=== PATIENT | male | born 1965 | race African-American/Black ===

== ENCOUNTER 2021-09-05 11:57 | Emergency (ER) | payer OTHER ==
--- OUTSIDE RECORDS SUMMARY | 2021-09-05 12:00 | XMS REPORT | Continuity of Care Document ---
:1965 Author Organization [facility] t Address [address] [place] [address] Care Team Providers Name Role Phone Daniel WHITE Primary Care Physician [facility] Attending Clinician Unavailable Jose Ramon High Attending Clinician Daniel WHITE Attending Clinician Payers Payer Name Policy Type Policy Number Effective Date Expiration Date S ource Problems Condition Condition Condition Status Onset Resolution Last Treating Co mments Source Name Details Category Date Date Treatment Clinician Date Ascending Ascending Disease Active Overview: Univers aortic aortic 5-13 Formattin ity of aneurysm aneurysm 00:00: g of this [place] 00 note Medical might be Branch different from the original. Added automatic ally from request for surgery [id number] Aortic Aortic Disease Active Univers insufficie insufficie 5-12 it y of ncy ncy 00:00: [place] 00 Medical Branch Secondary Secondary Disease Active Uni vers syphilis syphilis 4-18 ity of 00:00: [place] 00 Medical Branch SOB SOB Disease Active Univers (shortness (shortness 4-14 it y of of breath) of breath) [place] HFrEF HFrEF Disease Active Overview: Univer s (heart (heart 4-14 Formattin ity of failure failure 00:00: g of this [place] with with 00 note Medical reduced reduced might be Branch ejection ejection different fraction) fraction) from the original. 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 1-06 it y of ciency ciency 00:00: [place] virus virus 00 Medical infection) infection) Br anch HTN HTN Disease Active 2010-03 Univers (hypertens (hypertens 0-26 it y of ion) ion) 00:00: [place] [id number] Medical Branch DJD DJD Disease Active 2010-03 Univers (degenerat (degenerat 0-26 it y of neelam joint neelam joint [place] disease) disease[place] 00 Medica l of knee of knee Branch Gout Gout Disease Active 2010-03 Univers 0-26 ity of 00:00: [place] [address] Medical Branch Hepatitis Hepatitis Disease Active 2008-03 Uni vers C, chronic C, chronic 0-12 it y of 00:00: [place] [address] Medical Branch Allergies, Adverse Reactions, Alerts Allergy Allergy Status Severity Reaction(s) Onset Inactive Treating Comm ents Source Name Type Date Date Clinician NO KNOWN Drug Active Univers ALLERGIE Class ity of S [facility] [place] Social History Social Habit Start Date Stop Date Quantity Comments Source History [facility] o f Alcohol Frequency [facility] edical Branch History [facility] o f Alcohol Std Drinks [facility] [place] History [facility] o f Alcohol Binge [facility] al Branch History of tobacco Cigarette Smoker University of use [facility] [place] Alcohol intake 2021-08-24 2021-08-24 1.14 /d University of 00:00:00 00:00:00 [facility] [place] Exposure to 2021-08-07 2021-08-17 Not sure University SARS-CoV-2 (event) 00:00:00 15:47:00 [facility] [place] Cigarettes smoked 2015-10-06 2015-10-06 Univers ity of current (pack per 00:00:00 00:00:00 [facility] ) - Reported Branch Cigarette 2015-10-06 2015-10-06 University of pack-years 00:00:00 00:00:00 [facility] [place] Tobacco use and 2015-10-06 2015-10-06 Never used Universit y of exposure 00:00:00 00:00:00 [facility] [place] Alcohol Comment 2009-01-03 2009-01-03 beer, 7-8 per Kaitlynn sity of 00:00:00 00:00:00 week [facility] [place] Sex [birth year] At [birth year] Universit y of 00:00:00 00:00:00 [facility] [place] Smoking Status Start Date Stop Date Source Current some day smoker 2015-10-06 00:00:00 [facility]ations Ordered Filled Start Stop Current Ordering Indication Dosage Frequency Signature Comments Components Source Medication Medication Date Date Medication? Clinician (SIG) Name Name pantoprazol Yes [id number] 40mg Take 1 Univers e 40 mg EC 08-30 tablet by ity of tablet 00:00: mouth [place] 00 daily. [facility] Branch pantoprazol Yes [id number] 40mg Take 1 Univers e 40 mg EC 6 00 tablet by ity of tablet 00:00: mouth [place] 00 daily. [facility] Branch pantoprazol Yes [id number] 40mg Take 1 Univers e 40 mg EC 6 00 tablet by ity of tablet 00:00: mouth [place] 00 daily. Medical Branch aspirin 81 Yes Take by Uni vers mg Cap 6-07 mouth. ity of 16:27: [place] 31 [facility] Branch aspirin 81 Yes Take by Uni vers mg Cap 6-07 mouth. ity of 16:27: [place] [address] Medical Branch aspirin 81 Yes Take by Uni vers mg Cap 08-29 mouth. ity of 16:27: [place] [address] Medical Branch metoprolol Yes [id number] 25mg Take 1 Univers tartrate 25 6 00 tablet by ity of mg tablet 00:00: mouth 2 [place] 00 (two) Medical times Branch daily. warfarin 5 Yes [id number] 5mg Take 1 Univers mg tablet 08-29 00 tablet by ity o f 00:00: mouth [place] 00 every Medical evening. Branch metoprolol Yes [id number] 25mg Take 1 Univers tartrate 25 08-29 00 tablet by ity of mg tablet 00:00: mouth 2 [place] 00 (two) Medical times Branch daily. warfarin 5 Yes [id number] 5mg Take 1 Univers mg tablet 08-29 00 tablet by ity o f 00:00: mouth [place] 00 every Medical evening. Branch metoprolol Yes [id number] 25mg Take 1 Univers tartrate 25 08-29 tablet by ity of mg tablet 00:00: mouth 2 [place] 00 (two) Medical times Branch daily. warfarin 5 Yes [id number] 5mg Take 1 Univers mg tablet 08-29 00 tablet by ity o f 00:00: mouth [place] 00 every Medical evening. Branch ferrous 2021- Yes [id number] 325mg Take 1 Univers sulfate 325 08-29- tablet by it y of mg (65 mg 00:00: 04:59 [place] iron) 00 :00 (two) Medical tablet times Branch daily before breakfast and dinner for 30 days. ferrous 2021- Yes [id number] 325mg Take 1 Univers sulfate 325 08-29- tablet by it y of mg (65 mg 00:00: 04:59 [place] iron) 00 :00 (two) Medical tablet times Branch daily before breakfast and dinner for 30 days. ferrous 2021- Yes [id number] 325mg Take 1 Univers sulfate 325 08-29- 00 tablet by it y of mg (65 mg 00:00: 04:59 [place] iron) 00 :00 (two) Medical tablet times Branch daily before breakfast and dinner for 30 days. methocarbam 2021- Yes [id number] 500mg Take 1 Univers oL 500 mg 08-29 00 tablet by ity of tablet 00:00: 04:59 mouth 4 [place] 00 :00 (four) Medical times Branch daily for 7 days. methocarbam 2021- Yes [id number] 500mg Take 1 Univers oL 500 mg 08-29 00 tablet by ity of tablet 00:00: 04:59 mouth 4 [place] 00 :00 (four) Medical times Branch daily for 7 days. methocarbam 2021- Yes [id number] 500mg Take 1 Univers oL 500 mg 08-29 00 tablet by ity of tablet 00:00: 04:59 mouth 4 [place] 00 :00 (four) Medical times Branch daily for 7 days. HYDROcodone 2021- Yes [id number] 1{tbl} Take 1 U nivers -acetaminop 6-06 07-07 tablet by it y of hen (HydrostorCO) 00:00: 04:59 [place] 10-325 mg 00 :00 every 6 Medical tablet (six) Branch hours as needed for Pain (scale 7-10) for up to 30 days. Indication s: chronic pain HYDROcodone 2021- Yes [id number] 1{tbl} Take 1 U nivers -acetaminop 6-06 07-07 tablet by it y of hen (NORCO) 00:00: 04:59 [place] 10-325 mg 00 :00 every 6 Medical tablet (six) Branch hours as needed for Pain (scale 7-10) for up to 30 days. Indication s: chronic pain HYDROcodone 2021- Yes [id number] 1{tbl} Take 1 U nivers -acetaminop 6-06 07-07 tablet by it y of hen (HydrostorCO) 00:00: 04:59 [place] 10-325 mg 00 :00 every 6 Medical tablet (six) Branch hours as needed for Pain (scale 7-10) for up to 30 days. Indication s: chronic pain furosemide Yes [id number] 80mg Take 1 Univers 80 mg 4-27 tablet by ity of tablet 00:00: mouth [place] 00 every Medical morning Branch and evening. spironolact 2021-0 Yes [id number] 12.5mg Take 0.5 Univers one 25 mg 4-27 tablets by ity of tablet 00:00: mouth 00 daily. Medical Branch lisinopriL 2021-0 Yes [id number] 2.5mg Take 1 Univers 2.5 mg 4-27 tablet by ity of tablet 00:00: mouth 00 daily. Medical Branch furosemide 2021-0 Yes [id number] 80mg Take 1 Univers 80 mg 4-27 tablet by ity of tablet 00:00: mouth [place] 00 every Medical morning Branch and evening. spironolact 2021-0 Yes [id number] 12.5mg Take 0.5 Univers one 25 mg 4-27 tablets by ity of tablet 00:00: mouth 00 daily. Medical Branch lisinopriL 2021-0 Yes [id number] 2.5mg Take 1 Univers 2.5 mg 4-27 tablet by ity of tablet 00:00: mouth 00 daily. Medical Branch furosemide 2021-0 Yes [id number] 80mg Take 1 Univers 80 mg 4-27 tablet by ity of tablet 00:00: mouth 00 every Medical morning Branch and evening. spironolact 2021-0 Yes [id number] 12.5mg Take 0.5 Univers one 25 mg 4-27 tablets by ity of tablet 00:00: mouth 00 daily. Medical Branch lisinopriL 2021-0 Yes [id number] 2.5mg Take 1 Univers 2.5 mg 4-27 tablet by ity of tablet 00:00: mouth 00 daily. Medical Branch gabapentin 2-0 Yes [id number] TAKE 1 U nivers 300 mg 2-09 CAPSULE BY ity of capsule 00:00: MOUTH 00 EVERYDAY Medical AT BEDTIME Branch gabapentin 2-0 Yes [id number] TAKE 1 U nivers 300 mg 2-09 CAPSULE BY ity of capsule 00:00: MOUTH 00 EVERYDAY Medical AT BEDTIME Branch gabapentin 2-0 Yes [id number] TAKE 1 U nivers 300 mg 2-09 CAPSULE BY ity of capsule 00:00: MOUTH 00 EVERYDAY Medical AT BEDTIME Branch JULUCA 2020-0 Yes [id number] TAKE 50 MG U nivers 50-25 mg 5-28 BY MOUTH ity of Tab 00:00: DAILY. [place] 00 TAKE ONE Medical 50/25 MG Branch TABLET ONCE DAILY WITH A MEAL JULUCA 2020-0 Yes [id number] TAKE 50 MG U nivers 50-25 mg 5-28 BY MOUTH ity of Tab 00:00: DAILY. [place] 00 TAKE ONE Medical 50/25 MG Branch TABLET ONCE DAILY WITH A MEAL JULUCA 2020-0 Yes [id number] TAKE 50 MG U nivers 50-25 mg 5-28 BY MOUTH ity of Tab 00:00: DAILY. [place] TAKE ONE Medical 50/25 MG Branch TABLET ONCE DAILY WITH A MEAL Diclofenac 2017-03 Yes Apply Univer s Sodium 1 % 0-19 1gram to ity o f gel 00:00: affected [place] area twice Medical daily Branch Diclofenac 2017-03 Yes Apply Univer s Sodium 1 % 0-19 1gram to ity o f gel 00:00: affected [place] area twice Medical daily Branch Diclofenac 2017-03 Yes Apply Univer s Sodium 1 % 0-19 1gram to ity o f gel 00:00: affected [place] 00 area twice Medical daily Branch Immunizations Ordered Filled Immunization Date Status Comments [facility] e Immunization Name Name SARS-COV-2 COVID-19 2021-02-22 Completed Unive rsity of PFIZER VACCINE 00:00:00 [facility] SARS-COV-2 COVID-19 2021-02-22 Completed Unive rsity of PFIZER VACCINE 00:00:00 [facility] SARS-COV-2 COVID-19 2021-02-22 Completed Unive rsity of PFIZER VACCINE 00:00:00 [facility] SARS-COV-2 COVID-19 2020-08-25 Completed Unive rsity of PFIZER VACCINE 00:00:00 [facility] SARS-COV-2 COVID-19 2020-08-25 Completed Unive rsity of PFIZER VACCINE 00:00:00 [facility] SARS-COV-2 COVID-19 2020-08-25 Completed Unive rsity of PFIZER VACCINE 00:00:00 [facility] SARS-COV-2 COVID-19 2020-07-25 Completed Unive rsity of PFIZER VACCINE 00:00:00 [facility] SARS-COV-2 COVID-19 2020-07-25 Completed Unive rsity of PFIZER VACCINE 00:00:00 [facility] SARS-COV-2 COVID-19 2020-07-25 Completed Unive rsity of PFIZER VACCINE 00:00:00 [facility] Influenza Virus 2019-12-28 Completed Universit y of Vaccine Quad .5 mL 00:00:00 [facility] [place] 6+ MO [place] Influenza Virus 2019-12-28 Completed Universit y of Vaccine Quad .5 mL 00:00:00 [facility] [place] 6+ MO [place] Influenza Virus 2019-12-28 Completed Universit y of Vaccine Quad .5 mL 00:00:00 [facility] [place] 6+ MO [place] Influenza Virus 2019-01-05 Completed Universit y of Vaccine 00:00:00 [facility] [place] Influenza Virus 2019-01-05 Completed Universit y of Vaccine 00:00:00 [facility] [place] Influenza Virus 2019-01-05 Completed Universit y of Vaccine 00:00:00 [facility] [place] Pneumococcal 2017-05-13 Completed University o f Polysaccharide, 00:00:00 [facility] ical PPSV23 (PNEUMOVAX) Branch Pneumococcal 2017-05-13 Completed University o f Polysaccharide, 00:00:00 [facility] ical PPSV23 (PNEUMOVAX) Branch Pneumococcal 2017-05-13 Completed University o f Polysaccharide, 00:00:00 [facility] ical PPSV23 (PNEUMOVAX) Branch Influenza Virus 2017-01-02 Completed Universit y of Vaccine Quad IM 3+ 00:00:00 [facility] Influenza Virus 2017-01-02 Completed Universit y of Vaccine Quad IM 3+ 00:00:00 [facility] Influenza Virus 2017-01-02 Completed Universit y of Vaccine Quad IM 3+ 00:00:00 [facility] Influenza Virus 2016-01-16 Completed Universit y of Vaccine Quad IM 3+ 00:00:00 [facility] Influenza Virus 2016-01-16 Completed Universit y of Vaccine Quad IM 3+ 00:00:00 [facility] Influenza Virus 2016-01-16 Completed Universit y of Vaccine Quad IM 3+ 00:00:00 [facility] Pneumococcal 13 2015-04-20 Completed Universit y of Conjugate, PCV13 00:00:00 [facility] dical (Prevnar 13) Branch Pneumococcal 13 2015-04-20 Completed Universit y of Conjugate, PCV13 00:00:00 [facility] dical (Prevnar 13) Branch Pneumococcal 13 2015-04-20 Completed Universit y of Conjugate, PCV13 00:00:00 [facility] (Prevnar 13) Branch Influenza Virus 2014-12-15 Completed Universit y of Vaccine Quad IM 3+ 00:00:00 [facility] Influenza Virus 2014-12-15 Completed Universit y of Vaccine Quad IM 3+ 00:00:00 [facility] Influenza Virus 2014-12-15 Completed Universit y of Vaccine Quad IM 3+ 00:00:00 [facility] HEPATITIS A 2012-05-21 Completed University of 00:00:00 [facility] [place] HEPATITIS A 2012-05-21 Completed University of 00:00:00 [facility] [place] HEPATITIS A 2012-05-21 Completed University of 00:00:00 [facility] [place] Influenza Virus 2011-12-20 Completed Universit y of Vaccine 00:00:00 [facility] [place] TDAP (ADACEL) 2011-12-20 Completed University of VACCINE 00:00:00 [facility] [place] Influenza Virus 2011-12-20 Completed Universit y of Vaccine 00:00:00 [facility] [place] TDAP (ADACEL) 2011-12-20 Completed University of VACCINE 00:00:00 [facility] [place] Influenza Virus 2011-12-20 Completed Universit y of Vaccine 00:00:00 [facility] [place] TDAP (ADACEL) 2011-12-20 Completed University of VACCINE 00:00:00 [facility] [place] HEPATITIS A 2011-08-14 Completed University of 00:00:00 [facility] [place] HEPATITIS A 2011-08-14 Completed University of 00:00:00 [facility] [place] HEPATITIS A 2011-08-14 Completed University of 00:00:00 [facility] [place] Influenza Virus 2011-01-17 Completed Universit y of Vaccine 00:00:00 [facility] [place] Influenza Virus 2011-01-17 Completed Universit y of Vaccine 00:00:00 [facility] [place] Influenza Virus 2011-01-17 Completed Universit y of Vaccine 00:00:00 [facility] [place] Influenza Virus 2010-01-17 Completed Universit y of Vaccine 00:00:00 [facility] [place] Influenza Virus 2010-01-17 Completed Universit y of Vaccine 00:00:00 [facility] [place] Influenza Virus 2010-01-17 Completed Universit y of Vaccine 00:00:00 [facility] [place] H1n1 Vaccine 2009-04-06 Completed University o f 00:00:00 [facility] [place] H1n1 Vaccine 2009-04-06 Completed University o f 00:00:00 [facility] [place] H1n1 Vaccine 2009-04-06 Completed University o f 00:00:00 [facility] [place] Influenza Virus 2009-01-03 Completed Universit y of Vaccine 00:00:00 [facility] [place] Pneumococcal 2009-01-03 Completed University o f Polysaccharide, 00:00:00 [place] Med ical PPSV23 (PNEUMOVAX) Branch HEPATITIS A 2009-01-03 Completed University of 00:00:00 [facility] [place] Influenza Virus 2009-01-03 Completed Universit y of Vaccine 00:00:00 [facility] [place] Pneumococcal 2009-01-03 Completed University o f Polysaccharide, 00:00:00 [place] Med ical PPSV23 (PNEUMOVAX) Branch HEPATITIS A 2009-01-03 Completed University of 00:00:00 [facility] [place] Influenza Virus 2009-01-03 Completed Universit y of Vaccine 00:00:00 [facility] [place] Pneumococcal 2009-01-03 Completed University o f Polysaccharide, 00:00:00 [place] Med ical PPSV23 (PNEUMOVAX) Branch HEPATITIS A 2009-01-03 Completed University of 00:00:00 [facility] [place] Procedures This patient has no known procedures. Plan of Care Planned Activity Planned Date Details Comments Source Medication 2021-09-24 00:00:00 [facility] Bra nch tablet [code = 392673] Medication 2021-09-24 00:00:00 HYDROcodone-acetami U niversity [facility] nophen 10-325 mg Medical Bra nch tablet [code = 525983] Medication 2021-09-24 00:00:00 [facility] Medical Bra nch tablet [code = 234883] Encounters Start End Encounter Admission Attending Care Care Encounter Source Date/Time Date/Time Type Type Clinicians Facility Department ID 2021-09-07 2021-09-07 Outpatient R [facility] [id number] Univers 14:00:00 14:00:00 [id number] ity of [facility] [place] 2021-09-05 2021-09-05 Telephone [facility] UNIVERSIT [id number] Univers 00:00:00 00:00:00 , Y HEALTH [id number] i ty of Cardiovascu CLINICS [id number] [facility] [id number] [facility] 185 Branch 2021-09-05 2021-09-05 Telephone ALPESH Welch [id number] Univers 00:00:00 00:00:00 Kaye BEE [id number] ity [facility] [id number] [place]hoi as [id number] [facility] 037 Branch 2021-09-04 2021-09-04 Telephone ROLAND Sanchez [id number] Univers 00:00:00 00:00:00 [facility] [id number] i [facility] [id number] [place] [id number] [facility] 089 Branch Results This patient has no known results.
--- NOTE | 2021-09-05 13:05 | RAD REPORT ---
EXAM DESCRIPTION: Ana Single View09/05/2021 12:42 pm CLINICAL HISTORY: Shortness of breath COMPARISON: 2018 FINDINGS: The lungs appear clear of acute infiltrate. The heart is mildly to moderately enlarged. P acemaker leads are in place. There may be small bilateral pleural effusions.
[2021-09-05 13:53] LABS: Absolute Lymphocytes (CBC) 1.3 K/uL (0.7-4.9); Hematocrit 23.9 % (39.6-49.0); Lymphocytes % 9.4 % (15.3-44.8); MPV 6.5 fL (7.6-11.3); Protime INR 3.64; RBC Red Blood Cell Count 3.03 M/uL (4.33-5.43)
[2021-09-05 14:18] LABS: Albumin 2.9 g/dL (3.4-5.0); Bilirubin Direct 0.3 mg/dL (0-0.2); Bilirubin Total 0.5 mg/dL (0.2-1.0); Magnesium 2.4 mg/dL (1.8-2.4); Potassium 3.8 mmol/L (3.5-5.1); Protein, Total 7.7 g/dL (6.4-8.2)
[2021-09-05] MEDS ORDERED: FUROSEMIDE 20 MG/ 2ML VIAL ONE (14:26)
[2021-09-05] MEDS ORDERED: IPRATROPIUM BROM 0.5MG/2.5ML ONE (14:27)
[2021-09-05] MEDS ORDERED: ALBUTEROL 2.5 MG/3 ML NEB SOL ONE (14:27)
--- NOTE | 2021-09-05 14:44 | RAD REPORT ---
EXAM DESCRIPTION: USExtrem Venous W Compress Bil09/05/2021 2:30 pm CLINICAL HISTORY: Leg swelling COMPARISON: none FINDINGS: The common femoral, superficial femoral, popliteal and posterior tibial veins bilaterally are compressible and demonstrate augmentation. Doppler demonstrates good flow. Grayscale, color and spectral analysis performed on all vessels IMPRESSION: No evidence of deep venous thrombosis involving either lower extremity.
--- NOTE | 2021-09-05 16:16 | RAD REPORT ---
EXAM DESCRIPTION: CT - Chest Abd Pelvis Wo Rufino - 09/05/2021 3:52 pm CLINICAL HISTORY: Chest and abdominal pain COMPARISON: None TECHNIQUE: Computed axial tomography of the chest, abdomen and pelvis was obtained. Oral contrast wa s given. 140 cc of Isovue 370 was administered intravenously but due to machine malfunction imaging o f the aorta not obtained All CT scans are performed using dose optimization technique as appropriate and may include automated exposure control or mA/KV adjustment according to patient size. FINDINGS: The evaluation of mediastinum, nancy, vessels and solid organs is limited secondary to the lack of IV contrast administration . Patient is status post thoracic aortic repair. A low to intermediate density fluid collection surroun ds the ascending thoracic aorta. It measures approximately 8 x 4 x 6 centimeters. The fluid collectio n extends from the aortic root to the aortic arch. No air bubbles noted 2 x 1 centimeter retrosternal fluid collection. Minimal left and small right pleural effusions. Right basilar atelectasis. Gallstones The liver, spleen, pancreas, adrenals and kidneys appear grossly normal There is no evidence of diverticulitis. Contrast is present within the genitourinary system. IMPRESSION: 8 x 4 x 6 centimeter fluid collection surrounds the ascending thoracic aorta. This could be a normal postoperative finding. Other considerations include hematoma or leakage from the aorta. Comparison to prior imaging and/or the operative would be helpful
--- NOTE | 2021-09-05 17:18 | EDPHYS ---
Physician Documentation [facility] Name: Laurent England Jr Age: 55 yrs Sex: Male : 1965 Arrival Date: 09/05/2021 Time: 11:58 Bed 5 Private MD: ED Physician Myles Keane HPI: 09/05 12:15 This 55 yrs old Black Male presents to ER via EMS with complaints of Pedal Edema. cp 12:15 The patient has shortness of breath at rest. cp 12:15 Onset: The symptoms/episode began/occurred gradually. Duration: The symptoms are cp continuous, and are steadily getting worse. Associated signs and symptoms: Pertinent negatives: chest pain, productive cough, diaphoresis, fever, hemoptysis. Severity of symptoms: in the emergency department the symptoms are unchanged despite home interventions. 12:15 Patient reports history of aortic aneurysm repair performed by DR Jewell at [facility] on 08/23/2021. Reports he has not been taking prescribed Lasix and is prescribed 80 mg bid. Historical: - Allergies: 12:01 No Known Allergies; ss - Home Meds: 12:30 Juluca 50-25 mg oral tab 1 tab once daily [Active]; meloxicam 15 mg oral tab 1 tab once bp daily [Active]; hydrocodone-acetaminophen 10-325 mg Oral tab 1 tab every 6 hours [Active]; furosemide 80 mg Oral tab 1 tab 2 times per day [Active]; methocarbamol 500 mg Oral tab 1 tabs 4 times per day [Active]; warfarin 5 mg Oral tab 1 tab once daily [Active]; gabapentin 300 mg oral Tb24 1 tab once daily [Active]; ferrous sulfate 325 mg (65 mg iron) Oral TbEC 1 tab twice a day [Active]; - PMHx: 12:01 Gout; Hepatitis; HIV; Hypertension; ss - Immunization history:: Adult Immunizations unknown. - Social history:: Smoking status: . ROS: 12:20 Eyes: Negative for injury, pain, redness, and discharge. cp 12:20 Constitutional: Negative for body aches, chills, fever, poor PO intake. 12:20 ENT: Negative for drainage from ear(s), ear pain, sore throat, difficulty swallowing, difficulty handling secretions. 12:20 Cardiovascular: Positive for edema, Negative for chest pain, palpitations. 12:20 Respiratory: Positive for shortness of breath, at rest. Negative for cough, wheezing. 12:20 Abdomen/GI: Negative for abdominal pain, nausea, vomiting, and diarrhea. 12:20 Back: Negative for pain at rest, pain with movement. 12:20 Neuro: Negative for altered mental status, dizziness, headache, syncope, weakness. 12:20 All other systems are negative. Exam: 12:25 Constitutional: The patient appears in no acute distress, alert, awake, cp non-diaphoretic, non-toxic, well developed, well nourished, uncomfortable. 12:25 Head/Face: Normocephalic, atraumatic. cp 12:25 Eyes: Periorbital structures: appear normal, Conjunctiva: normal, no exudate, no injection, Lids and lashes: appear normal, bilaterally. 12:25 ENT: External ear(s): are unremarkable, Nose: is normal, Mouth: Lips: moist, Oral mucosa: moist, Posterior pharynx: Airway: no evidence of obstruction, patent. 12:25 Neck: ROM/movement: is normal, is supple, without pain, no range of motions limitations. 12:25 Chest/axilla: Inspection: normal, Palpation: is normal, no crepitus, no tenderness. 12:25 Cardiovascular: Rate: tachycardic, Rhythm: regular, Edema: pedal edema, that is moderate, ankle edema, that is moderate, JVD: is not appreciated. 12:25 Respiratory: the patient does not display signs of respiratory distress, Respirations: normal, no use of accessory muscles, no retractions, labored breathing, is not present, Breath sounds: are clear throughout, no decreased breath sounds, no stridor, no wheezing. 12:25 Abdomen/GI: Inspection: obese Bowel sounds: active, all quadrants, Palpation: soft, in all quadrants, nontender, in all quadrants. 12:25 Back: CVA tenderness, is absent. 12:25 Skin: cellulitis, is not appreciated, no rash present. 12:25 Neuro: Orientation: to person, place \\T\\ time. Mentation: is normal, Motor: moves all fours, strength is normal, Sensation: is normal. 13:05 ECG was reviewed by the Attending Physician. cp 14:45 : Rectal exam: Stool: black, Guaiac testing: results were negative for occult blood. Vital Signs: 13:36 BP 111 / 74; Pulse 85; Resp 23; Temp 97.9; Pulse Ox 100% on 4 lpm NC; bp 14:30 BP 106 / 77; Pulse 86; Resp 28; Pulse Ox 100% on 4 lpm NC; bp 15:32 BP 115 / 76; Pulse 93; Resp 22; Pulse Ox 100% ; bp 17:00 BP 110 / 82; Pulse 76; Resp 22; Pulse Ox 100% ; bp 19:40 Weight 90.72 kg; vc1 20:37 BP 105 / 75; Pulse 113; Resp 20; Pulse Ox 100% on R/A; sm5 MDM: 12:03 Patient medically screened. 17:00 Data reviewed: vital signs, nurses notes, lab test result(s), EKG, radiologic studies, cp CT scan, I have discussed the patient's presentation/case with the attending Emergency Department Physician; and as a result, I will transfer patient. 17:00 Test interpretation: by ED physician or midlevel provider: ECG, plain radiologic cp studies. 09/05 12:09 Order name: Basic Metabolic Panel; Complete Time: 14:24 09/05 14:24 Interpretation: Abnormal: GFR 67. 09/05 12:09 Order name: CBC with Diff; Complete Time: 14:24 09/05 14:24 Interpretation: Normal except: WBC 13.6; RBC 3.03; HGB 7.7; HCT 23.9; MCV 78.9; MCH cp 25.3; PLT 491; MPV 6.5; LUIS% 79.6; LYM% 9.4; NEUT A 10.9. 09/05 12:09 Order name: LFT's; Complete Time: 14:24 09/05 14:25 Interpretation: Normal except: BILID 0.3; ALB 2.9; GLOB 4.8; A/G 0.6. 09/05 12:09 Order name: Magnesium; Complete Time: 14:24 09/05 12:09 Order name: NT PRO-BNP; Complete Time: 14:24 09/05 16:16 Interpretation: Abnormal: NT PRO-BNP 4662. 09/05 12:09 Order name: PT-INR; Complete Time: 14:24 09/05 16:16 Interpretation: Reviewed. 09/05 12:09 Order name: Troponin HS; Complete Time: 14:24 09/05 16:18 Interpretation: Reviewed. 09/05 12:09 Order name: XRAY Chest (1 view); Complete Time: 13:50 09/05 13:50 Interpretation: Report review. 09/05 12:45 Order name: US Extremity Venous W Compression Matteo; Complete Time: 16:16 09/05 16:16 Interpretation: Report reviewed. 09/05 14:28 Order name: CT Aorta for Dissection 09/05 15:52 Order name: Chest Abd Pelvis Wo Con; Complete Time: 16:53 EDMS 09/05 17:06 Order name: COVID-19 SARS RT PCR (Document "Date of Onset" if Symptomatic) 09/05 12:09 Order name: EKG; Complete Time: 12:10 09/05 12:09 Order name: Cardiac monitoring; Complete Time: 12:41 09/05 12:09 Order name: EKG - Nurse/Tech; Complete Time: 13:36 09/05 12:09 Order name: IV Saline Lock; Complete Time: 13:36 09/05 12:09 Order name: Labs collected and sent; Complete Time: 13:36 09/05 12:09 Order name: O2 Per Protocol; Complete Time: 12:41 09/05 12:09 Order name: O2 Sat Monitoring; Complete Time: 12:40 cp EC:05 Rate is 87 beats/min. Rhythm is regular. UT interval is normal. QRS interval is cp prolonged at 110 msec. QT interval is normal. T waves are Inverted in leads I, aVL. Interpreted by me. Reviewed by me. Administered Medications: 14:00 Drug: Lasix (furosemide) 20 mg Route: IVP; Site: right forearm; bp 18:11 Follow up: Response: No adverse reaction bp 14:15 Drug: Albuterol - atroVENT (ipratropium) (3:1) (2.5 mg - 0.5 mg) 3 ml Route: Nebulizer; bp 18:11 Follow up: Response: No adverse reaction bp 20:37 Drug: fentaNYL (PF) 25 mcg Route: IVP; Site: right antecubital; sm5 21:08 Follow up: Response: No adverse reaction sm5 Disposition Summary: 09/05/21 17:17 Transfer Ordered Transfer Location: [facility] cp Reason: Higher level of care cp Condition: Stable cp Problem: new cp Symptoms: have improved cp Accepting Physician: DR Carreon(09/05/21 21:08) 5 Diagnosis - Unspecified combined systolic (congestive) and diastolic (congestive) heart failure cp - Dyspnea, unspecified cp - Post-Op Intrathoracic Fluid Collection cp Forms: - Medication Reconciliation Form cp - SBAR form cp Signatures: Dispatcher [employer] EDMS Rosy Hernandez RN RN ss Hall, Patricia RN RN ph Jem Roberson PA PA cp Johnny Vazquez, RN RN Kennedi Puri RN RN sm5 Corrections: (The following items were deleted from the chart) 13:36 13:04 BiPap ([employer] Only)+[id number] ordered. EDMS EDMS 15:52 14:32 Angio Aorta For Dissection ordered. EDMT EDMS 19:31 17:17 Doctor cp cp 19:33 19:31 DR Carreon cp cp 21:08 19:33 DR Carreon cp 5 09/06 19:52 09/05 21:20 Constitutional: Negative for body aches, chills, fever, poor PO intake, cp cp 09/06 19:52 09/05 21:20 Cardiovascular: Positive for edema, Negative for chest pain, palpitations, cp cp 09/06 19:52 09/05 21:20 Respiratory: Positive for shortness of breath, at rest. Negative for cough, cp wheezing, cp 09/06 19:52 09/05 21:20 Abdomen/GI: Negative for abdominal pain, nausea, vomiting, and diarrhea, cp cp 09/06 19:52 09/05 21:20 Eyes: Negative for injury, pain, redness, and discharge, cp cp 09/06 19:52 09/05 21:20 ENT: Negative for drainage from ear(s), ear pain, sore throat, difficulty cp swallowing, difficulty handling secretions, cp 09/06 19:52 09/05 21:20 Back: Negative for pain at rest, pain with movement, cp cp 09/06 19:52 09/05 21:20 Neuro: Negative for altered mental status, dizziness, headache, syncope, cp weakness, cp 09/06 19:52 09/05 21:20 All other systems are negative, cp cp
--- NOTE | 2021-09-05 17:18 | ER ---
Nurse's Notes [facility] Name: Laurent England Jr Age: 55 yrs Sex: Male : 1965 Arrival Date: 09/05/2021 Time: 11:58 Bed 5 Private MD: Diagnosis: Unspecified combined systolic (congestive) and diastolic (congestive) heart failure;Dyspnea, unspecified;Post-Op Intrathoracic Fluid Collection Presentation: 09/05 11:58 Chief complaint: Patient states: Pedal edema that has been slowly progressing since Aortic aneurysm repair on 08/23 at [facility]. Coronavirus screen: Client denies travel out of the [place] in the last 14 days. Ebola Screen: Patient denies exposure to infectious person. Patient denies travel to an Ebola-affected area in the 21 days before illness onset. Initial Sepsis Screen: Does the patient meet any 2 criteria? No. Patient's initial sepsis screen is negative. Does the patient have a suspected source of infection? No. Patient's initial sepsis screen is negative. Risk Assessment: Do you want to hurt yourself or someone else? Patient reports no desire to harm self or others. Onset of symptoms was August 2021. 11:58 Method Of Arrival: EMS: [facility] 11:58 Acuity: JUDITH 3 ss Triage Assessment: 12:00 General: Appears in no apparent distress. uncomfortable, obese, Behavior is calm, bp cooperative, appropriate for age. Pain: Complains of pain in right foot and left foot. EENT: No deficits noted. Neuro: Level of Consciousness is awake, alert, obeys commands, Oriented to Appropriate for age. Cardiovascular: Rhythm is sinus rhythm. Respiratory: Airway is patent Respiratory effort is labored, Breath sounds with wheezes. GI: No signs and/or symptoms were reported involving the gastrointestinal system. : No signs and/or symptoms were reported regarding the genitourinary system. Derm: No signs and/or symptoms reported regarding the dermatologic system. Musculoskeletal: Swelling present in right foot and left foot. Historical: - Allergies: 12:01 No Known Allergies; - Home Meds: 12:30 Juluca 50-25 mg oral tab 1 tab once daily [Active]; meloxicam 15 mg oral tab 1 tab once bp daily [Active]; hydrocodone-acetaminophen 10-325 mg Oral tab 1 tab every 6 hours [Active]; furosemide 80 mg Oral tab 1 tab 2 times per day [Active]; methocarbamol 500 mg Oral tab 1 tabs 4 times per day [Active]; warfarin 5 mg Oral tab 1 tab once daily [Active]; gabapentin 300 mg oral Tb24 1 tab once daily [Active]; ferrous sulfate 325 mg (65 mg iron) Oral TbEC 1 tab twice a day [Active]; - PMHx: 12:01 Gout; Hepatitis; HIV; Hypertension; ss - Immunization history:: Adult Immunizations unknown. - Social history:: Smoking status: . Screenin:39 Abuse screen: Denies threats or abuse. Denies injuries from another. Nutritional ph screening: No deficits noted. Tuberculosis screening: No symptoms or risk factors identified. Fall Risk None identified. Assessment: 12:00 General: SEE TRIAGE NOTE. bp 12:04 Reassessment: Sister requesting transfer to [facility] to ED registration staff. ss 14:00 Reassessment: Patient appears in no apparent distress at this time. U/S AT B/S Patient bp states symptoms have improved. 15:31 Reassessment: PT TO CT. bp 17:00 Reassessment: Initiated transfer with [facility]. Point of Contact ALLYSSA Dc. ss 17:15 Reassessment: ALLYSSA Dc with [facility] states that the physician accepted without ss consultation. Vanda states that they have two discharges pending and will call back with administer approval as soon as bed becomes available. 18:10 Reassessment: No changes from previously documented assessment. Patient and/or family bp updated on plan of care and expected duration. Pain level reassessed. 20:37 General: Appears in no apparent distress. Behavior is cooperative. Pain: Complains of sm5 pain in left foot and right foot. Neuro: No deficits noted. Level of Consciousness is awake, alert, obeys commands, Oriented to person, place, time, situation. Cardiovascular: No deficits noted. Capillary refill < 3 seconds Patient's skin is warm and dry. Respiratory: Airway is patent Trachea midline Respiratory effort is even, labored. Vital Signs: 13:36 BP 111 / 74; Pulse 85; Resp 23; Temp 97.9; Pulse Ox 100% on 4 lpm NC; bp 14:30 BP 106 / 77; Pulse 86; Resp 28; Pulse Ox 100% on 4 lpm NC; bp 15:32 BP 115 / 76; Pulse 93; Resp 22; Pulse Ox 100% ; bp 17:00 BP 110 / 82; Pulse 76; Resp 22; Pulse Ox 100% ; bp 19:40 Weight 90.72 kg; vc1 20:37 BP 105 / 75; Pulse 113; Resp 20; Pulse Ox 100% on R/A; sm5 ED Course: 11:58 Patient arrived in ED. ss 12:00 Maintain EMS IV. Dressing intact. Good blood return noted. Site clean \T\ dry. Gauge \T\ bp site: 18 G R AC. 12:01 Triage completed. ss 12:01 Arm band placed on right wrist. ss 12:02 Jem Roberson PA is PHCP. cp 12:02 Myles Keane MD is Attending Physician. cp 12:39 Denise Arrieta RN is Primary Nurse. ph 12:40 Patient has correct armband on for positive identification. Bed in low position. Call ph light in reach. Side rails up X 1. Client placed on continuous cardiac and pulse oximetry monitoring. NIBP monitoring applied. Door closed. Noise minimized. Warm blanket given. 12:44 XRAY Chest (1 view) In Process Unspecified. EDMS 14:32 US Extremity Venous W Compression Matteo In Process Unspecified. EDMS 15:52 Chest Abd Pelvis Wo Con In Process Unspecified. EDMS 17:30 initiated transfer to [facility]. bd 19:15 Acceptance for transfer to [facility] Rm: [id number], by Dr. Sanchez Carreon. 19:30 couldn't accept transport. Called [facility] and they gave an ETA of 23:00, Called [facility] with an ETA of 21:15. 21:07 No provider procedures requiring assistance completed. Patient transferred, IV remains sm5 in place. Administered Medications: 14:00 Drug: Lasix (furosemide) 20 mg Route: IVP; Site: right forearm; bp 18:11 Follow up: Response: No adverse reaction bp 14:15 Drug: Albuterol - atroVENT (ipratropium) (3:1) (2.5 mg - 0.5 mg) 3 ml Route: Nebulizer; bp 18:11 Follow up: Response: No adverse reaction bp 20:37 Drug: fentaNYL (PF) 25 mcg Route: IVP; Site: right antecubital; 5 21:08 Follow up: Response: No adverse reaction 5 Medication: 13:42 VIS not applicable for this client. ph Output: 17:35 Urine: 1500ml (Voided); Total: 1500ml. ph Outcome: 17:17 ER care complete, transfer ordered by cp 21:07 Transferred by ground EMS to [facility], Transfer form 5 completed. X-rays sent w/ patient. 21:07 Condition: stable 21:07 Instructed on the need for transfer. 21:08 Patient left the ED. 5 Signatures: Dispatcher [employer] EDMS Kaye Powell Shelby, RN RN ss Denise Arrieta RN RN ph Jem Roberson PA PA cp Peltier, Brian, RN RN Oliva Turcios Sarah, RN RN 5 Lilian Louis RN RN vc1 Corrections: (The following items were deleted from the chart) 18:12 13:36 BP 111 / 74; Pulse 85bpm; Resp 23bpm; Pulse Ox 100% 4 lpm Nasal Cannula; bp bp
[2021-09-05] MEDS ORDERED: FENTANYL CITR 100 MCG/2 ML ONE (20:39)
[2021-09-05 21:33] VITALS: TEMP 97.9; O2SAT 100
[2021-09-05 21:44] VITALS: BP 105/75
--- NOTE | 2021-09-06 08:08 | EKG ---
Test Date: 2021-09-05 Test Time: 13:21:44 Warpman: BP MEASUREMENT RESULTS: Intervals: Rate: 91 NV: QRSD: 114 QT: 390 QTc: 479 Manns Choice: P: NV: QRS: -11 T: 216 INTERPRETIVE STATEMENTS: Accelerated Junctional rhythm Minimal voltage criteria for LVH, may be normal variant Possible Anterior infarct, age undetermined ST & T wave abnormality, consider inferolateral ischemia Abnormal ECG Compared to ECG 09/05/2021 13:02:58 Accelerated junctional rhythm now present Left ventricular hypertrophy now present ST (T wave) deviation now present Possible ischemia now present Sinus rhythm no longer present Myocardial infarct finding still present Electronically Signed On 09-06-21 08:05:39 CDT by Evans Muro
--- NOTE | 2021-09-06 08:09 | EKG ---
Test Date: 2021-09-05 Test Time: 13:02:58 Gas Reverser: BP MEASUREMENT RESULTS: Intervals: Rate: 87 NV: 194 QRSD: 110 QT: 366 QTc: 440 Points: P: NV: 194 QRS: 2 T: 137 INTERPRETIVE STATEMENTS: Normal sinus rhythm Possible Anterior infarct, age undetermined Inferior injury pattern ACUTE SC / STEMI Consider right ventricular involvement in acute inferior infarct Abnormal ECG No previous ECG available for comparison Electronically Signed On 09-06-21 08:05:40 CDT by Evans Muro
== END 2021-09-05 21:08 | disposition short-term general hospital (02) ==
LOC: ER 11:57
DX: I50.40 Unspecified combined systolic (congestive) and diastolic (congestive) heart failure (principal); J95.811 Postprocedural pneumothorax; Z98.890 Other specified postprocedural states; I10 Essential (primary) hypertension; Z21 Asymptomatic human immunodeficiency virus [HIV] infection status; Z20.822 Contact with and (suspected) exposure to COVID-19
CPT/HCPCS: 93005 ×2; 85025; 80048; 36415; 83735; 85610; 80076; 84484; 83880; 71250; 74176; 71045; 93970; U0003; J1940; J3010; 94640; 99285

== ENCOUNTER 2022-08-25 09:47 | Inpatient (IN) | payer OTHER ==
--- OUTSIDE RECORDS SUMMARY | 2022-08-25 10:02 | XMS REPORT | Continuity of Care Document ---
:1965 Author Organization [facility] t Address [address] [place] [address] [address] [place] [address] Care Team Providers Name Role Phone ISAAC SANCHEZ Primary Care Physician Unavailable [id number] Attending Clinician Unavailable ÁNGEL CASTILLO Attending Clinician Unavailable ALBERTO GUY Attending Clinician Unavailable GIN CLEMENTS Attending Clinician Unavailable Grant Fong Anavella Attending Clinician UnaISAAC Jones Attending Clinician Unavailable Emy Lovell MD Attending Clinician Mateus [facility], Jeri Roberts Attending Clinician [phone] Nurse, Pcp Anticowyatt Attending Clinician Unavailable Isaac Noble Attending Clinician Gale [facility], Fallon Coleman Attending Clinician [phone] Clara Haddad MD Attending Clinician CLARA HADDAD Attending Clinician Unavailable Naresh Cm MD Attending Clinician Dotty Green MD Attending Clinician Bryant Murry MD Attending Clinician [facility] Attending Clinician Unavailable FRANCES SHEA Attending Clinician Unavailable Monse MATT, Frances Noble Attending Clinician Starr MATT, Gin Leyva Attending Clinician [phone] LAVONNE MOHAMUD Attending Clinician Unavailable 2, Adc Lab Attending Clinician Unavailable Tamiko CUENCA, Thea Attending Clinician Lavonne Mohamud DO Attending Clinician Doctor Unassigned, [place] Attending Clinician Unavailable VICKY MCCRACKEN Attending Clinician Unavailable Desire MATT, Kennedi Contreras Attending Clinician Vicky Mccracken DO Attending Clinician Ángel Castillo MD Attending Clinician Andres SPIVEY, Awa Fregoso Attending Clinician Unavailable Lauri MATT, Sanchez Attending Clinician [facility], Cardiovascular Attending Clinician Unavailable Hansa High Attending Clinician Benji MATT, Hayden Montanez Attending Clinician [phone] HANSA KEATING Attending Clinician Unavailable Yoshi Cherry MD Attending Clinician ANILA BIRMINGHAM Attending Clinician Unavailable 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[employer]ION [employer]CTURE, Anila Blankenship Attending Clinician Lab, Ang - Db Attending Clinician Unavailable Mario Alberto Leung MD Attending Clinician MARIO ALBERTO LEUNG Attending Clinician Unavailable YOSHI CHERRY Attending Clinician Unavailable Puneet Escobedo MD Attending Clinician Antonio Babcock MD Attending Clinician GEN BRITT Attending Clinician Unavailable Gen Britt DO Attending Clinician Marlon Sotelo MD Attending Clinician UNKNOWN, ATTENDING Attending Clinician Unavailable 1, Adc Lab Attending Clinician Unavailable [id number] Admitting Clinician Unavailable ÁNGEL CASTILLO Admitting Clinician Unavailable Hetal, Cynthia, Anav Admitting Clinician Unavailable DOTTY GREEN Admitting Clinician Unavailable Dotty Green MD Admitting Clinician VICKY MCCRACKEN Admitting Clinician Unavailable Ángel Castillo MD Admitting Clinician YOSHI CHERRY Admitting Clinician Unavailable Yoshi Cherry MD Admitting Clinician Payers Payer Name Policy Type Policy Number Effective Date Expiration Date Ashwini wood [employer]/[facility] DUAL [id number] 2020 COMP HMO D SNP 00:00:00 MEDICAID [facility] [id number] 2021 00:00:00 [facility] [id number] [facility] MEDICARE [id number] 2019 COMPLETE CHOICE 00:00:00 MEDICARE PART A [id number] 2001 \\T\\ B 00:00:00 Problems Condition Condition Condition Status Onset Resolution Last Treating Co mments Source Name Details Category Date Date Treatment Clinician Date Acute Acute Disease Active Univers ischemic ischemic 3-05 [place]y of right MCA right MCA [place] 00 [place] Cerebrovas Cerebrovas Disease Active U nivers cular cular 3-04 ity of accident accident 00:00: [place] (CVA), (CVA), 00 Medical unspecifie unspecifie Br anch d d mechanism mechanism Aortic Aortic Disease Active Univers valve valve 8-04 ity of replaced replaced 00:00: [place] 00 Medical Branch Warfarin Warfarin Disease Active Unive rs anticoagul anticoagul 6- it y of ation ation 00:00: [place] 00 Medical Branch Atrial Atrial Disease Active Univers fibrillati fibrillati 6-17 it y of on on 00:00: [place] 00 Medical Branch Volume Volume Disease Active Univers overload overload 6-14 ity of 00:00: [place] 00 Medical Branch s/p AVR s/p AVR Disease Active Univers (Composite (Composite 08-23 it y of aortic aortic 00:00: [place] root root 00 Medical replacemen replacemen Br anch t with a t with a [address] Andr[facility] Andrés mechanical mechanical valved valved conduit)on conduit)on 08/23/2021 08/23/2021 S/P S/P Disease Active Univers ascending ascending 6-01 ity of aortic aortic 00:00: [place] aneurysm aneurysm 00 Medica l repair repair Branch S/P S/P Disease Active Univers ascending ascending 6-01 ity of aortic aortic 00:00: [place] aneurysm aneurysm 00 Medica l repair repair Branch Ascending Ascending Disease Active Overview: Univers aortic aortic 5-13 Formattin ity of aneurysm aneurysm 00:00: g of this [place] 00 note Medical might be Branch different from the original. 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 U nivers cinosis cinosis 0-03 ity of due to due to 00:00: [place] dicalcium dicalcium 00 Medi j carlos phosphate phosphate Bran ch crystals, crystals, lower lower leg(712.16 leg(712.16 ) ) Anticoagul Anticoagul Disease Active 2017-03 U nivers ation ation 0-03 ity of management management 00:[place] encounter encounter 00 Medi j carlos Branch Chondrocal Chondrocal Disease Active Overview : Univers cinosis of cinosis of 9-27 Formattin ity of lower leg lower leg 00:00: [place] of this [place] due to due to 00 note Medical dicalcium dicalcium might be Br anch phosphate phosphate different crystals crystals from the original. 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 00:00: [place] virus virus 00 Medical infection) infection) Br anch HTN HTN Disease Active 2010-03 Univers (hypertens (hypertens 0-26 it y of ion) ion) 00:00: [place] 00 Medical Branch DJD DJD Disease Active 2010-03 Univers (degenerat (degenerat 0-26 it y of neelam joint neelam joint 00:[place] disease) disease) 00 Medica l of knee of knee Branch Gout Gout Disease Active 2010-03 Univers 0-26 ity of 00:00: [place] 00 Medical Branch Hepatitis Hepatitis Disease Active 2008-03 Uni vers C, chronic C, chronic 0-12 it y of 00:00: [address] Allergies, Adverse Reactions, Alerts Allergy Allergy Status Severity Reaction(s) Onset Inactive Treating Comm ents Source Name Type Date Date Clinician NO KNOWN Drug Active Univers ALLERGIE Class ity of S [facility] Family History Family Member Diagnosis Comments Start Date Stop Date Source Natural brother Musculoskeletal Univ ersity [facility] Natural father Diabetes [facility] Natural mother Arthritis [facility] Natural mother Hypertension Universi ty [facility] Natural mother Diabetes [facility] Natural sister Cancer [facility] Social History Social Habit Start Date Stop Date Quantity Comments Source History of tobacco Cigarette Smoker [facility] History SDOH Social Unive rsity of Connections [facility] Med ical Together Branch History SDOH Social Unive rsity of Connections [facility] Medical Branch History SDOH Social Unive rsity of Connections [place] Medical Membership Branch History SDOH Social Unive rsity of [facility] Medical Meetings Branch History SDOH 2022-05-27 2022-05-27 1 University o f Alcohol Frequency 00:00:00 00:00:00 [place] M edical Branch History SDOH 2022-05-27 2022-05-27 0 University o f Alcohol Std Drinks 00:00:00 00:00:00 [place] Medical Branch History SDOH 2022-05-27 2022-05-27 1 University o f Alcohol Binge 00:00:00 00:00:00 [place] Medic al Branch History SDOH Social 2022-05-27 2022-05-27 5 Unive rsity of Connections Phone 00:00:00 00:00:00 [place] M edical Branch History SDOH Social 2022-05-27 2022-05-27 98 Unive rsity of Connections Living 00:00:00 00:00:00 [place] Medical [facility] History SDOH 2022-05-27 2022-05-27 0 University o f Physical Activity 00:00:00 00:00:00 [facility] DPW Branch History SDWY 2022-05-27 2022-05-27 0 University o f Physical Activity 00:00:00 [facility] History SDW[facility] 2022-05-27 2022-05-27 3 University o f Financial 00:00:00 00:00:00 [place] Medical [facility] History SDWY Food 2022-05-27 2022-05-27 2 Univers ity of Worry 00:00:00 00:00:00 [place] Medical [facility] History SDOH Food 2022-05-27 2022-05-27 2 Univers ity of Scarcity 00:00:00 00:00:00 [place] Medical [facility] History SDWY 2022-05-27 2022-05-27 2 University o f Transport Med 00:00:00 00:00:00 [place] Medic al Branch History SDWY 2022-05-27 2022-05-27 2 University o f Transport Non-Med 00:00:00 00:00:00 [facility] Branch Exposure to 2022-05-16 2022-05-26 Not sure University of SARS-CoV-2 (event) 00:00:00 21:37:00 [facility] Cigarettes smoked 2022-04-13 2022-04-13 Univers ity of current (pack per 00:00:00 00:00:00 [facility] day) - Reported Branch Cigarette 2022-04-13 2022-04-13 University of pack-years 00:00:00 00:00:00 [facility] Tobacco use and 2022-04-13 2022-04-13 Smokeless Universit y of exposure 00:00:00 00:00:00 tobacco non-user [facility] dical Branch Alcohol intake 2022-04-13 2022-04-13 1.14 /d University of 00:00:00 00:00:00 [facility] Alcohol Comment 2009-01-03 2009-01-03 beer, 7-8 per Univer sity of 00:00:00 00:00:00 [facility]igned At [birth year] [facility]00 [facility] Smoking Status Start Date Stop Date Source Smokes tobacco daily 2022-04-13 00:00:00 [facility] Ex-smoker 2021-10-06 00:00:00 2021-10-06 00:00:00 [facility] Medications Ordered Filled Start Stop Current Ordering Indication Dosage Frequency Signature Comments Components Source Medication Medication Date Date Medication? Clinician (SIG) Name Name FELIPE Yes [id number] Take 1 Unive rs 50-25 mg 4-13 TAB-CAP/M2 ity o f Tab 00:00: by mouth [place] in the Medical morning. Branch FELIPE 2022-0 Yes [id number] Take 1 Unive rs 50-25 mg 4-13 TAB-CAP/M2 ity o f Tab 00:00: by mouth [place] in the Medical morning. Branch FELIPE 2022-0 Yes [id number] Take 1 Unive rs 50-25 mg 4-13 TAB-CAP/M2 ity o f Tab 00:00: by mouth [place] in the Medical morning. Branch FELIPE 2022-0 Yes [id number] Take 1 Unive rs 50-25 mg 4-13 TAB-CAP/M2 ity o f Tab 00:00: by mouth [place] in the Medical morning. Branch FELIPE 2022-0 Yes [id number] Take 1 Unive rs 50-25 mg 4-13 TAB-CAP/M2 ity o f Tab 00:00: by mouth [place] in the Medical morning. Branch dapaglifloz 2022-0 Yes [id number] 10mg Take 1 Univers in 10 mg 4-12 tablet by ity of tablet 00:00: mouth in [place] the Medical morning. Branch dapaglifloz 2022-0 Yes [id number] 10mg Take 1 Univers in 10 mg 4-12 tablet by ity of tablet 00:00: mouth in [place] the Medical morning. Branch dapaglifloz 3-0 Yes [id number] 10mg Take 1 Univers in 10 mg 4-12 tablet by ity of tablet 00:00: mouth in [place] the Medical morning. Branch dapaglifloz 2023-0 Yes [id number] 10mg Take 1 Univers in 10 mg 4-12 tablet by ity of tablet 00:00: mouth in [place] 00 the Medical morning. Branch dapaglifloz 3-0 Yes [id number] 10mg Take 1 Univers in 10 mg 4-12 tablet by ity of tablet 00:00: mouth in [place] the Medical morning. Branch dapaglifloz 3-0 Yes [id number] 10mg Take 1 Univers in 10 mg 4-12 tablet by ity of tablet 00:00: mouth in [place] the Medical morning. Branch HYDROcodone 3-0 Yes [id number] 1 po every Univers -acetaminop 3-20 6 hrs PRN ity of hen (NORCO) 00:00: severe [place] 10-325 mg 00 pain Medical tablet Indication Branch s: chronic pain, severe DJD HYDROcodone 3-0 Yes [id number] 1 po every Univers -acetaminop 3-20 6 hrs PRN ity of hen (NORCO) 00:00: severe [place] 10-325 mg 00 pain Medical tablet Indication Branch s: chronic pain, severe DJD HYDROcodone 3-0 Yes [id number] 1 po every Univers -acetaminop 3-20 6 hrs PRN ity of hen (NORCO) 00:00: severe [place] 10-325 mg 00 pain Medical tablet Indication Branch s: chronic pain, severe DJD HYDROcodone 3-0 Yes 2745 1 po every Univers -acetaminop 3-20 6 hrs PRN ity of hen (NORCO) 00:00: severe [place] 10-325 mg 00 pain Medical tablet Indication Branch s: chronic pain, severe DJD HYDROcodone 3-0 2023- No 2745 1 po every Univers -acetaminop 3-20 03-13 6 hrs PRN it y of hen (NORCO) 00:00: 00:00 severe [place] 10-325 mg 00 :00 pain Medical tablet Indication Branch s: chronic pain, severe DJD HYDROcodone 3-0 Yes 2745 1 po every Univers -acetaminop 3-17 6 hrs PRN ity of hen (NORCO) 00:00: severe [place] 10-325 mg 00 pain Medical tablet Indication Branch s: chronic pain, severe DJD HYDROcodone 3-0 2023- No 2745 1 po every Univers -acetaminop 3-17 01-24 6 hrs PRN it y of hen (NORCO) 00:00: 00:00 severe [place] 10-325 mg 00 :00 pain Medical tablet Indication Branch s: chronic pain, severe DJD aspirin 81 0 Yes Take by Univ ers mg Cap 3-14 mouth. ity of 07:36: [address] aspirin 81 0 Yes Take by Univ ers mg Cap 3-14 mouth. ity of 07:36: [address] Branch aspirin 81 2022-0 Yes Take by Univ ers mg Cap 3-14 mouth. ity of 07:36: [address] Branch aspirin 81 2022-0 Yes Take by Univ ers mg Cap 3-14 mouth. ity of 07:36: [address] Branch aspirin 81 2022-0 Yes Take by Univ ers mg Cap 3-14 mouth. ity of 07:36: [address] aspirin 81 2022-0 Yes Take by Univ ers mg Cap 3-14 mouth. ity of 07:36: [address] aspirin 81 2022-0 Yes Take by Univ ers mg Cap 3-14 mouth. ity of 07:36: [address] aspirin 81 2022-0 Yes Take by Univ ers mg Cap 3-14 mouth. ity of 07:36: [address] aspirin 81 2022-0 Yes Take by Univ ers mg Cap 3-14 mouth. ity of 07:36: [address] aspirin 81 2022-0 Yes Take by Univ ers mg Cap 3-14 mouth. ity of 07:36: [address] ketorolac 2022-0 2022- No 15mg 15 mg, Unive rs (TORADOL) 06-04 Slow IV ity of injection 23:00: 22:23 Push, [place] 15 mg 00 :00 ONCE, 1 Medical dose, On Branch 06/04/22 at 1800, Routine glycerin/mi 2022-0 2022- No 225mL 225 mL, U nivers neral oil 06-04 Rectal, ity of (AGLO 15:00: 18:58 ONCE, 1 [place] ENEMA) 00 :00 dose, On Medical (COMPOUNDED [facility] Branch ) Enem 225 06/04/22 at mL 1000, Routine atorvastati Yes 40mg Take 1 Univ ers n 40 mg 3-13 tablet by ity of tablet 00:00: mouth at [place] 00 bedtime. Medical Branch FLUoxetine 2023-0 Yes 10mg Take 1 Unive rs 10 mg 3-13 capsule by ity of capsule 00:00: mouth in [place] 00 the Medical morning. Branch levETIRAcet 2023-0 Yes 750mg Take 1 Uni vers am 750 mg 3-13 tablet by ity o f tablet 00:00: mouth in [place] 00 the Medical morning Branch and 1 tablet in the evening. atorvastati 2023-0 Yes 40mg Take 1 Univ ers n 40 mg 3-13 tablet by ity of tablet 00:00: mouth at [place] 00 bedtime. Medical Branch FLUoxetine 2023-0 Yes 10mg Take 1 Unive rs 10 mg 3-13 capsule by ity of capsule 00:00: mouth in [place] 00 the Medical morning. Branch levETIRAcet 2023-0 Yes 750mg Take 1 Uni vers am 750 mg 3-13 tablet by ity o f tablet 00:00: mouth in [place] 00 the Medical morning Branch and 1 tablet in the evening. atorvastati 2023-0 Yes 40mg Take 1 Univ ers n 40 mg 3-13 tablet by ity of tablet 00:00: mouth at [place] 00 bedtime. Medical Branch FLUoxetine 3-0 Yes 10mg Take 1 Unive rs 10 mg 3-13 capsule by ity of capsule 00:00: mouth in [place] 00 the Medical morning. Branch levETIRAcet 3-0 Yes 750mg Take 1 Uni vers am 750 mg 3-13 tablet by ity o f tablet 00:00: mouth in [place] 00 the Medical morning Branch and 1 tablet in the evening. atorvastati 2023-0 Yes 40mg Take 1 Univ ers n 40 mg 3-13 tablet by ity of tablet 00:00: mouth at [place] 00 bedtime. Medical Branch FLUoxetine 2023-0 Yes 10mg Take 1 Unive rs 10 mg 3-13 capsule by ity of capsule 00:00: mouth in [place] 00 the Medical morning. Branch levETIRAcet 2023-0 Yes 750mg Take 1 Uni vers am 750 mg 3-13 tablet by ity o f tablet 00:00: mouth in [place] 00 the Medical morning Branch and 1 tablet in the evening. atorvastati 2023-0 Yes 40mg Take 1 Univ ers n 40 mg 3-13 tablet by ity of tablet 00:00: mouth at [place] 00 bedtime. Medical Branch FLUoxetine 3-0 Yes 10mg Take 1 Unive rs 10 mg 3-13 capsule by ity of capsule 00:00: mouth in [place] 00 the Medical morning. Branch levETIRAcet 2022-0 Yes 750mg Take 1 Uni vers am 750 mg 3-13 tablet by ity o f tablet 00:00: mouth in [place] 00 the Medical morning Branch and 1 tablet in the evening. atorvastati 3-0 Yes 40mg Take 1 Univ ers n 40 mg 3-13 tablet by ity of tablet 00:00: mouth at [place] 00 bedtime. Medical Branch FLUoxetine 2022-0 Yes 10mg Take 1 Unive rs 10 mg 3-13 capsule by ity of capsule 00:00: mouth in [place] 00 the Medical morning. Branch levETIRAcet 2022-0 Yes 750mg Take 1 Uni vers am 750 mg 3-13 tablet by ity o f tablet 00:00: mouth in [place] 00 the Medical morning Branch and 1 tablet in the evening. atorvastati 3-0 Yes 40mg Take 1 Univ ers n 40 mg 3-13 tablet by ity of tablet 00:00: mouth at [place] 00 bedtime. Medical Branch FLUoxetine 2022-0 Yes 10mg Take 1 Unive rs 10 mg 3-13 capsule by ity of capsule 00:00: mouth in [place] 00 the Medical morning. Branch levETIRAcet 2022-0 Yes 750mg Take 1 Uni vers am 750 mg 3-13 tablet by ity o f tablet 00:00: mouth in [place] 00 the Medical morning Branch and 1 tablet in the evening. atorvastati 3-0 Yes 40mg Take 1 Univ ers n 40 mg 3-13 tablet by ity of tablet 00:00: mouth at [place] 00 bedtime. Medical Branch FLUoxetine 3-0 Yes 10mg Take 1 Unive rs 10 mg 3-13 capsule by ity of capsule 00:00: mouth in [place] 00 the Medical morning. Branch levETIRAcet 2022-0 Yes 750mg Take 1 Uni vers am 750 mg 3-13 tablet by ity o f tablet 00:00: mouth in [place] 00 the Medical morning Branch and 1 tablet in the evening. levETIRAcet 2022-0 Yes 750mg 750 mg, Un david am (KEPPRA) 3-11 Oral, BID, it y of tablet 750 02:00: First dose [place] mg 00 on Fri Medical 06/01/22 at Branch 2000, Until Discontinu ed, Routine lidocaine 2022- No 1{patch 1 Patch, Univers (LIDODERM) 06-01 } Topical, ity of 5 % (700 18:30: 07:03 Administer [place] mg/patch) 00 :00 over 12 Medical patch 1 Hours, Branch Patch ONCE, 1 dose, On Sat06/01/22 at 1230, Routine levETIRAcet 2022- No 1500mg 1,500 mg, Univers am (KEPPRA) 06-01 IV ity of in NACL 17:45: 17:22 Piggyback, [place] (ISO-OS) 00 :00 ONCE, 1 Medical 1,500 dose, On [place] mg/100 mL Fri RTU 06/01/22 at 1145, Administer over 15 Minutes, 100 mL lactulose Yes 15mL 15 mL, Univer s (CEPHULAC) 06-01 Oral, ity of solution 15 15:00: DAILY, [place] mL 00 First dose Medical on Fri Branch 06/01/22 at 0900, Until Discontinu ed, Routine spironolact Yes 12.5mg 12.5 mg, Univers one 10 Oral, ity of (ALDACTONE) 15:00: DAILY, [place] tablet 12.5 00 First dose Me dical mg on [facility] 06/01/22 at 0900, Until Discontinu ed, Routine KCL 2022- No 20meq 20 mEq, Univers (KLOR-CON 06-0110 Oral, ity of M20) tablet 14:00: 15:53 ONCE, 1 [place] 20 mEq 00 :00 dose, On Medical Fri [place] 06/01/22 at 0800, Routine sennosides Yes 8.6mg 8.6 mg, Uni vers (SENOKOT) 3-10 Oral, BID, ity of tablet 8.6 02:00: First dose [place] mg 00 (after Medical last Branch modificati on) on N[place] 05/31/22 at 2000, Until Discontinu ed, Routine sacubitriL- 2023-0 Yes 1{tbl} 1 tablet, [facility] valsartan 3-10 Oral, BID, ity of (ENTRESTO) 02:00: First dose [place] 24-26 mg 00 on [facility] Medical tablet 1 05/31/22 at Branch tablet 2000, Until Discontinu ed, Routine
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 05/31/22 Branch at 1530, Routine polyethylen Yes 17g 17 g, Unive rs e glycol 05-31 Oral, ity of 3350 powder 15:15: DAILY, [place] 17 g 00 First dose Medical on [facility] 05/31/22 at 0915, Until Discontinu ed, Routine sennosides 2022- No 8.6mg 8.6 mg, Un david (SENOKOT) 05-31 Oral, ity of tablet 8.6 15:15: 23:01 DAILY, [place] mg 00 :20 First dose Medical on [facility] 05/31/22 at 0915, Until Discontinu ed, Routine FLUoxetine Yes 10mg 10 mg, Unive rs (PROZAC) 05-31 Oral, ity of capsule 10 15:00: DAILY, [place] mg 00 First dose Medical on [facility] 05/31/22 at 0900, Until Discontinu ed, Routine carvediloL Yes 12.5mg 12.5 mg, U nivers (COREG) 05-31 Oral, BID ity of tablet 12.5 14:00: MEALS, [place] mg 00 First dose Medical (after Branch last modificati on) on [facility] 05/31/22 at 0800, Until Discontinu ed, Routine warfarin 2022- No 6mg 6 mg, Univers (COUMADIN) 05-30 Oral, ity of tablet 6 mg 23:00: 05:18 DAILY AT [place] 00 :00 1700, Medical First dose Branch (after last modificati on) on Sat05/30/22 at 1700, Until Discontinu ed, Routine
INR Goal Range: 2.5-3.5
INDICATIO N (More than one indication for warfarin can be selected): Bioprosthe tic AVR carvediloL 2022- No 6.25mg 6.25 mg, Univers (COREG) 05-30 Oral, BID ity of tablet 6.25 23:00: 13:30 MEALS, [place] mg 00 :58 First dose Medical (after Branch last modificati on) on Sat05/30/22 at 1700, Until Discontinu ed, Routine iopamidol 2022- No [id number] 160mL 160 mL, Univers (ISOVUE 05-30 00 Intravenou ity o f 370-500 mL) 16:00: 15:48 s, ONCE, 1 [place] injection 00 :00 dose, On Medica l 160 mL Sat05/30/22 Branch at 1000, Routine warfarin 2022- No 3mg 3 mg, Univers (COUMADIN) 05-29 Oral, ity of tablet 3 mg 23:00: 18:42 DAILY AT [place] 00 :25 1700, Medical First dose Branch on Sat05/29/22 at 1700, Until Discontinu ed, Routine
INR Goal Range: 2.5-3.5
INDICATIO N (More than one indication for warfarin can be selected): Bioprosthe tic AVR lidocaine 2022- No Topical, Uni vers 4% 05-29 PRN, ity of (XYLOCAINE) 20:08: 20:08 Starting [place] 4 % (40 26 :26 on Sat Medical mg/mL) 05/29/22 at Branch topical 1408, solution Until Sat05/29/22 at 1408, Routine, Intra-op FENTanyl PF 2022- No Slow IV Un david (SUBLIMAZE 3-07 03-07 Push, PRN, it y of (PF)) 20:07: 20:07 Starting [place] injection 55 :55 on [facility] 05/29/22 at Branch 1407, Until 05/29/22 at 1407, Routine, Intra-op midazolam IV Push, Uni vers (VERSED) 05-29 PRN, ity of injection 20:07: 20:07 Starting [place] 34 :34 on [facility] 05/29/22 at Branch 1407, Until Sat05/29/22 at 1407, Routine, Intra-op carvediloL 2022- No 3.125mg 3.125 mg, Univers (COREG) 05-29 Oral, BID ity of tablet 14:15: 16:17 MEALS, [place] 3.125 mg 00 :00 First dose Medic al on [facility] 05/29/22 at 0815, Until Discontinu ed, Routine aspirin 81 Yes Take by [facility] ers mg Cap 05-29 mouth. ity of 12:06: [place] [address] [facility] acetaminoph Yes 650mg 650 mg, Un david en 05-29 Oral, ity of (TYLENOL) 01:07: Q6HPRN, [place] tablet 650 36 Starting Medic al mg on [facility] 05/28/22 at 1907, Until Discontinu ed, Routine, Pain (scale 1-3), Pain (scale 4-6) barium 2022- No [id number] 20mL 20 mL, Uni vers sulfate-NO 05-28 Oral, ity of CHARGE- 19:45: 19:40 ONCE, 1 [place] (VARIBAR 00 :00 dose, On Medical NECTOR) 40 Sat05/28/22 Bra nch % (w/v) at 1345, oral Routine suspension 20 mL barium 2022- No [id number] 30g 30 g, Univ ers sulfate 05-28 Oral, ity of (VARIBAR 19:45: 19:40 ONCE, 1 [place] THIN 00 :00 dose, On Medical LIQUID) 81 [facility] 05/28/22 Bra nch % (w/w) at 1345, oral powder Routine 30 g sulfur 2022- No [id number] 5mL 5 mL, Univ ers hexafluorid 05-28 Intravenou i ty of e microsphr 15:15: 15:15 s, ONCE, 1 [place] (LUMASON) 00 :00 dose, On Medica l injection 5 Sat05/28/22 Br anch mL at 0915, Routine
tennis desk team member approving Restricted medication : SHAYLA KYE JUDIE YADIELANTWAN FAJARDO Saline Yes [id number] 6mL 6 mL, Unive rs Bubble 05-28 Injection, ity of Study 15:06: SEE-INSTRU [place] 03 CTIONS, Medical Starting Branch on Sat05/28/22 at 0906, Until Discontinu ed, Routine potassium 2022- No 20meq 20 mEq, IV Univers chloride in 05-28 Piggyback, i ty of water (KCL) 13:30: 19:49 Q2H ES, 2 [place] 20 mEq/100 00 :00 doses, Medical mL RTU IVPB First dose Br anch 20 mEq on Sat05/28/22 at 0730, Last dose on Sat05/28/22 at 0930, 100 mL aspirin Yes 81mg 81 mg, Univers chewable 306 Oral, ity of tablet 81 04:45: DAILY, [place] mg 00 First dose Medical on [facility] 05/27/22 at 2245, Until Discontinu ed, Routine atorvastati Yes 40mg 40 mg, Univ ers n (LIPITOR) 3-06 Oral, QHS, it y of tablet 40 03:00: First dose [place] mg 00 on [facility] 05/27/22 at Branch 2100, Until Discontinu ed, Routine rilpivirine Yes 25mg 25 mg, Univ ers HCl 3-05 Oral, ity of (EDURANT) 15:00: DAILY, [place] tablet 25 00 First dose Medi j carlos mg on [facility] 05/27/22 at 0900, Until Discontinu ed, Routine dolutegravi Yes 50mg 50 mg, Univ ers r (TIVICAY) 3-05 Oral, ity of tablet 50 15:00: DAILY, [place] mg 00 First dose Medical on [facility] 05/27/22 at 0900, Until Discontinu ed, RENA Sliding Yes Subcutaneo Univ ers Scale 3-05 us, TID ity of Insulin - 14:00: MEALS+HS, [place] Lispro 00 First dose Medical (HumaLOG) + on [facility] 05/27/22 at Testing 0800, Until Discontinu ed, Routine famotidine Yes 20mg 20 mg, Unive rs (PEPCID AC) 05 Oral, BID, it y of tablet 20 14:00: First dose [place] mg 00 on [facility] 05/27/22 at Branch 0800, Until Discontinu ed, Routine heparin 2022- No 5000U 5,000 Univers (porcine) 05-27 03-13 Units, ity of injection 14:00: 05:17 Subcutaneo [place] 5,000 Units 00 :15 us, Q12H, Med ical First dose Branch on [facility] 05/27/22 at 0800, Until Discontinu ed, Routine aspirin 2022- No 650mg 650 mg, Unive rs tablet 650 05-27-05 Oral, ity of mg 08:00: 07:57 ONCE, 1 [place] 00 :00 dose, On Medical [facility] 05/27/22 Branch at 0200, Routine NaCl 0.9% 2022- No 1000mL at 20 [facility] ers (NS) IV 05-27-08 mL/hr, IV ity of infusion 06:00: 19:35 Infusion, [place] 1,000 mL 00 :11 CONTINUOUS Medic al , Starting Branch on [place] [facility] 05/27/22 at 0000, Until Sat05/30/22 at 1335, Routine
To keep vein open.
potassium 2022- No 20meq 20 mEq, IV Univers chloride in 05-27-05 Piggyback, i ty of water (KCL) 06:00: 08:08 ONCE, 1 [place] 20 mEq/100 00 :00 dose, On Medic al mL RTU IVPB [place] [facility] 05/27/22 Br anch 20 mEq at 0000, 100 mL dextrose Yes 250mL 250 mL, IV Un david 10% (D10W) 05-27 Infusion, ity of bolus 05:50: PRN - SEE [place] infusion 01 INSTRUCTIO Medic al 250 mL NS, Branch Administer over 60 Minutes, Other, If blood glucose is < or = 70 mg/dL and patient is unable to swallow or has mental status changes, Starting on 05/26/22 at 2350
If blood glucose is < or = 70 mg/dL and patient is unable to swallow or has mental status changes (Give glucagon order if patient needs fluid restrictio n): IF IV access available: Dextrose 10%. 1. 125 mL (? bag) of D10W IV infusion - equivalent to 12.5 g dextrose 2. Blood glucose - draw blood glucose 15 minutes after D10W Administra tion. 3. If blood glucose is < 80 mg/dL, repeat.
glucagon Yes 1mg 1 mg, Univers (GLUCAGEN 05-27 Intramuscu ity of DIAGNOSTIC 05:49: lar, PRN, [place] KIT) 57 Starting Medical injection 1 on [facility] Branch mg 05/26/22 at 2349, Until Discontinu ed, RENA, Blood Glucose < or = 70 mg/dL and patient is NPO, unable to swallow or has mental changes. clopidogreL 0 2022- No 300mg 300 mg, U nivers (PLAVIX) 05-2705 Oral, ity of 300 mg 05:30: 06:52 ONCE, 1 [place] tablet 300 00 :00 dose, On Medic al mg 05/26/22 Branch at 2330, Routine iopamidol 2022-0 202- No [id number] 80mL 80 mL, Univers (ISOVUE 05-27 Intravenou ity o f 370-500 mL) 05:00: 05:00 s, ONCE, 1 [place] injection 00 :00 dose, On Medica l 80 mL 05/26/22 Branch at 2300, Routine nicotine 2022-0 Yes 1{patch 1 Patch, Un david (NICODERM) 05-27 } Topical, ity o f 21 mg/24 hr 04:45: Administer [place] patch 1 00 over 24 Medical Patch Hours, Branch Q24H, First dose on 05/26/22 at 2245, Until Discontinu ed, Routine labetaloL 2022- Yes 10mg 10 mg, Univer s (NORMODYNE) 3-05 Slow IV ity o f injection 04:37: Push, [place] 10 mg 57 [id number], 5 Medical doses, Branch Starting on 05/26/22 at 2237, Until Discontinu ed, Routine, Hypertensi on SBP> 220 NaCl 0.9% 2023-0 Yes 5mL 5 mL, Slow Un david (NS) 3-05 IV Push, ity of injection 5 03:37: PRN - SEE [place] mL 11 INSTRUCTIO Medical NS, Branch Starting on 05/26/22 at 2137, Until Discontinu ed, 10 mL NaCl 0.9% 2023-0 Yes 5mL 5 mL, Slow Un david (NS) 3-05 IV Push, ity of injection 5 03:36: PRN - SEE [place] mL 46 INSTRUCTIO Medical NS, Branch Starting on 05/26/22 at 2136, Until Discontinu ed, 10 mL HYDROcodone 2022-0 Yes 2745 1{tbl} Take 1 Un david -acetaminop 2-20 tablet by ity of hen (NORCO) 00:00: mouth [place] 10-325 mg 00 every 6 Medical tablet (six) Branch hours as needed for Pain (scale 7-10). Indication s: chronic pain HYDROcodone 2022-0 Yes 2745 1{tbl} Take 1 Un david -acetaminop 2-20 tablet by ity of hen (NORCO) 00:00: mouth [place] 10-325 mg 00 every 6 Medical tablet (six) Branch hours as needed for Pain (scale 7-10). Indication s: chronic pain HYDROcodone 2022-0 Yes 2745 1{tbl} Take 1 Un david -acetaminop 2-20 tablet by ity of hen (NORCO) 00:00: mouth [place] 10-325 mg 00 every 6 Medical tablet (six) Branch hours as needed for Pain (scale 7-10). Indication s: chronic pain HYDROcodone 2022-0 Yes 2745 1{tbl} Take 1 Un david -acetaminop 2-20 tablet by ity of hen (NORCO) 00:00: mouth [place] 10-325 mg 00 every 6 Medical tablet (six) Branch hours as needed for Pain (scale 7-10). Indication s: chronic pain HYDROcodone 2022-0 2023- No 2745 1{tbl} Take 1 U nivers -acetaminop 2-20 03-13 tablet by it y of hen (NORCO) 00:00: 00:00 [place] 10-325 mg 00 :00 every 6 Medical tablet (six) Branch hours as needed for Pain (scale 7-10). Indication s: chronic pain HYDROcodone 2023-0 Yes 2745 1{tbl} Take 1 Un david -acetaminop 2-17 tablet by ity of hen (NORCO) 00:00: mouth [place] 10-325 mg 00 every 6 Medical tablet (six) Branch hours as needed for Pain (scale 7-10). Indication s: chronic pain HYDROcodone 2023-0 2023- No 2745 1{tbl} Take 1 U nivers -acetaminop 2-17 01-24 tablet by it y of hen (NORCO) 00:00: 00:00 [place] 10-325 mg 00 :00 every 6 Medical tablet (six) Branch hours as needed for Pain (scale 7-10). Indication s: chronic pain HYDROcodone 2023-0 Yes 2745 1 po every Univers -acetaminop 1-24 6 hrs PRN ity of hen (NORCO) 00:00: severe [place] 10-325 mg 00 pain Medical tablet Indication Branch s: chronic pain, severe DJD HYDROcodone 2023-0 Yes 2745 1 po every Univers -acetaminop 1-24 6 hrs PRN ity of hen (NORCO) 00:00: severe [place] 10-325 mg 00 pain Medical tablet Indication Branch s: chronic pain, severe DJD HYDROcodone 2023-0 Yes 2745 1 po every Univers -acetaminop 1-24 6 hrs PRN ity of hen (NORCO) 00:00: severe [place] 10-325 mg 00 pain Medical tablet Indication Branch s: chronic pain, severe DJD HYDROcodone 2023-0 Yes 2745 1 po every Univers -acetaminop 1-24 6 hrs PRN ity of hen (NORCO) 00:00: severe [place] 10-325 mg 00 pain Medical tablet Indication Branch s: chronic pain, severe DJD HYDROcodone 2023-0 2023- No 2745 1 po every Univers -acetaminop 1-24 03-13 6 hrs PRN it y of hen (NORCO) 00:00: 00:00 severe [place] 10-325 mg 00 :00 pain Medical tablet Indication Branch s: chronic pain, severe DJD aspirin 81 Yes Take by Univ ers mg Cap 1-20 mouth. ity of 09:34: [address] aspirin 81 0 Yes Take by Univ ers mg Cap 1-20 mouth. ity of 09:34: [address] aspirin 81 0 Yes Take by Univ ers mg Cap 1-20 mouth. ity of 09:34: [address] aspirin 81 0 Yes Take by Univ ers mg Cap 1-20 mouth. ity of 09:34: [address] aspirin 81 0 Yes Take by Univ ers mg Cap 1-20 mouth. ity of 09:34: [address] HYDROcodone Yes 2745 1 po every Univers -acetaminop 1-20 6 hrs PRN ity of hen (NORCO) 00:00: severe [place] 10-325 mg 00 pain Medical tablet Indication Branch s: chronic pain, severe DJD HYDROcodone 2022- No 2745 1 po every Univers -acetaminop 1-20 01-24 6 hrs PRN it y of hen (NORCO) 00:00: 00:00 severe [place] 10-325 mg 00 :00 pain Medical tablet Indication Branch s: chronic pain, severe DJD metoprolol 2021-03 Yes [id number] 25mg Take 1 U nivers succinate 2-29 tablet by ity o f XL 25 mg 24 00:00: mouth in [place] hr tablet 00 the Medical morning. Branch metoprolol 2021-03 Yes [id number] 25mg Take 1 U nivers succinate 2-29 tablet by ity o f XL 25 mg 24 00:00: mouth in [place] hr tablet 00 the Medical morning. Branch metoprolol 2021-03 Yes [id number] 25mg Take 1 U nivers succinate 2-29 tablet by ity o f XL 25 mg 24 00:00: mouth in [place] hr tablet 00 the Medical morning. Branch metoprolol 2021-03 Yes [id number] 25mg Take 1 U nivers succinate 2-29 tablet by ity o f XL 25 mg 24 00:00: mouth in [place] hr tablet 00 the Medical morning. Branch metoprolol 2021-03 Yes [id number] 25mg Take 1 U nivers succinate 2-29 tablet by ity o f XL 25 mg 24 00:00: mouth in [place] hr tablet 00 the Medical morning. Branch metoprolol 2021-03 Yes [id number] 25mg Take 1 U nivers succinate 2-29 tablet by ity o f XL 25 mg 24 00:00: mouth in [place] hr tablet 00 the Medical morning. Branch metoprolol 2021-03 Yes [id number] 25mg Take 1 U nivers succinate 2-29 tablet by ity o f XL 25 mg 24 00:00: mouth in [place] hr tablet 00 the Medical morning. Branch metoprolol 2021-03 Yes [id number] 25mg Take 1 U nivers succinate 2-29 tablet by ity o f XL 25 mg 24 00:00: mouth in [place] hr tablet 00 the Medical morning. Branch metoprolol 2021-03 Yes [id number] 25mg Take 1 U nivers succinate 2-29 tablet by ity o f XL 25 mg 24 00:00: mouth in [place] hr tablet 00 the Medical morning. Branch metoprolol 2021-03 Yes [id number] 25mg Take 1 U nivers succinate 2-29 tablet by ity o f XL 25 mg 24 00:00: mouth in [place] hr tablet 00 the Medical morning. Branch metoprolol 2021-03 Yes [id number] 25mg Take 1 U nivers succinate 2-29 tablet by ity o f XL 25 mg 24 00:00: mouth in [place] hr tablet 00 the Medical morning. Branch metoprolol 2021-03 Yes [id number] 25mg Take 1 U nivers succinate 2-29 tablet by ity o f XL 25 mg 24 00:00: mouth in [place] hr tablet 00 the Medical morning. Branch metoprolol 2021-03 Yes [id number] 25mg Take 1 U nivers succinate 2-29 tablet by ity o f XL 25 mg 24 00:00: mouth in [place] hr tablet 00 the Medical morning. Branch metoprolol 2021-03 Yes [id number] 25mg Take 1 U nivers succinate 2-29 tablet by ity o f XL 25 mg 24 00:00: mouth in [place] hr tablet 00 the Medical morning. Branch metoprolol 2021-03 Yes [id number] 25mg Take 1 U nivers succinate 2-29 tablet by ity o f XL 25 mg 24 00:00: mouth in [place] hr tablet 00 the Medical morning. Branch metoprolol 2021-03 Yes [id number] 25mg Take 1 U nivers succinate 2-29 tablet by ity o f XL 25 mg 24 00:00: mouth in [place] hr tablet 00 the Medical morning. Branch metoprolol 2021-03 Yes [id number] 25mg Take 1 U nivers succinate 2-29 tablet by ity o f XL 25 mg 24 00:00: mouth in [place] hr tablet 00 the Medical morning. Branch metoprolol 2021-03 Yes [id number] 25mg Take 1 U nivers succinate 2-29 tablet by ity o f XL 25 mg 24 00:00: mouth in [place] hr tablet 00 the morning. Branch metoprolol 2021-03 Yes [id number] 25mg Take 1 U nivers succinate 2-29 tablet by ity o f XL 25 mg 24 00:00: mouth in [place] hr tablet 00 the morning. Branch metoprolol 2021-03 Yes [id number] 25mg Take 1 U nivers succinate 2-29 tablet by ity o f XL 25 mg 24 00:00: mouth in [place] hr tablet 00 the Medical morning. Branch HYDROcodone 2021-03 Yes 2745 1 po every Univers -acetaminop 2-19 6 hrs PRN ity of hen (NORCO) 00:00: severe [place] 10-325 mg 00 pain Medical tablet Indication Branch s: chronic pain, severe DJD HYDROcodone 2021-03 Yes 2745 1 po every Univers -acetaminop 2-19 6 hrs PRN ity of hen (NORCO) 00:00: severe [place] 10-325 mg 00 pain Medical tablet Indication Branch s: chronic pain, severe DJD HYDROcodone 2021-03 Yes 2745 1 po every Univers -acetaminop 2-19 6 hrs PRN ity of hen (NORCO) 00:00: severe [place] 10-325 mg 00 pain Medical tablet Indication Branch s: chronic pain, severe DJD HYDROcodone 2021-03 Yes 2745 1 po every Univers -acetaminop 2-19 6 hrs PRN ity of hen (NORCO) 00:00: severe [place] 10-325 mg 00 pain Medical tablet Indication Branch s: chronic pain, severe DJD HYDROcodone 2021-03 Yes 2745 1 po every Univers -acetaminop 2-19 6 hrs PRN ity of hen (NORCO) 00:00: severe [place] 10-325 mg 00 pain Medical tablet Indication Branch s: chronic pain, severe DJD HYDROcodone 2021-03 Yes 2745 1 po every Univers -acetaminop 2-19 6 hrs PRN ity of hen (NORCO) 00:00: severe [place] 10-325 mg 00 pain Medical tablet Indication Branch s: chronic pain, severe DJD HYDROcodone 2021-03 Yes 2745 1 po every Univers -acetaminop 2-19 6 hrs PRN ity of hen (NORCO) 00:00: severe [place] 10-325 mg 00 pain Medical tablet Indication Branch s: chronic pain, severe DJD HYDROcodone 2021-03 Yes 2745 1 po every Univers -acetaminop 2-19 6 hrs PRN ity of hen (NORCO) 00:00: severe [place] 10-325 mg 00 pain Medical tablet Indication Branch s: chronic pain, severe DJD HYDROcodone 2021-03 Yes 2745 1 po every Univers -acetaminop 2-19 6 hrs PRN ity of hen (NORCO) 00:00: severe [place] 10-325 mg 00 pain Medical tablet Indication Branch s: chronic pain, severe DJD HYDROcodone 2021-03 Yes 2745 1 po every Univers -acetaminop 2-19 6 hrs PRN ity of hen (NORCO) 00:00: severe [place] 10-325 mg 00 pain Medical tablet Indication Branch s: chronic pain, severe DJD HYDROcodone 2021-03 Yes 2745 1 po every Univers -acetaminop 2-19 6 hrs PRN ity of hen (NORCO) 00:00: severe [place] 10-325 mg 00 pain Medical tablet Indication Branch s: chronic pain, severe DJD HYDROcodone 2021-03 Yes 2745 1 po every Univers -acetaminop 2-19 6 hrs PRN ity of hen (NORCO) 00:00: severe [place] 10-325 mg 00 pain Medical tablet Indication Branch s: chronic pain, severe DJD HYDROcodone 2021-03 Yes 2745 1 po every Univers -acetaminop 2-19 6 hrs PRN ity of hen (NORCO) 00:00: severe [place] 10-325 mg 00 pain Medical tablet Indication Branch s: chronic pain, severe DJD HYDROcodone 2021-03- No 2745 1 po every Univers -acetaminop 2-19 01-20 6 hrs PRN it y of hen (NORCO) 00:00: 00:00 severe [place] 10-325 mg 00 :00 pain Medical tablet Indication Branch s: chronic pain, severe DJD HYDROcodone 2021-03- No 2745 1 po every Univers -acetaminop 2-19 01-20 6 hrs PRN it y of hen (NORCO) 00:00: 00:00 severe [place] 10-325 mg 00 :00 pain Medical tablet Indication Branch s: chronic pain, severe DJD HYDROcodone 2021-03- No 2745 1 po every Univers -acetaminop 2-19 01-20 6 hrs PRN it y of hen (NORCO) 00:00: 00:00 severe [place] 10-325 mg 00 :00 pain Medical tablet Indication Branch s: chronic pain, severe DJD HYDROcodone 2021-03 Yes 2745 1{tbl} Take 1 Un david -acetaminop 1-21 tablet by ity of hen (NORCO) 00:00: mouth [place] 10-325 mg 00 every 6 Medical tablet (six) Branch hours as needed for Pain (scale 7-10). Indication s: chronic pain HYDROcodone 2021-03 Yes 2745 1{tbl} Take 1 Un david -acetaminop 1-21 tablet by ity of hen (NORCO) 00:00: mouth [place] 10-325 mg 00 every 6 Medical tablet (six) Branch hours as needed for Pain (scale 7-10). Indication s: chronic pain HYDROcodone 2021-03 Yes 2745 1{tbl} Take 1 [facility] -acetaminop 1-21 tablet by ity of hen (NORCO) 00:00: mouth [place] 10-325 mg 00 every 6 Medical tablet (six) Branch hours as needed for Pain (scale 7-10). Indication s: chronic pain HYDROcodone 2021-03 Yes 2745 1{tbl} Take 1 [facility]id -acetaminop 1-21 tablet by ity of hen (NORCO) 00:00: mouth [place] 10-325 mg 00 every 6 Medical tablet (six) Branch hours as needed for Pain (scale 7-10). Indication s: chronic pain HYDROcodone 2021-03 Yes 2745 1{tbl} Take 1 [facility]id -acetaminop 1-21 tablet by ity of hen (NORCO) 00:00: mouth [place] 10-325 mg 00 every 6 Medical tablet (six) Branch hours as needed for Pain (scale 7-10). Indication s: chronic pain HYDROcodone 2021-03 Yes 2745 1{tbl} Take 1 [facility] -acetaminop 1-21 tablet by ity of hen (NORCO) 00:00: mouth [place] 10-325 mg 00 every 6 Medical tablet (six) Branch hours as needed for Pain (scale 7-10). Indication s: chronic pain HYDROcodone 2021-03 Yes 2745 1{tbl} Take 1 [facility] -acetaminop 1-21 tablet by ity of hen (NORCO) 00:00: mouth [place] 10-325 mg 00 every 6 Medical tablet (six) Branch hours as needed for Pain (scale 7-10). Indication s: chronic pain HYDROcodone 2021-03 Yes 2745 1{tbl} Take 1 [facility] -acetaminop 1-21 tablet by ity of hen (NORCO) 00:00: mouth [place] 10-325 mg 00 every 6 Medical tablet (six) Branch hours as needed for Pain (scale 7-10). Indication s: chronic pain HYDROcodone 2021-03 Yes 2745 1{tbl} Take 1 [facility]id -acetaminop 1-21 tablet by ity of hen (NORCO) 00:00: mouth [place] 10-325 mg 00 every 6 Medical tablet (six) Branch hours as needed for Pain (scale 7-10). Indication s: chronic pain HYDROcodone 2021-03 Yes 2745 1{tbl} Take 1 [facility] -acetaminop 1-21 tablet by ity of hen (NORCO) 00:00: mouth [place] 10-325 mg 00 every 6 Medical tablet (six) Branch hours as needed for Pain (scale 7-10). Indication s: chronic pain HYDROcodone 2021-03 Yes 2745 1{tbl} Take 1 [facility] -acetaminop 1-21 tablet by ity of hen (NORCO) 00:00: mouth [place] 10-325 mg 00 every 6 Medical tablet (six) Branch hours as needed for Pain (scale 7-10). Indication s: chronic pain HYDROcodone 2021-03 Yes 2745 1{tbl} Take 1 [facility] -acetaminop 1-21 tablet by ity of hen (NORCO) 00:00: mouth [place] 10-325 mg 00 every 6 Medical tablet (six) Branch hours as needed for Pain (scale 7-10). Indication s: chronic pain HYDROcodone 2021-03 Yes 2745 1{tbl} Take 1 [facility]id -acetaminop 1-21 tablet by ity of hen (NORCO) 00:00: mouth [place] 10-325 mg 00 every 6 Medical tablet (six) Branch hours as needed for Pain (scale 7-10). Indication s: chronic pain HYDROcodone 2021-03- No 2745 1{tbl} Take 1 U nivers -acetaminop 1-21 01-20 tablet by it y of hen (NORCO) 00:00: 00:00 [place] 10-325 mg 00 :00 every 6 Medical tablet (six) Branch hours as needed for Pain (scale 7-10). Indication s: chronic pain HYDROcodone 2021-03- No 2745 1{tbl} Take 1 U nivers -acetaminop 1-21 01-20 tablet by it y of hen (NORCO) 00:00: 00:00 [place] 10-325 mg 00 :00 every 6 Medical tablet (six) Branch hours as needed for Pain (scale 7-10). Indication s: chronic pain HYDROcodone 2021-03- No 2745 1{tbl} Take 1 U nivers -acetaminop 1-21 01-20 tablet by it y of hen (NORCO) 00:00: 00:00 [place] 10-325 mg 00 :00 every 6 Medical tablet (six) Branch hours as needed for Pain (scale 7-10). Indication s: chronic pain metoprolol 2021-03 Yes TAKE ONE Uni vers tartrate 25 1-16 (1) ity of mg tablet 00:00: TABLET(S) [place] 00 BY MOUTH Medical EVERY Branch EIGHT HOURS. metoprolol 2021-03 Yes TAKE ONE Uni vers tartrate 25 1-16 (1) ity of mg tablet 00:00: TABLET(S) [place] 00 BY MOUTH Medical EVERY Branch EIGHT HOURS. metoprolol 2021-03 Yes TAKE ONE Uni vers tartrate 25 1-16 (1) ity of mg tablet 00:00: TABLET(S) [place] 00 BY MOUTH Medical EVERY Branch EIGHT HOURS. metoprolol 2021-03 Yes TAKE ONE Uni vers tartrate 25 1-16 (1) ity of mg tablet 00:00: TABLET(S) [place] 00 BY MOUTH Medical EVERY Branch EIGHT HOURS. metoprolol 2021-03 Yes TAKE ONE Uni vers tartrate 25 1-16 (1) ity of mg tablet 00:00: TABLET(S) [place] 00 BY MOUTH Medical EVERY Branch EIGHT HOURS. metoprolol 2021-03 Yes TAKE ONE Uni vers tartrate 25 1-16 (1) ity of mg tablet 00:00: TABLET(S) [place] 00 BY MOUTH Medical EVERY Branch EIGHT HOURS. metoprolol 2021-03- No TAKE ONE [facility] david tartrate 25 1-16 -13 (1) ity of mg tablet 00:00: 00:00 TABLET(S) [place] 00 :00 BY MOUTH Medical EVERY Branch EIGHT HOURS. metoprolol 2021-03- No TAKE ONE [place] [facility] tartrate 25 1-16 -13 (1) ity of mg tablet 00:00: 00:00 TABLET(S) [place] 00 :00 BY MOUTH Medical EVERY Branch EIGHT HOURS. metoprolol 2021-03- No TAKE ONE [place] [facility] tartrate 25 -16 -13 (1) ity of mg tablet 00:00: 00:00 TABLET(S) [place] 00 :00 BY MOUTH Medical EVERY Branch EIGHT HOURS. metoprolol 2021-03 Yes [id number] 25mg Take 1 U nivers succinate 1-08 tablet by ity o f XL 25 mg 24 00:00: mouth in [place] hr tablet 00 the Medical morning. Branch metoprolol 2021-03 Yes [id number] 25mg Take 1 U nivers succinate 1-08 tablet by ity o f XL 25 mg 24 00:00: mouth in [place] hr tablet 00 the Medical morning. Branch metoprolol 2021-03 Yes [id number] 25mg Take 1 U nivers succinate 08 tablet by ity o f XL 25 mg 24 00:00: mouth in [place] hr tablet 00 the morning. Branch metoprolol 2021-03- No [id number] 25mg Take 1 Univers succinate 04-01 12-29 tablet by ity of XL 25 mg 24 00:00: 00:00 mouth [place] hr tablet 00 :00 the Medical morning. Branch HYDROcodone 2021-03 Yes 2745 1 po every Univers -acetaminop 0-24 6 hrs PRN ity of hen (NORCO) 00:00: [place] 10-325 mg 00 pain Medical tablet Indication Branch s: chronic pain, severe DJD HYDROcodone 2021-03 Yes 2745 1 po every Univers -acetaminop 0-24 6 hrs PRN ity of hen (NORCO) 00:00: [place] 10-325 mg 00 pain Medical tablet Indication Branch s: chronic pain, severe DJD HYDROcodone 2021-03 Yes 2745 1 po every Univers -acetaminop 0-24 6 hrs PRN ity of hen (NORCO) 00:00: [place] 10-325 mg 00 pain Medical tablet Indication Branch s: chronic pain, severe DJD HYDROcodone 2021-03 Yes 2745 1 po every Univers -acetaminop 0-24 6 hrs PRN ity of hen (NORCO) 00:00: [place] 10-325 mg 00 pain Medical tablet Indication Branch s: chronic pain, severe DJD HYDROcodone 2021-03 Yes 2745 1 po every Univers -acetaminop 0-24 6 hrs PRN ity of hen (NORCO) 00:00: [place] 10-325 mg 00 pain Medical tablet Indication Branch s: chronic pain, severe DJD HYDROcodone 2021-03 Yes 2745 1 po every Univers -acetaminop 0-24 6 hrs PRN ity of hen (NORCO) 00:00: [place] 10-325 mg 00 pain Medical tablet Indication Branch s: chronic pain, severe DJD HYDROcodone 2021-03 Yes 2745 1 po every Univers -acetaminop 0-24 6 hrs PRN ity of hen (NORCO) 00:00: [place] 10-325 mg 00 pain Medical tablet Indication Branch s: chronic pain, severe DJD HYDROcodone 2021-03 Yes 2745 1 po every Univers -acetaminop 0-24 6 hrs PRN ity of hen (NORCO) 00:00: [place] 10-325 mg 00 pain Medical tablet Indication Branch s: chronic pain, severe DJD HYDROcodone 2021-03 Yes 2745 1 po every Univers -acetaminop 0-24 6 hrs PRN ity of hen (NORCO) 00:00: [place] 10-325 mg 00 pain Medical tablet Indication Branch s: chronic pain, severe DJD HYDROcodone 2021-03 Yes 2745 1 po every Univers -acetaminop 0-24 6 hrs PRN ity of hen (NORCO) 00:00: [place] 10-325 mg 00 pain Medical tablet Indication Branch s: chronic pain, severe DJD HYDROcodone 2021-03 Yes 2745 1 po every Univers -acetaminop 0-24 6 hrs PRN ity of hen (NORCO) 00:00: severe [place] 10-325 mg 00 pain Medical tablet Indication Branch s: chronic pain, severe DJD HYDROcodone 2021-03 Yes 2745 1 po every Univers -acetaminop 0-24 6 hrs PRN ity of hen (NORCO) 00:00: [place] 10-325 mg 00 pain Medical tablet Indication Branch s: chronic pain, severe DJD HYDROcodone 2021-03 Yes 2745 1 po every Univers -acetaminop 0-24 6 hrs PRN ity of hen (NORCO) 00:00: [place] 10-325 mg 00 pain Medical tablet Indication Branch s: chronic pain, severe DJD HYDROcodone 2021-03- No 2745 1 po every [facility] -acetaminop 0-24 01-20 6 hrs PRN [facility] of [facility] ([facility]) 00:00: 00:00 severe [place] 10-325 mg 00 :00 pain Medical tablet Indication Branch s: chronic pain, severe DJD HYDROcodone 2021-03- No 2745 1 po every [facility] -acetaminop 0-24 01-20 6 hrs PRN [facility] of [facility] ([facility]) 00:00: 00:00 severe [place] 10-325 mg 00 :00 pain Medical tablet Indication Branch s: chronic pain, severe DJD HYDROcodone 2021-03- No 2745 1 po every [facility] -acetaminop 0-24 01-20 6 hrs PRN [facility] of hen ([facility]CO) 00:00: 00:00 severe [place] 10-325 mg 00 :00 pain Medical tablet Indication Branch s: chronic pain, severe DJD Diclofenac 2021-03 Yes [id number] Apply Un [facility] Sodium 1 % 0-05 1gram to ity o f gel 00:00: affected 00 area twice Medical daily Branch Diclofenac 2021-03 Yes [id number] Apply Un [facility] Sodium 1 % 0-05 1gram to ity o f gel 00:00: affected [place] 00 area twice Medical daily Branch Diclofenac 2021-03 Yes [id number] Apply Un [facility] Sodium 1 % 0-05 1gram to ity o f gel 00:00: affected 00 area twice Medical daily Branch Diclofenac 2021-03 Yes [id number] Apply Un [facility] Sodium 1 % 0-05 1gram to ity o f gel 00:00: affected [place] 00 area twice Medical daily Branch Diclofenac 2021-03 Yes [id number] Apply Un [facility] Sodium 1 % 0-05 1gram to ity o f gel 00:00: affected [place] 00 area twice Medical daily Branch Diclofenac 2021-03 Yes [id number] Apply Un [facility] Sodium 1 % 0-05 1gram to ity o f gel 00:00: affected [place] 00 area twice Medical daily Branch Diclofenac 2021-03 Yes [id number] Apply Un dav[facility] Sodium 1 % 0-05 1gram to ity o f gel 00:00: affected [place] 00 area twice Medical daily Branch Diclofenac 2021-03 Yes [id number] Apply Un [facility] Sodium 1 % 0-05 1gram to ity o f gel 00:00: affected [place] 00 area twice Medical daily Branch Diclofenac 2021-03 Yes [id number] Apply Un [facility] Sodium 1 % 0-05 1gram to ity o f gel 00:00: affected [place] 00 area twice Medical daily Branch Diclofenac 2021-03 Yes [id number] Apply Un dav[facility] Sodium 1 % 0-05 1gram to ity o f gel 00:00: affected [place] 00 area twice Medical daily Branch Diclofenac 2021-03 Yes [id number] Apply Un [facility] Sodium 1 % 0-05 1gram to ity o f gel 00:00: affected 00 area twice Medical daily Branch Diclofenac 2021-03 Yes [id number] Apply Un [facility] Sodium 1 % 0-05 1gram to ity o f gel 00:00: affected [place] 00 area twice Medical daily Branch Diclofenac 2021- Yes [id number] Apply Un [facility] Sodium 1 % 0-05 1gram to ity o f gel 00:00: affected [place] 00 area twice Medical daily Branch Diclofenac 2021-03 Yes [id number] Apply Un [facility] Sodium 1 % 0-05 1gram to ity o f gel 00:00: affected [place] 00 area twice Medical daily Branch Diclofenac 2021- Yes [id number] Apply Un [facility] Sodium 1 % 0-05 1gram to ity o f gel 00:00: affected [place] 00 area twice Medical daily Branch Diclofenac 2021-03 Yes [id number] Apply Un [facility] Sodium 1 % 0-05 1gram to ity o f gel 00:00: affected [place] 00 area twice Medical daily Branch Diclofenac 2021-03 Yes [id number] Apply Un [facility] Sodium 1 % 0-05 1gram to ity o f gel 00:00: affected [place] 00 area twice Medical daily Branch Diclofenac 2021- Yes [id number] Apply [facility] Sodium 1 % 0-05 1gram to ity o f gel 00:00: affected [place] 00 area twice Medical daily Branch Diclofenac 2021- Yes [id number] Apply Un [facility] Sodium 1 % 0-05 1gram to ity o f gel 00:00: affected [place] 00 area twice Medical daily Branch Diclofenac 2021- Yes [id number] Apply [facility] Sodium 1 % 0-05 1gram to ity o f gel 00:00: affected [place] 00 area twice Medical daily Branch Diclofenac 2021- Yes [id number] Apply [facility] Sodium 1 % 0-05 1gram to ity o f gel 00:00: affected [place] 00 area twice Medical daily Branch Diclofenac 2021- Yes [id number] Apply [facility] Sodium 1 % 0-05 1gram to ity o f gel 00:00: affected [place] 00 area twice Medical daily Branch Diclofenac 2021- Yes [id number] Apply [facility] Sodium 1 % 0-05 1gram to ity o f gel 00:00: affected [place] 00 area twice Medical daily Branch Diclofenac 2021- Yes [id number] Apply [facility] Sodium 1 % 0-05 1gram to ity o f gel 00:00: affected [place] 00 area twice Medical daily Branch Diclofenac 2021-03 Yes [id number] Apply [facility] Sodium 1 % 0-05 1gram to ity o f gel 00:00: affected [place] 00 area twice Medical daily Branch Diclofenac 2021-03 Yes [id number] Apply [facility] Sodium 1 % 0-05 1gram to ity o f gel 00:00: affected [place] 00 area twice Medical daily Branch Diclofenac 2021-03 Yes [id number] Apply [facility] Sodium 1 % 0-05 1gram to ity o f gel 00:00: affected [place] 00 area twice Medical daily Branch Diclofenac 2021-03 Yes [id number] Apply [facility] Sodium 1 % 0-05 1gram to ity o f gel 00:00: affected [place] 00 area twice Medical daily Branch Diclofenac 2021-03 Yes [id number] Apply [facility] Sodium 1 % 0-05 1gram to ity o f gel 00:00: affected [place] 00 area twice Medical daily Branch Diclofenac 2021-03 Yes [id number] Apply [facility] Sodium 1 % 0-05 1gram to ity o f gel 00:00: affected [place] 00 area twice Medical daily Branch Diclofenac 2021-03 Yes [id number] Apply [facility] Sodium 1 % 0-05 1gram to ity o f gel 00:00: affected [place] 00 area twice Medical daily Branch Diclofenac 2021-03 Yes [id number] Apply [facility] Sodium 1 % 0-05 1gram to ity o f gel 00:00: affected [place] 00 area twice Medical daily Branch Diclofenac 2021-03 Yes [id number] Apply [facility] Sodium 1 % 0-05 1gram to ity o f gel 00:00: affected [place] 00 area twice Medical daily Branch HYDROcodone Yes 2745 1{tbl} Take 1 [facility] -acetaminop 9-23 tablet by [facility] of [facility] ([facility]) 00:00: mouth [place] 10-325 mg 00 every 6 Medical tablet (six) Branch hours as needed for Pain (scale 7-10). Indication s: chronic pain HYDROcodone Yes 2745 1{tbl} Take 1 [facility] -acetaminop 9-23 tablet by [facility] ([facility]) 00:00: mouth [place] 10-325 mg 00 every 6 Medical tablet (six) Branch hours as needed for Pain (scale 7-10). Indication s: chronic pain HYDROcodone 2022-0 Yes 2745 1{tbl} Take 1 [facility] -acetaminop 9-23 tablet by [facility] ([facility]) 00:00: mouth [place] 10-325 mg 00 every 6 Medical tablet (six) Branch hours as needed for Pain (scale 7-10). Indication s: chronic pain HYDROcodone 2021-0 Yes 2745 1{tbl} Take 1 [facility] -acetaminop 9-23 tablet by [facility] of [facility] ([facility]) 00:00: mouth [place] 10-325 mg 00 every 6 Medical tablet (six) Branch hours as needed for Pain (scale 7-10). Indication s: chronic pain HYDROcodone 2021-0 2021- No 2745 1{tbl} Take 1 [facility] -acetaminop 9-23 10-24 tablet by [facility] ([facility]) 00:00: 00:[place] 10-325 mg 00 :00 every 6 Medical tablet (six) Branch hours as needed for Pain (scale 7-10). Indication s: chronic pain HYDROcodone 2021-0 2021- No 2745 1{tbl} Take 1 [facility] -acetaminop 9-23 10-24 tablet by [facility] ([facility]) 00:00: 00:[place] 10-325 mg 00 :00 every 6 Medical tablet (six) Branch hours as needed for Pain (scale 7-10). Indication s: chronic pain HYDROcodone 2021-0 2021- No 2745 1{tbl} Take 1 [facility] -acetaminop 9-23 10-24 tablet by [facility] ([facility]) 00:00: 00:[place] 10-325 mg 00 :00 every 6 Medical tablet (six) Branch hours as needed for Pain (scale 7-10). Indication s: chronic pain warfarin 3 2021-0 Yes Take as [facility] mg tablet 11-28 directed ity of 00:00: by [address] based on INR results. warfarin 3 2021-0 Yes Take as [facility] mg tablet 11-28 directed ity of 00:00: by [address] based on INR results. warfarin 3 2021-0 Yes Take as [facility] mg tablet 11-28 directed ity of 00:00: by [address] based on INR results. warfarin 3 2021-0 Yes Take as [facility] mg tablet 11-28 directed ity of 00:00: by [address] based on INR results. warfarin 3 2021-0 Yes Take as [facility] mg tablet 11-28 directed ity of 00:00: by [address] based on INR results. warfarin 3 2021-0 Yes Take as [facility] mg tablet 11-28 directed ity of 00:00: by [address] based on INR results. warfarin 3 2021-0 Yes Take as [facility] mg tablet 11-28 directed ity of 00:00: by [address] based on INR results. warfarin 3 2021-0 Yes Take as [facility] mg tablet 11-28 directed ity of 00:00: by [address] based on INR results. warfarin 3 2021-0 Yes Take as [facility] mg tablet 11-28 directed ity of 00:00: by [address] based on INR results. warfarin 3 2021-0 Yes Take as [facility] mg tablet 11-28 directed ity of 00:00: by [address] based on INR results. warfarin 3 2021-0 Yes Take as [facility] mg tablet 11-28 directed ity of 00:00: by [address] based on INR results. warfarin 3 2021-0 Yes Take as [facility] mg tablet 11-28 directed ity of 00:00: by [address] based on INR results. warfarin 3 2021-0 Yes Take as [facility] mg tablet 11-28 directed ity of 00:00: by [address] based on INR results. warfarin 3 2021-0 Yes Take as [facility] mg tablet 11-28 directed ity of 00:00: by [address] based on INR results. warfarin 3 2021-0 Yes Take as [facility] mg tablet - directed ity of 00:00: by [address] based on INR results. warfarin 3 2021-0 Yes Take as [facility] mg tablet 11-28 directed ity of 00:00: by [address] based on INR results. warfarin 3 2021-0 Yes Take as [facility] mg tablet 11-28 directed ity of 00:00: by [address] based on INR results. warfarin 3 2021-0 Yes Take as [facility] mg tablet 11-28 directed ity of 00:00: by [address] based on INR results. warfarin 3 2021-0 Yes Take as [facility] mg tablet 11-28 directed ity of 00:00: by [address] based on INR results. warfarin 3 2021-0 Yes Take as [facility] mg tablet 11-28 directed ity of 00:00: by [address] based on INR results. warfarin 3 2021-0 Yes Take as [facility] mg tablet 11-28 directed ity of 00:00: by [address] based on INR results. warfarin 3 2021-0 Yes Take as [facility] mg tablet 11-28 directed ity of 00:00: by [address] based on INR results. warfarin 3 0 Yes Take as [facility] mg tablet 11-28 directed ity of 00:00: by [address] based on INR results. warfarin 3 2021-0 Yes Take as [facility] mg tablet 11-28 directed ity of 00:00: by [address] based on INR results. warfarin 3 0 Yes Take as [facility] mg tablet 11-28 directed ity of 00:00: by [address] based on INR results. warfarin 3 2021-0 Yes Take as [facility] mg tablet 11-28 directed ity of 00:00: by [address] based on INR results. warfarin 3 2021-0 Yes Take as [facility] mg tablet 11-28 directed ity of 00:00: by [address] based on INR results. warfarin 3 2021-0 Yes Take as [facility] mg tablet 11-28 directed ity of 00:00: by [address] based on INR results. warfarin 3 2021-0 Yes Take as [facility] mg tablet 11-28 directed ity of 00:00: by [address] based on INR results. warfarin 3 2021-0 Yes Take as [facility] mg tablet 11-28 directed ity of 00:00: by [address] based on INR results. warfarin 3 2021-0 Yes Take as [facility] mg tablet 11-28 directed ity of 00:00: by [address] based on INR results. warfarin 3 2021-0 Yes Take as [facility] mg tablet 11-28 directed ity of 00:00: by [address] based on INR results. warfarin 3 2021-0 Yes Take as [facility] mg tablet 11-28 directed ity of 00:00: by [address] based on INR results. warfarin 3 2021-0 Yes Take as [facility] mg tablet 11-28 directed ity of 00:00: by [address] based on INR results. HYDROcodone 0 Yes 2745 1 po every [facility] -acetaminop 8-26 6 hrs PRN [facility] ([facility]) 00:[place]: [place] 10-325 mg 00 pain Medical tablet Indication Branch s: chronic pain, severe DJD HYDROcodone 2021-0 Yes 2745 1 po every [facility] -acetaminop 8-26 6 hrs PRN [facility] ([facility]) 00:00: severe [place] 10-325 mg 00 pain Medical tablet Indication Branch s: chronic pain, severe DJD HYDROcodone 2021-0 Yes 2745 1 po every [facility] -acetaminop 8-26 6 hrs PRN [facility] ([facility]) 00:00: severe [place] 10-325 mg 00 pain Medical tablet Indication Branch s: chronic pain, severe DJD HYDROcodone 2021-0 Yes 2745 1 po every [facility] -acetaminop 8-26 6 hrs PRN [facility] ([facility]) 00:00: severe [place] 10-325 mg 00 pain Medical tablet Indication Branch s: chronic pain, severe DJD HYDROcodone 2-0 2022- No 2745 1 po every [facility] -acetaminop 8-26 10-22 6 hrs PRN [facility] y of [facility] ([facility]) 00:00: 00:00 severe [place] 10-325 mg 00 :00 pain Medical tablet Indication Branch s: chronic pain, severe DJD HYDROcodone 2-0 2022- No 2745 1 po every [facility] -acetaminop 8-26 10-22 6 hrs PRN [facility] y of hen ([facility]) 00:00: 00:00 severe [place] 10-325 mg 00 :00 pain Medical tablet Indication Branch s: chronic pain, severe DJD HYDROcodone 0 2021- No 2745 1 po every [facility] -acetaminop 8-26 10-22 6 hrs PRN [facility] y of hen ([facility]) 00:00: 00:00 severe [place] 10-325 mg 00 :00 pain Medical tablet Indication Branch s: chronic pain, severe DJD sacubitriL- 2021-0 Yes [id number] 1{tbl} Take 1 [facility] valsartan 8-05 tablet by ity o f (ENTRESTO) 00:00: mouth in [place] 24-26 mg 00 the Medical tablet morning Branch and 1 tablet in the evening. sacubitriL- 2021-0 Yes [id number] 1{tbl} Take 1 [facility] valsartan 8-05 tablet by ity o f (ENTRESTO) 00:00: mouth in [place] 24-26 mg 00 the Medical tablet morning Branch and 1 tablet in the evening. sacubitriL- 2021-0 Yes [id number] 1{tbl} Take 1 [facility] valsartan 8-05 tablet by ity o f ([facility]RESTO) 00:00: mouth in [place] 24-26 mg 00 the Medical tablet morning Branch and 1 tablet in the evening. sacubitriL- 2021-0 Yes [id number] 1{tbl} Take 1 [facility] valsartan 8-05 tablet by ity o f ([facility]O) 00:00: mouth in [place] 24-26 mg 00 the Medical tablet morning Branch and 1 tablet in the evening. sacubitriL- 2021-0 Yes [id number] 1{tbl} Take 1 [facility] valsartan 8-05 tablet by ity o f ([facility]RESTO) 00:00: mouth in [place] 24-26 mg 00 the Medical tablet morning Branch and 1 tablet in the evening. sacubitriL- 2021-0 Yes [id number] 1{tbl} Take 1 [facility] valsartan 8-05 tablet by ity o f ([facility]RESTO) 00:00: mouth in [place] 24-26 mg 00 the Medical tablet morning Branch and 1 tablet in the evening. sacubitriL- 2021-0 Yes [id number] 1{tbl} Take 1 [facility] valsartan 8-05 tablet by ity o f ([facility]RESTO) 00:00: mouth in [place] 24-26 mg 00 the Medical tablet morning Branch and 1 tablet in the evening. sacubitriL- 2-0 Yes [id number] 1{tbl} Take 1 [facility] valsartan 8-05 tablet by ity o f ([facility]RESTO) 00:00: mouth in [place] 24-26 mg 00 the Medical tablet morning Branch and 1 tablet in the evening. sacubitriL- 2-0 Yes [id number] 1{tbl} Take 1 [facility] valsartan 8-05 tablet by ity o f ([facility]O) 00:00: mouth in [place] 24-26 mg 00 the Medical tablet morning Branch and 1 tablet in the evening. sacubitriL- 2021-0 Yes [id number] 1{tbl} Take 1 [facility] valsartan 8-05 tablet by ity o f ([facility]RESTO) 00:00: mouth in [place] 24-26 mg 00 the Medical tablet morning Branch and 1 tablet in the evening. sacubitriL- 2021-0 Yes [id number] 1{tbl} Take 1 [facility] valsartan 8-05 tablet by ity o f ([facility]RESTO) 00:00: mouth in [place] 24-26 mg 00 the Medical tablet morning Branch and 1 tablet in the evening. sacubitriL- 2021-0 Yes [id number] 1{tbl} Take 1 [facility] valsartan 8-05 tablet by ity o f ([facility]RESTO) 00:00: mouth in [place] 24-26 mg 00 the Medical tablet morning Branch and 1 tablet in the evening. sacubitriL- 2-0 Yes [id number] 1{tbl} Take 1 [facility] valsartan 8-05 tablet by ity o f (ENTRESTO) 00:00: mouth in [place] 24-26 mg 00 the Medical tablet morning Branch and 1 tablet in the evening. sacubitriL- 2-0 Yes [id number] 1{tbl} Take 1 [facility] valsartan 8-05 tablet by ity o f (ENTRESTO) 00:00: mouth in [place] 24-26 mg 00 the Medical tablet morning Branch and 1 tablet in the evening. sacubitriL- 2-0 Yes [id number] 1{tbl} Take 1 [facility] valsartan 8-05 tablet by ity o f ([facility]RESTO) 00:00: mouth in [place] 24-26 mg 00 the Medical tablet morning Branch and 1 tablet in the evening. sacubitriL- 2022-0 Yes [id number] 1{tbl} Take 1 [facility] valsartan 8-05 tablet by ity o f ([facility]RESTO) 00:00: mouth in [place] 24-26 mg 00 the Medical tablet morning Branch and 1 tablet in the evening. sacubitriL- 2022-0 Yes [id number] 1{tbl} Take 1 [facility] valsartan 8-05 tablet by ity o f ([facility]RESTO) 00:00: mouth in [place] 24-26 mg 00 the Medical tablet morning Branch and 1 tablet in the evening. sacubitriL- 2022-0 Yes [id number] 1{tbl} Take 1 [facility] valsartan 8-05 tablet by ity o f ([facility]RESTO) 00:00: mouth in [place] 24-26 mg 00 the Medical tablet morning Branch and 1 tablet in the evening. sacubitriL- 2-0 Yes [id number] 1{tbl} Take 1 [facility] valsartan 8-05 tablet by ity o f (ENTRESTO) 00:00: mouth in [place] 24-26 mg 00 the Medical tablet morning Branch and 1 tablet in the evening. sacubitriL- 2-0 Yes [id number] 1{tbl} Take 1 [facility] valsartan 8-05 tablet by ity o f (ENTRESTO) 00:00: mouth in [place] 24-26 mg 00 the Medical tablet morning Branch and 1 tablet in the evening. sacubitriL- 2022-0 Yes [id number] 1{tbl} Take 1 [facility] valsartan 8-05 tablet by ity o f ([facility]RESTO) 00:00: mouth in [place] 24-26 mg 00 the Medical tablet morning Branch and 1 tablet in the evening. sacubitriL- 2022-0 Yes [id number] 1{tbl} Take 1 [facility] valsartan 8-05 tablet by ity o f ([facility]RESTO) 00:00: mouth in [place] 24-26 mg 00 the Medical tablet morning Branch and 1 tablet in the evening. sacubitriL- 2-0 Yes [id number] 1{tbl} Take 1 [facility] valsartan 8-05 tablet by ity o f ([facility]O) 00:00: mouth in [place] 24-26 mg 00 the Medical tablet morning Branch and 1 tablet in the evening. sacubitriL- 2-0 Yes [id number] 1{tbl} Take 1 [facility] valsartan 8-05 tablet by ity o f ([facility]RESTO) 00:00: mouth in [place] 24-26 mg 00 the Medical tablet morning Branch and 1 tablet in the evening. sacubitriL- 2021-0 Yes [id number] 1{tbl} Take 1 [facility] valsartan 8-05 tablet by ity o f ([facility]RESTO) 00:00: mouth in [place] 24-26 mg 00 the Medical tablet morning Branch and 1 tablet in the evening. sacubitriL- 2021-0 Yes [id number] 1{tbl} Take 1 [facility] valsartan 8-05 tablet by ity o f ([facility]RESTO) 00:00: mouth in [place] 24-26 mg 00 the Medical tablet morning Branch and 1 tablet in the evening. sacubitriL- 2021-0 Yes [id number] 1{tbl} Take 1 [facility] valsartan 8-05 tablet by ity o f ([facility]RESTO) 00:00: mouth in [place] 24-26 mg 00 the Medical tablet morning Branch and 1 tablet in the evening. sacubitriL- 2021-0 Yes [id number] 1{tbl} Take 1 [facility] valsartan 8-05 tablet by ity o f ([facility]RESTO) 00:00: mouth in [place] 24-26 mg 00 the Medical tablet morning Branch and 1 tablet in the evening. sacubitriL- 2021-0 Yes [id number] 1{tbl} Take 1 [facility] valsartan 8-05 tablet by ity o f (ENTRESTO) 00:00: mouth in [place] 24-26 mg 00 the Medical tablet morning Branch and 1 tablet in the evening. sacubitriL- 2021-0 Yes [id number] 1{tbl} Take 1 [facility] valsartan 8-05 tablet by ity o f ([facility]RESTO) 00:00: mouth in [place] 24-26 mg 00 the Medical tablet morning Branch and 1 tablet in the evening. sacubitriL- 2022-0 Yes [id number] 1{tbl} Take 1 [facility] valsartan 8-05 tablet by ity o f (ENTRESTO) 00:00: mouth in [place] 24-26 mg 00 the Medical tablet morning Branch and 1 tablet in the evening. sacubitriL- 2022-0 Yes [id number] 1{tbl} Take 1 [facility] valsartan 8-05 tablet by ity o f (ENTRESTO) 00:00: mouth in [place] 24-26 mg 00 the Medical tablet morning Branch and 1 tablet in the evening. sacubitriL- 2022-0 Yes [id number] 1{tbl} Take 1 [facility] valsartan 8-05 tablet by ity o f ([facility]RESTO) 00:00: mouth in [place] 24-26 mg 00 the Medical tablet morning Branch and 1 tablet in the evening. sacubitriL- 2022-0 Yes [id number] 1{tbl} Take 1 [facility] valsartan 8-05 tablet by ity o f (ENTRESTO) 00:00: mouth in [place] 24-26 mg 00 the Medical tablet morning Branch and 1 tablet in the evening. dapaglifloz 2022-0 Yes [id number] 10mg Take 1 [facility] in 10 mg 8-04 tablet by ity of tablet 00:00: mouth in [place] 00 the Medical morning. Branch metoprolol 2022-0 Yes [id number] 25mg Take 1 U n[facility] succinate 8-04 tablet by ity o f XL 25 mg 24 00:00: mouth in [place] hr tablet 00 the Medical morning. Branch dapaglifloz 2022-0 Yes [id number] 10mg Take 1 [facility] in 10 mg 8-04 tablet by ity of tablet 00:00: mouth in [place] 00 the Medical morning. Branch metoprolol 2022-0 Yes [id number] 25mg Take 1 U nivers succinate 8-04 tablet by ity o f XL 25 mg 24 00:00: mouth in [place] hr tablet 00 the Medical morning. Branch dapaglifloz 2022-0 Yes [id number] 10mg Take 1 [facility] in 10 mg 8-04 tablet by ity of tablet 00:00: mouth in [place] 00 the Medical morning. Branch metoprolol 2-0 Yes [id number] 25mg Take 1 U nivers succinate 8-04 tablet by ity o f XL 25 mg 24 00:00: mouth in [place] hr tablet 00 the Medical morning. Branch dapaglifloz 2022-0 Yes [id number] 10mg Take 1 [facility] in 10 mg 8-04 tablet by ity of tablet 00:00: mouth in [place] 00 the Medical morning. Branch metoprolol 2-0 Yes [id number] 25mg Take 1 U nivers succinate 8-04 tablet by ity o f XL 25 mg 24 00:00: mouth in [place] hr tablet 00 the Medical morning. Branch dapaglifloz 2-0 Yes [id number] 10mg Take 1 [facility] in 10 mg 8-04 tablet by ity of tablet 00:00: mouth in [place] 00 the Medical morning. Branch metoprolol 2-0 Yes [id number] 25mg Take 1 U nivers succinate 8-04 tablet by ity o f XL 25 mg 24 00:00: mouth in [place] hr tablet 00 the Medical morning. Branch dapaglifloz 2-0 Yes [id number] 10mg Take 1 [facility] in 10 mg 8-04 tablet by ity of tablet 00:00: mouth in [place] 00 the Medical morning. Branch metoprolol 2-0 Yes [id number] 25mg Take 1 U nivers succinate 8-04 tablet by ity o f XL 25 mg 24 00:00: mouth in [place] hr tablet 00 the Medical morning. Branch dapaglifloz 2-0 Yes [id number] 10mg Take 1 [facility] in 10 mg 8-04 tablet by ity of tablet 00:00: mouth in [place] 00 the Medical morning. Branch metoprolol 2022-0 Yes [id number] 25mg Take 1 U nivers succinate 8-04 tablet by ity o f XL 25 mg 24 00:00: mouth in [place] hr tablet 00 the Medical morning. Branch dapaglifloz 2022-0 Yes [id number] 10mg Take 1 [facility] in 10 mg 8-04 tablet by ity of tablet 00:00: mouth in [place] 00 the Medical morning. Branch metoprolol 2022-0 Yes [id number] 25mg Take 1 [facility] nivers succinate 8-04 tablet by ity o f XL 25 mg 24 00:00: mouth in [place] hr tablet 00 the Medical morning. Branch dapaglifloz 2-0 Yes [id number] 10mg Take 1 [facility] in 10 mg 8-04 tablet by ity of tablet 00:00: mouth in [place] 00 the Medical morning. Branch metoprolol 2-0 Yes [id number] 25mg Take 1 [facility] nivers succinate 8-04 tablet by ity o f XL 25 mg 24 00:00: mouth in [place] hr tablet 00 the Medical morning. Branch dapaglifloz 2-0 Yes [id number] 10mg Take 1 [facility] in 10 mg 8-04 tablet by ity of tablet 00:00: mouth in [place] 00 the Medical morning. Branch dapaglifloz 2-0 Yes [id number] 10mg Take 1 [facility] in 10 mg 8-04 tablet by ity of tablet 00:00: mouth in [place] 00 the Medical morning. Branch dapaglifloz 2022-0 Yes [id number] 10mg Take 1 [facility] in 10 mg 8-04 tablet by ity of tablet 00:00: mouth in [place] 00 the Medical morning. Branch dapaglifloz 2-0 Yes [id number] 10mg Take 1 [facility] in 10 mg 8-04 tablet by ity of tablet 00:00: mouth in [place] 00 the Medical morning. Branch dapaglifloz 2-0 Yes [id number] 10mg Take 1 [facility] in 10 mg 8-04 tablet by ity of tablet 00:00: mouth in [place] 00 the Medical morning. Branch dapaglifloz 2022-0 Yes [id number] 10mg Take 1 [facility] in 10 mg 8-04 tablet by ity of tablet 00:00: mouth in [place] 00 the Medical morning. Branch dapaglifloz 2022-0 Yes [id number] 10mg Take 1 [facility] in 10 mg 8-04 tablet by ity of tablet 00:00: mouth in [place] 00 the Medical morning. Branch dapaglifloz 2022-0 Yes [id number] 10mg Take 1 [facility] in 10 mg 8-04 tablet by ity of tablet 00:00: mouth in [place] 00 the Medical morning. Branch dapaglifloz 2022-0 Yes [id number] 10mg Take 1 [facility] in 10 mg 8-04 tablet by ity of tablet 00:00: mouth in [place] 00 the Medical morning. Branch dapaglifloz 2022-0 Yes [id number] 10mg Take 1 [facility] in 10 mg 8-04 tablet by ity of tablet 00:00: mouth in [place] 00 the Medical morning. Branch dapaglifloz 2022-0 Yes [id number] 10mg Take 1 [facility] in 10 mg 8-04 tablet by ity of tablet 00:00: mouth in [place] 00 the Medical morning. Branch dapaglifloz 2022-0 Yes [id number] 10mg Take 1 [facility] in 10 mg 8-04 tablet by ity of tablet 00:00: mouth in [place] 00 the Medical morning. Branch dapaglifloz 2022-0 Yes [id number] 10mg Take 1 [facility] in 10 mg 8-04 tablet by ity of tablet 00:00: mouth in [place] 00 the Medical morning. Branch dapaglifloz 2022-0 Yes [id number] 10mg Take 1 [facility] in 10 mg 8-04 tablet by ity of tablet 00:00: mouth in [place] 00 the Medical morning. Branch dapaglifloz 2022-0 Yes [id number] 10mg Take 1 [facility] in 10 mg 8-04 tablet by ity of tablet 00:00: mouth in [place] 00 the Medical morning. Branch dapaglifloz 2022-0 Yes [id number] 10mg Take 1 [facility] in 10 mg 8-04 tablet by ity of tablet 00:00: mouth in [place] 00 the Medical morning. Branch dapaglifloz 2022-0 Yes [id number] 10mg Take 1 [facility] in 10 mg 8-04 tablet by ity of tablet 00:00: mouth in [place] 00 the Medical morning. Branch dapaglifloz 2022-0 2023- No [id number] 10mg Take 1 [facility] in 10 mg 8-04 04-07 tablet by ity o f tablet 00:00: 00:00 mouth in [place] 00 :00 the Medical morning. Branch dapaglifloz 2022-0 2023- No [id number] 10mg Take 1 [facility] in 10 mg 8-04 04-07 tablet by ity o f tablet 00:00: 00:00 mouth in [place] 00 :00 the Medical morning. Branch dapaglifloz 2022-0 2023- No [id number] 10mg Take 1 [facility] in 10 mg 8-04 04-07 tablet by ity o f tablet 00:00: 00:00 mouth in [place] 00 :00 the Medical morning. Branch metoprolol 2021-0 2021- No [id number] 25mg Take 1 [facility] succinate 10-26 tablet by ity of XL 25 mg 24 00:00: 00:00 mouth in [place] hr tablet 00 :00 the Medical morning. Branch metoprolol 2021-0 2021- No [id number] 25mg Take 1 [facility] succinate 10-26 tablet by ity of XL 25 mg 24 00:00: 00:00 mouth in [place] hr tablet 00 :00 the Medical morning. Branch metoprolol 2021-2021- No [id number] 25mg Take 1 [facility] succinate 10-26 tablet by ity of XL 25 mg 24 00:00: 00:00 mouth in [place] hr tablet 00 :00 the Medical morning. Branch HYDROcodone 2021-0 Yes [id number] 1 po every [facility] -acetaminop 7-30 6 hrs PRN [facility] [place] hen (NORCO) 00:00: severe [place] 10-325 mg 00 pain Medical tablet Indication Branch s: chronic pain, severe DJD HYDROcodone 2021-0 Yes 2745 1 po every [facility] -acetaminop 7-30 6 hrs PRN ity of hen (NORCO) 00:00: severe [place] 10-325 mg 00 pain Medical tablet Indication Branch s: chronic pain, severe DJD HYDROcodone 2021-0 Yes 2745 1 po every [facility] -acetaminop 7-30 6 hrs PRN ity of hen (NORCO) 00:00: severe [place] 10-325 mg 00 pain Medical tablet Indication Branch s: chronic pain, severe DJD HYDROcodone 2-0 Yes 2745 1 po every [facility] -acetaminop 7-30 6 hrs PRN ity of hen (NORCO) 00:00: severe [place] 10-325 mg 00 pain Medical tablet Indication Branch s: chronic pain, severe DJD HYDROcodone 2-0 2022- No 2745 1 po every [facility] -acetaminop 7-30 10-24 6 hrs PRN it y of hen (NORCO) 00:00: 00:00 severe [place] 10-325 mg 00 :00 pain Medical tablet Indication Branch s: chronic pain, severe DJD HYDROcodone 2021- No 2745 1 po every [facility] -acetaminop 7-30 10-24 6 hrs PRN it y of hen (NORCO) 00:00: 00:00 severe [place] 10-325 mg 00 :00 pain Medical tablet Indication Branch s: chronic pain, severe DJD HYDROcodone 2021- No 2745 1 po every [facility] -acetaminop 7-30 10-24 6 hrs PRN it y of hen (NORCO) 00:00: 00:00 severe [place] 10-325 mg 00 :00 pain Medical tablet Indication Branch s: chronic pain, severe DJD ferrous Yes [id number] Take one [facility] sulfate 325 7-19 00 tablet ity of mg (65 mg 00:00: every [place] iron) 00 other day Medical tablet Branch dolutegravi Yes [id number] Take 1 [facility] r-rilpiviri 7-19 TAB-CAP/M2 it y of ne (JULUCA) 00:00: by mouth [place] 50-25 mg 00 daily. Medical Tab Branch ferrous Yes [id number] Take one [facility] sulfate 325 7-19 00 tablet ity of mg (65 mg 00:00: every [place] iron) 00 other day Medical tablet Branch dolutegravi Yes [id number] Take 1 [facility] r-rilpiviri 7-19 TAB-CAP/M2 it y of ne (JULUCA) 00:00: by mouth [place] 50-25 mg 00 daily. Medical Tab Branch ferrous Yes [id number] Take one [facility] sulfate 325 7-19 00 tablet ity of mg (65 mg 00:00: every [place] iron) 00 other day Medical tablet Branch dolutegravi Yes [id number] Take 1 [facility] r-rilpiviri 7-19 TAB-CAP/M2 it y of ne (JULUCA) 00:00: by mouth [place] 50-25 mg 00 daily. Medical Tab Branch ferrous Yes [id number] Take one [facility] sulfate 325 7-19 00 tablet ity of mg (65 mg 00:00: every [place] iron) 00 other day Medical tablet Branch dolutegravi Yes [id number] Take 1 [facility] r-rilpiviri 7-19 TAB-CAP/M2 it y of ne (JULUCA) 00:00: by mouth [place] 50-25 mg 00 daily. Medical Tab Branch ferrous 2021-0 Yes [id number] Take one [facility] sulfate 325 7-19 00 tablet ity of mg (65 mg 00:00: every [place] iron) 00 other day Medical tablet Branch dolutegravi 2021-0 Yes [id number] Take 1 [facility] r-rilpiviri 7-19 TAB-CAP/M2 it y of ne (SEPUCA) 00:00: by mouth [place] 50-25 mg 00 daily. Medical Tab Branch ferrous 2021-0 Yes [id number] Take one [facility] sulfate 325 7-19 00 tablet ity of mg (65 mg 00:00: every [place] iron) 00 other day Medical tablet Branch dolutegravi 0 Yes [id number] Take 1 [facility] r-rilpiviri 7-19 TAB-CAP/M2 it y of ne (SEPUCA) 00:00: by mouth [place] 50-25 mg 00 daily. Medical Tab Branch ferrous 2021-0 Yes [id number] Take one [facility] sulfate 325 7-19 00 tablet ity of mg (65 mg 00:00: every [place] iron) 00 other day Medical tablet Branch dolutegravi 0 Yes [id number] Take 1 [facility] r-rilpiviri 7-19 TAB-CAP/M2 it y of ne (SEPUCA) 00:00: by mouth [place] 50-25 mg 00 daily. Medical Tab Branch ferrous 2021-0 Yes [id number] Take one [facility] sulfate 325 7-19 00 tablet ity of mg (65 mg 00:00: every [place] iron) 00 other day Medical tablet Branch dolutegravi 2021-0 Yes [id number] Take 1 [facility] r-rilpiviri 7-19 TAB-CAP/M2 it y of ne (SEPUCA) 00:00: by mouth [place] 50-25 mg 00 daily. Medical Tab Branch ferrous 2021-0 Yes [id number] Take one [facility] sulfate 325 7-19 00 tablet ity of mg (65 mg 00:00: every [place] iron) 00 other day Medical tablet Branch dolutegravi 2021-0 Yes [id number] Take 1 [facility] r-rilpiviri 7-19 TAB-CAP/M2 it y of ne (JULUCA) 00:00: by mouth [place] 50-25 mg 00 daily. Medical Tab Branch ferrous 2021- Yes [id number] Take one [facility] sulfate 325 7-19 00 tablet ity of mg (65 mg 00:00: every [place] iron) 00 other day Medical tablet Branch ferrous 2021- Yes [id number] Take one [facility] sulfate 325 7-19 00 tablet ity of mg (65 mg 00:00: every [place] iron) 00 other day Medical tablet Branch ferrous Yes [id number] Take one [facility] sulfate 325 7-19 tablet ity of mg (65 mg 00:00: every [place] iron) 00 other day Medical tablet Branch ferrous Yes [id number] Take one [facility] sulfate 325 7-19 00 tablet ity of mg (65 mg 00:00: every [place] iron) 00 other day Medical tablet Branch ferrous Yes [id number] Take one [facility] sulfate 325 7-19 00 tablet ity of mg (65 mg 00:00: every [place] iron) 00 other day Medical tablet Branch ferrous Yes [id number] Take one [facility] sulfate 325 7-19 tablet ity of mg (65 mg 00:00: every [place] iron) 00 other day Medical tablet Branch ferrous Yes [id number] Take one [facility] sulfate 325 7-19 00 tablet ity of mg (65 mg 00:00: every [place] iron) 00 other day Medical tablet Branch ferrous Yes [id number] Take one [facility] sulfate 325 7-19 00 tablet ity of mg (65 mg 00:00: every [place] iron) 00 other day Medical tablet Branch dolutegravi Yes [id number] Take 1 [facility] r-rilpiviri 7-19 TAB-CAP/M2 it y of ne (JULUCA) 00:00: by mouth [place] 50-25 mg 00 daily. Medical Tab Branch ferrous Yes [id number] Take one [facility] sulfate 325 7-19 00 tablet ity of mg (65 mg 00:00: every [place] iron) 00 other day Medical tablet Branch dolutegravi Yes [id number] Take 1 [facility] r-rilpiviri 7-19 TAB-CAP/M2 it y of ne (JULUCA) 00:00: by mouth [place] 50-25 mg 00 daily. Medical Tab Branch ferrous Yes [id number] Take one [facility] sulfate 325 7-19 00 tablet ity of mg (65 mg 00:00: every [place] iron) 00 other day Medical tablet Branch dolutegravi 2021-0 Yes [id number] Take 1 [facility] r-rilpiviri 7-19 TAB-CAP/M2 it y of ne (JULUCA) 00:00: by mouth [place] 50-25 mg 00 daily. Medical Tab Branch ferrous 2021-0 Yes [id number] Take one [facility] sulfate 325 7-19 00 tablet ity of mg (65 mg 00:00: every [place] iron) 00 other day Medical tablet Branch dolutegravi 2021-0 Yes [id number] Take 1 [facility] r-rilpiviri 7-19 TAB-CAP/M2 it y of ne (JULUCA) 00:00: by mouth [place] 50-25 mg 00 daily. Medical Tab Branch ferrous 2021-0 Yes [id number] Take one [facility] sulfate 325 7-19 00 tablet ity of mg (65 mg 00:00: every [place] iron) 00 other day Medical tablet Branch dolutegravi 2021-0 Yes [id number] Take 1 [facility] r-rilpiviri 7-19 TAB-CAP/M2 it y of ne (JULUCA) 00:00: by mouth [place] 50-25 mg 00 daily. Medical Tab Branch ferrous 2021-0 Yes [id number] Take one [facility] sulfate 325 7-19 00 tablet ity of mg (65 mg 00:00: every [place] iron) 00 other day Medical tablet Branch dolutegravi 2021-0 Yes [id number] Take 1 [facility] r-rilpiviri 7-19 TAB-CAP/M2 it y of ne (JULUCA) 00:00: by mouth [place] 50-25 mg 00 daily. Medical Tab Branch ferrous 2021-0 Yes [id number] Take one [facility] sulfate 325 7-19 00 tablet ity of mg (65 mg 00:00: every [place] iron) 00 other day Medical tablet Branch dolutegravi 2021-0 Yes [id number] Take 1 [facility] r-rilpiviri 7-19 TAB-CAP/M2 it y of ne (JULUCA) 00:00: by mouth [place] 50-25 mg 00 daily. Medical Tab Branch ferrous 2021-0 Yes [id number] Take one [facility] sulfate 325 7-19 00 tablet ity of mg (65 mg 00:00: every [place] iron) 00 other day Medical tablet Branch dolutegravi 2021-0 Yes [id number] Take 1 [facility] r-rilpiviri 7-19 TAB-CAP/M2 it y of ne (JULUCA) 00:00: by mouth [place] 50-25 mg 00 daily. Medical Tab Branch ferrous 2021-0 Yes [id number] Take one [facility] sulfate 325 7-19 00 tablet ity of mg (65 mg 00:00: every [place] iron) 00 other day Medical tablet Branch dolutegravi 2021-0 Yes [id number] Take 1 [facility] r-rilpiviri 7-19 TAB-CAP/M2 it y of ne (JULUCA) 00:00: by mouth [place] 50-25 mg 00 daily. Medical Tab Branch ferrous 2021-0 Yes [id number] Take one [facility] sulfate 325 7-19 00 tablet ity of mg (65 mg 00:00: every [place] iron) 00 other day Medical tablet Branch dolutegravi 2021-0 Yes [id number] Take 1 [facility] r-rilpiviri 7-19 TAB-CAP/M2 it y of ne (SEPUCA) 00:00: by mouth [place] 50-25 mg 00 daily. Medical Tab Branch ferrous 2021-0 Yes [id number] Take one [facility] sulfate 325 7-19 00 tablet ity of mg (65 mg 00:00: every [place] iron) 00 other day Medical tablet Branch dolutegravi 2021-0 Yes [id number] Take 1 [facility] r-rilpiviri 7-19 TAB-CAP/M2 it y of ne (SEPUCA) 00:00: by mouth [place] 50-25 mg 00 daily. Medical Tab Branch ferrous 2021-0 Yes [id number] Take one [facility] sulfate 325 7-19 00 tablet ity of mg (65 mg 00:00: every [place] iron) 00 other day Medical tablet Branch dolutegravi 2021-0 Yes [id number] Take 1 [facility] r-rilpiviri 7-19 TAB-CAP/M2 it y of ne (JULUCA) 00:00: by mouth [place] 50-25 mg 00 daily. Medical Tab Branch ferrous 2021-0 Yes [id number] Take one [facility] sulfate 325 7-19 00 tablet ity of mg (65 mg 00:00: every [place] iron) 00 other day Medical tablet Branch dolutegravi Yes [id number] Take 1 [facility] r-rilpiviri 7-19 TAB-CAP/M2 it y of ne (JULUCA) 00:00: by mouth [place] 50-25 mg 00 daily. Medical Tab Branch ferrous Yes [id number] Take one [facility] sulfate 325 7-19 00 tablet ity of mg (65 mg 00:00: every [place] iron) 00 other day Medical tablet Branch dolutegravi Yes [id number] Take 1 [facility] r-rilpiviri 7-19 TAB-CAP/M2 it y of ne (JULUCA) 00:00: by mouth [place] 50-25 mg 00 daily. Medical Tab Branch ferrous Yes [id number] Take one [facility] sulfate 325 7-19 00 tablet ity of mg (65 mg 00:00: every [place] iron) 00 other day Medical tablet Branch dolutegravi Yes [id number] Take 1 [facility] r-rilpiviri 7-19 TAB-CAP/M2 it y of ne (JULUCA) 00:00: by mouth [place] 50-25 mg 00 daily. Medical Tab Branch ferrous Yes [id number] Take one [facility] sulfate 325 7-19 00 tablet ity of mg (65 mg 00:00: every [place] iron) 00 other day Medical tablet Branch dolutegravi Yes [id number] Take 1 [facility] r-rilpiviri 7-19 TAB-CAP/M2 it y of ne (JULUCA) 00:00: by mouth [place] 50-25 mg 00 daily. Medical Tab Branch ferrous 2021- Yes [id number] Take one [facility] sulfate 325 7-19 00 tablet ity of mg (65 mg 00:00: every [place] iron) 00 other day Medical tablet Branch dolutegravi Yes [id number] Take 1 [facility] r-rilpiviri 7-19 TAB-CAP/M2 it y of ne (JULUCA) 00:00: by mouth [place] 50-25 mg 00 daily. Medical Tab Branch ferrous 2021- Yes [id number] Take one [facility] sulfate 325 7-19 00 tablet ity of mg (65 mg 00:00: every [place] iron) 00 other day Medical tablet Branch dolutegravi Yes [id number] Take 1 [facility] r-rilpiviri 10-10 TAB-CAP/M2 it y of ne (JULUCA) 00:00: by mouth [place] 50-25 mg 00 daily. Medical Tab Branch ferrous Yes [id number] Take one [facility] sulfate 325 10-10 tablet ity of mg (65 mg 00:00: every [place] iron) 00 other day Medical tablet Branch dolutegravi Yes [id number] Take 1 [facility] r-rilpiviri 10-10 TAB-CAP/M2 it y of ne (JULUCA) 00:00: by mouth [place] 50-25 mg 00 daily. Medical Tab Branch dolutegravi 2022- No [id number] Take 1 [facility] r-rilpiviri 10-10 TAB-CAP/M2 i ty of ne (JULUCA) 00:00: 00:00 by mouth [place] 50-25 mg 00 :00 daily. Medical Tab Branch dolutegravi 2022- No [id number] Take 1 [facility] r-rilpiviri 10-10 TAB-CAP/M2 i ty of ne (JULUCA) 00:00: 00:00 by mouth [place] 50-25 mg 00 :00 daily. Medical Tab Branch dolutegravi 2022- No [id number] Take 1 [facility] r-rilpiviri 10-10 TAB-CAP/M2 i ty of ne (JULUCA) 00:00: 00:00 by mouth [place] 50-25 mg 00 :00 daily. Medical Tab Branch bisacodyL Yes [id number] 10mg Insert 1 [facility] 10 mg 6-25 Suppositor ity of suppository 00:00: y into [place] 00 rectum at Medical bedtime as Branch needed for Constipati on. Diclofenac Yes [id number] Apply Un david Sodium 1 % 6-25 1gram to ity o f gel 00:00: affected [place] 00 area twice Medical daily Branch pantoprazol Yes [id number] 40mg Take 1 [facility] e 40 mg EC 6-25 00 tablet by ity of tablet 00:00: mouth [place] 00 daily. Medical Branch bisacodyL Yes [id number] 10mg Insert 1 [facility] 10 mg 6-25 Suppositor ity of suppository 00:00: y into [place] 00 rectum at Medical bedtime as Branch needed for Constipati on. Diclofenac Yes [id number] Apply Un david Sodium 1 % 6-25 1gram to ity o f gel 00:00: affected [place] 00 area twice Medical daily Branch pantoprazol Yes [id number] 40mg Take 1 [facility] e 40 mg EC 6-25 00 tablet by ity of tablet 00:00: mouth [place] 00 daily. Medical Branch bisacodyL Yes [id number] 10mg Insert 1 [facility] 10 mg 6-25 Suppositor ity of suppository 00:00: y into [place] 00 rectum at Medical bedtime as Branch needed for Constipati on. pantoprazol Yes [id number] 40mg Take 1 [facility] e 40 mg EC 6-25 00 tablet by ity of tablet 00:00: mouth [place] 00 daily. Medical Branch bisacodyL Yes [id number] 10mg Insert 1 [facility] 10 mg 6-25 Suppositor ity of suppository 00:00: y into [place] 00 rectum at Medical bedtime as Branch needed for Constipati on. pantoprazol Yes [id number] 40mg Take 1 [facility] e 40 mg EC 6-25 00 tablet by ity of tablet 00:00: mouth [place] 00 daily. Medical Branch bisacodyL Yes [id number] 10mg Insert 1 [facility] 10 mg 6-25 Suppositor ity of suppository 00:00: y into [place] 00 rectum at Medical bedtime as Branch needed for Constipati on. pantoprazol Yes [id number] 40mg Take 1 [facility] e 40 mg EC 6-25 00 tablet by ity of tablet 00:00: mouth [place] 00 daily. Medical Branch bisacodyL Yes [id number] 10mg Insert 1 [facility] 10 mg 6-25 Suppositor ity of suppository 00:00: y into [place] 00 rectum at Medical bedtime as Branch needed for Constipati on. pantoprazol Yes [id number] 40mg Take 1 [facility] e 40 mg EC 6-25 00 tablet by ity of tablet 00:00: mouth [place] 00 daily. Medical Branch bisacodyL Yes [id number] 10mg Insert 1 [facility] 10 mg 6-25 Suppositor ity of suppository 00:00: y into [place] 00 rectum at Medical bedtime as Branch needed for Constipati on. pantoprazol Yes [id number] 40mg Take 1 [facility] e 40 mg EC 6-25 00 tablet by ity of tablet 00:00: mouth [place] 00 daily. Medical Branch bisacodyL Yes [id number] 10mg Insert 1 [facility] 10 mg 6-25 Suppositor ity of suppository 00:00: y into [place] 00 rectum at Medical bedtime as Branch needed for Constipati on. pantoprazol Yes [id number] 40mg Take 1 [facility] e 40 mg EC 6-25 00 tablet by ity of tablet 00:00: mouth [place] 00 daily. Medical Branch bisacodyL Yes [id number] 10mg Insert 1 [facility] 10 mg 6-25 Suppositor ity of suppository 00:00: y into [place] 00 rectum at Medical bedtime as Branch needed for Constipati on. pantoprazol Yes [id number] 40mg Take 1 [facility] e 40 mg EC 6-25 00 tablet by ity of tablet 00:00: mouth [place] 00 daily. Medical Branch bisacodyL Yes [id number] 10mg Insert 1 [facility] 10 mg 6-25 Suppositor ity of suppository 00:00: y into [place] 00 rectum at Medical bedtime as Branch needed for Constipati on. pantoprazol Yes [id number] 40mg Take 1 [facility] e 40 mg EC 6-25 00 tablet by ity of tablet 00:00: mouth [place] 00 daily. Medical Branch bisacodyL Yes [id number] 10mg Insert 1 [facility] 10 mg 6-25 Suppositor ity of suppository 00:00: y into [place] 00 rectum at Medical bedtime as Branch needed for Constipati on. pantoprazol Yes [id number] 40mg Take 1 [facility] e 40 mg EC 6-25 00 tablet by ity of tablet 00:00: mouth [place] 00 daily. Medical Branch bisacodyL Yes [id number] 10mg Insert 1 [facility] 10 mg 6-25 Suppositor ity of suppository 00:00: y into [place] 00 rectum at Medical bedtime as Branch needed for Constipati on. pantoprazol Yes [id number] 40mg Take 1 [facility] e 40 mg EC 6-25 00 tablet by ity of tablet 00:00: mouth [place] 00 daily. Medical Branch bisacodyL Yes [id number] 10mg Insert 1 [facility] 10 mg 6-25 Suppositor ity of suppository 00:00: y into [place] 00 rectum at Medical bedtime as Branch needed for Constipati on. pantoprazol Yes [id number] 40mg Take 1 [facility] e 40 mg EC 6-25 00 tablet by ity of tablet 00:00: mouth [place] 00 daily. Medical Branch bisacodyL Yes [id number] 10mg Insert 1 [facility] 10 mg 6-25 Suppositor ity of suppository 00:00: y into [place] 00 rectum at Medical bedtime as Branch needed for Constipati on. pantoprazol Yes [id number] 40mg Take 1 [facility] e 40 mg EC 6-25 00 tablet by ity of tablet 00:00: mouth [place] 00 daily. Medical Branch bisacodyL Yes [id number] 10mg Insert 1 [facility] 10 mg 6-25 Suppositor ity of suppository 00:00: y into [place] 00 rectum at Medical bedtime as Branch needed for Constipati on. pantoprazol Yes [id number] 40mg Take 1 [facility] e 40 mg EC 6-25 00 tablet by ity of tablet 00:00: mouth [place] 00 daily. Medical Branch bisacodyL Yes [id number] 10mg Insert 1 [facility] 10 mg 6-25 Suppositor ity of suppository 00:00: y into [place] 00 rectum at Medical bedtime as Branch needed for Constipati on. pantoprazol Yes [id number] 40mg Take 1 [facility] e 40 mg EC 6-25 00 tablet by ity of tablet 00:00: mouth [place] 00 daily. Medical Branch bisacodyL Yes [id number] 10mg Insert 1 [facility] 10 mg 6-25 Suppositor ity of suppository 00:00: y into [place] 00 rectum at Medical bedtime as Branch needed for Constipati on. pantoprazol Yes [id number] 40mg Take 1 [facility] e 40 mg EC 6-25 00 tablet by ity of tablet 00:00: mouth [place] 00 daily. Medical Branch bisacodyL Yes [id number] 10mg Insert 1 [facility] 10 mg 6-25 Suppositor ity of suppository 00:00: y into [place] 00 rectum at Medical bedtime as Branch needed for Constipati on. pantoprazol Yes [id number] 40mg Take 1 [facility] e 40 mg EC 6-25 00 tablet by ity of tablet 00:00: mouth [place] 00 daily. Medical Branch bisacodyL Yes [id number] 10mg Insert 1 [facility] 10 mg 6-25 Suppositor ity of suppository 00:00: y into [place] 00 rectum at Medical bedtime as Branch needed for Constipati on. pantoprazol Yes [id number] 40mg Take 1 [facility] e 40 mg EC 6-25 00 tablet by ity of tablet 00:00: mouth [place] 00 daily. Medical Branch bisacodyL Yes [id number] 10mg Insert 1 [facility] 10 mg 6-25 Suppositor ity of suppository 00:00: y into [place] 00 rectum at Medical bedtime as Branch needed for Constipati on. pantoprazol Yes [id number] 40mg Take 1 [facility] e 40 mg EC 6-25 00 tablet by ity of tablet 00:00: mouth [place] 00 daily. Medical Branch bisacodyL Yes [id number] 10mg Insert 1 [facility] 10 mg 6-25 Suppositor ity of suppository 00:00: y into [place] 00 rectum at Medical bedtime as Branch needed for Constipati on. pantoprazol Yes [id number] 40mg Take 1 [facility] e 40 mg EC 6-25 00 tablet by ity of tablet 00:00: mouth [place] 00 daily. Medical Branch bisacodyL Yes [id number] 10mg Insert 1 [facility] 10 mg 6-25 Suppositor ity of suppository 00:00: y into [place] 00 rectum at Medical bedtime as Branch needed for Constipati on. pantoprazol 2022-0 Yes [id number] 40mg Take 1 [facility] e 40 mg EC 6-25 00 tablet by ity of tablet 00:00: mouth [place] 00 daily. Medical Branch bisacodyL Yes [id number] 10mg Insert 1 [facility] 10 mg 6-25 Suppositor ity of suppository 00:00: y into [place] 00 rectum at Medical bedtime as Branch needed for Constipati on. pantoprazol Yes [id number] 40mg Take 1 [facility] e 40 mg EC 6-25 00 tablet by ity of tablet 00:00: mouth [place] 00 daily. Medical Branch bisacodyL Yes [id number] 10mg Insert 1 [facility] 10 mg 6-25 Suppositor ity of suppository 00:00: y into [place] 00 rectum at Medical bedtime as Branch needed for Constipati on. pantoprazol Yes [id number] 40mg Take 1 [facility] e 40 mg EC 6-25 00 tablet by ity of tablet 00:00: mouth [place] 00 daily. Medical Branch bisacodyL Yes [id number] 10mg Insert 1 [facility] 10 mg 6-25 Suppositor ity of suppository 00:00: y into [place] 00 rectum at Medical bedtime as Branch needed for Constipati on. pantoprazol Yes [id number] 40mg Take 1 [facility] e 40 mg EC 6-25 00 tablet by ity of tablet 00:00: mouth [place] 00 daily. Medical Branch bisacodyL Yes [id number] 10mg Insert 1 [facility] 10 mg 6-25 Suppositor ity of suppository 00:00: y into [place] 00 rectum at Medical bedtime as Branch needed for Constipati on. pantoprazol Yes [id number] 40mg Take 1 [facility] e 40 mg EC 6-25 00 tablet by ity of tablet 00:00: mouth [place] 00 daily. Medical Branch bisacodyL Yes [id number] 10mg Insert 1 [facility] 10 mg 6-25 Suppositor ity of suppository 00:00: y into [place] 00 rectum at Medical bedtime as Branch needed for Constipati on. pantoprazol Yes [id number] 40mg Take 1 [facility] e 40 mg EC 6-25 00 tablet by ity of tablet 00:00: mouth [place] 00 daily. Medical Branch bisacodyL Yes [id number] 10mg Insert 1 [facility] 10 mg 6-25 Suppositor ity of suppository 00:00: y into [place] 00 rectum at Medical bedtime as Branch needed for Constipati on. pantoprazol Yes [id number] 40mg Take 1 [facility] e 40 mg EC 6-25 00 tablet by ity of tablet 00:00: mouth [place] 00 daily. Medical Branch bisacodyL Yes [id number] 10mg Insert 1 [facility] 10 mg 6-25 Suppositor ity of suppository 00:00: y into [place] 00 rectum at Medical bedtime as Branch needed for Constipati on. pantoprazol Yes [id number] 40mg Take 1 [facility] e 40 mg EC 6-25 00 tablet by ity of tablet 00:00: mouth [place] 00 daily. Medical Branch bisacodyL Yes [id number] 10mg Insert 1 [facility] 10 mg 6-25 Suppositor ity of suppository 00:00: y into [place] 00 rectum at Medical bedtime as Branch needed for Constipati on. pantoprazol Yes [id number] 40mg Take 1 [facility] e 40 mg EC 6-25 00 tablet by ity of tablet 00:00: mouth [place] 00 daily. Medical Branch bisacodyL Yes [id number] 10mg Insert 1 [facility] 10 mg 6-25 Suppositor ity of suppository 00:00: y into [place] 00 rectum at Medical bedtime as Branch needed for Constipati on. pantoprazol Yes [id number] 40mg Take 1 [facility] e 40 mg EC 6-25 00 tablet by ity of tablet 00:00: mouth [place] 00 daily. Medical Branch bisacodyL Yes [id number] 10mg Insert 1 [facility] 10 mg 6-25 Suppositor ity of suppository 00:00: y into [place] 00 rectum at Medical bedtime as Branch needed for Constipati on. pantoprazol Yes [id number] 40mg Take 1 [facility] e 40 mg EC 6-25 00 tablet by ity of tablet 00:00: mouth [place] 00 daily. Medical Branch bisacodyL Yes [id number] 10mg Insert 1 [facility] 10 mg 6-25 Suppositor ity of suppository 00:00: y into [place] 00 rectum at Medical bedtime as Branch needed for Constipati on. pantoprazol Yes [id number] 40mg Take 1 [facility] e 40 mg EC 6-25 00 tablet by ity of tablet 00:00: mouth [place] 00 daily. Medical Branch bisacodyL Yes [id number] 10mg Insert 1 [facility] 10 mg 6-25 Suppositor ity of suppository 00:00: y into [place] 00 rectum at Medical bedtime as Branch needed for Constipati on. pantoprazol Yes [id number] 40mg Take 1 [facility] e 40 mg EC 6-25 00 tablet by ity of tablet 00:00: mouth [place] 00 daily. Medical Branch bisacodyL Yes [id number] 10mg Insert 1 [facility] 10 mg 6-25 Suppositor ity of suppository 00:00: y into [place] 00 rectum at Medical bedtime as Branch needed for Constipati on. pantoprazol Yes [id number] 40mg Take 1 [facility] e 40 mg EC 6-25 00 tablet by ity of tablet 00:00: mouth [place] 00 daily. Medical Branch KCL 20 mEq 2021- No [id number] 20meq Take 1 [facility] tablet 09-1624 tablet by ity of 00:00: 04:59 mouth [place] 00 :00 daily for Medical 90 days. Branch aspirin 81 2021- No [id number] 81mg Take 81 mg [facility] mg Cap 09-1624 by mouth ity of 00:00: 04:59 daily for [place] 00 :00 90 days. Medical Branch KCL 20 mEq 2021- No [id number] 20meq Take 1 [facility] tablet 09-1624 tablet by ity of 00:00: 04:59 mouth [place] 00 :00 daily for Medical 90 days. Branch aspirin 81 0 2021- No [id number] 81mg Take 81 mg [facility] mg Cap 09-1624 by mouth ity of 00:00: 04:59 daily for [place] 00 :00 90 days. Medical Branch KCL 20 mEq 2021- No [id number] 20meq Take 1 [facility] tablet 09-16 tablet by [facility] of 00:00: 04:59 mouth [place] 00 :00 daily for Medical 90 days. Branch aspirin 81 2021- No [id number] 81mg Take 81 mg [facility] mg Cap 09-16 by mouth ity of 00:00: 04:59 daily for [place] 00 :00 90 days. Medical Branch Diclofenac 2021- No [id number] Apply U nivers Sodium 1 % 09-16 1gram to ity of gel 00:00: 00:00 affected [place] 00 :00 area twice Medical daily Branch warfarin 3 2021- No [id number] 3mg Take 1 [facility] mg tablet 09-16 tablet by [facility]y of 00:00: 00:00 mouth [place] 00 :00 every Medical evening Branch for 90 days. lisinopriL 2021- No [id number] 2.5mg Take 1 [facility] 2.5 mg 09-16 tablet by ity of tablet 00:00: 00:00 mouth [place] 00 :00 daily. Medical Branch metoprolol 2021- No [id number] 25mg Take 1 [facility] tartrate 25 09-16 tablet by it y [facility] mg tablet 00:00: 00:[place] 00 :[place] (two) Medical times Branch daily for 90 days. ferrous 2021- No [id number] 325mg Take 1 [facility] sulfate 325 09-16 00 tablet by it y of mg (65 mg 00:00: 00:[place] iron[place] 00 :00 (two) Medical tablet times Branch daily before breakfast and dinner. dolutegravi 2021- No [id number] Take 1 [facility] r-rilpiviri 09-16 TAB-CAP/M2 i ty of ne (JULUCA) 00:00: 00:00 by mouth [place] 50-25 mg 00 :00 daily. Medical Tab Branch furosemide Yes [id number] 80mg Take 1 [facility] 80 mg 4-27 tablet by ity of tablet 00:00: mouth [place] 00 every Medical morning Branch and evening. spironolact Yes [id number] 12.5mg Take 0.5 [facility] one 25 mg 4-27 tablets by ity of tablet 00:00: mouth [place] 00 daily. Medical Branch furosemide 2021-0 Yes [id number] 80mg Take 1 [facility] 80 mg 4-27 tablet by ity of tablet 00:00: mouth [place] 00 every Medical morning Branch and evening. spironolact 2021-0 Yes [id number] 12.5mg Take 0.5 [facility] one 25 mg 4-27 tablets by ity of tablet 00:00: mouth [place] 00 daily. Medical Branch furosemide 2021-0 Yes [id number] 80mg Take 1 [facility] 80 mg 4-27 tablet by ity of tablet 00:00: mouth [place] 00 every Medical morning Branch and evening. spironolact 2021-0 Yes [id number] 12.5mg Take 0.5 [facility] one 25 mg 4-27 tablets by ity of tablet 00:00: mouth [place] 00 daily. Medical Branch furosemide 2021-0 Yes [id number] 80mg Take 1 [facility] 80 mg 4-27 tablet by it[facility] of tablet 00:00: mouth [place] 00 every Medical morning Branch and evening. spironolact 2021-0 Yes [id number] 12.5mg Take 0.5 [facility] one 25 mg 4-27 tablets by ity of tablet 00:00: mouth [place] 00 daily. Medical Branch furosemide 2021-0 Yes [id number] 80mg Take 1 [facility] 80 mg 4-27 tablet by ity of tablet 00:00: mouth [place] 00 every Medical morning Branch and evening. spironolact 2021-0 Yes [id number] 12.5mg Take 0.5 [facility] one 25 mg 4-27 tablets by ity of tablet 00:00: mouth [place] 00 daily. Medical Branch furosemide 2021-0 Yes [id number] 80mg Take 1 [facility] 80 mg 4-27 tablet by ity of tablet 00:00: mouth [place] 00 every Medical morning Branch and evening. spironolact 2021-0 Yes [id number] 12.5mg Take 0.5 [facility] one 25 mg 4-27 tablets by ity of tablet 00:00: mouth [place] 00 daily. Medical Branch furosemide 2021-0 Yes [id number] 80mg Take 1 [facility] 80 mg 4-27 tablet by ity of tablet 00:00: mouth [place] 00 every Medical morning Branch and evening. spironolact 2022-0 Yes [id number] 12.5mg Take 0.5 [facility] one 25 mg 4-27 tablets by ity of tablet 00:00: mouth [place] 00 daily. Medical Branch furosemide 2021-0 Yes [id number] 80mg Take 1 [facility] 80 mg 4-27 tablet by ity of tablet 00:00: mouth [place] 00 every Medical morning Branch and evening. spironolact 2021-0 Yes [id number] 12.5mg Take 0.5 [facility] one 25 mg 4-27 tablets by ity of tablet 00:00: mouth [place] 00 daily. Medical Branch furosemide 2021-0 Yes [id number] 80mg Take 1 [facility] 80 mg 4-27 tablet by ity of tablet 00:00: mouth [place] 00 every Medical morning Branch and evening. spironolact 2021-0 Yes [id number] 12.5mg Take 0.5 [facility] one 25 mg 4-27 tablets by ity of tablet 00:00: mouth [place] 00 daily. Medical Branch furosemide 2021-0 Yes [id number] 80mg Take 1 [facility] 80 mg 4-27 tablet by ity of tablet 00:00: mouth [place] 00 every Medical morning Branch and evening. spironolact 2021-0 Yes [id number] 12.5mg Take 0.5 [facility] one 25 mg 4-27 tablets by ity of tablet 00:00: mouth [place] 00 daily. Medical Branch furosemide 2021-0 Yes [id number] 80mg Take 1 [facility] 80 mg 4-27 tablet by ity of tablet 00:00: mouth [place] 00 every Medical morning Branch and evening. spironolact 2021-0 Yes [id number] 12.5mg Take 0.5 [facility] one 25 mg 4-27 tablets by ity of tablet 00:00: mouth [place] 00 daily. Medical Branch furosemide 2021-0 Yes [id number] 80mg Take 1 [facility] 80 mg 4-27 tablet by ity of tablet 00:00: mouth [place] 00 every Medical morning Branch and evening. spironolact 2021-0 Yes [id number] 12.5mg Take 0.5 [facility] one 25 mg 4-27 tablets by ity of tablet 00:00: mouth [place] 00 daily. Medical Branch furosemide 2021-0 Yes [id number] 80mg Take 1 [facility] 80 mg 4-27 tablet by ity of tablet 00:00: mouth [place] 00 every Medical morning Branch and evening. spironolact 2021-0 Yes [id number] 12.5mg Take 0.5 [facility] one 25 mg 4-27 tablets by ity of tablet 00:00: mouth [place] 00 daily. Medical Branch furosemide 2021-0 Yes [id number] 80mg Take 1 [facility] 80 mg 4-27 tablet by ity of tablet 00:00: mouth [place] 00 every Medical morning Branch and evening. spironolact 2021-0 Yes [id number] 12.5mg Take 0.5 [facility] one 25 mg 4-27 tablets by ity of tablet 00:00: mouth [place] 00 daily. Medical Branch furosemide 2021-0 Yes [id number] 80mg Take 1 [facility] 80 mg 4-27 tablet by ity of tablet 00:00: mouth [place] 00 every Medical morning Branch and evening. spironolact 2021-0 Yes [id number] 12.5mg Take 0.5 [facility] one 25 mg 4-27 tablets by ity of tablet 00:00: mouth [place] 00 daily. Medical Branch furosemide 2021-0 Yes [id number] 80mg Take 1 [facility] 80 mg 4-27 tablet by ity of tablet 00:00: mouth [place] 00 every Medical morning Branch and evening. spironolact 2021-0 Yes [id number] 12.5mg Take 0.5 [facility] one 25 mg 4-27 tablets by ity of tablet 00:00: mouth [place] 00 daily. Medical Branch furosemide 2021-0 Yes [id number] 80mg Take 1 [facility] 80 mg 4-27 tablet by ity of tablet 00:00: mouth [place] 00 every Medical morning Branch and evening. spironolact 2021-0 Yes [id number] 12.5mg Take 0.5 [facility] one 25 mg 4-27 tablets by ity of tablet 00:00: mouth [place] 00 daily. Medical Branch furosemide 2021-0 Yes [id number] 80mg Take 1 [facility] 80 mg 4-27 tablet by ity of tablet 00:00: mouth [place] 00 every Medical morning Branch and evening. spironolact 2-0 Yes [id number] 12.5mg Take 0.5 [facility] one 25 mg 4-27 tablets by ity of tablet 00:00: mouth [place] 00 daily. Medical Branch furosemide 2021-0 Yes [id number] 80mg Take 1 [facility] 80 mg 4-27 tablet by ity of tablet 00:00: mouth [place] 00 every Medical morning Branch and evening. spironolact 2-0 Yes [id number] 12.5mg Take 0.5 [facility] one 25 mg 4-27 tablets by ity of tablet 00:00: mouth [place] 00 daily. Medical Branch furosemide 2021-0 Yes [id number] 80mg Take 1 [facility] 80 mg 4-27 tablet by ity of tablet 00:00: mouth [place] 00 every Medical morning Branch and evening. spironolact 2-0 Yes [id number] 12.5mg Take 0.5 [facility] one 25 mg 4-27 tablets by ity of tablet 00:00: mouth [place] 00 daily. Medical Branch furosemide 2021-0 Yes [id number] 80mg Take 1 [facility] 80 mg 4-27 tablet by ity of tablet 00:00: mouth [place] 00 every Medical morning Branch and evening. spironolact 2021-0 Yes [id number] 12.5mg Take 0.5 [facility] one 25 mg 4-27 tablets by ity of tablet 00:00: mouth [place] 00 daily. Medical Branch furosemide 2021-0 Yes [id number] 80mg Take 1 [facility] 80 mg 4-27 tablet by ity of tablet 00:00: mouth [place] 00 every Medical morning Branch and evening. spironolact 2021-0 Yes [id number] 12.5mg Take 0.5 [facility] one 25 mg 4-27 tablets by ity of tablet 00:00: mouth [place] 00 daily. Medical Branch furosemide 2021-0 Yes [id number] 80mg Take 1 [facility] 80 mg 4-27 tablet by ity of tablet 00:00: mouth [place] 00 every Medical morning Branch and evening. spironolact 2-0 Yes [id number] 12.5mg Take 0.5 [facility] one 25 mg 4-27 tablets by ity of tablet 00:00: mouth [place] 00 daily. Medical Branch furosemide 2021-0 Yes [id number] 80mg Take 1 [facility] 80 mg 4-27 tablet by ity of tablet 00:00: mouth [place] 00 every Medical morning Branch and evening. spironolact 2022-0 Yes [id number] 12.5mg Take 0.5 [facility] one 25 mg 4-27 tablets by ity of tablet 00:00: mouth [place] 00 daily. Medical Branch furosemide 2021-0 Yes [id number] 80mg Take 1 [facility] 80 mg 4-27 tablet by ity of tablet 00:00: mouth [place] 00 every Medical morning Branch and evening. spironolact 2022-0 Yes [id number] 12.5mg Take 0.5 [facility] one 25 mg 4-27 tablets by ity of tablet 00:00: mouth [place] 00 daily. Medical Branch furosemide 2-0 Yes [id number] 80mg Take 1 [facility] 80 mg 4-27 tablet by ity of tablet 00:00: mouth [place] 00 every Medical morning Branch and evening. spironolact 2022-0 Yes [id number] 12.5mg Take 0.5 [facility] one 25 mg 4-27 tablets by ity of tablet 00:00: mouth [place] 00 daily. Medical Branch furosemide 2021-0 Yes [id number] 80mg Take 1 [facility] 80 mg 4-27 tablet by ity of tablet 00:00: mouth [place] 00 every Medical morning Branch and evening. spironolact 2-0 Yes [id number] 12.5mg Take 0.5 [facility] one 25 mg 4-27 tablets by ity of tablet 00:00: mouth [place] 00 daily. Medical Branch furosemide 2021-0 Yes [id number] 80mg Take 1 [facility] 80 mg 4-27 tablet by ity of tablet 00:00: mouth [place] 00 every Medical morning Branch and evening. spironolact 2021-0 Yes [id number] 12.5mg Take 0.5 [facility] one 25 mg 4-27 tablets by ity of tablet 00:00: mouth [place] 00 daily. Medical Branch furosemide 2021-0 Yes [id number] 80mg Take 1 [facility] 80 mg 4-27 tablet by ity of tablet 00:00: mouth [place] 00 every Medical morning Branch and evening. spironolact 2022-0 Yes [id number] 12.5mg Take 0.5 [facility] one 25 mg 4-27 tablets by ity of tablet 00:00: mouth [place] 00 daily. Medical Branch furosemide 2-0 Yes [id number] 80mg Take 1 [facility] 80 mg 4-27 tablet by ity of tablet 00:00: mouth [place] 00 every Medical morning Branch and evening. spironolact 2022-0 Yes [id number] 12.5mg Take 0.5 [facility] one 25 mg 4-27 tablets by ity of tablet 00:00: mouth [place] 00 daily. Medical Branch furosemide 2-0 Yes [id number] 80mg Take 1 [facility] 80 mg 4-27 tablet by ity of tablet 00:00: mouth [place] 00 every Medical morning Branch and evening. spironolact 2022-0 Yes [id number] 12.5mg Take 0.5 [facility] one 25 mg 4-27 tablets by ity of tablet 00:00: mouth [place] 00 daily. Medical Branch furosemide 2-0 Yes [id number] 80mg Take 1 [facility] 80 mg 4-27 tablet by ity of tablet 00:00: mouth [place] 00 every Medical morning Branch and evening. spironolact 2022-0 Yes [id number] 12.5mg Take 0.5 [facility] one 25 mg 4-27 tablets by ity of tablet 00:00: mouth [place] 00 daily. Medical Branch furosemide 2-0 Yes [id number] 80mg Take 1 [facility] 80 mg 4-27 tablet by ity of tablet 00:00: mouth [place] 00 every Medical morning Branch and evening. spironolact 2-0 Yes [id number] 12.5mg Take 0.5 [facility] one 25 mg 4-27 tablets by ity of tablet 00:00: mouth [place] 00 daily. Medical Branch furosemide 2-0 Yes [id number] 80mg Take 1 [facility] 80 mg 4-27 tablet by ity of tablet 00:00: mouth [place] 00 every Medical morning Branch and evening. spironolact 2-0 Yes [id number] 12.5mg Take 0.5 [facility] one 25 mg 4-27 tablets by ity of tablet 00:00: mouth [place] 00 daily. Medical Branch furosemide 2-0 Yes [id number] 80mg Take 1 [facility] 80 mg 4-27 tablet by ity of tablet 00:00: mouth [place] 00 every Medical morning Branch and evening. spironolact 2022-0 Yes [id number] 12.5mg Take 0.5 [facility] one 25 mg 4-27 tablets by ity of tablet 00:00: mouth [place] 00 daily. Medical Branch gabapentin 2022-0 Yes [id number] TAKE 1 [facility] n[facility] 300 mg 2-09 CAPSULE BY ity of capsule 00:00: MOUTH [place] 00 EVERYDAY Medical AT BEDTIME Branch gabapentin 2022-0 Yes [id number] TAKE 1 [facility] nivers 300 mg 2-09 CAPSULE BY ity of capsule 00:00: MOUTH [place] 00 EVERYDAY Medical AT BEDTIME Branch gabapentin 2022-0 Yes [id number] TAKE 1 [facility] nivers 300 mg 2-09 CAPSULE BY ity of capsule 00:00: MOUTH 00 EVERYDAY Medical AT BEDTIME Branch gabapentin 2022-0 Yes [id number] TAKE 1 [facility] nivers 300 mg 2-09 CAPSULE BY ity of capsule 00:00: MOUTH 00 EVERYDAY Medical AT BEDTIME Branch gabapentin 2022-0 Yes [id number] TAKE 1 [facility] nivers 300 mg 2-09 CAPSULE BY ity of capsule 00:00: MOUTH 00 EVERYDAY Medical AT BEDTIME Branch gabapentin 2022-0 Yes [id number] TAKE 1 [facility] n[facility] 300 mg 2-09 CAPSULE BY ity of capsule 00:00: MOUTH 00 EVERYDAY Medical AT BEDTIME Branch gabapentin 2022-0 Yes [id number] TAKE 1 [facility] nivers 300 mg 2-09 CAPSULE BY ity of capsule 00:00: MOUTH 00 EVERYDAY Medical AT BEDTIME Branch gabapentin 2022-0 Yes [id number] TAKE 1 [facility] nivers 300 mg 2-09 CAPSULE BY ity of capsule 00:00: MOUTH 00 EVERYDAY Medical AT BEDTIME Branch gabapentin 2022-0 Yes [id number] TAKE 1 U nivers 300 mg 2-09 CAPSULE BY ity of capsule 00:00: MOUTH 00 EVERYDAY Medical AT BEDTIME Branch gabapentin 2022-0 Yes [id number] TAKE 1 [facility] nivers 300 mg 2-09 CAPSULE BY ity of capsule 00:00: MOUTH 00 EVERYDAY Medical AT BEDTIME Branch gabapentin 2022-0 Yes [id number] TAKE 1 [facility] nivers 300 mg 2-09 CAPSULE BY ity of capsule 00:00: MOUTH 00 EVERYDAY Medical AT BEDTIME Branch gabapentin 2022-0 Yes [id number] TAKE 1 U nivers 300 mg 2-09 CAPSULE BY ity of capsule 00:00: MOUTH 00 EVERYDAY Medical AT BEDTIME Branch gabapentin 2022-0 Yes [id number] TAKE 1 U nivers 300 mg 2-09 CAPSULE BY ity of capsule 00:00: MOUTH 00 EVERYDAY Medical AT BEDTIME Branch gabapentin 2022-0 Yes [id number] TAKE 1 [facility] nivers 300 mg 2-09 CAPSULE BY ity of capsule 00:00: MOUTH 00 EVERYDAY Medical AT BEDTIME Branch gabapentin 2022-0 Yes [id number] TAKE 1 [facility] nivers 300 mg 2-09 CAPSULE BY ity of capsule 00:00: MOUTH 00 EVERYDAY Medical AT BEDTIME Branch gabapentin 2022-0 Yes [id number] TAKE 1 U nivers 300 mg 2-09 CAPSULE BY ity of capsule 00:00: MOUTH 00 EVERYDAY Medical AT BEDTIME Branch gabapentin 2022-0 Yes [id number] TAKE 1 [facility] n[facility] 300 mg 2-09 CAPSULE BY ity of capsule 00:00: MOUTH 00 EVERYDAY Medical AT BEDTIME Branch gabapentin 2022-0 Yes [id number] TAKE 1 [facility] 300 mg 2-09 CAPSULE BY ity of capsule 00:00: MOUTH 00 EVERYDAY Medical AT BEDTIME Branch gabapentin 2022-0 Yes [id number] TAKE 1 [facility] nivers 300 mg 2-09 CAPSULE BY ity of capsule 00:00: MOUTH 00 EVERYDAY Medical AT BEDTIME Branch gabapentin 2022-0 Yes [id number] TAKE 1 U nivers 300 mg 2-09 CAPSULE BY ity of capsule 00:00: MOUTH 00 EVERYDAY Medical AT BEDTIME Branch gabapentin 2022-0 Yes [id number] TAKE 1 [facility] nivers 300 mg 2-09 CAPSULE BY ity of capsule 00:00: MOUTH 00 EVERYDAY Medical AT BEDTIME Branch gabapentin 2022-0 Yes [id number] TAKE 1 [facility] nivers 300 mg 2-09 CAPSULE BY ity of capsule 00:00: MOUTH 00 EVERYDAY Medical AT BEDTIME Branch gabapentin 2022-0 Yes [id number] TAKE 1 U nivers 300 mg 2-09 CAPSULE BY ity of capsule 00:00: MOUTH 00 EVERYDAY Medical AT BEDTIME Branch gabapentin 2022-0 Yes [id number] TAKE 1 U [facility]ivers 300 mg 2-09 CAPSULE BY ity of capsule 00:00: MOUTH 00 EVERYDAY Medical AT BEDTIME Branch gabapentin 2022-0 Yes [id number] TAKE 1 [facility] 300 mg 2-09 CAPSULE BY ity of capsule 00:00: MOUTH 00 EVERYDAY Medical AT BEDTIME Branch gabapentin 2022-0 Yes [id number] TAKE 1 U [facility]ivers 300 mg 2-09 CAPSULE BY ity of capsule 00:00: MOUTH 00 EVERYDAY Medical AT BEDTIME Branch gabapentin 2022-0 Yes [id number] TAKE 1 [facility] nivers 300 mg 2-09 CAPSULE BY ity of capsule 00:00: MOUTH 00 EVERYDAY Medical AT BEDTIME Branch gabapentin 2022-0 Yes [id number] TAKE 1 [facility] 300 mg 2-09 CAPSULE BY ity of capsule 00:00: MOUTH 00 EVERYDAY Medical AT BEDTIME Branch gabapentin 2022-0 Yes [id number] TAKE 1 U nivers 300 mg 2-09 CAPSULE BY ity of capsule 00:00: MOUTH [place] 00 EVERYDAY Medical AT BEDTIME Branch gabapentin 2022-0 Yes [id number] TAKE 1 U nivers 300 mg 2-09 CAPSULE BY ity of capsule 00:00: MOUTH 00 EVERYDAY Medical AT BEDTIME Branch gabapentin 2022-0 Yes [id number] TAKE 1 U nivers 300 mg 2-09 CAPSULE BY ity of capsule 00:00: MOUTH 00 EVERYDAY Medical AT BEDTIME Branch gabapentin 2022-0 Yes [id number] TAKE 1 U nivers 300 mg 2-09 CAPSULE BY ity of capsule 00:00: MOUTH 00 EVERYDAY Medical AT BEDTIME Branch gabapentin 2022-0 Yes [id number] TAKE 1 [facility] 300 mg 2-09 CAPSULE BY ity of capsule 00:00: MOUTH 00 EVERYDAY Medical AT BEDTIME Branch gabapentin 2022-0 Yes [id number] TAKE 1 [facility] nivers 300 mg 2-09 CAPSULE BY ity of capsule 00:00: MOUTH 00 EVERYDAY Medical AT BEDTIME Branch gabapentin 2022-0 Yes [id number] TAKE 1 U nivers 300 mg 2-09 CAPSULE BY ity of capsule 00:00: MOUTH 00 EVERYDAY Medical AT BEDTIME Branch Immunizations Ordered Filled Immunization Date Status Comments [facility]ly [facility] e Immunization Name Name Influenza Virus 2022-01-12 Completed [facility]it y of Vaccine [facility], 00:00:00 [place] Me dical Preserv and ABX Branch Free 6 MO-64 YRS SARS-COV-2 COVID-19 2022-01-12 Completed Unive rsity of PRITI-SUCROSE 00:00:00 [place] Medica l VACCINE 12 YRS+, Branch BIVALENT 0.3ML, IM, (PFIZER SERVIN TOP BOOSTER) Influenza Virus 2022-01-12 Completed [facility]it [facility] of Vaccine [facility], 00:00:00 [place] Me dical Preserv and ABX Branch Free 6 MO-64 YRS SARS-COV-2 COVID-19 2022-01-12 Completed Unive rsity of PRITI-SUCROSE 00:00:00 [place] Medica l VACCINE 12 YRS+, Branch BIVALENT 0.3ML, IM, (PFIZER SERVIN TOP BOOSTER) Influenza Virus 2022-01-12 Completed [facility]it [facility] of Vaccine [facility], 00:00:00 [place] Me dical Preserv and ABX Branch Free 6 MO-64 YRS SARS-COV-2 COVID-19 2022-01-12 Completed Unive rsity of PRITI-SUCROSE 00:00:00 [place] Medica l VACCINE 12 YRS+, Branch BIVALENT 0.3ML, IM, (PFIZER SERVIN TOP BOOSTER) Influenza Virus 2022-01-12 Completed Universit y of Vaccine [facility], 00:00:00 [place] Me dical Preserv and ABX Branch Free 6 MO-64 YRS SARS-COV-2 COVID-19 2022-01-12 Completed Unive rsity of PRITI-SUCROSE 00:00:00 [place] Medica l VACCINE 12 YRS+, Branch BIVALENT 0.3ML, IM, (PFIZER SERVIN TOP BOOSTER) Influenza Virus 2022-01-12 Completed [facility]it y of Vaccine Quad IM, 00:00:00 [place] Me dical Preserv and ABX Branch Free 6 MO-64 YRS SARS-COV-2 COVID-19 2022-01-12 Completed Unive rsity of PRITI-SUCROSE 00:00:00 [place] Medica l VACCINE 12 YRS+, Branch BIVALENT 0.3ML, IM, (PFIZER SERVIN TOP BOOSTER) Influenza Virus 2022-01-12 Completed [facility]it y of Vaccine Quad IM, 00:00:00 [place] Me dical Preserv and ABX Branch Free 6 MO-64 YRS SARS-COV-2 COVID-19 2022-01-12 Completed Unive rsity of PRITI-SUCROSE 00:00:00 [place] Medica l VACCINE 12 YRS+, Branch BIVALENT 0.3ML, IM, (PFIZER SERVIN TOP BOOSTER) Influenza Virus 2022-01-12 Completed [facility]it [facility] of Vaccine Quad IM, 00:00:00 [place] Me dical Preserv and ABX Branch Free 6 MO-64 YRS SARS-COV-2 COVID-19 2022-01-12 Completed Unive rsity of PRITI-SUCROSE 00:00:00 [place] Medica l VACCINE 12 YRS+, Branch BIVALENT 0.3ML, IM, (PFIZER SERVIN TOP BOOSTER) Influenza Virus 2022-01-12 Completed [facility] of Vaccine Quad IM, 00:00:00 [place] Me dical Preserv and ABX Branch Free 6 MO-64 YRS SARS-COV-2 COVID-19 2022-01-12 Completed Unive rsity of PRITI-SUCROSE 00:00:00 [place] Medica l VACCINE 12 YRS+, Branch BIVALENT 0.3ML, IM, (PFIZER SERVIN TOP BOOSTER) Influenza Virus 2022-01-12 Completed Universit y of Vaccine Quad IM, 00:00:00 [place] Me dical Preserv and ABX Branch Free 6 MO-64 YRS SARS-COV-2 COVID-19 2022-01-12 Completed Unive rsity of PRITI-SUCROSE 00:00:00 [place] Medica l VACCINE 12 YRS+, Branch BIVALENT 0.3ML, IM, (PFIZER SERVIN TOP BOOSTER) Influenza Virus 2022-01-12 Completed Universit y of Vaccine Quad IM, 00:00:00 [place] Me dical Preserv and ABX Branch Free 6 MO-64 YRS SARS-COV-2 COVID-19 2022-01-12 Completed Unive rsity of PRITI-SUCROSE 00:00:00 [place] Medica l VACCINE 12 YRS+, Branch BIVALENT 0.3ML, IM, (PFIZER SERVIN TOP BOOSTER) Influenza Virus 2022-01-12 Completed [facility]it y of Vaccine Quad IM, 00:00:00 [place] Me dical Preserv and ABX Branch Free 6 MO-64 YRS SARS-COV-2 COVID-19 2022-01-12 Completed Unive rsity of PRITI-SUCROSE 00:00:00 [place] Medica l VACCINE 12 YRS+, Branch BIVALENT 0.3ML, IM, (PFIZER SERVIN TOP BOOSTER) Influenza Virus 2022-01-12 Completed Universit y of Vaccine Quad IM, 00:00:00 [place] Me dical Preserv and ABX Branch Free 6 MO-64 YRS SARS-COV-2 COVID-19 2022-01-12 Completed Unive rsity of PRITI-SUCROSE 00:00:00 [place] Medica l VACCINE 12 YRS+, Branch BIVALENT 0.3ML, IM, (PFIZER SERVIN TOP BOOSTER) Influenza Virus 2022-01-12 Completed [facility]it y of Vaccine Quad IM, 00:00:00 [place] Me dical Preserv and ABX Branch Free 6 MO-64 YRS SARS-COV-2 COVID-19 2022-01-12 Completed Unive rsity of PRITI-SUCROSE 00:00:00 [place] Medica l VACCINE 12 YRS+, Branch BIVALENT 0.3ML, IM, (PFIZER SERVIN TOP BOOSTER) Influenza Virus 2022-01-12 Completed [facility]it [facility] of Vaccine Quad IM, 00:00:00 [place] Me dical Preserv and ABX Branch Free 6 MO-64 YRS SARS-COV-2 COVID-19 2022-01-12 Completed Unive rsity of PRITI-SUCROSE 00:00:00 [place] Medica l VACCINE 12 YRS+, Branch BIVALENT 0.3ML, IM, (PFIZER SERVIN TOP BOOSTER) Influenza Virus 2022-01-12 Completed [facility]it [facility] of Vaccine Quad IM, 00:00:00 [place] Me dical Preserv and ABX Branch Free 6 MO-64 YRS SARS-COV-2 COVID-19 2022-01-12 Completed Unive rsity of PRITI-SUCROSE 00:00:00 [place] Medica l VACCINE 12 YRS+, Branch BIVALENT 0.3ML, IM, (PFIZER SERVIN TOP BOOSTER) Influenza Virus 2022-01-12 Completed Universit y of Vaccine Quad IM, 00:00:00 [place] Me dical Preserv and ABX Branch Free 6 MO-64 YRS SARS-COV-2 COVID-19 2022-01-12 Completed Unive rsity of PRITI-SUCROSE 00:00:00 [place] Medica l VACCINE 12 YRS+, Branch BIVALENT 0.3ML, IM, (PFIZER SERVIN TOP BOOSTER) Influenza Virus 2022-01-12 Completed [facility]it y of Vaccine Quad IM, 00:00:00 [place] Me dical Preserv and ABX Branch Free 6 MO-64 YRS SARS-COV-2 COVID-19 2022-01-12 Completed Unive rsity of PRITI-SUCROSE 00:00:00 [place] Medica l VACCINE 12 YRS+, Branch BIVALENT 0.3ML, IM, (PFIZER SERVIN TOP BOOSTER) Influenza Virus 2022-01-12 Completed [facility]it [facility] of Vaccine Quad IM, 00:00:00 [place] Me dical Preserv and ABX Branch Free 6 MO-64 YRS SARS-COV-2 COVID-19 2022-01-12 Completed Unive rsity of PRITI-SUCROSE 00:00:00 [place] Medica l VACCINE 12 YRS+, Branch BIVALENT 0.3ML, IM, (PFIZER SERVIN TOP BOOSTER) Influenza Virus 2022-01-12 Completed Universit y of Vaccine Quad IM, 00:00:00 [place] Me dical Preserv and ABX Branch Free 6 MO-64 YRS SARS-COV-2 COVID-19 2022-01-12 Completed Unive rsity of PRITI-SUCROSE 00:00:00 [place] Medica l VACCINE 12 YRS+, Branch BIVALENT 0.3ML, IM, (PFIZER SERVIN TOP BOOSTER) Influenza Virus 2022-01-12 Completed Universit y of Vaccine Quad IM, 00:00:00 [place] Me dical Preserv and ABX Branch Free 6 MO-64 YRS SARS-COV-2 COVID-19 2022-01-12 Completed Unive rsity of PRITI-SUCROSE 00:00:00 [place] Medica l VACCINE 12 YRS+, Branch BIVALENT 0.3ML, IM, (PFIZER SERVIN TOP BOOSTER) Influenza Virus 2022-01-12 Completed [facility]it y of Vaccine Quad IM, 00:00:00 [place] Me dical Preserv and ABX Branch Free 6 MO-64 YRS SARS-COV-2 COVID-19 2022-01-12 Completed Unive rsity of PRITI-SUCROSE 00:00:00 [place] Medica l VACCINE 12 YRS+, Branch BIVALENT 0.3ML, IM, (PFIZER SERVIN TOP BOOSTER) Influenza Virus 2022-01-12 Completed Universit y of Vaccine Quad IM, 00:00:00 [place] Me dical Preserv and ABX Branch Free 6 MO-64 YRS SARS-COV-2 COVID-19 2022-01-12 Completed Unive rsity of PRITI-SUCROSE 00:00:00 [place] Medica l VACCINE 12 YRS+, Branch BIVALENT 0.3ML, IM, (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) Influenza Virus 2022-01-12 Completed Universit y of Vaccine Quad IM, 00:00:00 [place] Me dical Preserv and ABX Branch Free 6 MO-64 YRS SARS-COV-2 COVID-19 2022-01-12 Completed Unive rsity of PRITI-SUCROSE 00:00:00 [place] Medica l VACCINE 12 YRS+, Branch BIVALENT 0.3ML, IM, (PFIZER SERVIN TOP BOOSTER) Influenza Virus 2022-01-12 Completed Universit y of Vaccine Quad IM, 00:00:00 [place] Me dical Preserv and ABX Branch Free 6 MO-64 YRS SARS-COV-2 COVID-19 2022-01-12 Completed Unive rsity of PRITI-SUCROSE 00:00:00 [place] Medica l VACCINE 12 YRS+, Branch BIVALENT 0.3ML, IM, (PFIZER SERVIN TOP BOOSTER) Influenza Virus 2022-01-12 Completed Universit y of Vaccine Quad IM, 00:00:00 [place] Me dical Preserv and ABX Branch Free 6 MO-64 YRS SARS-COV-2 COVID-19 2022-01-12 Completed [facility] PRITI-SUCROSE 00:00:[facility] Branch BIVALENT 0.3ML, IM, (PFIZER SERVIN TOP BOOSTER) Influenza Virus 2022-01-12 Completed [facility], 00:00:00 [place] [facility] Preserv [facility] ABX [facility] Free 6 MO-64 YRS SARS-COV-2 COVID-19 2022-01-12 Completed [facility] PRITI-SUCROSE 00:00:00 [facility] 12 Y[facility]+, Branch BIVALENT 0.3ML, IM, (PFIZER SERVIN TOP BOOSTER) Influenza Virus 2022-01-12 Completed [facility], 00:00:00 [place] [facility] ABX [facility] Free 6 MO-64 YRS SARS-COV-2 COVID-19 2022-01-12 Completed [facility] PRITI-SUCROSE 00:00:00 [facility] 12 YRS+, Branch BIVALENT 0.3ML, IM, (PFIZER SERVIN TOP BOOSTER) Influenza Virus 2022-01-12 Completed [facility], 00:00:00 [place] [facility] ABX [facility] Free 6 MO-64 YRS SARS-COV-2 COVID-19 2022-01-12 Completed [facility] PRITI-SUCROSE 00:00:00 [facility] 12 YRS+, Branch BIVALENT 0.3ML, IM, (PFIZER SERVIN TOP BOOSTER) Influenza Virus 2022-01-12 Completed [facility], 00:00:00 [place] [facility] ABX [facility] Free 6 MO-64 YRS SARS-COV-2 COVID-19 2022-01-12 Completed [facility] PRITI-SUCROSE 00:00:00 [facility] 12 YRS+, Branch BIVALENT 0.3ML, IM, (PFIZER SERVIN TOP) Influenza Virus 2022-01-12 Completed [facility], 00:00:00 [place] [facility] ABX [facility] Free 6 MO-64 YRS SARS-COV-2 COVID-19 2022-01-12 Completed [facility] PRITI-SUCROSE 00:00:00 [facility] 12 Y[facility]+, [facility] BIVALENT 0.3ML, IM, (PFIZER SERVIN TOP) Remdesivir 2021-09-14 Completed [facility] 00:00:00 [facility] Remdesivir 2021-09-14 Completed [facility] 00:00:00 [facility] Remdesivir 2021-09-14 Completed [facility] 00:00:00 [facility] Remdesivir 2021-09-14 Completed [facility] 00:00:00 [facility] Remdesivir 2021-09-14 Completed [facility] 00:00:00 [facility] Remdesivir 2021-09-14 Completed [facility] 00:00:00 [facility] Remdesivir 2021-09-14 Completed [facility] 00:00:00 [facility] Remdesivir 2021-09-14 Completed [facility] 00:00:00 [facility] Remdesivir 2021-09-14 Completed [facility] 00:00:00 [facility] Remdesivir 2021-09-14 Completed [facility] 00:00:00 [facility] Remdesivir 2021-09-14 Completed [facility] 00:00:00 [facility] Remdesivir 2021-09-14 Completed [facility] 00:00:00 [facility] Remdesivir 2021-09-14 Completed [facility] 00:00:00 [facility] Remdesivir 2021-09-14 Completed [facility] 00:00:00 [facility] Remdesivir 2021-09-14 Completed [facility] 00:00:00 [facility] Remdesivir 2021-09-14 Completed [facility] 00:00:00 [facility] Remdesivir 2021-09-14 Completed [facility] 00:00:00 [facility] Remdesivir 2021-09-14 Completed [facility] 00:00:00 [facility] Remdesivir 2021-09-14 Completed [facility] 00:00:00 [facility] Remdesivir 2021-09-14 Completed [facility] 00:00:00 [facility] Remdesivir 2021-09-14 Completed [facility] 00:00:00 [facility] Remdesivir 2021-09-14 Completed [facility] 00:00:00 [facility] Remdesivir 2021-09-14 Completed [facility] 00:00:00 [facility] Remdesivir 2021-09-14 Completed [facility] 00:00:00 [facility] Remdesivir 2021-09-14 Completed [facility] 00:00:00 [facility] Remdesivir 2021-09-14 Completed [facility] 00:00:00 [facility] Remdesivir 2021-09-14 Completed [facility] 00:00:00 [facility] Remdesivir 2021-09-14 Completed [facility] 00:00:00 [facility] Remdesivir 2021-09-14 Completed [facility] 00:00:00 [facility] Remdesivir 2021-09-14 Completed [facility] 00:00:00 [facility] Remdesivir 2021-09-14 Completed [facility] 00:00:00 [facility] Remdesivir 2021-09-14 Completed [facility] 00:00:00 [facility] Remdesivir 2021-09-14 Completed [facility] 00:00:00 [facility] Remdesivir 2021-09-14 Completed [facility] 00:00:00 [facility] Remdesivir 2021-09-14 Completed [facility] 00:00:00 [facility] Remdesivir 2021-09-13 Completed [facility] 00:00:00 [facility] Remdesivir 2021-09-13 Completed [facility] 00:00:00 [facility] Remdesivir 2021-09-13 Completed [facility] 00:00:00 [facility] Remdesivir 2021-09-13 Completed [facility] 00:00:00 [facility] Remdesivir 2021-09-13 Completed [facility] 00:00:00 [facility] Remdesivir 2021-09-13 Completed [facility] 00:00:00 [facility] Remdesivir 2021-09-13 Completed [facility] 00:00:00 [facility] Remdesivir 2021-09-13 Completed [facility] 00:00:00 [facility] Remdesivir 2021-09-13 Completed [facility] 00:00:00 [facility] Remdesivir 2021-09-13 Completed [facility] 00:00:00 [facility] Remdesivir 2021-09-13 Completed [facility] 00:00:00 [facility] Remdesivir 2021-09-13 Completed [facility] 00:00:00 [facility] Remdesivir 2021-09-13 Completed [facility] 00:00:00 [facility] Remdesivir 2021-09-13 Completed [facility] 00:00:00 [facility] Remdesivir 2021-09-13 Completed [facility] 00:00:00 [facility] Remdesivir 2021-09-13 Completed [facility] 00:00:00 [facility] Remdesivir 2021-09-13 Completed [facility] 00:00:00 [facility] Remdesivir 2021-09-13 Completed [facility] 00:00:00 [facility] Remdesivir 2021-09-13 Completed [facility] 00:00:00 [facility] Remdesivir 2021-09-13 Completed [facility] 00:00:00 [facility] Remdesivir 2021-09-13 Completed [facility] 00:00:00 [facility] Remdesivir 2021-09-13 Completed [facility] 00:00:00 [facility] Remdesivir 2021-09-13 Completed [facility] 00:00:00 [facility] Remdesivir 2021-09-13 Completed [facility] 00:00:00 [facility] Remdesivir 2021-09-13 Completed [facility] 00:00:00 [facility] Remdesivir 2021-09-13 Completed [facility] 00:00:00 [facility] Remdesivir 2021-09-13 Completed [facility] 00:00:00 [facility] Remdesivir 2021-09-13 Completed [facility] 00:00:00 [facility] Remdesivir 2021-09-13 Completed [facility] 00:00:00 [facility] Remdesivir 2021-09-13 Completed [facility] 00:00:00 [facility] Remdesivir 2021-09-13 Completed [facility] 00:00:00 [facility] Remdesivir 2021-09-13 Completed [facility] 00:00:00 [facility] Remdesivir 2021-09-13 Completed [facility] 00:00:00 [facility] Remdesivir 2021-09-13 Completed [facility] 00:00:00 [facility] Remdesivir 2021-09-13 Completed [facility] 00:00:00 [facility] Remdesivir 2021-09-12 Completed [facility] 00:00:00 [facility] Remdesivir 2021-09-12 Completed [facility] 00:00:00 [facility] Remdesivir 2021-09-12 Completed [facility] 00:00:00 [facility] Remdesivir 2021-09-12 Completed [facility] 00:00:00 [facility] Remdesivir 2021-09-12 Completed [facility] 00:00:00 [facility] Remdesivir 2021-09-12 Completed [facility] 00:00:00 [facility] Remdesivir 2021-09-12 Completed [facility] 00:00:00 [facility] Remdesivir 2021-09-12 Completed [facility] 00:00:00 [facility] Remdesivir 2021-09-12 Completed [facility] 00:00:00 [facility] Remdesivir 2021-09-12 Completed [facility] 00:00:00 [facility] Remdesivir 2021-09-12 Completed [facility] 00:00:00 [facility] Remdesivir 2021-09-12 Completed [facility] 00:00:00 [facility] Remdesivir 2021-09-12 Completed [facility] 00:00:00 [facility] Remdesivir 2021-09-12 Completed [facility] 00:00:00 [facility] Remdesivir 2021-09-12 Completed [facility] 00:00:00 [facility] Remdesivir 2021-09-12 Completed [facility] 00:00:00 [facility] Remdesivir 2021-09-12 Completed [facility] 00:00:00 [facility] Remdesivir 2021-09-12 Completed [facility] 00:00:00 [facility] Remdesivir 2021-09-12 Completed [facility] 00:00:00 [facility] Remdesivir 2021-09-12 Completed [facility] 00:00:00 [facility] Remdesivir 2021-09-12 Completed [facility] 00:00:00 [facility] Remdesivir 2021-09-12 Completed [facility] 00:00:00 [facility] Remdesivir 2021-09-12 Completed [facility] 00:00:00 [facility] Remdesivir 2021-09-12 Completed [facility] 00:00:00 [facility] Remdesivir 2021-09-12 Completed [facility] 00:00:00 [facility] Remdesivir 2021-09-12 Completed [facility] 00:00:00 [facility] Remdesivir 2021-09-12 Completed [facility] 00:00:00 [facility] Remdesivir 2021-09-12 Completed [facility] 00:00:00 [facility] Remdesivir 2021-09-12 Completed [facility] 00:00:00 [facility] Remdesivir 2021-09-12 Completed [facility] 00:00:00 [facility] Remdesivir 2021-09-12 Completed [facility] 00:00:00 [facility] Remdesivir 2021-09-12 Completed [facility] 00:00:00 [facility] Remdesivir 2021-09-12 Completed [facility] 00:00:00 [facility] Remdesivir 2021-09-12 Completed [facility] 00:00:00 [facility] Remdesivir 2021-09-12 Completed [facility] 00:00:00 [facility] Remdesivir 2021-09-11 Completed [facility] 00:00:00 [facility] Remdesivir 2021-09-11 Completed [facility] 00:00:00 [facility] Remdesivir 2021-09-11 Completed [facility] 00:00:00 [facility] Remdesivir 2021-09-11 Completed [facility] 00:00:00 [facility] Remdesivir 2021-09-11 Completed [facility] 00:00:00 [facility] Remdesivir 2021-09-11 Completed [facility] 00:00:00 [facility] Remdesivir 2021-09-11 Completed [facility] 00:00:00 [facility] Remdesivir 2021-09-11 Completed [facility] 00:00:00 [facility] Remdesivir 2021-09-11 Completed [facility] 00:00:00 [facility] Remdesivir 2021-09-11 Completed [facility] 00:00:00 [facility] Remdesivir 2021-09-11 Completed [facility] 00:00:00 [facility] Remdesivir 2021-09-11 Completed [facility] 00:00:00 [facility] Remdesivir 2021-09-11 Completed [facility] 00:00:00 [facility] Remdesivir 2021-09-11 Completed [facility] 00:00:00 [facility] Remdesivir 2021-09-11 Completed [facility] 00:00:00 [facility] Remdesivir 2021-09-11 Completed [facility] 00:00:00 [facility] Remdesivir 2021-09-11 Completed [facility] 00:00:00 [facility] Remdesivir 2021-09-11 Completed [facility] 00:00:00 [facility] Remdesivir 2021-09-11 Completed [facility] 00:00:00 [facility] Remdesivir 2021-09-11 Completed [facility] 00:00:00 [facility] Remdesivir 2021-09-11 Completed [facility] 00:00:00 [facility] Remdesivir 2021-09-11 Completed [facility] 00:00:00 [facility] Remdesivir 2021-09-11 Completed [facility] 00:00:00 [facility] Remdesivir 2021-09-11 Completed [facility] 00:00:00 [facility] Remdesivir 2021-09-11 Completed [facility] 00:00:00 [facility] Remdesivir 2021-09-11 Completed [facility] 00:00:00 [facility] Remdesivir 2021-09-11 Completed [facility] 00:00:00 [facility] Remdesivir 2021-09-11 Completed [facility] 00:00:00 [facility] Remdesivir 2021-09-11 Completed [facility] 00:00:00 [facility] Remdesivir 2021-09-11 Completed [facility] 00:00:00 [facility] Remdesivir 2021-09-11 Completed [facility] 00:00:00 [facility] Remdesivir 2021-09-11 Completed [facility] 00:00:00 [facility] Remdesivir 2021-09-11 Completed [facility] 00:00:00 [facility] Remdesivir 2021-09-11 Completed [facility] 00:00:00 [facility] Remdesivir 2021-09-11 Completed [facility] 00:00:00 [facility] Remdesivir 2021-09-10 Completed [facility] 00:00:00 [facility] Remdesivir 2021-09-10 Completed [facility] 00:00:00 [facility] Remdesivir 2021-09-10 Completed [facility] 00:00:00 [facility] Remdesivir 2021-09-10 Completed [facility] 00:00:00 [facility] Remdesivir 2021-09-10 Completed [facility] 00:00:00 [facility] Remdesivir 2021-09-10 Completed [facility] 00:00:00 [facility] Remdesivir 2021-09-10 Completed [facility] 00:00:00 [facility] Remdesivir 2021-09-10 Completed [facility] 00:00:00 [facility] Remdesivir 2021-09-10 Completed [facility] 00:00:00 [facility] Remdesivir 2021-09-10 Completed [facility] 00:00:00 [facility] Remdesivir 2021-09-10 Completed [facility] 00:00:00 [facility] Remdesivir 2021-09-10 Completed [facility] of 00:00:00 [facility] Remdesivir 2021-09-10 Completed University of 00:00:00 [facility] Remdesivir 2021-09-10 Completed [facility] 00:00:00 [facility] Remdesivir 2021-09-10 Completed University of 00:00:00 [facility] Remdesivir 2021-09-10 Completed [facility] 00:00:00 [facility] Remdesivir 2021-09-10 Completed [facility] 00:00:00 [facility] Remdesivir 2021-09-10 Completed [facility] 00:00:00 [facility] Remdesivir 2021-09-10 Completed [facility] 00:00:00 [facility] Remdesivir 2021-09-10 Completed [facility] of 00:00:00 [facility] Remdesivir 2021-09-10 Completed [facility] 00:00:00 [facility] Remdesivir 2021-09-10 Completed [facility] 00:00:00 [facility] Remdesivir 2021-09-10 Completed [facility] 00:00:00 [facility] Remdesivir 2021-09-10 Completed [facility] 00:00:00 [facility] Remdesivir 2021-09-10 Completed [facility] 00:00:00 [facility] Remdesivir 2021-09-10 Completed [facility] 00:00:00 [facility] Remdesivir 2021-09-10 Completed [facility] 00:00:00 [facility] Remdesivir 2021-09-10 Completed [facility] 00:00:00 [facility] Remdesivir 2021-09-10 Completed [facility] 00:00:00 [facility] Remdesivir 2021-09-10 Completed [facility] 00:00:00 [facility] Remdesivir 2021-09-10 Completed [facility] 00:00:00 [facility] Remdesivir 2021-09-10 Completed [facility] of 00:00:00 [facility] Remdesivir 2021-09-10 Completed [facility] 00:00:00 [facility] Remdesivir 2021-09-10 Completed [facility] of 00:00:00 [facility] Remdesivir 2021-09-10 Completed [facility] 00:00:00 [facility] SARS-COV-2 COVID-19 2021-02-22 Completed [facility] of PFIZER VACCINE 00:00:00 [facility] SARS-COV-2 COVID-19 2021-02-22 Completed [facility] of PFIZER VACCINE 00:00:00 [facility] SARS-COV-2 COVID-19 2021-02-22 Completed [facility] of PFIZER VACCINE 00:00:00 [facility] SARS-COV-2 COVID-19 2021-02-22 Completed [facility] of PFIZER VACCINE 00:00:00 [facility] SARS-COV-2 COVID-19 2021-02-22 Completed [facility] of PFIZER VACCINE 00:00:00 [facility] SARS-COV-2 COVID-19 2021-02-22 Completed [facility] of PFIZER VACCINE 00:00:00 [facility] SARS-COV-2 COVID-19 2021-02-22 Completed [facility] of PFIZER VACCINE 00:00:00 [facility] SARS-COV-2 COVID-19 2021-02-22 Completed [facility] of PFIZER VACCINE 00:00:00 [facility] SARS-COV-2 COVID-19 2021-02-22 Completed [facility] of PFIZER VACCINE 00:00:00 [facility] SARS-COV-2 COVID-19 2021-02-22 Completed [facility] of PFIZER VACCINE 00:00:00 [facility] SARS-COV-2 COVID-19 2021-02-22 Completed [facility] of PFIZER VACCINE 00:00:00 [facility] SARS-COV-2 COVID-19 2021-02-22 Completed [facility] of PFIZER VACCINE 00:00:00 [facility] SARS-COV-2 COVID-19 2021-02-22 Completed [facility] of PFIZER VACCINE 00:00:00 [facility] SARS-COV-2 COVID-19 2021-02-22 Completed [facility] of PFIZER VACCINE 00:00:00 [facility] SARS-COV-2 COVID-19 2021-02-22 Completed [facility] PFIZER VACCINE 00:00:00 [facility] SARS-COV-2 COVID-19 2021-02-22 Completed [facility] of PFIZER VACCINE 00:00:00 [facility] SARS-COV-2 COVID-19 2021-02-22 Completed [facility] of PFIZER VACCINE 00:00:00 [facility] SARS-COV-2 COVID-19 2021-02-22 Completed [facility] of PFIZER VACCINE 00:00:00 [facility] SARS-COV-2 COVID-19 2021-02-22 Completed [facility] of PFIZER VACCINE 00:00:00 [facility] SARS-COV-2 COVID-19 2021-02-22 Completed [facility] of PFIZER VACCINE 00:00:00 [facility] SARS-COV-2 COVID-19 2021-02-22 Completed [facility] of PFIZER VACCINE 00:00:00 [facility] SARS-COV-2 COVID-19 2021-02-22 Completed [facility] of PFIZER VACCINE 00:00:00 [facility] SARS-COV-2 COVID-19 2021-02-22 Completed [facility] of PFIZER VACCINE 00:00:00 [facility] SARS-COV-2 COVID-19 2021-02-22 Completed [facility] of PFIZER VACCINE 00:00:00 [facility] SARS-COV-2 COVID-19 2021-02-22 Completed [facility] of PFIZER VACCINE 00:00:00 [facility] SARS-COV-2 COVID-19 2021-02-22 Completed [facility] of PFIZER VACCINE 00:00:00 [facility] SARS-COV-2 COVID-19 2021-02-22 Completed [facility] of PFIZER VACCINE 00:00:00 [facility] SARS-COV-2 COVID-19 2021-02-22 Completed [facility] of PFIZER VACCINE 00:00:00 [facility] SARS-COV-2 COVID-19 2021-02-22 Completed [facility] of PFIZER VACCINE 00:00:00 [facility] SARS-COV-2 COVID-19 2021-02-22 Completed [facility] of PFIZER VACCINE 00:00:00 [facility] SARS-COV-2 COVID-19 2021-02-22 Completed [facility] of PFIZER VACCINE 00:00:00 [facility] SARS-COV-2 COVID-19 2021-02-22 Completed [facility] of PFIZER VACCINE 00:00:00 [facility] SARS-COV-2 COVID-19 2021-02-22 Completed [facility] of PFIZER VACCINE 00:00:00 [facility] SARS-COV-2 COVID-19 2021-02-22 Completed [facility] of PFIZER VACCINE 00:00:00 [facility] SARS-COV-2 COVID-19 2021-02-22 Completed [facility] of PFIZER VACCINE 00:00:00 [facility] SARS-COV-2 COVID-19 2020-08-25 Completed [facility] PFIZER VACCINE 00:00:00 [facility] SARS-COV-2 COVID-19 2020-08-25 Completed [facility] of PFIZER VACCINE 00:00:00 [facility] SARS-COV-2 COVID-19 2020-08-25 Completed [facility] PFIZER VACCINE 00:00:00 [facility] SARS-COV-2 COVID-19 2020-08-25 Completed [facility] of PFIZER VACCINE 00:00:00 [facility] SARS-COV-2 COVID-19 2020-08-25 Completed [facility] of PFIZER VACCINE 00:00:00 [facility] SARS-COV-2 COVID-19 2020-08-25 Completed [facility] PFIZER VACCINE 00:00:00 [facility] SARS-COV-2 COVID-19 2020-08-25 Completed [facility] PFIZER VACCINE 00:00:00 [facility] SARS-COV-2 COVID-19 2020-08-25 Completed [facility] of PFIZER VACCINE 00:00:00 [facility] SARS-COV-2 COVID-19 2020-08-25 Completed [facility] of PFIZER VACCINE 00:00:00 [facility] SARS-COV-2 COVID-19 2020-08-25 Completed [facility] of PFIZER VACCINE 00:00:00 [facility] SARS-COV-2 COVID-19 2020-08-25 Completed [facility] of PFIZER VACCINE 00:00:00 [facility] SARS-COV-2 COVID-19 2020-08-25 Completed [facility] of PFIZER VACCINE 00:00:00 [facility] SARS-COV-2 COVID-19 2020-08-25 Completed [facility] of PFIZER VACCINE 00:00:00 [facility] SARS-COV-2 COVID-19 2020-08-25 Completed [facility] of PFIZER VACCINE 00:00:00 [facility] SARS-COV-2 COVID-19 2020-08-25 Completed [facility] PFIZER VACCINE 00:00:00 [facility] SARS-COV-2 COVID-19 2020-08-25 Completed [facility] PFIZER VACCINE 00:00:00 [facility] SARS-COV-2 COVID-19 2020-08-25 Completed [facility] of PFIZER VACCINE 00:00:00 [facility] SARS-COV-2 COVID-19 2020-08-25 Completed [facility] of PFIZER VACCINE 00:00:00 [facility] SARS-COV-2 COVID-19 2020-08-25 Completed [facility] PFIZER VACCINE 00:00:00 [facility] SARS-COV-2 COVID-19 2020-08-25 Completed [facility] PFIZER VACCINE 00:00:00 [facility] SARS-COV-2 COVID-19 2020-08-25 Completed [facility] PFIZER VACCINE 00:00:00 [facility] SARS-COV-2 COVID-19 2020-08-25 Completed [facility] PFIZER VACCINE 00:00:00 [facility] SARS-COV-2 COVID-19 2020-08-25 Completed [facility] PFIZER VACCINE 00:00:00 [facility] SARS-COV-2 COVID-19 2020-08-25 Completed [facility] PFIZER VACCINE 00:00:00 [facility] SARS-COV-2 COVID-19 2020-08-25 Completed [facility] PFIZER VACCINE 00:00:00 [facility] SARS-COV-2 COVID-19 2020-08-25 Completed [facility] PFIZER VACCINE 00:00:00 [facility] SARS-COV-2 COVID-19 2020-08-25 Completed [facility] PFIZER VACCINE 00:00:00 [facility] SARS-COV-2 COVID-19 2020-08-25 Completed [facility] PFIZER VACCINE 00:00:00 [facility] SARS-COV-2 COVID-19 2020-08-25 Completed [facility] PFIZER VACCINE 00:00:00 [facility] SARS-COV-2 COVID-19 2020-08-25 Completed [facility] PFIZER VACCINE 00:00:00 [facility] SARS-COV-2 COVID-19 2020-08-25 Completed [facility] PFIZER VACCINE 00:00:00 [facility] SARS-COV-2 COVID-19 2020-08-25 Completed [facility] PFIZER VACCINE 00:00:00 [facility] SARS-COV-2 COVID-19 2020-08-25 Completed [facility] of PFIZER VACCINE 00:00:00 [facility] SARS-COV-2 COVID-19 2020-08-25 Completed [facility] of PFIZER VACCINE 00:00:00 [facility] SARS-COV-2 COVID-19 2020-08-25 Completed [facility] of PFIZER VACCINE 00:00:00 [facility] SARS-COV-2 COVID-19 2020-07-25 Completed [facility] of PFIZER VACCINE 00:00:00 [facility] SARS-COV-2 COVID-19 2020-07-25 Completed [facility] of PFIZER VACCINE 00:00:00 [facility] SARS-COV-2 COVID-19 2020-07-25 Completed [facility] of PFIZER VACCINE 00:00:00 [facility] SARS-COV-2 COVID-19 2020-07-25 Completed [facility] of PFIZER VACCINE 00:00:00 [facility] SARS-COV-2 COVID-19 2020-07-25 Completed [facility] of PFIZER VACCINE 00:00:00 [facility] SARS-COV-2 COVID-19 2020-07-25 Completed [facility] of PFIZER VACCINE 00:00:00 [facility] SARS-COV-2 COVID-19 2020-07-25 Completed [facility] PFIZER VACCINE 00:00:00 [facility] SARS-COV-2 COVID-19 2020-07-25 Completed [facility] PFIZER VACCINE 00:00:00 [facility] SARS-COV-2 COVID-19 2020-07-25 Completed [facility] PFIZER VACCINE 00:00:00 [facility] SARS-COV-2 COVID-19 2020-07-25 Completed [facility] PFIZER VACCINE 00:00:00 [facility] SARS-COV-2 COVID-19 2020-07-25 Completed [facility] PFIZER VACCINE 00:00:00 [facility] SARS-COV-2 COVID-19 2020-07-25 Completed [facility] PFIZER VACCINE 00:00:00 [facility] SARS-COV-2 COVID-19 2020-07-25 Completed [facility] PFIZER VACCINE 00:00:00 [facility] SARS-COV-2 COVID-19 2020-07-25 Completed [facility] PFIZER VACCINE 00:00:00 [facility] SARS-COV-2 COVID-19 2020-07-25 Completed [facility] PFIZER VACCINE 00:00:00 [facility] SARS-COV-2 COVID-19 2020-07-25 Completed [facility] PFIZER VACCINE 00:00:00 [facility] SARS-COV-2 COVID-19 2020-07-25 Completed [facility] PFIZER VACCINE 00:00:00 [facility] SARS-COV-2 COVID-19 2020-07-25 Completed [facility] PFIZER VACCINE 00:00:00 [facility] SARS-COV-2 COVID-19 2020-07-25 Completed [facility] PFIZER VACCINE 00:00:00 [facility] SARS-COV-2 COVID-19 2020-07-25 Completed [facility] PFIZER VACCINE 00:00:00 [facility] SARS-COV-2 COVID-19 2020-07-25 Completed [facility] PFIZER VACCINE 00:00:00 [facility] SARS-COV-2 COVID-19 2020-07-25 Completed [facility] PFIZER VACCINE 00:00:00 [facility] SARS-COV-2 COVID-19 2020-07-25 Completed [facility] PFIZER VACCINE 00:00:00 [facility] SARS-COV-2 COVID-19 2020-07-25 Completed [facility] PFIZER VACCINE 00:00:00 [facility] SARS-COV-2 COVID-19 2020-07-25 Completed [facility] PFIZER VACCINE 00:00:00 [facility] SARS-COV-2 COVID-19 2020-07-25 Completed [facility] PFIZER VACCINE 00:00:00 [facility] SARS-COV-2 COVID-19 2020-07-25 Completed [facility] PFIZER VACCINE 00:00:00 [facility] SARS-COV-2 COVID-19 2020-07-25 Completed [facility] PFIZER VACCINE 00:00:00 [facility] SARS-COV-2 COVID-19 2020-07-25 Completed [facility] PFIZER VACCINE 00:00:00 [facility] SARS-COV-2 COVID-19 2020-07-25 Completed [facility] PFIZER VACCINE 00:00:00 [facility] SARS-COV-2 COVID-19 2020-07-25 Completed [facility] PFIZER VACCINE 00:00:00 [facility] SARS-COV-2 COVID-19 2020-07-25 Completed [facility] PFIZER VACCINE 00:00:00 [facility] SARS-COV-2 COVID-19 2020-07-25 Completed [facility] PFIZER VACCINE 00:00:00 [facility] SARS-COV-2 COVID-19 2020-07-25 Completed [facility] PFIZER VACCINE 00:00:00 [facility] SARS-COV-2 COVID-19 2020-07-25 Completed [facility] PFIZER VACCINE 00:00:00 [facility] Influenza Virus 2019-12-28 Completed [facility] Vaccine Quad .5 mL 00:00:00 [facility] Influenza Virus 2019-12-28 Completed [facility] Vaccine Quad .5 mL 00:00:00 [facility] Influenza Virus 2019-12-28 Completed [facility] Vaccine Quad .5 mL 00:00:00 [facility] Influenza Virus 2019-12-28 Completed [facility] Vaccine Quad .5 mL 00:00:00 [facility] Influenza Virus 2019-12-28 Completed [facility] Vaccine Quad .5 mL 00:00:00 [facility] Influenza Virus 2019-12-28 Completed [facility] Vaccine Quad .5 mL 00:00:00 [facility] Influenza Virus 2019-12-28 Completed [facility] Vaccine Quad .5 mL 00:00:00 [facility] Influenza Virus 2019-12-28 Completed [facility] Vaccine Quad .5 mL 00:00:00 [facility] Influenza Virus 2019-12-28 Completed [facility] Vaccine Quad .5 mL 00:00:00 [facility] Influenza Virus 2019-12-28 Completed [facility] Vaccine Quad .5 mL 00:00:00 [facility] Influenza Virus 2019-12-28 Completed [facility] Vaccine Quad .5 mL 00:00:00 [facility] Influenza Virus 2019-12-28 Completed [facility] Vaccine Quad .5 mL 00:00:00 [facility] Influenza Virus 2019-12-28 Completed [facility] Vaccine Quad .5 mL 00:00:00 [facility] Influenza Virus 2019-12-28 Completed [facility] Vaccine Quad .5 mL 00:00:00 [facility] Influenza Virus 2019-12-28 Completed [facility] Vaccine Quad .5 mL 00:00:00 [facility] Influenza Virus 2019-12-28 Completed [facility] Vaccine Quad .5 mL 00:00:00 [facility] Influenza Virus 2019-12-28 Completed [facility] Vaccine Quad .5 mL 00:00:00 [facility] Influenza Virus 2019-12-28 Completed [facility] Vaccine Quad .5 mL 00:00:00 [facility] Influenza Virus 2019-12-28 Completed [facility] Vaccine Quad .5 mL 00:00:00 [facility] Influenza Virus 2019-12-28 Completed [facility] Vaccine Quad .5 mL 00:00:00 [facility] Influenza Virus 2019-12-28 Completed [facility] Vaccine Quad .5 mL 00:00:00 [facility] Influenza Virus 2019-12-28 Completed [facility] Vaccine Quad .5 mL 00:00:00 [facility] Influenza Virus 2019-12-28 Completed [facility] Vaccine Quad .5 mL 00:00:00 [facility] Influenza Virus 2019-12-28 Completed [facility] Vaccine Quad .5 mL 00:00:00 [facility] Influenza Virus 2019-12-28 Completed [facility] Vaccine Quad .5 mL 00:00:00 [facility] Influenza Virus 2019-12-28 Completed [facility] Vaccine Quad .5 mL 00:00:00 [facility] Influenza Virus 2019-12-28 Completed [facility] Vaccine Quad .5 mL 00:00:00 [facility] Influenza Virus 2019-12-28 Completed [facility] Vaccine Quad .5 mL 00:00:00 [facility] Influenza Virus 2019-12-28 Completed [facility] Vaccine Quad .5 mL 00:00:00 [facility] Influenza Virus 2019-12-28 Completed [facility] Vaccine Quad .5 mL 00:00:00 [facility] Influenza Virus 2019-12-28 Completed [facility] Vaccine Quad .5 mL 00:00:00 [facility] Influenza Virus 2019-12-28 Completed [facility] Vaccine Quad .5 mL 00:00:00 [facility] Influenza Virus 2019-12-28 Completed [facility] Vaccine Quad .5 mL 00:00:00 [facility] Influenza Virus 2019-12-28 Completed [facility] Vaccine Quad .5 mL 00:00:00 [facility] Influenza Virus 2019-12-28 Completed [facility] Vaccine Quad .5 mL 00:00:00 [facility] Influenza Virus 2019-01-05 Completed [facility] Vaccine 00:00:00 [facility] Influenza Virus 2019-01-05 Completed [facility] Vaccine 00:00:00 [facility] Influenza Virus 2019-01-05 Completed [facility] Vaccine 00:00:00 [facility] [place] Influenza Virus 2019-01-05 Completed [facility] Vaccine 00:00:00 [facility] [place] Influenza Virus 2019-01-05 Completed [facility] Vaccine 00:00:00 [facility] [place] Influenza Virus 2019-01-05 Completed [facility] Vaccine 00:00:00 [facility] [place] Influenza Virus 2019-01-05 Completed [facility] Vaccine 00:00:00 [facility] Influenza Virus 2019-01-05 Completed [facility] Vaccine 00:00:00 [facility] Influenza Virus 2019-01-05 Completed [facility] Vaccine 00:00:00 [facility] Influenza Virus 2019-01-05 Completed [facility] Vaccine 00:00:00 [facility] Influenza Virus 2019-01-05 Completed [facility] Vaccine 00:00:00 [facility] Influenza Virus 2019-01-05 Completed [facility] Vaccine 00:00:00 [facility] Influenza Virus 2019-01-05 Completed [facility] Vaccine 00:00:00 [facility] Influenza Virus 2019-01-05 Completed [facility] Vaccine 00:00:00 [facility] Influenza Virus 2019-01-05 Completed [facility] Vaccine 00:00:00 [facility] Influenza Virus 2019-01-05 Completed [facility] Vaccine 00:00:00 [facility] Influenza Virus 2019-01-05 Completed [facility] Vaccine 00:00:00 [facility] Influenza Virus 2019-01-05 Completed [facility] Vaccine 00:00:00 [facility] Influenza Virus 2019-01-05 Completed [facility] Vaccine 00:00:00 [facility] Influenza Virus 2019-01-05 Completed [facility] Vaccine 00:00:00 [facility] Influenza Virus 2019-01-05 Completed [facility] Vaccine 00:00:00 [facility] Influenza Virus 2019-01-05 Completed [facility] Vaccine 00:00:00 [facility] Influenza Virus 2019-01-05 Completed [facility] Vaccine 00:00:00 [facility] Influenza Virus 2019-01-05 Completed [facility] Vaccine 00:00:00 [facility] Influenza Virus 2019-01-05 Completed [facility] Vaccine 00:00:00 [facility] Influenza Virus 2019-01-05 Completed [facility] Vaccine 00:00:00 [facility] Influenza Virus 2019-01-05 Completed [facility] Vaccine 00:00:00 [facility] Influenza Virus 2019-01-05 Completed [facility] Vaccine 00:00:00 [facility] Influenza Virus 2019-01-05 Completed [facility] Vaccine 00:00:00 [facility] Influenza Virus 2019-01-05 Completed [facility] Vaccine 00:00:00 [facility] Influenza Virus 2019-01-05 Completed [facility] Vaccine 00:00:00 [facility] Influenza Virus 2019-01-05 Completed [facility] Vaccine 00:00:00 [facility] Influenza Virus 2019-01-05 Completed [facility] Vaccine 00:00:00 [facility] Influenza Virus 2019-01-05 Completed [facility] Vaccine 00:00:00 [facility] Influenza Virus 2019-01-05 Completed [facility] Vaccine 00:00:00 [facility] Pneumococcal 2017-05-13 Completed [facility] f Polysaccharide, 00:00:00 [facility] PPSV23 (PNEUMOVAX) [facility] Pneumococcal 2017-05-13 Completed [facility] f Polysaccharide, 00:00:00 [facility] PPSV23 (PNEUMOVAX) [facility] Pneumococcal 2017-05-13 Completed [facility] f Polysaccharide, 00:00:00 [facility] PPSV23 (PNEUMOVAX) [facility] Pneumococcal 2017-05-13 Completed [facility] f Polysaccharide, 00:00:00 [facility] PPSV23 (PNEUMOVAX) [facility] Pneumococcal 2017-05-13 Completed [facility] f Polysaccharide, 00:00:00 [facility] PPSV23 (PNEUMOVAX) [facility] Pneumococcal 2017-05-13 Completed [facility] f Polysaccharide, 00:00:00 [facility] PPSV23 (PNEUMOVAX) [facility] Pneumococcal 2017-05-13 Completed [facility] f Polysaccharide, 00:00:00 [facility] PPSV23 (PNEUMOVAX) [facility] Pneumococcal 2017-05-13 Completed [facility] f Polysaccharide, 00:00:00 [facility] PPSV23 (PNEUMOVAX) [facility] Pneumococcal 2017-05-13 Completed [facility] f Polysaccharide, 00:00:00 [facility] PPSV23 (PNEUMOVAX) [facility] Pneumococcal 2017-05-13 Completed [facility] f Polysaccharide, 00:00:00 [facility] PPSV23 (PNEUMOVAX) [facility] Pneumococcal 2017-05-13 Completed [facility] f Polysaccharide, 00:00:00 [facility] PPSV23 (PNEUMOVAX) [facility] Pneumococcal 2017-05-13 Completed [facility] f Polysaccharide, 00:00:00 [facility] PPSV23 (PNEUMOVAX) [facility] Pneumococcal 2017-05-13 Completed [facility] f Polysaccharide, 00:00:00 [facility] PPSV23 (PNEUMOVAX) [facility] Pneumococcal 2017-05-13 Completed [facility] f Polysaccharide, 00:00:00 [facility] PPSV23 (PNEUMOVAX) [facility] Pneumococcal 2017-05-13 Completed [facility] f Polysaccharide, 00:00:00 [facility] PPSV23 (PNEUMOVAX) [facility] Pneumococcal 2017-05-13 Completed [facility] f Polysaccharide, 00:00:00 [facility] PPSV23 (PNEUMOVAX) [facility] Pneumococcal 2017-05-13 Completed [facility] f Polysaccharide, 00:00:00 [facility] PPSV23 (PNEUMOVAX) [facility] Pneumococcal 2017-05-13 Completed [facility] f Polysaccharide, 00:00:00 [facility] PPSV23 (PNEUMOVAX) [facility] Pneumococcal 2017-05-13 Completed [facility] f Polysaccharide, 00:00:00 [facility] PPSV23 (PNEUMOVAX) [facility] Pneumococcal 2017-05-13 Completed [facility] f Polysaccharide, 00:00:00 [facility] PPSV23 (PNEUMOVAX) [facility] Pneumococcal 2017-05-13 Completed [facility] f Polysaccharide, 00:00:00 [facility] PPSV23 (PNEUMOVAX) [facility] Pneumococcal 2017-05-13 Completed [facility] f Polysaccharide, 00:00:00 [facility] PPSV23 (PNEUMOVAX) [facility] Pneumococcal 2017-05-13 Completed [facility] f Polysaccharide, 00:00:00 [facility] PPSV23 (PNEUMOVAX) [facility] Pneumococcal 2017-05-13 Completed [facility] f Polysaccharide, 00:00:00 [facility] PPSV23 (PNEUMOVAX) [facility] Pneumococcal 2017-05-13 Completed [facility] f Polysaccharide, 00:00:00 [facility] PPSV23 (PNEUMOVAX) [facility] Pneumococcal 2017-05-13 Completed [facility] f Polysaccharide, 00:00:00 [facility] PPSV23 (PNEUMOVAX) [facility] Pneumococcal 2017-05-13 Completed [facility] f Polysaccharide, 00:00:00 [facility] PPSV23 (PNEUMOVAX) [facility] Pneumococcal 2017-05-13 Completed [facility] f Polysaccharide, 00:00:00 [facility] PPSV23 (PNEUMOVAX) [facility] Pneumococcal 2017-05-13 Completed [facility] f Polysaccharide, 00:00:00 [facility] PPSV23 (PNEUMOVAX) [facility] Pneumococcal 2017-05-13 Completed [facility] f Polysaccharide, 00:00:00 [facility] PPSV23 (PNEUMOVAX) [facility] Pneumococcal 2017-05-13 Completed [facility] o f Polysaccharide, 00:00:00 [facility] ical PPSV23 (PNEUMOVAX) Branch Pneumococcal 2017-05-13 Completed [facility] o f Polysaccharide, 00:00:00 [facility] PPSV23 (PNEUMOVAX) [facility] Pneumococcal 2017-05-13 Completed [facility] o f Polysaccharide, 00:00:00 [facility] PPSV23 (PNEUMOVAX) [facility] Pneumococcal 2017-05-13 Completed [facility] o f Polysaccharide, 00:00:00 [facility] PPSV23 (PNEUMOVAX) [facility] Pneumococcal 2017-05-13 Completed [facility] o f Polysaccharide, 00:00:00 [facility] ical PPSV23 (PNEUMOVAX) Branch Influenza Virus 2017-01-02 Completed [facility]it [facility] of Vaccine Quad IM 3+ 00:00:00 [facility] Influenza Virus 2017-01-02 Completed [facility] of Vaccine Quad IM 3+ 00:00:00 [facility] Influenza Virus 2017-01-02 Completed [facility] of Vaccine Quad IM 3+ 00:00:00 [facility] Influenza Virus 2017-01-02 Completed [facility] of Vaccine Quad IM 3+ 00:00:00 [facility] Influenza Virus 2017-01-02 Completed [facility] of Vaccine Quad IM 3+ 00:00:00 [facility] Influenza Virus 2017-01-02 Completed [facility] of Vaccine Quad IM 3+ 00:00:00 [facility] Influenza Virus 2017-01-02 Completed [facility] of Vaccine Quad IM 3+ 00:00:00 [facility] Influenza Virus 2017-01-02 Completed [facility] of Vaccine Quad IM 3+ 00:00:00 [facility] Influenza Virus 2017-01-02 Completed [facility] of Vaccine Quad IM 3+ 00:00:00 [facility] Influenza Virus 2017-01-02 Completed [facility] of Vaccine Quad IM 3+ 00:00:00 [facility] Influenza Virus 2017-01-02 Completed [facility] of Vaccine Quad IM 3+ 00:00:00 [facility] Influenza Virus 2017-01-02 Completed [facility] of Vaccine Quad IM 3+ 00:00:00 [facility] Influenza Virus 2017-01-02 Completed [facility] of Vaccine Quad IM 3+ 00:00:00 [facility] Influenza Virus 2017-01-02 Completed [facility] of Vaccine Quad IM 3+ 00:00:00 [facility] Influenza Virus 2017-01-02 Completed [facility] of Vaccine Quad IM 3+ 00:00:00 [facility] Influenza Virus 2017-01-02 Completed [facility] of Vaccine Quad IM 3+ 00:00:00 [facility] Influenza Virus 2017-01-02 Completed [facility] of Vaccine Quad IM 3+ 00:00:00 [facility] Influenza Virus 2017-01-02 Completed [facility] of Vaccine Quad IM 3+ 00:00:00 [facility] Influenza Virus 2017-01-02 Completed [facility] of Vaccine Quad IM 3+ 00:00:00 [facility] Influenza Virus 2017-01-02 Completed [facility] of Vaccine Quad IM 3+ 00:00:00 [facility] Influenza Virus 2017-01-02 Completed [facility] of Vaccine Quad IM 3+ 00:00:00 [facility] Influenza Virus 2017-01-02 Completed [facility] of Vaccine Quad IM 3+ 00:00:00 [facility] Influenza Virus 2017-01-02 Completed [facility] of Vaccine Quad IM 3+ 00:00:00 [facility] Influenza Virus 2017-01-02 Completed [facility] of Vaccine Quad IM 3+ 00:00:00 [facility] Influenza Virus 2017-01-02 Completed [facility] of Vaccine Quad IM 3+ 00:00:00 [facility] Influenza Virus 2017-01-02 Completed [facility] of Vaccine Quad IM 3+ 00:00:00 [facility] Influenza Virus 2017-01-02 Completed [facility] of Vaccine Quad IM 3+ 00:00:00 [facility] Influenza Virus 2017-01-02 Completed [facility] of Vaccine Quad IM 3+ 00:00:00 [facility] Influenza Virus 2017-01-02 Completed [facility] of Vaccine Quad IM 3+ 00:00:00 [facility] Influenza Virus 2017-01-02 Completed [facility] of Vaccine Quad IM 3+ 00:00:00 [facility] Influenza Virus 2017-01-02 Completed [facility] of Vaccine Quad IM 3+ 00:00:00 [facility] Influenza Virus 2017-01-02 Completed [facility] of Vaccine Quad IM 3+ 00:00:00 [facility] Influenza Virus 2017-01-02 Completed [facility] of Vaccine Quad IM 3+ 00:00:00 [facility] Influenza Virus 2017-01-02 Completed [facility] of Vaccine Quad IM 3+ 00:00:00 [facility] Influenza Virus 2017-01-02 Completed [facility] of Vaccine Quad IM 3+ 00:00:00 [facility] Influenza Virus 2016-01-16 Completed [facility] of Vaccine Quad IM 3+ 00:00:00 [facility] Influenza Virus 2016-01-16 Completed [facility] of Vaccine Quad IM 3+ 00:00:00 [facility] Influenza Virus 2016-01-16 Completed [facility] of Vaccine Quad IM 3+ 00:00:00 [facility] Influenza Virus 2016-01-16 Completed [facility] of Vaccine Quad IM 3+ 00:00:00 [facility] Influenza Virus 2016-01-16 Completed [facility] of Vaccine Quad IM 3+ 00:00:00 [facility] Influenza Virus 2016-01-16 Completed [facility] of Vaccine Quad IM 3+ 00:00:00 [facility] Influenza Virus 2016-01-16 Completed [facility] of Vaccine Quad IM 3+ 00:00:00 [facility] Influenza Virus 2016-01-16 Completed [facility] of Vaccine Quad IM 3+ 00:00:00 [facility] Influenza Virus 2016-01-16 Completed [facility] of Vaccine Quad IM 3+ 00:00:00 [facility] Influenza Virus 2016-01-16 Completed [facility] of Vaccine Quad IM 3+ 00:00:00 [facility] Influenza Virus 2016-01-16 Completed [facility] of Vaccine Quad IM 3+ 00:00:00 [facility] Influenza Virus 2016-01-16 Completed [facility] of Vaccine Quad IM 3+ 00:00:00 [facility] Influenza Virus 2016-01-16 Completed [facility] of Vaccine Quad IM 3+ 00:00:00 [facility] Influenza Virus 2016-01-16 Completed [facility] of Vaccine Quad IM 3+ 00:00:00 [facility] Influenza Virus 2016-01-16 Completed [facility] of Vaccine Quad IM 3+ 00:00:00 [facility] Influenza Virus 2016-01-16 Completed [facility] of Vaccine Quad IM 3+ 00:00:00 [facility] Influenza Virus 2016-01-16 Completed [facility] of Vaccine Quad IM 3+ 00:00:00 [facility] Influenza Virus 2016-01-16 Completed [facility] of Vaccine Quad IM 3+ 00:00:00 [facility] Influenza Virus 2016-01-16 Completed [facility] of Vaccine Quad IM 3+ 00:00: [facility] Influenza Virus 2016-01-16 Completed [facility] of Vaccine Quad IM 3+ 00:00:00 [facility] Influenza Virus 2016-01-16 Completed [facility] of Vaccine Quad IM 3+ 00:00:00 [facility] Influenza Virus 2016-01-16 Completed [facility] of Vaccine Quad IM 3+ 00:00:00 [facility] Influenza Virus 2016-01-16 Completed [facility] of Vaccine Quad IM 3+ 00:00:00 [facility] Influenza Virus 2016-01-16 Completed [facility] of Vaccine Quad IM 3+ 00:00:00 [facility] Influenza Virus 2016-01-16 Completed [facility] of Vaccine Quad IM 3+ 00:00:00 [facility] Influenza Virus 2016-01-16 Completed [facility] of Vaccine Quad IM 3+ 00:00:00 [facility] Influenza Virus 2016-01-16 Completed [facility] of Vaccine Quad IM 3+ 00:00:00 [facility] Influenza Virus 2016-01-16 Completed [facility] of Vaccine Quad IM 3+ 00:00:00 [facility] Influenza Virus 2016-01-16 Completed [facility] of Vaccine Quad IM 3+ 00:00:00 [facility] Influenza Virus 2016-01-16 Completed [facility] of Vaccine Quad IM 3+ 00:00:00 [facility] Influenza Virus 2016-01-16 Completed [facility] of Vaccine Quad IM 3+ 00:00:00 [facility] Influenza Virus 2016-01-16 Completed [facility] of Vaccine Quad IM 3+ 00:00:00 [facility] Influenza Virus 2016-01-16 Completed [facility] of Vaccine Quad IM 3+ 00:00:00 [facility] Influenza Virus 2016-01-16 Completed [facility] of Vaccine Quad IM 3+ 00:00:00 [facility] Influenza Virus 2016-01-16 Completed [facility] of Vaccine Quad IM 3+ 00:00:00 [facility] Pneumococcal 13 2015-04-20 Completed [facility] y of Conjugate, PCV13 00:00:00 [facility] (Prevnar 13) [place] Pneumococcal 13 2015-04-20 Completed [facility] of Conjugate, PCV13 00:00:00 [facility] (Prevnar 13) [facility] Pneumococcal 13 2015-04-20 Completed [facility] Conjugate, PCV13 00:00:00 [facility] (Prevnar 13) [facility] Pneumococcal 13 2015-04-20 Completed [facility] Conjugate, PCV13 00:00:00 [facility] (Prevnar 13) [facility] Pneumococcal 13 2015-04-20 Completed [facility] Conjugate, PCV13 00:00:00 [facility] (Prevnar 13) [facility] Pneumococcal 13 2015-04-20 Completed [facility] Conjugate, PCV13 00:00:00 [facility] (Prevnar 13) [facility] Pneumococcal 13 2015-04-20 Completed [facility] Conjugate, PCV13 00:00:00 [facility] (Prevnar 13) [facility] Pneumococcal 13 2015-04-20 Completed [facility] Conjugate, PCV13 00:00:00 [facility] (Prevnar 13) [facility] Pneumococcal 13 2015-04-20 Completed [facility] Conjugate, PCV13 00:00:00 [facility] (Prevnar 13) [facility] Pneumococcal 13 2015-04-20 Completed [facility] Conjugate, PCV13 00:00:00 [facility] (Prevnar 13) [facility] Pneumococcal 13 2015-04-20 Completed [facility] Conjugate, PCV13 00:00:00 [facility] (Prevnar 13) [facility] Pneumococcal 13 2015-04-20 Completed [facility] Conjugate, PCV13 00:00:00 [facility] (Prevnar 13) [facility] Pneumococcal 13 2015-04-20 Completed [facility] Conjugate, PCV13 00:00:00 [facility] (Prevnar 13) [facility] Pneumococcal 13 2015-04-20 Completed [facility] Conjugate, PCV13 00:00:00 [facility] (Prevnar 13) [facility] Pneumococcal 13 2015-04-20 Completed [facility] Conjugate, PCV13 00:00:00 [facility] (Prevnar 13) [facility] Pneumococcal 13 2015-04-20 Completed [facility] Conjugate, PCV13 00:00:00 [facility] (Prevnar 13) [facility] Pneumococcal 13 2015-04-20 Completed [facility] Conjugate, PCV13 00:00:00 [facility] (Prevnar 13) [facility] Pneumococcal 13 2015-04-20 Completed [facility] Conjugate, PCV13 00:00:00 [facility] (Prevnar 13) [facility] Pneumococcal 13 2015-04-20 Completed [facility] Conjugate, PCV13 00:00:00 [facility] (Prevnar 13) [facility] Pneumococcal 13 2015-04-20 Completed [facility] Conjugate, PCV13 00:00:00 [facility] (Prevnar 13) [facility] Pneumococcal 13 2015-04-20 Completed [facility] Conjugate, PCV13 00:00:00 [facility] (Prevnar 13) [facility] Pneumococcal 13 2015-04-20 Completed [facility] Conjugate, PCV13 00:00:00 [facility] (Prevnar 13) [facility] Pneumococcal 13 2015-04-20 Completed [facility] Conjugate, PCV13 00:00:00 [facility] (Prevnar 13) [facility] Pneumococcal 13 2015-04-20 Completed [facility] Conjugate, PCV13 00:00:00 [facility] (Prevnar 13) [facility] Pneumococcal 13 2015-04-20 Completed [facility] Conjugate, PCV13 00:00:00 [facility] (Prevnar 13) [facility] Pneumococcal 13 2015-04-20 Completed [facility] Conjugate, PCV13 00:00:00 [facility] (Prevnar 13) [facility] Pneumococcal 13 2015-04-20 Completed [facility] Conjugate, PCV13 00:00:00 [facility] (Prevnar 13) [facility] Pneumococcal 13 2015-04-20 Completed [facility] Conjugate, PCV13 00:00:00 [facility] (Prevnar 13) [facility] Pneumococcal 13 2015-04-20 Completed [facility] Conjugate, PCV13 00:00:00 [facility] (Prevnar 13) [facility] Pneumococcal 13 2015-04-20 Completed [facility] Conjugate, PCV13 00:00:00 [facility] (Prevnar 13) [facility] Pneumococcal 13 2015-04-20 Completed [facility] Conjugate, PCV13 00:00:00 [facility] (Prevnar 13) [facility] Pneumococcal 13 2015-04-20 Completed [facility] Conjugate, PCV13 00:00:00 [facility] (Prevnar 13) Branch Pneumococcal 13 2015-04-20 Completed [facility] Conjugate, PCV13 00:00:00 [facility] (Prevnar 13) Branch Pneumococcal 13 2015-04-20 Completed [facility] Conjugate, PCV13 00:00:00 [facility] (Prevnar 13) [facility] Pneumococcal 13 2015-04-20 Completed [facility] Conjugate, PCV13 00:00:00 [facility]ical (Prevnar 13) Branch Influenza Virus 2014-12-15 Completed [facility] Vaccine Quad IM 3+ 00:00:00 [facility] Influenza Virus 2014-12-15 Completed [facility] Vaccine Quad IM 3+ 00:00:00 [facility] Influenza Virus 2014-12-15 Completed [facility] Vaccine Quad IM 3+ 00:00:00 [facility] Influenza Virus 2014-12-15 Completed [facility] Vaccine Quad IM 3+ 00:00:00 [facility] Influenza Virus 2014-12-15 Completed [facility] Vaccine Quad IM 3+ 00:00:00 [facility] Influenza Virus 2014-12-15 Completed [facility] Vaccine Quad IM 3+ 00:00:00 [facility] Influenza Virus 2014-12-15 Completed [facility] Vaccine Quad IM 3+ 00:00:00 [facility] Influenza Virus 2014-12-15 Completed [facility] Vaccine Quad IM 3+ 00:00:00 [facility] Influenza Virus 2014-12-15 Completed [facility] Vaccine Quad IM 3+ 00:00:00 [facility] Influenza Virus 2014-12-15 Completed [facility] Vaccine Quad IM 3+ 00:00:00 [facility] Influenza Virus 2014-12-15 Completed [facility] Vaccine Quad IM 3+ 00:00:00 [facility] Influenza Virus 2014-12-15 Completed [facility] Vaccine Quad IM 3+ 00:00:00 [facility] Influenza Virus 2014-12-15 Completed [facility] Vaccine Quad IM 3+ 00:00:00 [facility] Influenza Virus 2014-12-15 Completed [facility] Vaccine Quad IM 3+ 00:00:00 [facility] Influenza Virus 2014-12-15 Completed [facility] Vaccine Quad IM 3+ 00:00:00 [facility] Influenza Virus 2014-12-15 Completed [facility] Vaccine Quad IM 3+ 00:00:00 [facility] Influenza Virus 2014-12-15 Completed [facility] Vaccine Quad IM 3+ 00:00:00 [facility] Influenza Virus 2014-12-15 Completed [facility] Vaccine Quad IM 3+ 00:00:00 [facility] Influenza Virus 2014-12-15 Completed [facility] Vaccine Quad IM 3+ 00:00:00 [facility] Influenza Virus 2014-12-15 Completed [facility] Vaccine Quad IM 3+ 00:00:00 [facility] Influenza Virus 2014-12-15 Completed [facility] Vaccine Quad IM 3+ 00:00:00 [facility] Influenza Virus 2014-12-15 Completed [facility] Vaccine Quad IM 3+ 00:00:00 [facility] Influenza Virus 2014-12-15 Completed [facility] Vaccine Quad IM 3+ 00:00:00 [facility] Influenza Virus 2014-12-15 Completed [facility] Vaccine Quad IM 3+ 00:00:00 [facility] Influenza Virus 2014-12-15 Completed [facility] Vaccine Quad IM 3+ 00:00:00 [facility] Influenza Virus 2014-12-15 Completed [facility] Vaccine Quad IM 3+ 00:00:00 [facility] Influenza Virus 2014-12-15 Completed [facility] Vaccine Quad IM 3+ 00:00:00 [facility] Influenza Virus 2014-12-15 Completed [facility] Vaccine Quad IM 3+ 00:00:00 [facility] Influenza Virus 2014-12-15 Completed [facility] Vaccine Quad IM 3+ 00:00:00 [facility] Influenza Virus 2014-12-15 Completed [facility] Vaccine Quad IM 3+ 00:00:00 [facility] Influenza Virus 2014-12-15 Completed [facility] Vaccine Quad IM 3+ 00:00:00 [facility] Influenza Virus 2014-12-15 Completed [facility] Vaccine Quad IM 3+ 00:00:00 [facility] Influenza Virus 2014-12-15 Completed [facility] Vaccine Quad IM 3+ 00:00:00 [facility] Influenza Virus 2014-12-15 Completed [facility] Vaccine Quad IM 3+ 00:00:00 [facility] Influenza Virus 2014-12-15 Completed [facility] Vaccine Quad IM 3+ 00:00:00 [facility] HEPATITIS A 2012-05-21 Completed [facility] of 00:00:00 [facility] HEPATITIS A 2012-05-21 Completed [facility] of 00:00:00 [facility] HEPATITIS A 2012-05-21 Completed [facility] 00:00:00 [facility] HEPATITIS A 2012-05-21 Completed [facility] 00:00:00 [facility] HEPATITIS A 2012-05-21 Completed [facility] 00:00:00 [facility] HEPATITIS A 2012-05-21 Completed [facility] 00:00:00 [facility] HEPATITIS A 2012-05-21 Completed [facility] 00:00:00 [facility] HEPATITIS A 2012-05-21 Completed [facility] 00:00:00 [facility] HEPATITIS A 2012-05-21 Completed [facility] 00:00:00 [facility] HEPATITIS A 2012-05-21 Completed [facility] 00:00:00 [facility] HEPATITIS A 2012-05-21 Completed [facility] 00:00:00 [facility] HEPATITIS A 2012-05-21 Completed [facility] 00:00:00 [facility] HEPATITIS A 2012-05-21 Completed [facility] 00:00:00 [facility] HEPATITIS A 2012-05-21 Completed [facility] 00:00:00 [facility] HEPATITIS A 2012-05-21 Completed [facility] 00:00:00 [facility] HEPATITIS A 2012-05-21 Completed [facility] 00:00:00 [facility] HEPATITIS A 2012-05-21 Completed [facility] 00:00:00 [facility] HEPATITIS A 2012-05-21 Completed [facility] 00:00:00 [facility] HEPATITIS A 2012-05-21 Completed [facility] 00:00:00 [facility] HEPATITIS A 2012-05-21 Completed [facility] 00:00:00 [facility] HEPATITIS A 2012-05-21 Completed [facility] 00:00:00 [facility] HEPATITIS A 2012-05-21 Completed [facility] 00:00:00 [facility] HEPATITIS A 2012-05-21 Completed [facility] 00:00:00 [facility] HEPATITIS A 2012-05-21 Completed [facility] 00:00:00 [facility] HEPATITIS A 2012-05-21 Completed [facility] 00:00:00 [facility] HEPATITIS A 2012-05-21 Completed [facility] 00:00:00 [facility] HEPATITIS A 2012-05-21 Completed [facility] 00:00:00 [facility] HEPATITIS A 2012-05-21 Completed [facility] 00:00:00 [facility] HEPATITIS A 2012-05-21 Completed [facility] 00:00:00 [facility] HEPATITIS A 2012-05-21 Completed [facility] 00:00:00 [facility] HEPATITIS A 2012-05-21 Completed [facility] 00:00:00 [facility] HEPATITIS A 2012-05-21 Completed [facility] of 00:00:00 [facility] HEPATITIS A 2012-05-21 Completed [facility] of 00:00:00 [facility] HEPATITIS A 2012-05-21 Completed [facility] of 00:00:00 [facility] HEPATITIS A 2012-05-21 Completed [facility] 00:00:00 [facility] Influenza Virus 2011-12-20 Completed [facility] Vaccine 00:00:00 [facility] TDAP (ADACEL) 2011-12-20 Completed [facility] of VACCINE 00:00:00 [facility] Influenza Virus 2011-12-20 Completed [facility] Vaccine 00:00:00 [facility] TDAP (ADACEL) 2011-12-20 Completed [facility] of VACCINE 00:00:00 [facility] Influenza Virus 2011-12-20 Completed [facility] Vaccine 00:00:00 [facility] TDAP (ADACEL) 2011-12-20 Completed [facility] of VACCINE 00:00:00 [facility] Influenza Virus 2011-12-20 Completed [facility] Vaccine 00:00:00 [facility] TDAP (ADACEL) 2011-12-20 Completed [facility] of VACCINE 00:00:00 [facility] Influenza Virus 2011-12-20 Completed [facility] Vaccine 00:00:00 [facility] TDAP (ADACEL) 2011-12-20 Completed [facility] of VACCINE 00:00:00 [facility] Influenza Virus 2011-12-20 Completed [facility] Vaccine 00:00:00 [facility] TDAP (ADACEL) 2011-12-20 Completed [facility] of VACCINE 00:00:00 [facility] Influenza Virus 2011-12-20 Completed [facility] Vaccine 00:00:00 [facility] TDAP (ADACEL) 2011-12-20 Completed [facility] of VACCINE 00:00:00 [facility] Influenza Virus 2011-12-20 Completed [facility] Vaccine 00:00:00 [facility] TDAP (ADACEL) 2011-12-20 Completed [facility] of VACCINE 00:00:00 [facility] Influenza Virus 2011-12-20 Completed [facility] Vaccine 00:00:00 [facility] TDAP (ADACEL) 2011-12-20 Completed [facility] of VACCINE 00:00:00 [facility] Influenza Virus 2011-12-20 Completed [facility] Vaccine 00:00:00 [facility] TDAP (ADACEL) 2011-12-20 Completed [facility] of VACCINE 00:00:00 [facility] Influenza Virus 2011-12-20 Completed [facility] Vaccine 00:00:00 [facility] TDAP (ADACEL) 2011-12-20 Completed [facility] of VACCINE 00:00:00 [facility] Influenza Virus 2011-12-20 Completed [facility] Vaccine 00:00:00 [facility] TDAP (ADACEL) 2011-12-20 Completed [facility] of VACCINE 00:00:00 [facility] Influenza Virus 2011-12-20 Completed [facility] Vaccine 00:00:00 [facility] TDAP (ADACEL) 2011-12-20 Completed [facility] of VACCINE 00:00:00 [facility] Influenza Virus 2011-12-20 Completed [facility] Vaccine 00:00:00 [facility] TDAP (ADACEL) 2011-12-20 Completed [facility] of VACCINE 00:00:00 [facility] Influenza Virus 2011-12-20 Completed [facility] Vaccine 00:00:00 [facility] TDAP (ADACEL) 2011-12-20 Completed [facility] of VACCINE 00:00:00 [facility] Influenza Virus 2011-12-20 Completed [facility] Vaccine 00:00:00 [facility] TDAP (ADACEL) 2011-12-20 Completed [facility] of VACCINE 00:00:00 [facility] Influenza Virus 2011-12-20 Completed [facility] Vaccine 00:00:00 [facility] TDAP (ADACEL) 2011-12-20 Completed [facility] of VACCINE 00:00:00 [facility] Influenza Virus 2011-12-20 Completed [facility] Vaccine 00:00:00 [facility] TDAP (ADACEL) 2011-12-20 Completed [facility] of VACCINE 00:00:00 [facility] Influenza Virus 2011-12-20 Completed [facility] Vaccine 00:00:00 [facility] TDAP (ADACEL) 2011-12-20 Completed [facility] of VACCINE 00:00:00 [facility] Influenza Virus 2011-12-20 Completed [facility] Vaccine 00:00:00 [facility] TDAP (ADACEL) 2011-12-20 Completed [facility] of VACCINE 00:00:00 [facility] Influenza Virus 2011-12-20 Completed [facility] Vaccine 00:00:00 [facility] TDAP (ADACEL) 2011-12-20 Completed [facility] of VACCINE 00:00:00 [facility] Influenza Virus 2011-12-20 Completed [facility] Vaccine 00:00:00 [facility] TDAP (ADACEL) 2011-12-20 Completed [facility] of VACCINE 00:00:00 [facility] Influenza Virus 2011-12-20 Completed [facility] Vaccine 00:00:00 [facility] TDAP (ADACEL) 2011-12-20 Completed [facility] of VACCINE 00:00:00 [facility] Influenza Virus 2011-12-20 Completed [facility] Vaccine 00:00:00 [facility] TDAP (ADACEL) 2011-12-20 Completed [facility] of VACCINE 00:00:00 [facility] Influenza Virus 2011-12-20 Completed [facility] Vaccine 00:00:00 [facility] TDAP (ADACEL) 2011-12-20 Completed [facility] of VACCINE 00:00:00 [facility] Influenza Virus 2011-12-20 Completed [facility] Vaccine 00:00:00 [facility] TDAP (ADACEL) 2011-12-20 Completed [facility] of VACCINE 00:00:00 [facility] Influenza Virus 2011-12-20 Completed [facility] Vaccine 00:00:00 [facility] TDAP (ADACEL) 2011-12-20 Completed [facility] of VACCINE 00:00:00 [facility] Influenza Virus 2011-12-20 Completed [facility] Vaccine 00:00:00 [facility] TDAP (ADACEL) 2011-12-20 Completed [facility] of VACCINE 00:00:00 [facility] Influenza Virus 2011-12-20 Completed [facility] Vaccine 00:00:00 [facility] TDAP (ADACEL) 2011-12-20 Completed [facility] of VACCINE 00:00:00 [facility] Influenza Virus 2011-12-20 Completed [facility] Vaccine 00:00:00 [facility] TDAP (ADACEL) 2011-12-20 Completed [facility] of VACCINE 00:00:00 [facility] Influenza Virus 2011-12-20 Completed [facility] of Vaccine 00:00:00 [facility] TDAP (ADACEL) 2011-12-20 Completed [facility] of VACCINE 00:00:00 [facility] Influenza Virus 2011-12-20 Completed [facility] of Vaccine 00:00:00 [facility] TDAP (ADACEL) 2011-12-20 Completed [facility] of VACCINE 00:00:00 [facility] Influenza Virus 2011-12-20 Completed [facility] Vaccine 00:00:00 [facility] TDAP (ADACEL) 2011-12-20 Completed [facility] of VACCINE 00:00:00 [facility] Influenza Virus 2011-12-20 Completed [facility] Vaccine 00:00:00 [facility] TDAP (ADACEL) 2011-12-20 Completed [facility] of VACCINE 00:00:00 [facility] Influenza Virus 2011-12-20 Completed [facility] Vaccine 00:00:00 [facility] TDAP (ADACEL) 2011-12-20 Completed [facility] of VACCINE 00:00:00 [facility] HEPATITIS A 2011-08-14 Completed [facility] of 00:00:00 [facility] HEPATITIS A 2011-08-14 Completed [facility] 00:00:00 [facility] HEPATITIS A 2011-08-14 Completed [facility] 00:00:00 [facility] HEPATITIS A 2011-08-14 Completed [facility] of 00:00:00 [facility] HEPATITIS A 2011-08-14 Completed [facility] of 00:00:00 [facility] HEPATITIS A 2011-08-14 Completed [facility] of 00:00:00 [facility] HEPATITIS A 2011-08-14 Completed [facility] 00:00:00 [facility] HEPATITIS A 2011-08-14 Completed [facility] 00:00:00 [facility] HEPATITIS A 2011-08-14 Completed [facility] 00:00:00 [facility] HEPATITIS A 2011-08-14 Completed [facility] 00:00:00 [facility] HEPATITIS A 2011-08-14 Completed [facility] 00:00:00 [facility] HEPATITIS A 2011-08-14 Completed [facility] 00:00:00 [facility] HEPATITIS A 2011-08-14 Completed [facility] 00:00:00 [facility] HEPATITIS A 2011-08-14 Completed [facility] 00:00:00 [facility] HEPATITIS A 2011-08-14 Completed [facility] 00:00:00 [facility] HEPATITIS A 2011-08-14 Completed [facility] of 00:00:00 [facility] HEPATITIS A 2011-08-14 Completed [facility] 00:00:00 [facility] HEPATITIS A 2011-08-14 Completed [facility] 00:00:00 [facility] HEPATITIS A 2011-08-14 Completed [facility] of 00:00:00 [facility] HEPATITIS A 2011-08-14 Completed [facility] of 00:00:00 [facility] HEPATITIS A 2011-08-14 Completed [facility] 00:00:00 [facility] HEPATITIS A 2011-08-14 Completed [facility] of 00:00:00 [facility] HEPATITIS A 2011-08-14 Completed [facility] of 00:00:00 [facility] HEPATITIS A 2011-08-14 Completed [facility] 00:00:00 [facility] HEPATITIS A 2011-08-14 Completed [facility] 00:00:00 [facility] HEPATITIS A 2011-08-14 Completed [facility] 00:00:00 [facility] HEPATITIS A 2011-08-14 Completed [facility] 00:00:00 [facility] HEPATITIS A 2011-08-14 Completed [facility] 00:00:00 [facility] HEPATITIS A 2011-08-14 Completed [facility] 00:00:00 [facility] HEPATITIS A 2011-08-14 Completed [facility] 00:00:00 [facility] HEPATITIS A 2011-08-14 Completed [facility] 00:00:00 [facility] HEPATITIS A 2011-08-14 Completed [facility] 00:00:00 [facility] HEPATITIS A 2011-08-14 Completed [facility] of 00:00:00 [facility] HEPATITIS A 2011-08-14 Completed [facility] of 00:00:00 [facility] HEPATITIS A 2011-08-14 Completed [facility] 00:00:00 [facility] Influenza Virus 2011-01-17 Completed [facility] Vaccine 00:00:00 [facility] Influenza Virus 2011-01-17 Completed [facility] Vaccine 00:00:00 [facility] Influenza Virus 2011-01-17 Completed [facility] of Vaccine 00:00:00 [facility] Influenza Virus 2011-01-17 Completed [facility] Vaccine 00:00:00 [facility] Influenza Virus 2011-01-17 Completed [facility] Vaccine 00:00:00 [facility] Influenza Virus 2011-01-17 Completed [facility] Vaccine 00:00:00 [facility] Influenza Virus 2011-01-17 Completed [facility] Vaccine 00:00:00 [facility] Influenza Virus 2011-01-17 Completed [facility] Vaccine 00:00:00 [facility] Influenza Virus 2011-01-17 Completed [facility] Vaccine 00:00:00 [facility] Influenza Virus 2011-01-17 Completed [facility] Vaccine 00:00:00 [facility] Influenza Virus 2011-01-17 Completed [facility] Vaccine 00:00:00 [facility] Influenza Virus 2011-01-17 Completed [facility] Vaccine 00:00:00 [facility] Influenza Virus 2011-01-17 Completed [facility] Vaccine 00:00:00 [facility] Influenza Virus 2011-01-17 Completed [facility] Vaccine 00:00:00 [facility] Influenza Virus 2011-01-17 Completed [facility] Vaccine 00:00:00 [facility] Influenza Virus 2011-01-17 Completed [facility] Vaccine 00:00:00 [facility] Influenza Virus 2011-01-17 Completed [facility] Vaccine 00:00:00 [facility] Influenza Virus 2011-01-17 Completed [facility] Vaccine 00:00:00 [facility] Influenza Virus 2011-01-17 Completed [facility] Vaccine 00:00:00 [facility] Influenza Virus 2011-01-17 Completed [facility] of Vaccine 00:00:00 [facility] Influenza Virus 2011-01-17 Completed [facility] Vaccine 00:00:00 [facility] Influenza Virus 2011-01-17 Completed [facility] Vaccine 00:00:00 [facility] Influenza Virus 2011-01-17 Completed [facility] Vaccine 00:00:00 [facility] Influenza Virus 2011-01-17 Completed [facility] Vaccine 00:00:00 [facility] Influenza Virus 2011-01-17 Completed [facility] Vaccine 00:00:00 [facility] Influenza Virus 2011-01-17 Completed [facility] Vaccine 00:00:00 [facility] Influenza Virus 2011-01-17 Completed [facility] Vaccine 00:00:00 [facility] Influenza Virus 2011-01-17 Completed [facility] Vaccine 00:00:00 [facility] Influenza Virus 2011-01-17 Completed [facility] Vaccine 00:00:00 [facility] Influenza Virus 2011-01-17 Completed [facility] Vaccine 00:00:00 [facility] Influenza Virus 2011-01-17 Completed [facility] Vaccine 00:00:00 [facility] Influenza Virus 2011-01-17 Completed [facility] Vaccine 00:00:00 [facility] Influenza Virus 2011-01-17 Completed [facility] Vaccine 00:00:00 [facility] Influenza Virus 2011-01-17 Completed [facility] Vaccine 00:00:00 [facility] Influenza Virus 2011-01-17 Completed [facility] Vaccine 00:00:00 [facility] Influenza Virus 2010-01-17 Completed [facility] Vaccine 00:00:00 [facility] Influenza Virus 2010-01-17 Completed [facility] of Vaccine 00:00:00 [facility] Influenza Virus 2010-01-17 Completed [facility] Vaccine 00:00:00 [facility] Influenza Virus 2010-01-17 Completed [facility] Vaccine 00:00:00 [facility] Influenza Virus 2010-01-17 Completed [facility] Vaccine 00:00:00 [facility] Influenza Virus 2010-01-17 Completed [facility] Vaccine 00:00:00 [facility] Influenza Virus 2010-01-17 Completed [facility] Vaccine 00:00:00 [facility] Influenza Virus 2010-01-17 Completed [facility] Vaccine 00:00:00 [facility] Influenza Virus 2010-01-17 Completed [facility] Vaccine 00:00:00 [facility] Influenza Virus 2010-01-17 Completed [facility] Vaccine 00:00:00 [facility] Influenza Virus 2010-01-17 Completed [facility] Vaccine 00:00:00 [facility] Influenza Virus 2010-01-17 Completed [facility] Vaccine 00:00:00 [facility] Influenza Virus 2010-01-17 Completed [facility] Vaccine 00:00:00 [facility] Influenza Virus 2010-01-17 Completed [facility] Vaccine 00:00:00 [facility] Influenza Virus 2010-01-17 Completed [facility] Vaccine 00:00:00 [facility] Influenza Virus 2010-01-17 Completed [facility] Vaccine 00:00:00 [facility] Influenza Virus 2010-01-17 Completed [facility] Vaccine 00:00:00 [facility] Influenza Virus 2010-01-17 Completed [facility] of Vaccine 00:00:00 [facility] Influenza Virus 2010-01-17 Completed [facility] of Vaccine 00:00:00 [facility] Influenza Virus 2010-01-17 Completed [facility] Vaccine 00:00:00 [facility] Influenza Virus 2010-01-17 Completed [facility] Vaccine 00:00:00 [facility] Influenza Virus 2010-01-17 Completed [facility] Vaccine 00:00:00 [facility] Influenza Virus 2010-01-17 Completed [facility] Vaccine 00:00:00 [facility] Influenza Virus 2010-01-17 Completed [facility] Vaccine 00:00:00 [facility] Influenza Virus 2010-01-17 Completed [facility] of Vaccine 00:00:00 [facility] Influenza Virus 2010-01-17 Completed [facility] of Vaccine 00:00:00 [facility] Influenza Virus 2010-01-17 Completed [facility] of Vaccine 00:00:00 [facility] Influenza Virus 2010-01-17 Completed [facility] of Vaccine 00:00:00 [facility] Influenza Virus 2010-01-17 Completed [facility] of Vaccine 00:00:00 [facility] Influenza Virus 2010-01-17 Completed [facility] of Vaccine 00:00:00 [facility] Influenza Virus 2010-01-17 Completed [facility] Vaccine 00:00:00 [facility] Influenza Virus 2010-01-17 Completed [facility] of Vaccine 00:00:00 [facility] Influenza Virus 2010-01-17 Completed [facility] of Vaccine 00:00:00 [facility] Influenza Virus 2010-01-17 Completed [facility] of Vaccine 00:00:00 [facility] Influenza Virus 2010-01-17 Completed [facility] of Vaccine 00:00:00 [facility] H1n1 Vaccine 2009-04-06 Completed University o f 00:00:00 [facility] H1n1 Vaccine 2009-04-06 Completed University o f 00:00:00 [facility] H1n1 Vaccine 2009-04-06 Completed University o f 00:00:00 [facility] H1n1 Vaccine 2009-04-06 Completed University o f 00:00:00 [facility] H1n1 Vaccine 2009-04-06 Completed University o f 00:00:00 [facility] H1n1 Vaccine 2009-04-06 Completed University o f 00:00:00 [facility] H1n1 Vaccine 2009-04-06 Completed University o f 00:00:00 [facility] H1n1 Vaccine 2009-04-06 Completed University o f 00:00:00 [facility] H1n1 Vaccine 2009-04-06 Completed University o f 00:00:00 [facility] H1n1 Vaccine 2009-04-06 Completed University o f 00:00:00 [facility] H1n1 Vaccine 2009-04-06 Completed University o f 00:00:00 [facility] H1n1 Vaccine 2009-04-06 Completed University o f 00:00:00 [facility] H1n1 Vaccine 2009-04-06 Completed University o f 00:00:00 [facility] H1n1 Vaccine 2009-04-06 Completed University o f 00:00:00 [facility] H1n1 Vaccine 2009-04-06 Completed University o f 00:00:00 [facility] H1n1 Vaccine 2009-04-06 Completed University o f 00:00:00 [facility] H1n1 Vaccine 2009-04-06 Completed University o f 00:00:00 [facility] H1n1 Vaccine 2009-04-06 Completed University o f 00:00:00 [facility] H1n1 Vaccine 2009-04-06 Completed University o f 00:00:00 [facility] H1n1 Vaccine 2009-04-06 Completed University o f 00:00:00 [facility] H1n1 Vaccine 2009-04-06 Completed University o f 00:00:00 [facility] H1n1 Vaccine 2009-04-06 Completed University o f 00:00:00 [facility] H1n1 Vaccine 2009-04-06 Completed University o f 00:00:00 [facility] H1n1 Vaccine 2009-04-06 Completed University o f 00:00:00 [facility] H1n1 Vaccine 2009-04-06 Completed University o f 00:00:00 [facility] H1n1 Vaccine 2009-04-06 Completed University o f 00:00:00 [facility] H1n1 Vaccine 2009-04-06 Completed [facility] o f 00:00:00 [facility] H1n1 Vaccine 2009-04-06 Completed University o f 00:00:00 [facility] H1n1 Vaccine 2009-04-06 Completed University o f 00:00:00 [facility] H1n1 Vaccine 2009-04-06 Completed University o f 00:00:00 [facility] H1n1 Vaccine 2009-04-06 Completed University o f 00:00:00 [facility] H1n1 Vaccine 2009-04-06 Completed University o f 00:00:00 [facility] H1n1 Vaccine 2009-04-06 Completed University o f 00:00:00 [facility] H1n1 Vaccine 2009-04-06 Completed [facility] o f 00:00:00 [facility] H1n1 Vaccine 2009-04-06 Completed [facility] o f 00:00:00 [facility] Influenza Virus 2009-01-03 Completed [facility] Vaccine 00:00:00 [facility] Pneumococcal 2009-01-03 Completed University o f Polysaccharide, 00:00:00 [place] [facility] PPSV23 (PNEUMOVAX) Branch HEPATITIS A 2009-01-03 Completed University of 00:00:00 [facility] Influenza Virus 2009-01-03 Completed [facility] Vaccine 00:00:00 [facility] Pneumococcal 2009-01-03 Completed [facility] o f Polysaccharide, 00:00:00 [place] [facility] PPSV23 (PNEUMOVAX) Branch HEPATITIS A 2009-01-03 Completed [facility] of 00:00:00 [facility] Influenza Virus 2009-01-03 Completed [facility] of Vaccine 00:00:00 [facility] Pneumococcal 2009-01-03 Completed [facility] o f Polysaccharide, 00:00:00 [place] [facility] PPSV23 (PNEUMOVAX) Branch HEPATITIS A 2009-01-03 Completed [facility] of 00:00:00 [facility] Influenza Virus 2009-01-03 Completed [facility] of Vaccine 00:00:00 [facility] Pneumococcal 2009-01-03 Completed [facility] o f Polysaccharide, 00:00:00 [place] [facility] PPSV23 (PNEUMOVAX) Branch HEPATITIS A 2009-01-03 Completed [facility] of 00:00:00 [facility] Influenza Virus 2009-01-03 Completed [facility] of Vaccine 00:00:00 [facility] Pneumococcal 2009-01-03 Completed [facility] o f Polysaccharide, 00:00:00 [place] [facility] PPSV23 (PNEUMOVAX) Branch HEPATITIS A 2009-01-03 Completed [facility] of 00:00:00 [facility] Influenza Virus 2009-01-03 Completed [facility] of Vaccine 00:00:00 [facility] Pneumococcal 2009-01-03 Completed [facility] o f Polysaccharide, 00:00:00 [place] [facility] PPSV23 (PNEUMOVAX) Branch HEPATITIS A 2009-01-03 Completed [facility] of 00:00:00 [facility] Influenza Virus 2009-01-03 Completed [facility] of Vaccine 00:00:00 [facility] Pneumococcal 2009-01-03 Completed [facility] o f Polysaccharide, 00:00:00 [place] [facility] PPSV23 (PNEUMOVAX) Branch HEPATITIS A 2009-01-03 Completed [facility] of 00:00:00 [facility] Influenza Virus 2009-01-03 Completed [facility] of Vaccine 00:00:00 [facility] Pneumococcal 2009-01-03 Completed [facility] o f Polysaccharide, 00:00:00 [place] [facility] PPSV23 (PNEUMOVAX) Branch HEPATITIS A 2009-01-03 Completed [facility] of 00:00:00 [facility] Influenza Virus 2009-01-03 Completed [facility] of Vaccine 00:00:00 [facility] Pneumococcal 2009-01-03 Completed [facility] o f Polysaccharide, 00:00:00 [place] [facility] PPSV23 (PNEUMOVAX) Branch HEPATITIS A 2009-01-03 Completed [facility] of 00:00:00 [facility] Influenza Virus 2009-01-03 Completed [facility] of Vaccine 00:00:00 [facility] Pneumococcal 2009-01-03 Completed [facility] o f Polysaccharide, 00:00:00 [place] [facility] PPSV23 (PNEUMOVAX) Branch HEPATITIS A 2009-01-03 Completed [facility] of 00:00:00 [facility] Influenza Virus 2009-01-03 Completed [facility] of Vaccine 00:00:00 [facility] Pneumococcal 2009-01-03 Completed [facility] o f Polysaccharide, 00:00:00 [place] [facility] PPSV23 (PNEUMOVAX) Branch HEPATITIS A 2009-01-03 Completed [facility] of 00:00:00 [facility] Influenza Virus 2009-01-03 Completed [facility] of Vaccine 00:00:00 [facility] Pneumococcal 2009-01-03 Completed [facility] o f Polysaccharide, 00:00:00 [place] [facility] PPSV23 (PNEUMOVAX) Branch HEPATITIS A 2009-01-03 Completed [facility] of 00:00:00 [facility] Influenza Virus 2009-01-03 Completed [facility] of Vaccine 00:00:00 [facility] Pneumococcal 2009-01-03 Completed [facility] o f Polysaccharide, 00:00:00 [place] [facility] PPSV23 (PNEUMOVAX) Branch HEPATITIS A 2009-01-03 Completed [facility] of 00:00:00 [facility] Influenza Virus 2009-01-03 Completed [facility] of Vaccine 00:00:00 [facility] Pneumococcal 2009-01-03 Completed [facility] o f Polysaccharide, 00:00:00 [place] [facility] PPSV23 (PNEUMOVAX) Branch HEPATITIS A 2009-01-03 Completed University of 00:00:00 [facility] Influenza Virus 2009-01-03 Completed [facility] of Vaccine 00:00:00 [facility] Pneumococcal 2009-01-03 Completed [facility] o f Polysaccharide, 00:00:00 [place] [facility] PPSV23 (PNEUMOVAX) Branch HEPATITIS A 2009-01-03 Completed [facility] of 00:00:00 [facility] Influenza Virus 2009-01-03 Completed [facility] of Vaccine 00:00:00 [facility] Pneumococcal 2009-01-03 Completed [facility] o f Polysaccharide, 00:00:00 [place] [facility] PPSV23 (PNEUMOVAX) Branch HEPATITIS A 2009-01-03 Completed [facility] of 00:00:00 [facility] Influenza Virus 2009-01-03 Completed [facility] of Vaccine 00:00:00 [facility] Pneumococcal 2009-01-03 Completed [facility] o f Polysaccharide, 00:00:00 [place] [facility] PPSV23 (PNEUMOVAX) Branch HEPATITIS A 2009-01-03 Completed [facility] of 00:00:00 [facility] Influenza Virus 2009-01-03 Completed [facility] of Vaccine 00:00:00 [facility] Pneumococcal 2009-01-03 Completed [facility] o f Polysaccharide, 00:00:00 [place] [facility] PPSV23 (PNEUMOVAX) Branch HEPATITIS A 2009-01-03 Completed [facility] of 00:00:00 [facility] Influenza Virus 2009-01-03 Completed [facility] of Vaccine 00:00:00 [facility] Pneumococcal 2009-01-03 Completed [facility] o f Polysaccharide, 00:00:00 [place] [facility] PPSV23 (PNEUMOVAX) Branch HEPATITIS A 2009-01-03 Completed [facility] of 00:00:00 [facility] Influenza Virus 2009-01-03 Completed [facility] of Vaccine 00:00:00 [facility] Pneumococcal 2009-01-03 Completed [facility] o f Polysaccharide, 00:00:00 [place] [facility] PPSV23 (PNEUMOVAX) Branch HEPATITIS A 2009-01-03 Completed [facility] of 00:00:00 [facility] Influenza Virus 2009-01-03 Completed [facility] of Vaccine 00:00:00 [facility] Pneumococcal 2009-01-03 Completed [facility] o f Polysaccharide, 00:00:00 [place] [facility] PPSV23 (PNEUMOVAX) Branch HEPATITIS A 2009-01-03 Completed University of 00:00:00 [facility] Influenza Virus 2009-01-03 Completed [facility] of Vaccine 00:00:00 [facility] Pneumococcal 2009-01-03 Completed [facility] o f Polysaccharide, 00:00:00 [place] [facility] PPSV23 (PNEUMOVAX) Branch HEPATITIS A 2009-01-03 Completed University of 00:00:00 [facility] Influenza Virus 2009-01-03 Completed [facility] of Vaccine 00:00:00 [facility] Pneumococcal 2009-01-03 Completed University o f Polysaccharide, 00:00:00 [place] [facility] PPSV23 (PNEUMOVAX) Branch HEPATITIS A 2009-01-03 Completed University of 00:00:00 [facility] Influenza Virus 2009-01-03 Completed [facility] of Vaccine 00:00:00 [facility] Pneumococcal 2009-01-03 Completed [facility] o f Polysaccharide, 00:00:00 [place] [facility] PPSV23 (PNEUMOVAX) Branch HEPATITIS A 2009-01-03 Completed University of 00:00:00 [facility] Influenza Virus 2009-01-03 Completed [facility] of Vaccine 00:00:00 [facility] Pneumococcal 2009-01-03 Completed [facility] o f Polysaccharide, 00:00:00 [place] [facility] PPSV23 (PNEUMOVAX) Branch HEPATITIS A 2009-01-03 Completed [facility] of 00:00:00 [facility] Influenza Virus 2009-01-03 Completed [facility] of Vaccine 00:00:00 [facility] Pneumococcal 2009-01-03 Completed [facility] o f Polysaccharide, 00:00:00 [place] [facility] PPSV23 (PNEUMOVAX) Branch HEPATITIS A 2009-01-03 Completed [facility] of 00:00:00 [facility] Influenza Virus 2009-01-03 Completed [facility] of Vaccine 00:00:00 [facility] Pneumococcal 2009-01-03 Completed [facility] o f Polysaccharide, 00:00:00 [place] [facility] PPSV23 (PNEUMOVAX) Branch HEPATITIS A 2009-01-03 Completed [facility] of 00:00:00 [facility] Influenza Virus 2009-01-03 Completed [facility] of Vaccine 00:00:00 [facility] Pneumococcal 2009-01-03 Completed [facility] o f Polysaccharide, 00:00:00 [place] [facility] PPSV23 (PNEUMOVAX) Branch HEPATITIS A 2009-01-03 Completed [facility] of 00:00:00 [facility] Influenza Virus 2009-01-03 Completed [facility] of Vaccine 00:00:00 [facility] Pneumococcal 2009-01-03 Completed [facility] o f Polysaccharide, 00:00:00 [place] [facility] PPSV23 (PNEUMOVAX) Branch HEPATITIS A 2009-01-03 Completed [facility] of 00:00:00 [facility] Influenza Virus 2009-01-03 Completed [facility] of Vaccine 00:00:00 [facility] Pneumococcal 2009-01-03 Completed [facility] o f Polysaccharide, 00:00:00 [place] [facility] PPSV23 (PNEUMOVAX) Branch HEPATITIS A 2009-01-03 Completed [facility] of 00:00:00 [facility] Influenza Virus 2009-01-03 Completed [facility] of Vaccine 00:00:00 [facility] Pneumococcal 2009-01-03 Completed [facility] o f Polysaccharide, 00:00:00 [place] [facility] PPSV23 (PNEUMOVAX) Branch HEPATITIS A 2009-01-03 Completed [facility] of 00:00:00 [facility] Influenza Virus 2009-01-03 Completed [facility] of Vaccine 00:00:00 [facility] Pneumococcal 2009-01-03 Completed [facility] o f Polysaccharide, 00:00:00 [place] [facility] PPSV23 (PNEUMOVAX) Branch HEPATITIS A 2009-01-03 Completed [facility] of 00:00:00 [facility] Influenza Virus 2009-01-03 Completed [facility] of Vaccine 00:00:00 [facility] Pneumococcal 2009-01-03 Completed [facility] o f Polysaccharide, 00:00:00 [place] [facility] PPSV23 (PNEUMOVAX) Branch HEPATITIS A 2009-01-03 Completed [facility] of 00:00:00 [facility] Influenza Virus 2009-01-03 Completed [facility] of Vaccine 00:00:00 [facility] Pneumococcal 2009-01-03 Completed [facility] o f Polysaccharide, 00:00:00 [place] [facility] PPSV23 (PNEUMOVAX) Branch HEPATITIS A 2009-01-03 Completed [facility] of 00:00:00 [facility] Influenza Virus 2009-01-03 Completed [facility] of Vaccine 00:00:00 [facility] Pneumococcal 2009-01-03 Completed [facility] o f Polysaccharide, 00:00:00 [place] [facility] PPSV23 (PNEUMOVAX) Branch HEPATITIS A 2009-01-03 Completed [facility] of 00:00:00 [facility] Vital Signs Vital Name Observation Time Observation Value Comments Source Systolic blood 2022-06-05 09:01:00 102 mm[Hg] Univer sity of pressure [facility] Diastolic blood 2022-06-05 09:01:00 70 mm[Hg] Unive rsity of pressure [facility] Heart rate 2022-06-05 09:01:00 86 /min [facility] Body temperature 2022-06-05 09:01:00 36.22 Flores [facility] ersity [facility] Respiratory rate 2022-06-05 09:01:00 18 /min [facility] in 2022-06-05 09:01:00 95 /min [facility] Arterial blood by [facility] Pulse oximetry Branch Body weight 2022-06-01 16:00:00 109.3 kg [facility] BMI 2022-06-01 16:00:00 34.57 kg/m2 [facility] Body height 2022-05-29 19:57:15 177.8 cm [facility] Systolic blood 2022-04-13 15:31:00 128 mm[Hg] Univer sity of pressure [facility] Diastolic blood 2022-04-13 15:31:00 87 mm[Hg] Unive rsity of pressure [facility] Heart rate 2022-04-13 15:31:00 73 /min [facility] Body temperature 2022-04-13 15:31:00 36.56 Flores Univ ers[facility] Respiratory rate 2022-04-13 15:31:00 18 /min Univ ers[facility] Body height 2022-04-13 15:31:00 177.8 cm [facility] Body weight 2022-04-13 15:31:00 109.77 kg [facility] BMI 2022-04-13 15:31:00 34.72 kg/m2 [facility] Oxygen saturation in 2022-04-13 15:31:00 99 /min University of Arterial blood by [facility] Pulse oximetry Branch Systolic blood 2022-01-12 14:01:00 106 mm[Hg] Univer sity of pressure [facility] Diastolic blood 2022-01-12 14:01:00 68 mm[Hg] Unive rsity of pressure [facility] Heart rate 2022-01-12 14:01:00 82 /min [facility] Body temperature 2022-01-12 14:01:00 36.11 Flores [facility] ers[facility] Respiratory rate 2022-01-12 14:01:00 18 /min Univ ers[facility] Body height 2022-01-12 14:01:00 175.3 cm [facility] Body weight 2022-01-12 14:01:00 103.239 kg [facility] BMI 2022-01-12 14:01:00 33.61 kg/m2 [facility] Systolic blood 2021-10-06 18:38:00 93 mm[Hg] Univer sity of pressure [facility] Diastolic blood 2021-10-06 18:38:00 63 mm[Hg] Unive rsity of pressure [facility] Heart rate 2021-10-06 18:38:00 85 /min Universi ty [facility] Body temperature 2021-10-06 18:37:00 36.5 [place] [facility] Respiratory rate 2021-10-06 18:37:00 16 /[facility] 2021-10-06 18[facility]37:00 [facility] 2021-10-06 18:37:00 [facility] 2021-10-06 18:37:00 34.56 kg/m2 [facility] Systolic blood 2022-05-30 14:00:00 131 mm[Hg] Univer sity of [facility] Diastolic blood 2022-05-30 14:00:00 90 mm[Hg] Unive rsity of [facility] Heart rate 2022-05-30 14:00:00 93 /min [facility] Body temperature 2022-05-30 14:00:00 36.72 [facility] Res[facility] rate 2022-05-30 14:00:00 18 /min [facility] Oxygen saturation in 2022-05-30 14:00:00 94 /min [facility] Arterial blood by [facility] Pulse oximetry Branch Body height 2022-05-29 19:57:15 177.8 cm [facility] Body weight 2022-05-29 19:57:15 109.317 kg [facility] BMI 2022-05-29 19:57:15 34.58 kg/m2 [facility] Procedures Procedure Date / Time Performing Source Performed Clinician PROTHROMBIN TIME / INR 2022-06-05 Naomi [facility] 09:04:00 [facility] GLUCOSE (AUTOMATED) 2022-06-05 Dotty Green [facility] 01:33:00 [facility] POCT GLUCOSE (AUTOMATED) 2022-06-04 Dotty Green [facility] 21:34:00 [facility] COVID-19 (ID NOW RAPID 2022-06-04 Giovany Green [facility] TESTING) 20:24:00 C. [facility] LAB ONLY COVID INTERPRETATION 2022-06-04 [facility] 20:24:00 [facility]. [facility] POCT GLUCOSE (AUTOMATED) 2022-06[facility] [facility] 17:06:00 [facility] POCT GLUCOSE (AUTOMATED) 2022-06-04 Peter [facility] 13:36:00 Medical Branch PROTHROMBIN TIME / INR 2022-06-04 [facility] 10:01:00 [facility] POCT GLUCOSE (AUTOMATED) 2022-06-04 Peter [facility] 02:08:00 [facility] POCT GLUCOSE (AUTOMATED) 2022-06-03 Peter [facility] 21:46:00 [facility] POCT GLUCOSE (AUTOMATED) 2022-06-03 Peter [facility] 16:53:00 [facility] CT HEAD WO CONTRAST 2022-06-03 [facility] 15:27[facility]42 [facility] POCT GLUCOSE (AUTOMATED) 2022-06-[address] [facility] 13:07:00 [facility] PROTHROMBIN TIME / INR 2022-06-03 [facility]00 [facility] POCT GLUCOSE (AUTOMATED) 2022-06-03 Peter [facility] 02:59:00 [facility] POCT GLUCOSE (AUTOMATED) 2022-06-02 Peter [facility] 22:55:00 [facility] POCT GLUCOSE (AUTOMATED) 2022-06-02 Peter [facility] 17:26:00 [facility] POCT GLUCOSE (AUTOMATED) 2022-06-02 Peter [facility] 13:49:00 [facility] PROTHROMBIN TIME / INR 2022-06-02 [facility]:35[facility] 2022-06-02 Dotty Green [facility] 02:47:00 [facility] POCT GLUCOSE (AUTOMATED) 2022-06-[address] [facility] 23:25:00 [facility] COVID-19 (ID NOW RAPID 2022-06-01 Naomi, [facility] TESTING) 19:04:00 [facility] LAB ONLY COVID INTERPRETATION 2022-06-01 Naomi [facility] 19:04:00 [facility] POCT GLUCOSE (AUTOMATED) 2022-06-01 Peter [facility] 18:49:00 [facility] POCT GLUCOSE (AUTOMATED) 2022-06-01 Peter [facility] 14:56:00 [facility]UM [facility] BASIC METABOLIC PANEL (NA, K, 2022-06-01 Naomi, [facility] CL, CO2, GLUCOSE, BUN, 10:30:00 [facility] [place] CREATININE, [place]) CBC WITH DIFF [facility]22[facility] PROTHROMBIN TIME / [facility] POCT GLUCOSE (AUTOMATED) 2022-06-[address] [facility] 01:53:00 [facility] ELECTROENCEPHALOGRAM 2022-06-01 [facility] POCT GLUCOSE (AUTOMATED) 2022-05-[address] [facility] 22:53:00 [facility] XR KUB 2022-05-31 Kristofer Tang [facility] 21:35:00 [facility] POCT GLUCOSE (AUTOMATED) 2022-05-[address] [facility] 17[facility]43:00 [facility] POCT GLUCOSE (AUTOMATED) 2022-05-31 Peter [facility] 13:41:00 [facility] MAGNESIUM 2022-05-31 [facility]:08[facility]00 [facility] BASIC METABOLIC PANEL (NA, K, 2022-05-31 Naomi, [facility] CL, CO2, GLUCOSE, BUN, 11:08:00 [facility] [place] CREATININE, CA) CBC WITH DIFF 2022-05-31 [facility] xa 11:08:00 [facility] PROTHROMBIN TIME / INR 2022-05-31 [facility] 11:08:00 [facility] POCT GLUCOSE (AUTOMATED) 2022-05-31 [facility] 01:41:00 Medical Branch XR SHOULDER <2 VW LEFT 2022-05-30 Kristofer Tang [facility] 23:08:43 Medical Branch POCT GLUCOSE (AUTOMATED) 2022-05-30 [facility] 22:10:00 Medical Branch POCT GLUCOSE (AUTOMATED) 2022-05-30 [facility] 17:53:00 Medical Branch POCT GLUCOSE (AUTOMATED) 2022-05-30 [facility] 17:53:[address] HEART W CONTRAST 2022-05-30 [facility] [place] [facility] [place] STRUCTURES ONLY (NON 16:14:11 Medical [facility] CORONARY) POCT GLUCOSE (AUTOMATED) 2022-05-30 [facility] 14:09:00 Medical Branch POCT GLUCOSE (AUTOMATED) 2022-05-30 [facility] 14:09:00 Medical Branch PROTHROMBIN TIME / INR 2022-05-30 [facility] 09:29:00 [facility] PROTHROMBIN TIME / INR 2022-05-30 [facility] 09:29:00 [facility] POCT GLUCOSE (AUTOMATED) 2022-05-29 [facility] 21:51:00 Medical Branch POCT GLUCOSE (AUTOMATED) 2022-05-29 [facility] 21:51:00 Medical Branch TRANSESOPHAGEAL ECHO (NUSRAT) 2022-05-29 [facility] COMPLETE W/ DOPPLER AND COLOR 20:28:00 Me dical Branch TRANSESOPHAGEAL ECHO (NUSRAT) 2022-05-29 Lazara [facility]City [facility], [place] [facility] COMPLETE W/ DOPPLER AND COLOR 20:28:00 Me dical Branch POCT GLUCOSE (AUTOMATED) 2022-05-29 [facility] 17:50:00 Medical Branch POCT GLUCOSE (AUTOMATED) 2022-05-29 [facility] 17:50:00 Medical Branch POCT GLUCOSE (AUTOMATED) 2022-05-29 [facility] 13:37:00 Medical Branch POCT GLUCOSE (AUTOMATED) 2022-05-29 [facility] 13:37:00 Medical Branch EXTRA TUBE LAV 2022-05-29 [facility] [place] 10:07:00 Medical Branch EXTRA TUBE LAV 2022-05-29 [facility] xa 10:07:00 [facility] Branch BASIC METABOLIC PANEL (NA, K, 2022-05-29 [facility]z Fraese[facility], CO2, GLUCOSE, BUN, 10:01:00 [facility] ran CREATININE, [place]) MAGNESIUM 2022-05-29 [facility] [place] 10:01:00 [facility] PROTHROMBIN TIME / INR 2022-05-29 [facility] 10:01:00 [facility] MAGNESIUM 2022-05-29 [facility], [facility] [place] 10:01:00 [facility] BASIC METABOLIC PANEL (NA, K, 2022-05-29 Aissatou Torre, [facility] CL, CO2, GLUCOSE, BUN, 10:01:00 [facility] ran CREATININE, CA) PROTHROMBIN TIME / INR 2022-05-29 [facility] 10:01:00 [facility] POCT GLUCOSE (AUTOMATED) 2022-05-29 [facility] 02:38:00 Medical Branch POCT GLUCOSE (AUTOMATED) 2022-05-29 [facility] 02:38[facility]00 Medical Branch POCT GLUCOSE (AUTOMATED) 2022-05-28 [facility] 22:41:00 Medical Branch POCT GLUCOSE (AUTOMATED) 2022-05-28 [facility] 22:41:00 Medical Branch FL MODIFIED BARIUM SWALLOW 2022-05-28 Gibran Navarro [facility] 19:55:00 Medical Branch POCT GLUCOSE (AUTOMATED) 2022-05-28 [facility] 18:28:00 Medical Branch POCT GLUCOSE (AUTOMATED) 2022-05-28 [facility] 18:28:00 Medical Branch POCT GLUCOSE (AUTOMATED) 2022-05-28 [facility] 16:16:00 Medical Branch POCT GLUCOSE (AUTOMATED) 2022-05-28 [facility] 16:16:00 [facility] Branch TRANSTHORACIC ECHO (TTE) 2022-05-28 [facility] COMPLETE W/ CONTRAST 15:04:00 [facility] TRANSTHORACIC ECHO (TTE) 2022-05-28 [facility]/ CONTRAST 15:04:00 [facility] CBC WITH DIFF 2022-05-28 [facility] 10:08:00 [facility] BASIC METABOLIC PANEL (NA, K, 2022-05-28 [facility] CL, CO2, GLUCOSE, BUN, 10:08:00 Medical [place] CREATININE, [place]) MAGNESIUM 2022-05-28 [facility] 10:08[facility]00 Medical Branch MAGNESIUM 2022-05-28 [facility] 10:08:00 Medical Branch BASIC METABOLIC PANEL (NA, K, 2022-05-28 [facility], CO2, GLUCOSE, BUN, 10:08:00 Medical [place] CREATININE, [place]) CBC WITH DIFF 2022-05-28 [facility] 10:08:00 Medical Branch POCT GLUCOSE (AUTOMATED) 2022-05-28 [facility] 02:30:00 Medical Branch POCT GLUCOSE (AUTOMATED) 2022-05-28 [facility] 02:30:00 Medical Branch POCT GLUCOSE (AUTOMATED) 2022-05-27 [facility] 22:57:00 Medical Branch POCT GLUCOSE (AUTOMATED) 2022-05-27 [facility] 22:57:00 Medical Branch MR STROKE BRAIN WO CONTRAST 2022-05-27 [facility] 21:31:00 Medical Branch MR STROKE BRAIN WO CONTRAST 2022-05-27 [facility] 21:31[facility]00 Medical Branch POCT GLUCOSE (AUTOMATED) 2022-05-27 [facility] 17:33:00 Medical Branch POCT GLUCOSE (AUTOMATED) 2022-05-27 [facility] 17:33:[address] HEAD WO CONTRAST 2022-05-27 [facility] 16:57:[address] HEAD WO CONTRAST 2022-05-27 [facility] 16:57:07 Medical Branch XR BONE SURVEY 2022-05-27 [facility] 14:50:00 Medical Branch XR BONE SURVEY 2022-05-27 [facility] 14:50:00 Medical Branch POCT GLUCOSE (AUTOMATED) 2022-05-27 [facility] 13:25:00 Medical Branch POCT GLUCOSE (AUTOMATED) 2022-05-27 [facility] 13:25:00 Medical Branch CBC WITH DIFF 2022-05-27 [facility] 11:11:00 [facility] Branch BASIC METABOLIC PANEL (NA, K, 2022-05-27 [facility] CL, CO2, GLUCOSE, BUN, 11:11:00 Medical B ran CREATININE, CA) MAGNESIUM 2022-05-27 [facility] 11:11:00 Medical Branch MAGNESIUM 2022-05-27 [facility] 11:11:00 Medical Branch BASIC METABOLIC PANEL (NA, K, 2022-05-27 [facility] CL, CO2, GLUCOSE, BUN, 11:11:00 Medical [place] CREATININE, CA) CBC WITH DIFF 2022-05-27 [facility] 11:11:00 Medical Branch XR CHEST 1 VW 2022-05-27 [facility] 06:48:00 Medical Branch XR CHEST 1 VW 2022-05-27 [facility] 06:48:00 Medical Branch URINALYSIS 2022-05-27 [facility] [place] 04:43:00 Medical [place] URINE DRUG (IMMUNOASSAY) - 2022-05-27 Naomi [facility] COMPREHENSIVE DRUG SCREEN 04:43:00 [facility] URINE DRUG (IMMUNOASSAY) - 2022-05-27 Naomi, [facility] COMPREHENSIVE DRUG SCREEN 04:43:00 [facility] URINALYSIS 2022-05-27 [facility] [place] 04:43:[address] STROKE ANGIOGRAM NECK 2022-05-27 [facility] 04:14:[address] STROKE ANGIOGRAM NECK 2022-05-27 [facility] 04:14:[address] STROKE ANGIOGRAM HEAD 2022-05-27 [facility] 04:13:[address] STROKE PERFUSION W 2022-05-27 Peewee Greenfieldjenaro [facility] CONTRAST 04:13:[address] STROKE ANGIOGRAM HEAD 2022-05-27 [facility] 04:13:[address] STROKE PERFUSION W 2022-05-27 [facility] CONTRAST 04:13:33 Medical Branch PROTHROMBIN TIME / INR 2022-05-27 [facility] 04:13:00 Medical Branch ACTIVATED PARTIAL THRMPLAS 2022-05-27 [facility], [facility] NINO 04:13:00 Medical Branch CBC WITHOUT DIFF 2022-05-27 [facility], [facility] 04:13:00 Medical Branch TROPONIN I 2022-05-27 [facility] 04:13:00 Medical Branch BASIC METABOLIC PANEL (NA, K, 2022-05-[address] [facility] CL, CO2, GLUCOSE, BUN, 04:13:00 Medical [place] CREATININE, [place]) ETHANOL 2022-05-27 [facility] 04:13:00 [facility] LIPID PANEL (15886)(TOTAL 2022-05-27 [facility] CHOLESTEROL, TRIGLYCERIDES, 04:13:00 [facility] HDL) GLYCOSYLATED HEMOGLOBIN (A1C) 2022-05-27 [facility] 04:13:00 Medical Branch HEPATIC FUNCTION PANEL 2022-05-27 [facility] ([id number]) (ALB,T.PRO,BILI 04:13:00 Medical Branch T,BU/BC,ALT,AST,ALK PHOS) TROPONIN I 2022-05-27 [facility] 04:13:00 Medical Branch HEPATIC FUNCTION PANEL 2022-05-27 [facility] ([id number]) (ALB,T.PRO,BILI 04:13:00 Medical Branch T,BU/BC,ALT,AST,ALK PHOS) BASIC METABOLIC PANEL (NA, K, 2022-05-[address] [facility] CL, CO2, GLUCOSE, BUN, 04:13:00 [facility] B ran CREATININE, CA) LIPID PANEL (84651)(TOTAL 2022-05-27 [facility] CHOLESTEROL, TRIGLYCERIDES, 04:13:00 [facility] HDL) ETHANOL 2022-05-27 [facility] 04:13:[address] [facility] CBC WITHOUT DIFF 2022-05-27 [facility] 04:13:00 Medical Branch GLYCOSYLATED HEMOGLOBIN (A1C) 2022-05-27 Ashely Greenfield [facility] 04:13:00 Medical Branch PROTHROMBIN TIME / INR 2022-05-27 [facility] 04:13:00 Medical Branch ACTIVATED PARTIAL THRMPLAS 2022-05-27 [facility] NINO 04:13:00 Medical Branch HB ECG ROUTINE & RHYTHM STRIP 2022-05-[address] [facility] 04:09:58 Medical [place] HB ECG ROUTINE & RHYTHM STRIP 2022-05-[address] [facility] 04:09:58 [facility] Branch CT STROKE HEAD WO CONTRAST 2022-05-27 [facility] 03:48:[address] [place] [address] STROKE HEAD WO CONTRAST 2022-05-27 [facility] 03:48:42 Medical Branch POCT GLUCOSE (AUTOMATED) 2022-05-27 [facility] 03:38:00 Medical Branch POCT GLUCOSE (AUTOMATED) 2022-05-27 [facility] 03:38:00 Medical Branch HOSPITAL ADMISSION 2022-05-26 Doctor Unassigned, [facility] 06:01:00 [place] Medical Branch BASIC METABOLIC PANEL (NA, K, 2022-04-13 Daniel [facility] CL, CO2, GLUCOSE, BUN, 18:07:00 [facility] meir CREATININE, CA) PHOSPHORUS 2022-04-13 [facility] [place] 18:07:00 Medical Branch URIC ACID 2022-04-13 [facility] [place] 18:07:00 Medical Branch POCT PT/INR(COAGUCHEK) 2022-03-23 Frances Shea [facility] 00:00:00 Medical Branch POCT PT/INR(COAGUCHEK) 2022-03-23 Frances Shea [facility] 00:00:00 Medical Branch FLU VACC ([id number]), 6 MO-64 2022-01-12 [facility] [place] YRS, .5ML, IM, QUAD 15:06:50 Medical Bran ch (FLUCELVAX) SARS-COV-2 COVID-19 2022-01-12 [facility] [place] PRITI-SUCROSE VACCINE 12 YRS+, 15:06:50 Me dical Branch BIVALENT 0.3ML, IM, (PFIZER SERVIN TOP BOOSTER) POCT PT/INR(COAGUCHEK) 2022-01-12 Frances Shea [facility] 13:16:00 Medical Branch Encounters Start End Encounter Admission Attending Care Care Encounter Source Date/Time Date/Time Type Type Clinicians Facility Department ID 2022-07-21 Outpatient 3 [id number] ENCPL REF [id number] [facility] 12:52:17 0429 Health Rehabil itation Sawyer pratt 2021-09-05 Inpatient U ÁNGEL CASTILLO [facility] SCT [id number] Univers 22:[facility] 2021-08-04 Inpatient R ÁNGEL CASTILLO [facility] SCT [id number] Univers 15:14:[facility] 2022-12-04 2022-12-04 [facility] [id number] Univers 10:30:00 10:30:00 ALBERTO [facility] 2022-07-29 2022-08-22 Inpatient 3 [facility] ENCPL CVA 5900 [facility] 14:45:00 13:33:00 lonnie, 0507 [place] Sawyer pratt 2022-07-18 2022-07-18 Outpatient R [facility] [id number] Univers 14:00:00 14:00:[address] [facility] 2022-07-11 2022-07-11 Outpatient R [facility] [id number] Univers 10:30:00 10:30:00 [facility] 2022-07-11 2022-07-11 Telephone ROLAND Lovell 1.2.840.114 [id number] Univers 00:00:00 00:00:00 Emy Y HEALTH 350.1.13.10 i ty [place] [id number] [address] Branch 2022-07-10 2022-07-10 Telephone Mateus, UNIVERSIT 1.2.840.11 [id number] Univers 00:00:00 00:00:00 Jeri Y HEALTH 350.1.13.10 i ty of [facility] CLINICS 4.2.7.2.686 [place] [id number] [facility] 312 Branch 2022-07-10 2022-07-10 Telephone Nurse, Pcp [facility] 1.2.840.114 [id number] Univers 00:00:00 00:00:00 Anticoag PRIMARY 350.1.13.10 i [place] [id number] [facility] 054 Branch 2022-07-05 2022-07-05 Refill Daniel, UNIVERSIT 1.2.697.218 [id number] Univers 00:00:00 00:00:00 [facility] HEALTH 350.1.13.10 i ty [place] [id number] [facility] 089 Branch 2022-06-29 2022-06-29 Refill Gale, UNIVERSIT 1.2.840.114 [id number] Univers 00:00:00 00:00:00 Rana Ali Y HEALTH 350.1.13.10 ity of [facility] 4.2.7.2.[place] [id number] [facility] 414 Branch 2022-06-12 2022-06-12 Letter TOMI Haddad 1.2.840.114 [id number] Univers 00:00:00 00:00:00 (Out) Clara ROHIT 350.1.13.10 it y [facility] 4.2.7.2.686 [place] [id number] [facility] 098 Branch 2022-05-26 2022-06-05 Inpatient X BOO MTLUIS LUIS [id number] Univers 21:36:00 07:35:00 CLARA ity of [facility] 2022-05-26 2022-06-05 Naresh Botello 1.2.840. 114 [id number] Univers 21:36:00 07:35:00 Encounter Dotty Green 350.1.13.10 ity of [facility] 4.2.7.2.686 [place] [id number] [facility] j carlos 098 [place] 2022-05-26 2022-05-26 Travel 1.2.840.1 1.2.639.158 [id number] Univers 00:00:00 00:00:00 30309.1.1 350.1.13.10 ity of 3.104.2.7 [place].3.698 [place] .3.230417 084.8 Medica l .8 [place] 2022-05-11 2022-05-11 Outpatient R [facility] [id number] Univers 08:40:00 08:40:00 ity of [facility] 2022-05-10 2022-05-10 Case Nurse, Pcp 1.2.840.2 [id number] Univers 00:00:00 00:00:00 Management Renée 84512.1.1 ity of 3.104.2.7 [place] .3.200225 Medica l .8 [place] 2022-05-03 2022-05-03 Outpatient R STARR [facility] [id number] Univers 14:30:00 14:30:00 WISSAM ity of [facility] 2022-04-20 2022-04-20 Refill Jeanmarie, 1.2.840.0 [id number] Univers 00:00:00 00:00:00 Bryant Maradiaga 54697.1.1 ity of 3.104.2.7 [place] .3.256801 Medica l .8 Branch 2022-04-16 2022-04-16 Refill Daniel 1.2.840.0 [id number] Univers 00:00:00 00:00:00 Isaac 90398.1.1 ity of 3.104.2.7 [place] .3.855619 Medica l .8 [place] 2022-04-13 2022-04-13 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 Isaac Sanchez 1.2.840.1 [id number] Univers 12:00:00 12:15:00 Visit [facility] 20090.1.1 ity of 3.104.2.7 [place] .3.745388 Medica l .8 [place] 2022-04-13 2022-04-13 Office ERICKA SanchezIT 1.2.778.633 [id number] Univers 10:00:00 10:30:00 Visit Isaac [facility] 350.1.13.10 i ty of CL[place]ICS [place] [id number] [facility] 089 [place] 2022-04-13 2022-04-13 Outpatient R [facility] [id number] Univers 10:00:00 10:00:[address] [facility] 2022-04-13 2022-04-13 Refill Daniel, 1.2.840.4 [id number] Univers 00:00:00 00:00:00 Isaac 19371.1.1 ity of 3.104.2.7 [place] .3.964525 Medica l .8 [place] 2022-04-13 2022-04-13 Travel 1.2.840.1 1.2.096.002 [id number] Univers 00:00:00 00:00:00 43012.1.1 350.1.13.10 ity of 3.104.2.7 4.[place].7.3.698 [place] .3.834099 084.8 Medica l .8 [place] 2022-04-11 2022-04-11 Travel 1.2.840.1 1.2.564.948 [id number] Univers 00:00:00 00:00:00 88990.1.1 350.1.13.10 ity of 3.104.2.7 4.2.7.3.698 [place] .3.898881 084.8 Medica l .8 [place] 2022-03-30 2022-03-30 [facility] [id number] Univers 10:20:00 10:20:[address] [facility] 2022-03-29 2022-03-29 Case Nurse, Pcp 1.2.840.3 [id number] Univers 00:00:00 00:00:00 Management Anticoag 89359.1.1 ity of 3.104.2.7 [place] .3.529220 Medica l .8 [place] 2022-03-23 2022-03-23 Nurse Frances Shea 1.2.840.1 [id number] Univers 08:20:00 08:40:00 Visit Nurse, Pcp Anticoag 84311.1.1 ity of 3.104.2.7 [place] .3.258018 Medica l .8 [place] 2022-03-23 2022-03-23 Outpatient Matthew [facility] [id number] Univers 08:20:00 08:20:[address] [facility] 2022-03-23 2022-03-23 Travel 1.2.840.1 1.2.509.924 [id number] Univers 00:00:00 00:00:00 50882.1.1 350.1.13.10 ity of 3.104.2.7 4.2.7.3.698 [place] .3.302648 084.8 Medica l .8 [place] 2022-03-22 2022-03-22 Telephone Starr, 1.2.840.7 [id number] Univers 00:00:00 00:00:00 Wissam 94150.1.1 ity of [place] 3.104.2.7 [place] .3.402789 Medica l .8 [place] 2022-03-22 2022-03-22 Case Nurse, Pcp 1.2.840.7 [id number] Univers 00:00:00 00:00:00 Management Anticoag 79551.1.1 ity of 3.104.2.7 [place] .3.370462 Medica l .8 [place] 2022-02-13 2022-02-13 Outpatient [facility] [id number] Univers 10:00:00 10:00:[address] [facility] 2022-02-12 2022-02-12 Case Nurse, Pcp [facility] 1.2.840.114 [id number] Univers 00:00:00 00:00:00 Management Anticoag PRIMARY 350.1.13.10 ity of [place] 4[place]2.[place].2.[place] [id number] Md dical 054 Branch 2022-02-09 2022-02-09 Telephone ERICKA SanchezIT 1.2.840.114 [id number] Univers 00:00:00 00:00:00 Isaac Daren HEALTH 350.1.13.10 i ty of [place] [id number] [facility] 089 Branch 2022-01-31 2022-01-31 Outpatient R CADE [facility] [id number] Univers 13:00:00 13:00:00 LAVONNE [facility] 2022-01-30 2022-01-30 Telephone Starr [facility] 1.2.840.114 [id number] Univers 00:00:00 00:00:00 [facility] HEALTH 350.1.13.10 it y of [place] [id number] [facility] 414 [place] OFFICE BUILDING 2022-01-26 2022-01-26 [employer] 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 2, Adc Lab [facility] 1.2.840.114 [id number] Univers 13:45:00 14:00:00 Visit Daniel Isaac MARÍA 350.1.13.10 ity of [place] 4.2.7.2.[place] [id number] Md dical NAL 353 Branch BUILDING 2022-01-26 2022-01-26 Outpatient R DANIEL [facility] [id number] Univers 13:45:00 13:45:00 [facility] 2022-01-26 2022-01-26 Telephone ROLAND Morrison 1.2.840.114 [id number] Univers 00:00:00 00:00:00 Thea Y HEALTH 350.1.13.10 i ty of [place] 4[place] [id number] [facility] 312 Branch 2022-01-25 2022-01-25 Telephone ROLAND Mohamud 1.2.840.114 [id number] Univers 00:00:00 00:00:00 Lavonne Medina HEALTH 350.1.13.10 ity of [place] [id number] [address] 2022-01-25 2022-01-25 Patient Doctor UNIVERSIT 1.2.379.462 [id number] Univers 00:00:00 00:00:00 Secure Msg Unassmorgan HEALTH 350.1.13.10 ity of [place] CLINICS 4.2.[place] [id number] [facility] 312 Branch 2022-01-13 2022-01-13 Refrajni Jeanmarie, UNIVERSIT 1.2.840.114 [id number] Univers 00:00:00 00:00:00 Bryant Medina HEALTH 350.1.13.10 i ty [place] [id number] [address] 2022-01-12 2022-01-12 Office [facility] 1.2.157.690 [id number] Univers 09:30:00 10:00:00 Visit [facility] 350.1.13.10 i ty of [place] [id number] [address] 2022-01-12 2022-01-12 Outpatient [facility] [id number] Univers 09:30:00 09:30:00 [facility] 2022-01-12 2022-01-12 Outpatient [facility] [id number] Univers 09:30:00 09:30:00 [facility] 2022-01-12 2022-01-12 Outpatient [facility] [id number] Univers 09:30:00 09:30:00 [facility] 2022-01-12 2022-01-12 Nurse Nurse, Pcp [facility] 1.2.84 0.114 [id number] Univers 08:00:00 08:20:00 Visit Frances Shea PRIMARY 350.1.13.10 ity of C[place] [id number] Md dical 054 Branch 2022-01-11 2022-01-11 Case Nurse, Pcp [facility] 1.2.840.114 [id number] Univers 00:00:00 00:00:00 Management Anticoag PRIMARY 350.1.13.10 ity of C[place].2.[place] [id number] Md dical 054 Branch 2021-12-10 2021-12-10 [facility] 1.2.710.413 [id number] Univers 00:00:00 00:00:00 [facility] 350.1.13.10 i ty of CL[place]ICS 4[place] [id number] [place] [address] [place] 2021-12-01 2021-12-01 Telephone [facility] 1.2.840.114 [id number] Univers 00:00:00 00:00:00 [facility] 350.1.13.10 i ty of CL[place] 4[place] [id number] [facility] 312 Branch 2021-11-28 2021-11-28 Nurse Nurse, Pcp Anticoag [facility] 1.2.84 0.114 [id number] Univers 09:00:00 13:02:29 Visit Frances Shea A PRIMARY 350.1.13.10 ity of [place]2.[place] [id number] [facility] 054 [place] 2021-11-28 2021-11-28 Outpatient R MONSE [facility] [id number] Univers 09:00:00 09:00:00 FRANCES ity of [facility] 2021-11-20 2021-11-20 [facility] 1.2.793.266 [id number] Univers 00:00:00 00:00:00 [facility] 350.1.13.10 i ty of [place] [id number] [place] [id number] [place] 2021-11-07 2021-11-07 Emergency X KAYKAY [facility] ERT [id number] Univers 12:18:00 14:46:00 VICKY ity of [facility] 2021-11-07 2021-11-07 Emergency PhippsKennedi Ben [facility] 1.2.840 .114 [id number] Univers 12:18:00 14:46:00 Vicky Mccracken 350.1.13.1 0 [facility]y [facility] [place] [id number] [facility] [address] 2021-11-07 2021-11-07 Orders Doctor ALPESH 1.2.840.114 [id number] Univers 00:00:00 00:00:00 Only Unassigned, ROHIT 350.1.13.10 ity of [place] [facility] 4.2.7.2.686 [place] [id number] [facility] [address] 2021-11-06 2021-11-06 Outpatient R [facility] [id number] Univers 08:40:00 08:40:[address] [facility] 2021-11-03 2021-11-03 Case Nurse, Pcp [facility] 1.2.840.114 [id number] Univers 00:00:00 00:00:00 Management Anticoag PRIMARY 350.1.13.10 [place] [id number] Md dical [address] 2021-10-27 2021-10-27 Telephone ERICKA ClementsIT 1.2.840.114 [id number] Univers 00:00:00 00:00:00 [facility] HEALTH 350.1.13.10 i ty [place] [id number] [facility] [address] 2021-10-27 2021-10-27 Telephone Starr UNIVERSIT 1.2.840.114 [id number] Univers 00:00:00 00:00:00 [facility] 350.1.13.10 i ty of [place] CL[place] [phone] [facility] [address] 2021-10-26 2021-10-26 Office Starr UNIVERSIT 1.2.840.114 [id number] Univers 13:00:00 13:30:00 Visit [facility] 350.1.13.10 i ty of [facility] CL[place] [id number] [address] 2021-10-26 2021-10-26 Office Starr UNIVERSIT 1.2.840.114 [id number] Univers 13:00:00 13:30:00 Visit [facility] 350.1.13.10 i ty of [facility] CL[place]ICS [place] [phone] [address] 2021-10-26 2021-10-26 Office [facility] UNIVERSIT 1.2.840.114 [id number] Univers 13:00:00 13:30:00 Visit [facility] 350.1.13.10 i ty of [facility] [place] [phone] [address] 2021-10-26 2021-10-26 [facility] [id number] Univers 13:00:00 13:00:00 [facility] 2021-10-26 2021-10-26 [facility] [id number] Univers 13:00:00 13:00:00 [facility] 2021-10-26 2021-10-26 [facility] [id number] Univers 13:00:00 13:00:00 [facility] 2021-10-26 2021-10-26 [facility] [id number] Univers 11:00:00 11:00:00 ISAAC [facility] 2021-10-26 2021-10-26 Outpatient R MONSE [facility] [id number] Univers 09:00:00 10:53:56 FRANCES [facility] 2021-10-26 2021-10-26 Nurse Nurse, Pcp [facility] 1.2.84 0.114 [id number] Univers 09:00:00 10:53:56 Visit Frances Shea PRIMARY 350.1.13.10 ity of C[place] [id number] Md dical [address] [place] 2021-10-26 2021-10-26 Outpatient R [facility] [id number] Univers 09:00:00 09:00:[address] [facility] 2021-10-25 2021-10-25 Case Nurse, Pcp [facility] 1..840.114 [id number] Univers 00:00:00 00:00:00 Management Anticoag PRIMARY 350.1.13.10 ity of [place] [id number] Md dical [address] [place] 2021-10-24 2021-10-24 Wage And Hour 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 2, Adc Lab [facility] 1..840.114 [id number] Univers 14:00:00 14:15:00 Visit sIaac Sanchez 350.1.13.10 [facility] [place] [phone] Md dical NAL 353 [facility] 2021-10-24 2021-10-24 Outpatient R [facility] [id number] Univers 14:00:00 14:00:00 [facility] 2021-10-24 2021-10-24 Outpatient R [facility] [id number] Univers 14:00:00 14:00:00 [facility] 2021-10-24 2021-10-24 Outpatient R [facility] [id number] Univers 14:00:00 14:00:00 [facility] 2021-10-24 2021-10-24 Outpatient R [facility] [id number] Univers 14:00:00 14:00:00 [facility] 2021-10-20 2021-10-20 Telephone Daniel ROLAND 1..840.114 [id number] Univers 00:00:00 00:00:00 [facility] 350.1.13.10 i ty of CLINICS [place] [phone] [facility] [address] [place] 2021-10-18 2021-10-18 Sarah Reynaon UNIVERSIT 1.2.840.114 [id number] Univers 00:00:00 00:00:00 Bryant S Y HEALTH 350.1.13.10 i ty of CLINICS [place]2.[place] [id number] [place] [address] [place] 2021-10-18 2021-10-18 Sarah Murry, [facility] 1.2.840.114 [id number] Univers 00:00:00 00:00:00 Bryant S Y HEALTH 350.1.13.10 i ty of CL[place]ICS [place] [id number] [place] [address] [place] 2021-10-17 2021-10-17 Wage And Hour 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 2, [facility] Lab [facility] 1.2.840.114 [id number] Univers 11:15:00 11:30:00 Visit Daniel Isaac [place] 350.1.13.10 ity [facility] 4.2.7.2.[place] [phone] Md dical [facility] 353 [facility] 2021-10-17 2021-10-17 Outpatient R [facility] [id number] Univers 11:15:00 11:15:00 ISAAC [facility] 2021-10-16 2021-10-16 Telephone [facility] 1.2.840.114 [id number] Univers 00:00:00 00:00:00 [facility] 350.1.13.10 i ty of CL[place]ICS [place] [id number] [place] [address] [place] 2021-10-06 2021-10-06 Wage And Hour 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 [facility] UNIVERSIT 1.2.840.114 9 [id number] Univers 14:45:00 15:00:00 Visit Isaac Sanchez [facility] 350.1.13.10 ity of CLINICS 4.2.[place] [id number] [facility] [address] [place] 2021-10-06 2021-10-06 Outpatient R [facility] [id number] Univers 14:45:00 14:45:[address] [facility] 2021-10-06 2021-10-06 Office Daniel [facility] 1.2.461.494 [id number] Univers 13:30:00 14:00:00 Visit Isaac Medina HEALTH 350.1.13.10 i ty of CLINICS [place] [id number] [facility] [address] [place] 2021-10-06 2021-10-06 [facility] [id number] Univers 13:30:00 13:30:[address] [facility] 2021-10-02 2021-10-02 Outpatient R MONSE [facility] [id number] Univers 13:00:00 13:00:00 FRANCES [facility] 2021-10-02 2021-10-02 [facility] [id number] Univers 13:00:00 13:00:00 FRANCES [facility] 2021-09-30 2021-09-30 Orders Doctor ALPESH 1..840.114 [id number] Univers 00:00:00 00:00:00 Only Unassigned, ROHIT 350.1.13.10 ity of [place] [facility] 4.2.7.2.686 [place] [id number] [facility] [address] [place] 2021-09-28 2021-09-28 Outpatient R ÁNGEL CASTILLO [facility] [id number] Univers 13:00:00 13:58:[address] [facility] 2021-09-28 2021-09-28 Office Ángel Castillo [facility] 1.2.840.114 [id number] Univers 13:00:00 13:58:48 Visit HEALTH 350.1.13.10 i ty of CL[place]ICS [place] [id number] [facility] [address] 2021-09-28 2021-09-28 Case Nurse, Pcp [facility] 1..840.114 [id number] Univers 00:00:00 00:00:00 Management Anticoag PRIMARY 350.1.13.10 ity of C[place].2.[place] [phone] Md dical [address] 2021-09-22 2021-09-22 Wage And Hour 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 2, Adc Lab [facility] 1.2.840.114 [id number] Univers 14:15:00 14:30:00 Visit LuísquetaGin miller 350.1 .13.10 ity of [place].2.7.2.[place] [id number] Md dical NAL 353 [facility] 2021-09-22 2021-09-22 Outpatient R STARR [facility] [id number] Univers 14:15:00 14:15:00 [facility]y [facility] 2021-09-19 2021-09-19 Orders Doctor ALPESH 1.2.840.114 [id number] Univers 00:00:00 00:00:00 Only Unassigned, ROHIT 350.1.13.10 ity of [place] HOSPITAL 4.2.7.2.686 [place]ho[place] as [phone] [facility] [address] [place] 2021-09-18 2021-09-18 Transition RANDEE Campos 1.2.840.114 [id number] Univers 00:00:00 00:00:00 of Care Awamonique CARRILLO 350.1.13.10 it y of [place] [id number] [facility] [address] [place] 2021-09-18 2021-09-18 Orders Doctor BETTS 1.2.840.114 [id number] Univers 00:00:00 00:00:00 Only Unassigned, ROHIT 350.1.13.10 ity of [place] HOSPITAL 4.2.7.2.686 [place] [id number] [facility] [address] 2021-09-05 2021-09-16 Inpatient U ÁNGEL CASTILLO [facility] SCT [id number] Univers 22:18:00 12:57:00 ity of [facility] 2021-09-05 2021-09-16 Hospital Sanchez Carreon 1.2.840.114 [id number] Univers 22:18:00 12:57:00 Encounter Ángel Castillo 350.1.13.10 ity of [facility] 4.2.7.2.686 [place] [id number] [facility] [address] 2021-09-14 2021-09-14 Outpatient R ÁNGEL CASTILLO [facility] [id number] Univers 13:15:00 13:15:00 ity of [facility] 2021-09-14 2021-09-14 Telephone [facility], ERICKA 1.2.840.114 [id number] Univers 00:00:00 00:00:00 [facility] 350.1.13.10 i ty of CL[place]ICS [place] [id number] [facility] [address] 2021-09-07 2021-09-07 Outpatient R [facility] [id number] Univers 14:00:00 14:00:00 ity of [facility] 2021-09-05 2021-09-05 Inpatient U ÁNGEL CASTILLO [facility] [id number] Univers 22:18:00 22:18:[address] [facility] 2021-09-05 2021-09-05 Orders Doctor ALPESH 1.2.840.114 [id number] Univers 00:00:00 00:00:00 Only Unassigned, ROHIT 350.1.13.10 ity of [place] [facility] 4.2.7.2.686 [place] [id number] [facility] [address] 2021-09-05 2021-09-05 Telephone [facility] UNIVERSIT 1.2.840.11 [id number] Univers 00:00:00 00:00:00 , Y HEALTH 350.1.13.10 i ty of Cardiovascu CLINICS 4.2.7.2.686 [facility] [id number] [facility] [address] 2021-09-05 2021-09-05 Telephone ALPESH Ke[place] 1.2.593.509 [id number] Univers 00:00:00 00:00:00 Hansa BEE 350.1.13.10 ity of [facility] 4.2.7.2.686 [place] [id number] [facility] [address] 2021-09-05 2021-09-05 Telephone ALPESH Ke[place] 1.2.199.276 [id number] Univers 00:00:00 00:00:00 Hansa BEE 350.1.13.10 ity of HOSPITAL 4.2.7.2.686 [place] [id number] [facility] [address] 2021-09-05 2021-09-05 Telephone [facility] 1.2.840.114 [id number] Univers 00:00:00 00:00:00 [facility] 350.1.13.10 i ty of CLINICS [place]2.[place] [id number] [place] [address] [address] 2021-09-04 2021-09-04 Telephone [facility] 1.2.840.114 [id number] Univers 00:00:00 00:00:00 [facility] HEALTH 350.1.13.10 i ty of CLINICS 4.2.[place].2.[place] [id number] [place] [address] [place] 2021-09-01 2021-09-01 Telephone AnnabelALPESH 1.2.220.149 [id number] Univers 00:00:00 00:00:00 Hansa BEE 350.1.13.10 ity of [facility] 4.2.7.2.686 [place] [id number] [facility] [address] 2021-08-30 2021-08-30 Transition RANDEE Campos 1.2.840.114 [id number] Univers 00:00:00 00:00:00 of Care Awa GROVEY 350.1.13.10 it y [place] [id number] [facility] [address] 2021-08-30 2021-08-30 Telephone Rishabh [facility] 1.2.312.545 [id number] Univers 00:00:00 00:00:00 Hansa Albright HEALTH 350.1.13.10 ity of [place].2.[place] [phone] [address] OFFICE BUILDING 2021-08-23 2021-08-29 Inpatient R ÁNGEL CASTILLO [facility] SCT [id number] Univers 06:24:00 15:48:00 ity of [facility] 2021-08-23 2021-08-29 Ángel Delgado 1.2.840.114 [id number] Univers 06:24:00 15:48:00 Encounter ROHIT 350.1.13.10 ity of [facility] 4.2.7.2.686 [place] [id number] [facility] [address] 2021-08-23 2021-08-23 Surgery Ángel Castillo 1.2.840.114 [id number] Univers 08:00:00 16:39:00 ROHIT 350.1.13.10 it y of [facility] 4.2.7.2.686 [place] [id number] [facility] [address] 2021-08-18 2021-08-18 Telephone [facility] 1.2.840.114 [id number] Univers 00:00:00 00:00:00 [facility] 350.1.13.10 i ty of [facility] 4.2.7.2.[place] [id number] [facility] [address] 2021-08-08 2021-08-08 [facility] 1.2.840.11 4 [id number] Univers 00:00:00 00:00:00 [place], HEALTH 350.1.13.10 ity of [facility] 4.2.7.2.[place] [id number] [facility] [address] 2021-08-07 2021-08-07 Wage And Hour 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 2, Adc Lab [facility] 1.2.840.114 [id number] Univers 09:45:00 10:00:00 Visit Hansa Keating 350.1.13.10 ity [facility] 4.2.7.2.[place] ESSLORENZO [id number] [facility] [address] [facility] 2021-08-07 2021-08-07 Outpatient R RISHABH [facility] [id number] Univers 09:45:00 09:45:[address] [facility] 2021-08-04 2021-08-04 Case ALPESH [place] 1.2.840.114 [id number] Univers 00:00:00 00:00:00 Management Hansa BEE 350.1.13.10 ity of [facility] 4.2.7.2.686 [place] [id number] [facility] [address] 2021-08-03 2021-08-03 [facility] 1.2.840.114 [id number] Univers 14:46:59 23:59:00 Encounter Hansa L Y HEALTH 350.1.13.10 ity of CL[place] 4[place]2.[place].2.[place] [id number] [facility] [address] 2021-08-03 2021-08-03 Wage And Hour 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 [facility] UNIVERSIT 1.2.840.114 [id number] Univers 14:30:00 14:45:00 Visit Ángel Castillo HEALTH 350.1.13.10 ity of [place] 4.2.[place].2.[place] [id number] [facility] [address] 2021-08-03 2021-08-03 Office Ángel Castillo [facility] 1.2.840.114 [id number] Univers 13:15:00 13:30:00 Visit Y HEALTH 350.1.13.10 i ty of CL[place] 4[place]2.[place].2.[place] [id number] [facility] [address] 2021-08-03 2021-08-03 Outpatient R ÁNGEL CASTILLO [facility] [id number] Univers 13:15:00 13:15:00 ity of [facility] 2021-08-03 2021-08-03 Outpatient R ÁNGEL CASTILLO [facility] [id number] Univers 13:15:00 13:15:00 ity of [facility] 2021-07-31 2021-07-31 Sarah Sanchez [facility] 1.2.651.201 [id number] Univers 00:00:00 00:00:00 [facility] HEALTH 350.1.13.10 i ty of CL[place] 4.2.7.2.[place] [id number] [facility] [address] 2021-07-31 2021-07-31 Telephone Reggie [facility] 1.2.840.114 [id number] Univers 00:00:00 00:00:00 Yoshi Ignacio Y HEALTH 350.1.13.10 ity of [place] 4[place]2.[place] [id number] [facility] [address] 2021-07-24 2021-07-24 Office Daniel, UNIVERSIT 1.2.163.028 [id number] Univers 10:00:00 10:30:00 Visit [facility] 350.1.13.10 i ty of [facility] 4.2.7.2.[place] [id number] [facility] [address] 2021-07-24 2021-07-24 Outpatient R [facility] [id number] Univers 10:00:00 10:00:00 [facility] 2021-07-24 2021-07-24 Outpatient R [facility] [id number] Univers 10:00:00 10:00:00 [facility] 2021-07-24 2021-07-24 Outpatient R [facility] [id number] Univers 10:00:00 10:00:00 [facility] 2021-07-24 2021-07-24 Outpatient R [facility] [id number] Univers 10:00:00 10:00:00 [facility] 2021-07-24 2021-07-24 Telephone [facility] 1.2.840.11 [id number] Univers 00:00:00 00:00:00 [place], [facility] 350.1.13.10 ity of [facility] 4.2.7.2.[place] [id number] [facility] [address] [place] 2021-07-19 2021-07-19 [facility] [id number] Univers 12:15:00 12:15:00 ANILA [facility] 2021-07-19 2021-07-19 Wage And Hour 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 [facility] UNIVERSIT 1.2.840.114 [id number] Univers 12:15:00 12:15:00 Visit Anila [place] [facility] 350.1.13.10 ity of [facility] 4.2.7.2.[place] [id number] [facility] [address] 2021-07-19 2021-07-19 Office ERICKA [place] 1.2.022.867 [id number] Univers 11:20:00 12:00:00 Visit [facility] 350.1.13.10 ity of [place] 4[place]2.[place].2.[place] [id number] [address] 2021-07-19 2021-07-19 Outpatient R VINNIE [facility] [id number] Univers 11:20:00 11:20:00 [facility] 2021-07-19 2021-07-19 [facility] [id number] Univers 11:20:00 11:20:[address] [facility] 2021-07-19 2021-07-19 Outpatient [facility] [id number] Univers 11:20:00 11:20:00 [facility] 2021-07-19 2021-07-19 Telephone ROLAND [place] 1.2.840.114 [id number] Univers 00:00:00 00:00:00 [facility] 350.1.13.10 ity of [place] 4[place].2.[place] [id number] [address] 2021-07-17 2021-07-17 Wage And Hour 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 Lab, [facility] 1.2.840.1 14 [id number] Univers 09:15:00 09:30:00 Visit Mario Alberto Leung [facility] 350.1.13.10 ity of [place] 4.2.7.2.686 [place]hoi as PAUL?BLEA [id number] [address] MEDICAL OFFICE BUILDING 2021-07-17 2021-07-17 Outpatient R LUCIA [facility] [id number] Univers 09:15:00 09:15:00 [facility] 2021-07-17 2021-07-17 Transition RANDEE Campos 1.2.840.114 [id number] Univers 00:00:00 00:00:00 of Rasheeda CARRILLO 350.1.13.10 it y of [place].2.[place] [id number] [facility] [address] 2021-07-06 2021-07-14 Inpatient U [facility] [id number] Univers 06:28:00 19:30:[address] [facility] 2021-07-06 2021-07-14 Hospital Puneet Escobedo 1.2.840. 114 [id number] Univers 06:28:00 19:30:00 Encounter Yoshi Cherry 350.1.13.1 0 ity of HOSPITAL 4.2.7.2.686 [place] [id number] [facility] [address] 2021-07-06 2021-07-14 [facility] [id number] Univers 06:28:00 19:30:[address] [facility] 2021-07-11 2021-07-11 Surgery SadiqAntonio TOMI 1.2.840.114 [id number] Univers 09:20:00 11:20:00 N ROHIT 350.1.13.10 it y of [facility] 4.2.7.2.686 [place]ho[place] [id number] [facility] [address] 2021-07-07 2021-07-07 [facility] 1.2.840.114 [id number] Univers 00:00:00 00:00:00 Yoshi Mateus [place] HEALTH 350.1.13.10 ity of [facility] 4.2.7.2.[place] [id number] [facility] [address] 2021-05-05 2021-05-05 Outpatient R DANIEL [facility] [id number] Univers 10:30:00 10:30:[address] [facility] 2021-05-05 2021-05-05 Wage And Hour 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 2, Adc Lab [facility] 1.2.840.114 [id number] Univers 10:30:00 10:30:00 Visit Isaac Sanchez 350.1.13.10 ity [facility] 4.2.7.2.[place] PROFESS[place] [id number] [facility] 353 [facility] 2021-04-30 2021-04-30 Refill ROLAND Sanchez 1.2.349.217 [id number] Univers 00:00:00 00:00:00 [facility] 350.1.13.10 i ty of [place] [id number] [address] 2021-04-30 2021-04-30 [facility] 1.2.840.114 [id number] Univers 00:00:00 00:00:00 Bryant Ashwini Medina HEALTH 350.1.13.10 i ty of [place] [id number] [address] 2021-04-26 2021-04-26 [facility] 1.2.385.703 [id number] Univers 10:30:00 11:00:00 Visit [facility] 350.1.13.10 i ty of CL[place] 4[place]2.[place].2.[place] [id number] [address] 2021-04-26 2021-04-26 Outpatient R [facility] [id number] Univers 10:30:00 10:30:00 [facility] 2021-04-04 2021-04-04 [facility] 1.2.300.349 [id number] Univers 00:00:00 00:00:00 [facility] 350.1.13.10 i ty of [place] 4[place].2.[place] [id number] [address] 2021-02-22 2021-02-22 Outpatient R [facility] [id number] Univers 09:30:00 09:30:00 [facility] 2021-02-06 2021-02-06 [facility] 1.2.057.154 [id number] Univers 00:00:00 00:00:00 [facility] 350.1.13.10 i ty of [place]ICS 4..[place] [id number] [address] 2021-01-30 2021-01-30 Outpatient R [facility] [id number] Univers 10:00:00 10:00:00 [facility] 2021-01-10 2021-01-10 Outpatient [facility] [id number] Univers 10:00:00 10:00:00 [facility] 2020-12-26 2020-12-26 [facility] [id number] Univers 09:00:00 09:00:00 [facility] 2020-11-14 2020-11-14 [facility] 1.2.681.159 [id number] Univers 00:00:00 00:00:00 [facility] 350.1.13.10 i ty of CL[place] 4[place]2.[place].2.[place] [id number] [address] 2020-10-10 2020-10-10 [facility] [id number] Univers 10:00:00 10:00:00 [facility] 2020-09-23 2020-09-23 [facility] [id number] Univers 11:00:00 11:00:00 [facility] 2020-08-31 2020-08-31 [facility] UNIVERSIT 1.2.661.419 [id number] Univers 00:00:00 00:00:00 [facility] 350.1.13.10 i ty of [place] [id number] [address] 2020-08-26 2020-08-26 [facility] UNIVERSIT 1.2.039.288 [id number] Univers 00:00:00 00:00:00 [facility] 350.1.13.10 i ty of CL[place] 4.2.[place].2.[place] [id number] [address] 2020-08-25 2020-08-25 [facility] [id number] Univers 13:40:00 13:40:00 GEN [facility] 2020-08-19 2020-08-19 [facility] [id number] Univers 00:00:00 00:00:00 [facility] [id number] i [id number] [id number] [facility] [address] 2020-08-15 2020-08-15 Outpatient R BALWINDER [facility] [id number] Univers 08:40:00 08:40:[address] [facility] 2020-07-25 2020-07-25 [facility] [id number] Univers 09:50:00 09:50:[address] [facility] 2020-06-24 2020-06-24 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 [facility] UNIVERSIT [id number] Univers 14:50:21 15:12:28 Visit Daniel [facility] [id number] ity of [id number] [id number] [facility] [address] 2020-06-24 2020-06-24 Office [facility] [id number] Univers 14:00:02 14:44:02 Visit [facility] [id number] i ty [id number] [id number] [facility] [address] 2020-06-24 2020-06-24 [facility] [id number] Univers 14:00:00 14:00:00 ISAAC [facility] 2020-06-08 2020-06-08 [facility] [id number] Univers 10:00:00 10:00:00 ISAAC [facility] 2020-06-04 2020-06-04 Patient [facility] [id number] Univers 00:00:00 00:00:00 Outreach Gen [facility] [id number] i ty of [facility] [place] PAVILLION [phone] [address] 2020-05-27 2020-05-27 Refill [facility] [id number] Univers 00:00:00 00:00:00 [facility] 350.1.13.10 i [place] [id number] [address] 2020-04-30 2020-04-30 [facility] [id number] Univers 00:00:00 00:00:00 [facility] HEALTH 350.1.13.10 i [id number] [address] 2020-04-25 2020-04-25 [facility] 1.2.397.119 [id number] Univers 00:00:00 00:00:00 [facility] HEALTH 350.1.13.10 i [place] [id number] [address] 2020-04-14 2020-04-14 [facility] [id number] Univers 00:00:00 00:00:00 [facility] 350.1.13.10 i [place] [id number] [address] 2020-04-12 2020-04-12 Outpatient [facility] [id number] Univers 13:30:00 13:30:00 [facility] 2020-04-02 2020-04-02 [facility] 1.2.036.691 [id number] Univers 00:00:00 00:00:00 [facility] 350.1.13.10 i [place] [id number] [address] 2020-03-29 2020-03-29 Outpatient R [facility] [id number] Univers 10:00:00 10:00:00 [facility] 2020-03-04 2020-03-04 [facility] 1.2.258.213 [id number] Univers 00:00:00 00:00:00 [facility] 350.1.13.10 i [place] [id number] [address] 2020-02-04 2020-02-04 [facility]479 [id number] Univers 00:00:00 00:00:00 [facility] 350.1.13.10 i ty [place] [id number] [address] 2020-01-11 2020-01-11 [facility] 1.2.622.840 [id number] Univers 00:00:00 00:00:00 [facility] 350.1.13.10 i ty [place] [id number] [address] 2019-12-28 2019-12-28 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 [facility] 1.2.840.114 [id number] Univers 11:07:14 11:12:09 Visit Daniel [facility] 350.1.13.10 ity of [place] [id number] [facility] [address] [place] 2019-12-28 2019-12-28 Office [facility] [id number] Univers 09:46:44 11:02:42 Visit [facility] 350.1.13.10 i ty [place] [id number] [address] 2019-12-28 2019-12-28 [facility] [id number] Univers 10:00:00 10:00:[address] [facility] 2019-12-28 2019-12-28 Orders Doctor ALPESH 1.2.840.114 [id number] Univers 00:00:00 00:00:00 Only Unassigned, ROHIT 350.1.13.10 ity of [place] HOSPITAL 4.2.7.2.686 [place] [id number] [facility] [address] [place] 2019-11-03 2019-11-03 [facility] 1.2.775.326 [id number] Univers 00:00:00 00:00:00 [facility] 350.1.13.10 i ty [place] [id number] [address] 2019-10-05 2019-10-05 Outpatient R DANIEL [facility] [id number] Univers 10:00:00 10:00:[address] [facility] 2019-09-30 2019-09-30 Outpatient R DANIEL [facility] [id number] Univers 10:30:00 10:30:[address] [facility] 2019-09-30 2019-09-30 [facility] 1.2.840.114 [id number] Univers 07:28:38 07:58:38 ne Visit [facility] 350.1.13.10 ity of [place] [id number] [address] 2019-09-10 2019-09-10 [facility] 1.2.015.696 [id number] Univers 00:00:00 00:00:00 [facility] 350.1.13.10 i ty of [place] [id number] [address] 2019-08-14 2019-08-14 [facility] 1.2.134.248 [id number] Univers 00:00:00 00:00:00 [facility] HEALTH 350.1.13.10 i ty of [place] [id number] [address] 2019-08-10 2019-08-10 [facility] 1.2.840.114 [id number] Univers 00:00:00 00:00:00 [facility] HEALTH 350.1.13.10 i ty of [place] [id number] [address] 2019-08-06 2019-08-06 [facility] 1.2.600.120 [id number] Univers 00:00:00 00:00:00 [facility] HEALTH 350.1.13.10 i ty of [place] [id number] [address] 2019-06-30 2019-07-01 Marlon Rivers [facility] 1.2.840.1 [id number] Univers 08:02:33 16:17:59 ne Visit Isaac Sanchez PRIMARY 350.1.13.10 ity of [place] [id number] [facility] [address] [place] 2019-06-30 2019-06-30 Outpatient R EAST, [facility] [id number] Univers 10:10:00 10:10:00 ISAAC ity of [facility] 2019-06-30 2019-06-30 Telemedici [facility] 1.2.840.114 [id number] Univers 07:04:50 07:34:50 ne Visit Isaac Y HEALTH 350.1.13.10 ity of CL[place] [id number] [address] 2019-06-02 2019-06-02 Outpatient R UNKNOWN, [facility] [id number] Univers 10:10:00 10:10:00 ATTENDING ity of [facility] 2019-05-18 2019-05-18 Refill [facility] 1.2.312.272 [id number] Univers 00:00:00 00:00:00 [facility] HEALTH 350.1.13.10 i ty [place] [id number] [address] 2019-04-22 2019-04-22 Patient Doctor [facility] 1.2.840.114 [id number] Univers 00:00:00 00:00:00 Secure Msg Unassigned, PRIMARY 350.1.13.10 ity of [place] CARE [place]2.7.2.[place] [id number] [address] 2019-04-17 2019-04-17 Telephone [place], [facility] 1.2.840.114 [id number] Univers 00:00:00 00:00:00 [facility] HEALTH 350.1.13.10 i ty of CL[place] [id number] [address] 2019-04-16 2019-04-16 Telephone Jeanmarie [facility] 1.2.840.114 [id number] Univers 00:00:00 00:00:00 [facility] HEALTH 350.1.13.10 i ty of CLIN[place] [id number] [place] [address] [place] 2019-04-11 2019-04-11 [facility] 1.2.238.376 [id number] Univers 00:00:00 00:00:00 [facility] HEALTH 350.1.13.10 i ty of [place] [id number] [address] 2018-11-27 2018-11-27 [facility] 1.2.155.322 [id number] Univers 00:00:00 00:00:00 [facility] 350.1.13.10 i ty of [place] [id number] [address] 2018-11-18 2018-11-18 [facility] 1.2.302.537 [id number] Univers 00:00:00 00:00:00 [facility] 350.1.13.10 i ty of CLINICS [place] [id number] [place] [address] [place] 2018-11-15 2018-11-15 [employer] 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 1, [facility] Lab [facility] 1.2.840.114 [id number] Univers 11:14:21 11:29:21 Visit Isaac Sanchez 350.1.13.10 ity of [place] 4[place]2.7.2.[place] [id number] [facility] [address] 2018-11-15 2018-11-15 Orders Doctor ALPESH 1.2.840.114 [id number] Univers 00:00:00 00:00:00 Only Unassigned, ROHIT 350.1.13.10 ity of [place] [facility] 4.2.7.2.686 [place] [phone] [facility] [address] 2018-10-07 2018-10-07 Office [facility] 1.2.310.341 [id number] Univers 09:08:04 10:10:21 Visit [facility] 350.1.13.10 i ty of CLINICS [place] [id number] [place] [address] [place] Results Test Description Test Time Test Comments Results Result Comments Source POCT GLUCOSE (AUTOMATED) 2022-06-05 01:44:32 Test Item Value Reference Range Interpretation Comme nts POCT GLU (test code = 5278161103) 172 mg/dL 70-110 H Lab Interpretation (test code = 32141-0) Abnormal [facility] GLUCOSE (AUTOMATED)2022-06-04 21:36:05 Test Item Value Reference Range Interpretation Comments POCT GLU (test code = 7893202028) 142 mg/dL 70-110 H Lab Interpretation (test code = Abnormal 74807-4) [facility] GLUCOSE (AUTOMATED)2022-06-04 17:17:38 Test Item Value Reference Range Interpretation Comments POCT GLU (test code = 2853644392) 151 mg/dL 70-110 H Lab Interpretation (test code = Abnormal 01609-9) [facility] GLUCOSE (AUTOMATED)2022-06-04 13:41:40 Test Item Value Reference Range Interpretation Comments POCT GLU (test code = 7385109486) 137 mg/dL 70-110 H Lab Interpretation (test code = Abnormal 06898-5) [facility] GLUCOSE (AUTOMATED)2022-06-04 02:19:21 Test Item Value Reference Range Interpretation Comments POCT GLU (test code = 6964454980) 126 mg/dL 70-110 H Lab Interpretation (test code = Abnormal 70884-8) [facility] GLUCOSE (AUTOMATED)2022-06-03 21:48:42 Test Item Value Reference Range Interpretation Comments POCT GLU (test code = 4890521669) 178 mg/dL 70-110 H Lab Interpretation (test code = Abnormal 95092-4) [facility] GLUCOSE (AUTOMATED)2022-06-03 16:58:13 Test Item Value Reference Range Interpretation Comments POCT GLU (test code = 5282247915) 126 mg/dL 70-110 H Lab Interpretation (test code = Abnormal 86114-2) [facility] GLUCOSE (AUTOMATED)2022-06-03 13:09:27 Test Item Value Reference Range Interpretation Comments POCT GLU (test code = 4584174166) 310 mg/dL 70-110 H Lab Interpretation (test code = Abnormal 73004-1) [facility] [id number] 10:27:38 Test Item Value Reference Range Interpretation Comments PROTIME PATIENT (test 38.7 See_Comment H [Auto mated message] code = 5964-2) The system [email or web address] generated this result transmitted ref erence range: 10.1 - 1 2.6 Seconds. The reference range was not used to int erpret this result as normal/abnormal . INR (test code = 6301-6) 3.4 Nor mal INR <1.1; Warfarin Therap eutic range 2.0 to 3. 0 or 2.5 to 3.5, dep ending upon the indica tions. Lab Interpretation (test Abnormal code = 49333-2) [facility] GLUCOSE (AUTOMATED)2022-06-03 03:12:43 Test Item Value Reference Range Interpretation Comments POCT GLU (test code = 7911782702) 210 mg/dL 70-110 H Lab Interpretation (test code = Abnormal 84076-5) [facility] GLUCOSE (AUTOMATED)2022-06-02 22:56:08 Test Item Value Reference Range Interpretation Comments POCT GLU (test code = 4485337334) 149 mg/dL 70-110 H Lab Interpretation (test code = Abnormal 59968-3) [facility] GLUCOSE (AUTOMATED)2022-06-02 17:28:19 Test Item Value Reference Range Interpretation Comments POCT GLU (test code = 7046911100) 135 mg/dL 70-110 H Lab Interpretation (test code = Abnormal 89974-2) [facility] GLUCOSE (AUTOMATED)2022-06-02 13:51:26 Test Item Value Reference Range Interpretation Comments POCT GLU (test code = 6313710667) 148 mg/dL 70-110 H Lab Interpretation (test code = Abnormal 30442-3) [facility] / [id number] 10:00:19 Test Item Value Reference Range Interpretation Comments PROTIME PATIENT (test 27.5 See_Comment H [Auto mated message] code = 5964-2) The system [email or web address] generated this result transmitted ref erence range: 10.1 - 1 2.6 Seconds. The reference range was not used to int erpret this result as normal/abnormal . INR (test code = 6301-6) 2.5 Nor mal INR <1.1; Warfarin Therap eutic range 2.0 to 3. 0 or 2.5 to 3.5, dep ending upon the indica tions. Lab Interpretation (test Abnormal code = 79496-4) [facility] GLUCOSE (AUTOMATED)2022-06-02 02:48:59 Test Item Value Reference Range Interpretation Comments POCT GLU (test code = 143 mg/dL 70-110 H Notifi ed Provider [id number]) Lab Interpretation (test Abnormal code = 83933-0) [facility] 23:27:20 Test Item Value Reference Range Interpretation Comments POCT GLU (test code = 7150926418) 153 mg/dL 70-110 H Lab Interpretation (test code = Abnormal 76442-4) [facility] GLUCOSE (AUTOMATED)2022-06-01 18:50:58 Test Item Value Reference Range Interpretation Comments POCT GLU (test code = 7106592497) 138 mg/dL 70-110 H Lab Interpretation (test code = Abnormal 64214-8) [facility]22-[facility] 14:57:32 Test Item Value Reference Range Interpretation Comments POCT GLU (test code = 8322676805) 122 mg/dL 70-110 H Lab Interpretation (test code = Abnormal 37781-9) [facility] GLUCOSE (AUTOMATED)2022-06-01 01:53:50 Test Item Value Reference Range Interpretation Comments POCT GLU (test code = 4049102011) 119 mg/dL 70-110 H Lab Interpretation (test code = Abnormal 40019-7) [facility]2022-05-31 22:54:15 Test Item Value Reference Range Interpretation Comments POCT GLU (test code = 7349846290) 122 mg/dL 70-110 H Lab Interpretation (test code = Abnormal 61770-5) [facility]2022-05-31 17:44:59 Test Item Value Reference Range Interpretation Comments POCT GLU (test code = 7755817891) 110 mg/dL 70-110 Lab Interpretation (test code = Normal 45329-3) [facility] GLUCOSE (AUTOMATED)2022-05-31 13:49:36 Test Item Value Reference Range Interpretation Comments POCT GLU (test code = 4362391111) 111 mg/dL 70-110 H Lab Interpretation (test code = Abnormal 08714-4) [facility] GLUCOSE (AUTOMATED)2022-05-31 01:43:18 Test Item Value Reference Range Interpretation Comments POCT GLU (test code = 5581295750) 90 mg/dL 70-110 Lab Interpretation (test code = Normal 41311-6) [facility] GLUCOSE (AUTOMATED)2022-05-30 22:13:49 Test Item Value Reference Range Interpretation Comments POCT GLU (test code = 99 mg/dL 70-110 Notifi ed Provider [id number]) Lab Interpretation (test Normal code = 63846-8) [facility] GLUCOSE (AUTOMATED)2022-05-30 17:55:05 Test Item Value Reference Range Interpretation Comments POCT GLU (test code = 129 mg/dL 70-110 H Notifi ed Provider [id number]) Lab Interpretation (test Abnormal code = 03173-0) [facility] GLUCOSE (AUTOMATED)2022-05-30 17:55:05 Test Item Value Reference Range Interpretation Comments POCT GLU (test code = 129 mg/dL 70-110 H Notifi ed Provider [id number]) Lab Interpretation (test Abnormal code = 23917-6) [facility] GLUCOSE (AUTOMATED)2022-05-30 14:09:40 Test Item Value Reference Range Interpretation Comments POCT GLU (test code = 101 mg/dL 70-110 Notifi ed Provider [id number]) Lab Interpretation (test Normal code = 65532-6) [facility] / [id number] 09:53:11 Test Item Value Reference Range Interpretation Comments PROTIME PATIENT (test 18.0 See_Comment H [Auto mated message] code = 5964-2) The system [employer] generated this result transmitted ref erence range: 10.1 - 1 2.6 Seconds. The reference range was not used to int erpret this result as normal/abnormal . INR (test code = 6301-6) 1.6 Nor mal INR <1.1; Warfarin Therap eutic range 2.0 to 3. 0 or 2.5 to 3.5, dep ending upon the indica tions. Lab Interpretation (test Abnormal code = 76951-7) [facility] / [id number] 09:53:11 Test Item Value Reference Range Interpretation Comments PROTIME PATIENT (test 18.0 See_Comment H [Auto mated message] code = 5964-2) The system [employer] generated this result transmitted ref erence range: 10.1 - 1 2.6 Seconds. The reference range was not used to int erpret this result as normal/abnormal . INR (test code = 6301-6) 1.6 Nor mal INR <1.1; Warfarin Therap eutic range 2.0 to 3. 0 or 2.5 to 3.5, dep ending upon the indica tions. Lab Interpretation (test Abnormal code = 04579-7) [facility]2022-05-29 21:53:20 Test Item Value Reference Range Interpretation Comments POCT GLU (test code = 3349956977) 87 mg/dL 70-110 Lab Interpretation (test code = Normal 56305-4) [facility] (NUSRAT)2022-05-29 21:31:42 Test Item Value Reference Range Interpretation Comments LVOT peak tisha (test 91.0 cm/s code = 8762910474) LVOT mn grad (test 1.0 mmHg code = 8199225912) AV LVOT peak gradient 3.3 mmHg (test code = 4446029702) LVOT peak VTI (test 11.9 cm code = 0418180271) LV V1 mean (test code 53.90 cm/s = 3934637453) Radiology Study observation (narrative) (test code = 57617-4) LINNEA (test code = LINNEA) ?Left?Ventricle: Left ventricle size is normal. Increased wall thickness. There is concentric hypertrophy. Normal systolic function. ?Left?Atrium: Left atrium is dilated. Atrial septal aneurysm present. ?The septum is bowing into the LA. ?Aortic?Valve: [address] Andrés mechanical valve that is well-seated. No evidence of aortic stenosis. Echogenic shadow is noted at the posterior rim of the valve, possible artifact but ?can't excluded a thrombus. Consider Cardiac CTA if clinically indicated. Left VentricleLeft ventricle size is normal. Increased wall thickness. There is concentric hypertrophy. Normal systolic function.Right VentricleRight ventricle size is normal. Normal systolic function.Left AtriumLeft atrium is dilated. Atrial septal aneurysm present. The septum is bowing into the LA.Right AtriumRight atrium size is normal. There is a prominent Eustachian valve and prominent marge terminalis.Mitral ValveMitral valve structure is normal. Mild transvalvular regurgitation.Tricuspid ValveTricuspid valve structure is normal. Mild transvalvular regurgitation.Aortic Valve27 mm St[address] Andrés mechanical valve that is well-seated. No evidence of aortic stenosis. Echogenic shadow is noted at the posterior rim of the valve, can't excluded a thrombus. Consider Cardiac CTA if clinically indicated.Pulmonic ValveValve structure is normal.Ascending AortaNormal sized aorta.PericardiumThe pericardium is normal.Study DetailsA complete transesophageal echocardiogram was performed using complete 2D, color flow Doppler, spectral Doppler and complete 3D. During the study the esophageal view was captured. The probe was inserted by the patient biller. There was no probe insertion difficulty.There were 1 attempts to insert the probe. Probe in 1412. Probe out 1421. Moderate sedation was given. 4% Lidocaine was used for local oropharyngeal anesthesia. 1 mg of midazolam and 25 mcg of Fentanyl were administered during the study. There were no complications during the procedure. Based on abnormal findings of 2D echocardiogram, 3D was performed on an acquisition scanner for further assessment of the aortic valve. ALLYSSA LION [facility] GLUCOSE (AUTOMATED)2022-05-29 17:53:09 Test Item Value Reference Range Interpretation Comments POCT GLU (test code = 2635914589) 104 mg/dL 70-110 Lab Interpretation (test code = Normal 49887-4) [facility] GLUCOSE (AUTOMATED)2022-05-29 13:39:50 Test Item Value Reference Range Interpretation Comments POCT GLU (test code = 4822810990) 113 mg/dL 70-110 H Lab Interpretation (test code = Abnormal 12063-4) [facility] / [id number] 10:22:42 Test Item Value Reference Range Interpretation Comments PROTIME PATIENT (test 20.1 See_Comment H [Auto mated message] code = 5964-2) The system [employer] generated this result transmitted ref erence range: 10.1 - 1 2.6 Seconds. The reference range was not used to int erpret this result as normal/abnormal . INR (test code = 6301-6) 1.8 Nor mal INR <1.1; Warfarin Therap eutic range 2.0 to 3. 0 or 2.5 to 3.5, dep ending upon the indica tions. Lab Interpretation (test Abnormal code = 89739-4) [facility] 10:22:22 Test Item Value Reference Range Interpretation Comments MAGNESIUM (test code = 7257768039) 1.9 mg/dL 1.7-2.4 Lab Interpretation (test code = Normal 68123-5) [facility] METABOLIC PANEL (NA, K, CL, CO2, GLUCOSE, BUN, CREATININE, CA)2022-05-29 10:22:22 Test Item Value Reference Range Interpretation Comments NA (test code = 136 mmol/L 135-145 4972460760) K (test code = 3.5 mmol/L 3.5-5.0 8965760394) CL (test code = 106 mmol/L 98-108 0141822809) CO2 TOTAL (test code = 24 mmol/L 23-31 1452984924) AGAP (test code = 6 2-16 2577905684) BUN (test code = 8 mg/dL 7-23 5884349887) GLUCOSE (test code = 107 mg/dL 70-110 2199996598) CREATININE (test code = 0.71 mg/dL 0.60-1.25 8493885213) CALCIUM (test code = 8.4 mg/dL 8.6-10.6 L 7264742147) eGFR (test code = 113.9 mL/min/1.73m2 1900558245) LINNEA (test code = LINNEA) Association of Glomerular Filtration Rate (GFR) and Staging of Kidney Disease* + --+ --+ ------+| GFR (mL/min/1.73 m2) ?| With Kidney Damage ?| ?Without Kidney Damage+ --------+ --------+ +| ?>90 ?| ?Stage one ?| ? Normal ?+ ---+ ---+ -------+| ?60-89 ?| ?Stage two ?| ? Decreased GFR ? + --+ --+ ------+| ?30-59 ?| ?Stage three ?| ? Stage three ? + --+ --+ ------+| ?15-29 ?| ?Stage four ? | ? Stage four ?+ ---+ ---+ -------+| ?<15 (or dialysis) ? ?| ?Stage five ? | ? Stage five ?+ ---+ ---+ -------+ *Each stage assumes the associated GFR level has been in effect for at least three months. ?Stages 1 to 5, with or without kidney disease, indicate chronic kidney disease. Notes: Determination of stages one and two (with eGFR >59mL/min/1.73 m2) requires estimation of kidney damage for at least three months as defined by structural or functional abnormalities of the kidney, manifested by either:Pathological abnormalities or Markers of kidney damage (including abnormalities in the composition of the blood or urine or abnormalities in imaging tests). Lab Interpretation Abnormal (test code = 47358-7) [facility] METABOLIC PANEL (NA, K, CL, CO2, GLUCOSE, BUN, CREATININE, CA)2022-05-29 10:22:22 Test Item Value Reference Range Interpretation Comments NA (test code = 136 mmol/L 135-145 2942033667) K (test code = 3.5 mmol/L 3.5-5.0 7425192570) CL (test code = 106 mmol/L 98-108 5670502873) CO2 TOTAL (test code = 24 mmol/L 23-31 3069737061) AGAP (test code = 6 2-16 9596919326) BUN (test code = 8 mg/dL 7-23 3312456835) GLUCOSE (test code = 107 mg/dL 70-110 6466607859) CREATININE (test code = 0.71 mg/dL 0.60-1.25 0772981760) CALCIUM (test code = 8.4 mg/dL 8.6-10.6 L 2897710404) eGFR (test code = 113.9 mL/min/1.73m2 8965722224) LINNEA (test code = LINNEA) Association of Glomerular Filtration Rate (GFR) and Staging of Kidney Disease* + --+ --+ ------+| GFR (mL/min/1.73 m2) ?| With Kidney Damage ?| ?Without Kidney Damage+ --------+ --------+ +| ?>90 ?| ?Stage one ?| ? Normal ?+ ---+ ---+ -------+| ?60-89 ?| ?Stage two ?| ? Decreased GFR ? + --+ --+ ------+| ?30-59 ?| ?Stage three ?| ? Stage three ? + --+ --+ ------+| ?15-29 ?| ?Stage four ? | ? Stage four ?+ ---+ ---+ -------+| ?<15 (or dialysis) ? ?| ?Stage five ? | ? Stage five ?+ ---+ ---+ -------+ *Each stage assumes the associated GFR level has been in effect for at least three months. ?Stages 1 to 5, with or without kidney disease, indicate chronic kidney disease. Notes: Determination of stages one and two (with eGFR >59mL/min/1.73 m2) requires estimation of kidney damage for at least three months as defined by structural or functional abnormalities of the kidney, manifested by either:Pathological abnormalities or Markers of kidney damage (including abnormalities in the composition of the blood or urine or abnormalities in imaging tests). Lab Interpretation Abnormal (test code = 89706-2) [facility] Test Item Value Reference Range Interpretation Comments MAGNESIUM (test code = 8300900483) 1.9 mg/dL 1.7-2.4 Lab Interpretation (test code = Normal 32850-3) [facility] GLUCOSE (AUTOMATED)2022-05-29 02:41:15 Test Item Value Reference Range Interpretation Comments POCT GLU (test code = 5992337585) 105 mg/dL 70-110 Lab Interpretation (test code = Normal 13238-1) [facility] GLUCOSE (AUTOMATED)2022-05-28 22:42:58 Test Item Value Reference Range Interpretation Comments POCT GLU (test code = 8275938329) 105 mg/dL 70-110 Lab Interpretation (test code = Normal 08620-4) [facility] GLUCOSE (AUTOMATED)2022-05-28 18:29:40 Test Item Value Reference Range Interpretation Comments POCT GLU (test code = 2605013545) 108 mg/dL 70-110 Lab Interpretation (test code = Normal 40659-2) [facility] - [facility]ansthoracic [facility] (TTE) 2022-05-28 17:03:23 Test Item Value Reference Range Interpretation Comments Height (test code = 69 in 0702800800) Weight (test code = 241 lbs 7255214111) Systolic BP (test code 138 mmHg = 2619712674) Diastolic BP (test 97 mmHg code = 7708267880) Heart Rate (test code 101 bpm = 8912630739) BSA (test code = 2.24 m2 5378917712) LVOT diameter (test 2.17 cm code = 8841378463) LVOT area (test code = 3.70 cm2 4620381916) Ao root diam (test 3.40 cm code = 8042762814) Aortic root (test code 3.4 cm = 7189142583) Ao root annulus (test 3.4 cm code = 2281338134) LA size (test code = 3.9 cm 4352600505) LAV(MOD-sp4) (test 71.10 mL code = 6652954107) LVOT stroke volume 49.60 cm3 (test code = 3092433247) LVOT peak tisha (test 89.5 cm/s code = 8522174213) LVOT mn grad (test 1.7 mmHg code = 1806519466) AV LVOT peak gradient 3.2 mmHg (test code = 4057598810) LVOT peak VTI (test 13.4 cm code = 6446286709) LV V1 mean (test code 61.80 cm/s = 6234346127) Aortic valve mean 150.0 cm/s velocity (test code = 4816781617) Ao peak tisha (test code 203.8 cm/s = 1316311338) Ao VTI (test code = 28.9 cm 5175551542) AV area by cont VTI 1.7 cm2 (test code = 1962849445) AV area peak tisha (test 1.6 cm2 code = 5134616153) Ao max PG (test code = 16.60 mm[Hg] 2731919586) AV peak gradient (test 16.6 mmHg code = 7368577168) AV valve area (test 1.71 cm2 code = 7815650925) AV mean gradient (test 9.7 mmHg code = 5805594214) Tapse (test code = 1.38 cm 9885154610) LA Volume Index (BP) 36.4 mL/m2 (test code = 9162362654) LA volume (BP) (test 81.4 mL code = 0214102730) LAV(MOD-sp2) (test 79.60 mL code = 5828227871) LVIDD (test code = 5.00 cm 0285301329) Left Ventricular End 115.7 mL Diastolic Volume by Teichholz Method (test code = 0499437) IVS (test code = 1.41 cm 6811981618) Interventricular 1.41 cm Septum Diastolic Thickness by 2D (test code = 9649925) LVPWD (test code = 1.40 cm 6820297366) PW (test code = 1.40 cm 0.6-1.6 2962567048) EF(Teich) (test code = 46.10 % 7075183835) LVIDS (test code = 3.80 cm 9463545953) Left Ventricular End 62.3 mL Systolic Volume by Teichholz Method (test code = 0471228) FS (test code = 23 % 1697974559) EF - 2D (test code = 46.10 % 77569307) A4C EF (test code = 52.40 % 0971783905) EF(sp4-el) (test code 51.90 % = 4990050506) SV(MOD-sp4) (test code 126.00 mL = 1479508130) SV(sp4-el) (test code 128.60 mL = 8626574522) LV Diastolic Volume 233.7 mL (BP) (test code = 8641545469) A2C EF (test code = 50.30 % 3736805676) EF(MOD-bp) (test code 53.60 % = 0279418447) EF(sp2-el) (test code 50.60 % = 7983545349) LV Systolic Volume 108.4 mL (BP) (test code = 9473051267) SV(MOD-bp) (test code 125.30 mL = 7711515293) SV(MOD-sp2) (test code 100.10 mL = 9582257548) EF (test code = 54 2338058801) Left Ventricular 125.3 mL Stroke Volume by 2-D Biplane-MOD (test code = 7888290) LV Diastolic Volume 104.3 mL/m2 Index (BP) (test code = 3724441763) LV Systolic Volume 48.4 mL/m2 Index (BP) (test code = 2497327162) Radiology Study observation (narrative) (test code = 84758-9) LINNEA (test code = LINNEA) ?Left?Ventricle: Left ventricle size is normal. There is concentric hypertrophy. Septal motion is consistent with post-operative status. . Normal systolic function with a visually estimated EF of 50 - 55%. EF by 2D Pérez biplane is 54%. No evidence of thrombus. Indeterminate diastolic function. ?Right?Ventricle: Right ventricle size is normal. Normal systolic function. ?Left?Atrium: Left atrium is mildly dilated. Left atrium volume index is 36.4 mL/m2. Negative Bubble study. ?Aortic?Valve: Bioprosthetic valve that is well-seated structure and function appears normal. No hemodynamically significant . AV peak gradient is 16.6 mmHg. Left VentricleLeft ventricle size is normal. There is concentric hypertrophy. Septal motion is consistent with post-operative status. . Normal systolic function with a visually estimated EF of 50 - 55%. EF by 2D Pérez biplane is 54%. No evidence of thrombus. Indeterminate diastolic function.Right VentricleRight ventricle size is normal. Normal systolic function.Left AtriumLeft atrium is mildly dilated. Left atrium volume index is 36.4 mL/m2. Negative Bubble study.Right AtriumRight atrium size is normal.IVC/SVCIVC diameter is less than or equal to 21 mm and decreases greater than 50% during inspiration; therefore the estimated right atrial pressure is normal (~0-5 mmHg).Mitral ValveModerate mitral annular calcification. Trace transvalvular regurgitation. No stenosis.Tricuspid ValveTricuspid valve structure is normal. Trace transvalvular regurgitation. No stenosis.Aortic ValveBioprosthetic valve that is well-seated structure and function appears normal. No hemodynamically significant . AV peak gradient is 16.6 mmHg.Pulmonic ValveNot well visualized. No transvalvular regurgitation. No stenosis.Ascending AortaNormal sized annulus, sinus of Valsalva and ascending aorta.PericardiumThe pericardium is normal. No pericardial effusion.Study DetailsStudy quality was adequate. A complete echocardiogram was performed using 2D, color flow Doppler and spectral Doppler. The apical, parasternal and subcostal views were obtained. 5 mL of Lumason ultrasound enhancing agent used and saline contrast was performed. [facility] GLUCOSE (AUTOMATED)2022-05-28 16:25:30 Test Item Value Reference Range Interpretation Comments POCT GLU (test code = 6533855443) 97 mg/dL 70-110 Lab Interpretation (test code = Normal 82219-4) [facility] GLUCOSE (AUTOMATED)2022-05-28 02:33:23 Test Item Value Reference Range Interpretation Comments POCT GLU (test code = 7363851285) 98 mg/dL 70-110 Lab Interpretation (test code = Normal 71948-2) [facility] GLUCOSE (AUTOMATED)2022-05-27 23:11:52 Test Item Value Reference Range Interpretation Comments POCT GLU (test code = 3467479451) 84 mg/dL 70-110 Lab Interpretation (test code = Normal 78150-6) [facility] GLUCOSE (AUTOMATED)2022-05-27 17:34:51 Test Item Value Reference Range Interpretation Comments POCT GLU (test code = 2591182095) 106 mg/dL 70-110 Lab Interpretation (test code = Normal 45667-1) [facility] GLUCOSE (AUTOMATED)2022-05-27 13:26:29 Test Item Value Reference Range Interpretation Comments POCT GLU (test code = 1554217621) 109 mg/dL 70-110 Lab Interpretation (test code = Normal 32171-1) [facility]68757[facility] (ALB,T.PRO,BILI T,BU/BC,ALT,AST,ALK PHOS)2022-05-27 06:07:09 Test Item Value Reference Range Interpretation Comments TOTAL BILI (test code = 1718025241) 0.8 mg/dL 0.1-1.1 BILI UNCON (test code = 0567346675) 0.4 mg/dL 0.1-1.1 BILI CONJ (test code = 8920307108) 0.0 mg/dL 0.0-0.3 T PROTEIN (test code = 3404382855) 6.5 g/dL 6.3-8.2 ALBUMIN (test code = 5825540419) 3.7 g/dL 3.5-5.0 ALK PHOS (test code = 9659928665) 81 U/L 34-122 ALTv (test code = 1742-6) 17 U/L 5-50 AST(SGOT) (test code = 6831542493) 27 U/L 13-40 Lab Interpretation (test code = Normal 85866-0) [facility] (59854) (ALB,T.PRO,BILI T,BU/BC,ALT,AST,ALK PHOS)2022-05-27 06:07:09 Test Item Value Reference Range Interpretation Comments TOTAL BILI (test code = 6951769214) 0.8 mg/dL 0.1-1.1 BILI UNCON (test code = 3607416043) 0.4 mg/dL 0.1-1.1 BILI CONJ (test code = 0380084082) 0.0 mg/dL 0.0-0.3 T PROTEIN (test code = 8888720580) 6.5 g/dL 6.3-8.2 ALBUMIN (test code = 1092599289) 3.7 g/dL 3.5-5.0 ALK PHOS (test code = 0362164765) 81 U/L 34-122 ALTv (test code = 1742-6) 17 U/L 5-50 AST(SGOT) (test code = 2027766142) 27 U/L 13-40 Lab Interpretation (test code = Normal 00970-1) [facility]GLYCOSYLATED HEM[facility]GLOBIN (A1C)2022-05-27 05:04:34 Test Item Value Reference Range Interpretation Comments HGB A1C (test code = 6.1 % 4.0-5.7 H 4548-4) LINNEA (test code = LINNEA) Reference RangesNormal: <5.7%Prediabetes: 5.7 - 6.4%Diabetes: > 6.5% Lab Interpretation (test Abnormal code = 18458-9) [facility]GLYCOSYLATED HEM[facility]GLOBIN (A1C)2022-05-27 05:04:34 Test Item Value Reference Range Interpretation Comments HGB A1C (test code = 6.1 % 4.0-5.7 H 4548-4) LINNEA (test code = LINNEA) Reference RangesNormal: <5.7%Prediabetes: 5.7 - 6.4%Diabetes: > 6.5% Lab Interpretation (test Abnormal code = 15835-3) [facility]ETHANOL2023-[facility] 04:58:47 ALCOHOL<10mg/dL05/26/2022 10:58 PM [facility]STUTMB LAB[facility]ATORY SERVICESToxic Greater than or equal to 80 mg/dL. NOTE: Whole blood values are approximately 10% to 15% lower than serum and plasma.[facility]ETHANOL2023-[facility]-05 04:58:47ALCOHOL<10mg/dL05/26/2022 10:58 PM CSTUTMB LABORATORY SERVICESToxic Greater than or equal to 80 mg/dL. NOTE: Whole blood values are approximately 10% to 15% lower than serum and plasma.[facility] LIPID PANEL (90780)(TOTAL CHOLESTEROL, TRIGLYCERIDES, HDL)2022-05-27 04:58:02 Test Item Value Reference Range Interpretation Comments CHOL (test code = 0092523303) 159 mg/dL 120-200 HDL (test code = 3631564144) 38 mg/dL >=40 L HDLC RATIO (test code = 5766506350) 4.2 <=5.0 TRIG (test code = 5321831768) 72 mg/dL 30-170 LDL CHOL (test code = 02921-7) 107 mg/dL <=160 VLDL (test code = 2880917060) 14 mg/dL 5-60 Lab Interpretation (test code = Abnormal 34531-2) [facility] LIPID PANEL (53535)(TOTAL CHOLESTEROL, TRIGLYCERIDES, HDL)2022-05-27 04:58:02 Test Item Value Reference Range Interpretation Comments CHOL (test code = 3771384972) 159 mg/dL 120-200 HDL (test code = 7920781645) 38 mg/dL >=40 L HDLC RATIO (test code = 2814993612) 4.2 <=5.0 TRIG (test code = 8557898187) 72 mg/dL 30-170 LDL CHOL (test code = 31178-9) 107 mg/dL <=160 VLDL (test code = 6997441929) 14 mg/dL 5-60 Lab Interpretation (test code = Abnormal 68143-7) [facility] HospitalTroponin I - Code [id number] 04:43:43 Test Item Value Reference Range Interpretation Comments TROPONIN I (test code = 0.014 ng/mL <=0.034 5353019980) LINNEA (test code = LINNEA) Reference (Normal) Range (defined by the 99th percentile reference limit): <= 0.034 ng/mL Note: Cardiac troponin begins to rise 3-4 hours after the onset of ischemia. Repeat in 4-6 hours if the sample was drawn within 3-4 hours of the onset of the symptom and found normal. Diagnosis of myocardial injury is made with acute changes in cTn concentrations with at least one serial sample above the 99th percentile upper reference limit (URL), taken together with the patient's clinical presentation. Biotin has been reported to cause a negative bias, interpret results relative to patient's use of biotin. Lab Interpretation Normal (test code = 75964-0) [facility] HospitalTroponin I - Code [id number] 04:43:43 Test Item Value Reference Range Interpretation Comments TROPONIN I (test code = 0.014 ng/mL <=0.034 4210580797) LINNEA (test code = LINNEA) Reference (Normal) Range (defined by the 99th percentile reference limit): <= 0.034 ng/mL Note: Cardiac troponin begins to rise 3-4 hours after the onset of ischemia. Repeat in 4-6 hours if the sample was drawn within 3-4 hours of the onset of the symptom and found normal. Diagnosis of myocardial injury is made with acute changes in cTn concentrations with at least one serial sample above the 99th percentile upper reference limit (URL), taken together with the patient's clinical presentation. Biotin has been reported to cause a negative bias, interpret results relative to patient's use of biotin. Lab Interpretation Normal (test code = 69925-6) [facility] HospitalBasi Metabolic Panel (NA, K, CL, CO2, Glucose, BUN, Creatinine, CA) - Code Macoae1125-51-45 04:32:02 Test Item Value Reference Range Interpretation Comments NA (test code = 136 mmol/L 135-145 9927983685) K (test code = 3.4 mmol/L 3.5-5.0 L 2314379002) CL (test code = 103 mmol/L 98-108 8246940376) CO2 TOTAL (test code = 28 mmol/L 23-31 1914840636) AGAP (test code = 5 2-16 1616807396) BUN (test code = 17 mg/dL 7-23 3429622710) GLUCOSE (test code = 99 mg/dL 70-110 6036663208) CREATININE (test code = 0.92 mg/dL 0.60-1.25 9845373671) CALCIUM (test code = 8.6 mg/dL 8.6-10.6 7727702736) eGFR (test code = 84.5 mL/min/1.73m2 2285447649) LINNEA (test code = LINNEA) Association of Glomerular Filtration Rate (GFR) and Staging of Kidney Disease* + --+ --+ ------+| GFR (mL/min/1.73 m2) ?| With Kidney Damage ?| ?Without Kidney Damage+ --------+ --------+ +| ?>90 ?| ?Stage one ?| ? Normal ?+ ---+ ---+ -------+| ?60-89 ?| ?Stage two ?| ? Decreased GFR ? + --+ --+ ------+| ?30-59 ?| ?Stage three ?| ? Stage three ? + --+ --+ ------+| ?15-29 ?| ?Stage four ? | ? Stage four ?+ ---+ ---+ -------+| ?<15 (or dialysis) ? ?| ?Stage five ? | ? Stage five ?+ ---+ ---+ -------+ *Each stage assumes the associated GFR level has been in effect for at least three months. ?Stages 1 to 5, with or without kidney disease, indicate chronic kidney disease. Notes: Determination of stages one and two (with eGFR >59mL/min/1.73 m2) requires estimation of kidney damage for at least three months as defined by structural or functional abnormalities of the kidney, manifested by either:Pathological abnormalities or Markers of kidney damage (including abnormalities in the composition of the blood or urine or abnormalities in imaging tests). Lab Interpretation Abnormal (test code = 09618-2) [facility] HospitalaPTT - Code [id number] 04:30:06 Test Item Value Reference Range Interpretation Comments APTT Patient (test code 37 See_Comment H [Au tomated message] = 3173-2) The system [employer] generated this result transmitted ref erence range: 26 - 36 Seconds. The reference range was not used to int erpret this result as normal/abnormal . Lab Interpretation (test Abnormal code = 56842-0) [facility] HospitalProthrombin Time / INR - Code [id number] 04:30:06 Test Item Value Reference Range Interpretation Comments PROTIME PATIENT (test 22.6 See_Comment H [Auto mated message] code = 5964-2) The system [employer] generated this result transmitted ref erence range: 10.1 - 1 2.6 Seconds. The reference range was not used to int erpret this result as normal/abnormal . INR (test code = 6301-6) 2.0 Nor mal INR <1.1; Warfarin Therap eutic range 2.0 to 3. 0 or 2.5 to 3.5, dep ending upon the indica tions. Lab Interpretation (test Abnormal code = 56104-4) [facility] - Code [id number] 04:30:06 Test Item Value Reference Range Interpretation Comments APTT Patient (test code 37 See_Comment H [Au tomated message] = 3173-2) The system [employer] generated this result transmitted ref erence range: 26 - 36 Seconds. The reference range was not used to int erpret this result as normal/abnormal . Lab Interpretation (test Abnormal code = 98610-2) [facility] HospitalCBC without Diff - Code [id number] 04:21:40 Test Item Value Reference Range Interpretation Comments WBC (test code = 6690-2) 11.37 See_Comment H [A utomated message] The system [employer] generated this result transmit sunny reference range : 4.20 - 10.70 10*3/?L. The reference range was not used to interpret this result as normal/abnormal . RBC (test code = 789-8) 5.05 See_Comment [Au tomated message] The system [employer] generated this result transmit sunny reference range : 4.26 - 5.52 10* 6/?L. The reference r katt was not used to interpret this result as normal/abnormal . HGB (test code = 718-7) 12.5 g/dL 12.2-16.4 HCT (test code = 4544-3) 40.6 % 38.4-49.3 MCH (test code = 785-6) 24.8 pg 26.1-32.7 L MCV (test code = 787-2) 80.4 fL 81.7-95.6 L MCHC (test code = 786-4) 30.8 g/dL 31.2-35.0 L PLT (test code = 777-3) 181 See_Comment [Au tomated message] The system [employer] generated this result transmit sunny reference range : 150 - 328 10*3/?L. The reference range was not used to interpret this result as normal/abnormal . MPV (test code = 9.5 fL 9.8-13.0 L 32320-3) RDW-CV (test code = 16.5 % 12.1-15.4 H 788-0) RDW-SD (test code = 48.6 fL 38.5-51.6 60703-6) NRBC x10^3 (test code = See_Comment [Au tomated message] 2786326185) The system [employer] generated this result transmit sunny reference range : 10*3/?L. The reference range was not used to interpret this result as normal/abnormal . NRBC/100 WBC (test code 0.0 See_Comment [Au tomated message] = 0245306011) The system [facility] generated this result transmit sunny reference range : 0.0 - 10.0 /100 WBC s. The reference r katt was not used to interpret this result as normal/abnormal . IPF % (test code = 5712089705) Lab Interpretation (test Abnormal code = 17588-6) [facility] without Diff - Code [id number] 04:21:40 Test Item Value Reference Range Interpretation Comments WBC (test code = 6690-2) 11.37 See_Comment H [A utomated message] The system [facility] generated this result transmit sunny reference range : 4.20 - 10.70 10*3/?L. The reference range was not used to interpret this result as normal/abnormal . RBC (test code = 789-8) 5.05 See_Comment [Au tomated message] The system [facility] generated this result transmit sunny reference range : 4.26 - 5.52 10* 6/?L. The reference r katt was not used to interpret this result as normal/abnormal . HGB (test code = 718-7) 12.5 g/dL 12.2-16.4 HCT (test code = 4544-3) 40.6 % 38.4-49.3 MCH (test code = 785-6) 24.8 pg 26.1-32.7 L MCV (test code = 787-2) 80.4 fL 81.7-95.6 L MCHC (test code = 786-4) 30.8 g/dL 31.2-35.0 L PLT (test code = 777-3) 181 See_Comment [Au tomated message] The system [employer] generated this result transmit sunny reference range : 150 - 328 10*3/?L. The reference range was not used to interpret this result as normal/abnormal . MPV (test code = 9.5 fL 9.8-13.0 L 32951-8) RDW-CV (test code = 16.5 % 12.1-15.4 H 788-0) RDW-SD (test code = 48.6 fL 38.5-51.6 36114-7) NRBC x10^3 (test code = See_Comment [Au tomated message] 9233662559) The system [employer] generated this result transmit sunny reference range : 10*3/?L. The reference range was not used to interpret this result as normal/abnormal . NRBC/100 WBC (test code 0.0 See_Comment [Au tomated message] = 0215991771) The system [employer] generated this result transmit sunny reference range : 0.0 - 10.0 /100 WBC s. The reference r katt was not used to interpret this result as normal/abnormal . IPF % (test code = 9441299102) Lab Interpretation (test Abnormal code = 61408-9) [facility]2022-05-27 03:39:48 Test Item Value Reference Range Interpretation Comments POCT GLU (test code = 0085571370) 120 mg/dL 70-110 H Lab Interpretation (test code = Abnormal 05094-5) [facility] HospitalPHOSPHORUS2023-01-20 21:34:31 Test Item Value Reference Range Interpretation Comments PHOSPHORUS (test code = 7631438570) 3.7 mg/dL 2.5-5.0 Lab Interpretation (test code = Normal 20215-2) [facility] HospitalURIC [id number] 21:34:31 Test Item Value Reference Range Interpretation Comments URIC ACID (test code = 6372139482) 11.5 mg/dL 3.6-8.0 H Lab Interpretation (test code = Abnormal 13679-3) [facility] PT/INR(COAGUCHEK)2022-03-23 14:15:00 Test Item Value Reference Range Interpretation Comments POCT PT/INR (test code = 1606) 0.8-1.4 POCT PT/SEC (test code = 3430) SEC Lab Interpretation (test code = Abnormal 20786-4) [facility] PT/INR(COAGUCHEK)2022-03-23 14:15:00 Test Item Value Reference Range Interpretation Comments POCT PT/INR (test code = 1606) 1.3 0.8-1.4 POCT PT/SEC (test code = 3430) 15.3 SEC Lab Interpretation (test code = Abnormal 89072-5) [facility] PT/INR(COAGUCHEK)2022-01-12 13:16:00 Test Item Value Reference Range Interpretation Comments POCT PT/INR (test code = 1606) 0.8-1.4 A POCT PT/SEC (test code = 3430) SEC Lab Interpretation (test code = Abnormal 50225-6) [facility]"
[2022-08-25 10:42] LABS: Absolute Lymphocytes (CBC) 1.4 K/uL (0.7-4.9); Hematocrit 41.8 % (39.6-49.0); Lymphocytes % 11.2 % (15.3-44.8); MCV 81.2 fL (80-100); MPV 7.6 fL (7.6-11.3); RBC Red Blood Cell Count 5.15 M/uL (4.33-5.43)
[2022-08-25 10:49] LABS: Protime INR 2.98
[2022-08-25 10:58] LABS: Potassium 3.8 mEq/L (3.5-5.1)
--- NOTE | 2022-08-25 11:35 | ER ---
Nurse's Notes [facility] Name: Laurent England Jr Age: 56 yrs Sex: Male : 1965 Arrival Date: 08/25/2022 Time: 09:47 Bed 6 Private MD: Diagnosis: Muscle weakness (generalized) Presentation: 08/25 09:52 Chief complaint: EMS states: toned out to patient home due to family member unable to ld1 care for patient. Pt denies pain. No complaints. Coronavirus screen: At this time, the client does not indicate any symptoms associated with coronavirus-19. Ebola Screen: No symptoms or risks identified at this time. Risk Assessment: Do you want to hurt yourself or someone else? Patient reports no desire to harm self or others. Onset of symptoms was August 25, 2022. 09:52 Method Of Arrival: EMS: [facility] ld1 09:52 Acuity: JUDITH 4 ld1 10:13 Initial Sepsis Screen: Does the patient meet any 2 criteria? No. Patient's initial kc6 sepsis screen is negative. Does the patient have a suspected source of infection? No. Patient's initial sepsis screen is negative. Historical: - Allergies: 09:49 No Known Allergies; ld1 - PMHx: 09:49 Gout; Hepatitis; HIV; Hypertension; Diabetes mellitus; CVA; Seizure; Congestive heart ld1 failure; Depressive disorder; Hypercholesterolemia; Parkinson's disease; insomnia; - Immunization history:: Adult Immunizations up to date, Client reports receiving the 2nd dose of the Covid vaccine. - Social history:: Smoking status: Patient denies any tobacco usage or history of. Patient/guardian denies using alcohol. Screenin:13 [facility] ED Fall Risk Assessment (Adult) History of falling in the last 3 months, kc6 including since admission No falls in past 3 months (0 pts) Confusion or Disorientation No (0 pts) Intoxicated or Sedated No (0 pts) Impaired Gait Yes (1 pt) Mobility Assist Device Used No (0 pt) Altered Elimination No (0 pt) Score/Fall Risk Level 0 - 2 = Low Risk Oriented to surroundings, Maintained a safe environment, Educated pt \T\ family on fall prevention, incl call for assistance when getting out of bed, Assessed \T\ reinforced patient's understanding of fall precautions, Hourly rounding (assess needs \T\ fall precautionary measures) done. Abuse screen: Denies threats or abuse. Denies injuries from another. Nutritional screening: No deficits noted. Tuberculosis screening: No symptoms or risk factors identified. Assessment: 10:11 General: Appears in no apparent distress. comfortable, Behavior is calm, cooperative, kc6 appropriate for age. Pain: Denies pain. Neuro: Level of Consciousness is awake, alert, obeys commands, Oriented to person, place, time, situation, Appropriate for age pt has left sided weakness and deficit from prior stroke. Cardiovascular: Capillary refill < 3 seconds. Respiratory: Airway is patent Trachea midline Respiratory effort is even, unlabored, Respiratory pattern is regular, symmetrical. GI: No signs and/or symptoms were reported involving the gastrointestinal system. : No signs and/or symptoms were reported regarding the genitourinary system. EENT: No signs and/or symptoms were reported regarding the EENT system. Derm: No signs and/or symptoms reported regarding the dermatologic system. Skin is intact, Skin is pink, warm \T\ dry. Musculoskeletal: No signs and/or symptoms reported regarding the musculoskeletal system. Circulation, motion, and sensation intact. Capillary refill < 3 seconds, Range of motion: intact in all extremities. 10:37 Reassessment: Patient appears in no apparent distress at this time. No changes from ld1 previously documented assessment. Patient and/or family updated on plan of care and expected duration. Pain level reassessed. 11:31 Reassessment: Patient appears in no apparent distress at this time. No changes from kc6 previously documented assessment. Patient and/or family updated on plan of care and expected duration. Pain level reassessed. Patient is alert, oriented x 3, equal unlabored respirations, skin warm/dry/pink. 13:01 Reassessment: Patient appears in no apparent distress at this time. No changes from ld1 previously documented assessment. 13:47 Reassessment: Patient appears in no apparent distress at this time. No changes from kc6 previously documented assessment. Patient and/or family updated on plan of care and expected duration. Pain level reassessed. Patient is alert, oriented x 3, equal unlabored respirations, skin warm/dry/pink. 15:20 Reassessment: parking cashier requested nurse to go start a new IV due to infiltration of jl7 current IV on attempted to infuse IV contrast. This nurse went to CT and started new IV to right wrist, left AC IV noted to be infiltrated at this time. 16:26 Reassessment: attempted to call report to 4th floor, nurse unavailable. kc6 Vital Signs: 09:52 BP 108 / 85; Pulse 99; Resp 23; Pulse Ox 96% ; ld1 10:37 BP 121 / 90; Pulse 102; Resp 22; Pulse Ox 96% on R/A; ld1 10:37 Temp 98.3(O); Weight 74.84 kg; Height 5 ft. 8 in. ; ld1 11:31 BP 120 / 93; Pulse 110; Resp 19 S; Pulse Ox 99% on R/A; kc6 12:04 BP 120 / 93; Pulse 120; Resp 21; Pulse Ox 99% on R/A; ld1 13:03 BP 102 / 70; Pulse 112; Resp 18; Pulse Ox 98% on R/A; ld1 14:36 BP 101 / 75; Pulse 118; Resp 22; Pulse Ox 100% on R/A; ld1 10:37 Body Mass Index 25.09 (74.84 kg, 172.72 cm) ld1 ED Course: 09:48 Patient arrived in ED. ld1 09:49 Ludwin Poon MD is Attending Physician. bs3 09:50 Janice Hernandez, ALLYSSA is Primary Nurse. kc6 09:52 Patient has correct armband on for positive identification. jl7 09:52 Client placed on continuous cardiac and pulse oximetry monitoring. NIBP monitoring jl7 applied. 09:52 Arm band placed on right wrist. ld1 10:01 Triage completed. ld1 10:10 Missed attempt(s): 22 gauge in right hand. Missed attempt(s): 22 gauge in left hand. kc6 10:38 Inserted saline lock: 20 gauge in left antecubital area, using aseptic technique. Blood ld1 collected. 10:38 BMP Sent. ld1 10:38 CBC with Diff Sent. ld1 10:38 PT-INR Sent. ld1 10:38 Ptt, Activated Sent. ld1 11:34 Clement Mae MD is Hospitalizing Provider. bs3 13:03 initiated a transfer with Sujey from the [facility] Transfer Center due to [facility] eb being at capacity. 15:20 Inserted saline lock: 22 gauge in right wrist, using aseptic technique. jl7 17:47 No provider procedures requiring assistance completed. Patient admitted, IV remains in kc6 place. Administered Medications: No medications were administered Medication: 15:20 VIS not applicable for this client. jl7 Outcome: 11:34 Decision to Hospitalize by Provider. bs3 17:47 Admitted to Med/surg accompanied by tech, via stretcher, room 412, with chart, Report kc6 called to ALLYSSA Cohn 17:47 Condition: stable 17:47 Instructed on the need for admit. 17:48 Patient left the ED. kc6 Signatures: Harjinder Vick RN RN jl7 Emily Swann Lauren, RN RN ld1 Janice Hernandez RN RN kc6 Ludwin Poon MD MD bs3
--- NOTE | 2022-08-25 11:35 | EDPHYS ---
Physician Documentation [facility] Name: Laurent England Jr Age: 56 yrs Sex: Male : 1965 Arrival Date: 08/25/2022 Time: 09:47 Bed 6 Private MD: ED Physician Ludwin Poon HPI: 08/25 10:29 This 56 yrs old Black Male presents to ER via EMS with complaints of foot pain. bs3 10:29 56-year-old male history of HIV hypertension diabetes CVA with left-sided weakness bs3 needs full assistance with activities of daily living brought in by EMS as his lives with the sister and she cannot take care of him per EMS he had no complaints on the way here after thorough history but his sister states that she is no longer able to care for him when we have talked with him he complained of some right foot pain since being discharged from the hospital no other complaints. Historical: - Allergies: 09:49 No Known Allergies; ld1 - PMHx: 09:49 Gout; Hepatitis; HIV; Hypertension; Diabetes mellitus; CVA; Seizure; Congestive heart ld1 failure; Depressive disorder; Hypercholesterolemia; Parkinson's disease; insomnia; - Immunization history:: Adult Immunizations up to date, Client reports receiving the 2nd dose of the Covid vaccine. - Social history:: Smoking status: Patient denies any tobacco usage or history of. Patient/guardian denies using alcohol. ROS: 10:29 Constitutional: Negative for fever, chills bs3 10:29 All other systems are negative. Exam: 10:29 Constitutional: appears older than stated age, frail Head/Face: Normocephalic, bs3 atraumatic. Eyes: Pupils equal round and reactive to light, extra-ocular motions intact. Lids and lashes normal. ENT: mmm, no posterior phyarngeal erythema Neck: Trachea midline, no thyromegaly, no neck stiffness Chest/axilla: Normal chest wall appearance and motion. Nontender with no deformity. No lesions are appreciated. Cardiovascular: Tachycardic no murmur Abdomen/GI: Soft, non-tender, no rebound or guarding Skin: Warm, dry with normal turgor. Normal color with no rashes, no lesions, and no evidence of cellulitis. MS/ Extremity: Pulses equal, no cyanosis. Neurovascular intact. Full, normal range of motion. Neuro: Awake and alert, GCS 15, oriented to person, place, time, he has left-sided weakness and is unable to lift his arm or leg off the bed Vital Signs: 09:52 BP 108 / 85; Pulse 99; Resp 23; Pulse Ox 96% ; ld1 10:37 BP 121 / 90; Pulse 102; Resp 22; Pulse Ox 96% on R/A; ld1 10:37 Temp 98.3(O); Weight 74.84 kg; Height 5 ft. 8 in. ; ld1 11:31 BP 120 / 93; Pulse 110; Resp 19 S; Pulse Ox 99% on R/A; kc6 12:04 BP 120 / 93; Pulse 120; Resp 21; Pulse Ox 99% on R/A; ld1 13:03 BP 102 / 70; Pulse 112; Resp 18; Pulse Ox 98% on R/A; ld1 14:36 BP 101 / 75; Pulse 118; Resp 22; Pulse Ox 100% on R/A; ld1 10:37 Body Mass Index 25.09 (74.84 kg, 172.72 cm) ld1 MDM: 09:49 Patient medically screened. bs3 10:29 Data reviewed: vital signs, nurses notes. ED course: Patient brought in by EMS as he is bs3 unfit for home patient cannot take care of himself and his sister is refusing to take care of him, will eval for electroloyte abnoramlity, and obvious infection, and admit. . 11:33 ED course: Labs negative for acute pathology his EKG is abnormal he has T wave bs3 inversions in his lateral leads his prior EKG from 09/05/2021 shows similar T wave inversion in V6 but not as pronounced in V4 V5 the patient has no significant chest pain or shortness of breath, case discussed with Dr. Crooks for admission. 08/25 09:49 Order name: CBC with Diff; Complete Time: 10:49 bs3 08/25 09:49 Order name: BMP; Complete Time: 11:33 bs3 08/25 09:49 Order name: PT-INR; Complete Time: 11:33 bs3 08/25 09:49 Order name: Ptt, Activated; Complete Time: 11:33 bs3 08/25 11:35 Order name: Urinalysis w/ reflexes bs3 08/25 12:09 Order name: Troponin High Sensitivity EDMS 08/25 12:09 Order name: Troponin High Sensitivity; Complete Time: 13:52 EDMS 08/25 12:09 Order name: Troponin High Sensitivity EDMS 08/25 12:09 Order name: Troponin High Sensitivity EDMS 08/25 12:11 Order name: Basic Metabolic Panel EDMS 08/25 12:11 Order name: Basic Metabolic Panel EDMS 08/25 12:11 Order name: CBC with Automated Diff EDMS 08/25 12:11 Order name: CBC with Automated Diff EDMS 08/25 12:11 Order name: Magnesium EDMS 08/25 12:11 Order name: Magnesium EDMS 08/25 12:11 Order name: Phosphorus EDMS 08/25 12:11 Order name: Phosphorus EDMS 08/25 12:11 Order name: Protime (+INR) EDMS 08/25 12:11 Order name: Protime (+INR) EDMS 08/25 12:15 Order name: Lactate w/ 2H reflex if indic.; Complete Time: 13:52 EDMS 08/25 12:15 Order name: Blood Culture EDMS 08/25 12:16 Order name: Blood Culture EDMS 08/25 12:15 Order name: Chest Single View; Complete Time: 13:02 EDMS 08/25 12:19 Order name: Head Brain Wo Cont; Complete Time: 13:02 EDMS 08/25 15:36 Order name: CT EDMS 08/25 15:52 Order name: CT EDMS 08/25 12:11 Order name: CONS Physician Consult EDMS 08/25 12:11 Order name: Physical Therapy Consult EDMS 08/25 12:11 Order name: Heart Healthy EDMS 08/25 12:13 Order name: Case Management Consult EDMS 08/25 12:13 Order name: Occupational Therapy Consult EDMS 08/25 09:49 Order name: EKG - Nurse/Tech; Complete Time: 10:10 bs3 Administered Medications: No medications were administered Disposition Summary: 08/25/22 11:34 Hospitalization Ordered Hospitalization Status: Inpatient Admission bs3 Provider: Clement Mae bsSilvia Location: Telemetry/MedSur (Inpatient) bs3 Condition: Stable bs3 Problem: new bs3 Symptoms: have worsened bs3 Bed/Room Type: Standard bs3 Room Assignment: 412(08/25/22 14:57) dw Diagnosis - Muscle weakness (generalized) bs3 Forms: - Medication Reconciliation Form bs3 - SBAR form bs3 Signatures: Dispatcher [employer] Judy Pickett RN RN dw Ana Maria Marks RN RN ld1 Ludwin Poon MD MD bs3 Corrections: (The following items were deleted from the chart) 13:10 11:34 bs3 dw 14:08 13:10 412 dw ld1 14:57 14:08 ld1 dw
--- NOTE | 2022-08-25 11:51 | P.HP ---
Certification for Inpatient Patient admitted to: Observation Patient will require the following post-hospital care: None Practitioner: I am a practitioner with admitting privileges, knowledge of patient current condition, hospital course, and medical plan of care. Services: Services provided to patient in accordance with Admission requirements found in Title 42 Section 412.3 of the Code of Federal Regulations Patient History Date of Service: 08/25/22 Reason for admission: Generalized Weakness History of Present Illness: Service was provided via video visit/Tele-Medicine. For that reason, no physical examination was performed. Verbal consent was obtained prior to visit. Mr. Laurent England is a 56 year old male who has a past medical history of a prior ischemic cerebrovascular accident with hemorrhagic conversion, coronary artery disease s/p CABG, chronic systolic congestive heart failure, chronic human immunodeficiency virus infection, hepatitis C infection, and hypertension who presents to the [facility] Emergency Department due to generalized weakness and concern for home safety. He was recently admitted for an acute cerebrovascular accident and discharged from inpatient rehab. Due to significant weakness/deconditioning, his sister was concerned that she is unable to take care of him at home. On review of systems, he denies any fevers, chills, headaches, dizziness, syncope, chest pain, palpitations, shortness of breath, wheezing, cough, abdominal pain, nausea/vomiting, diarrhea, constipation, hematochezia, melena, or any other symptoms. He was brought to the Emergency Department for further evaluation. Upon presentation, his vital signs were notable for a heart rate of 96 bpm. His laboratory studies were notable for a WBC count of 12,200 and INR of 2.98. His EKG was without STEMI criteria. He was admitted to the General Internal Medicine Service under Dr. Novak for further evaluation. Allergies No Known Allergies Allergy (Verified 07/04/22 15:13) Home medications list reviewed: No (He does not know his home meds. He states that he takes warfarin 3 mg daily) Home Medications: ARIPiprazole [Abilify*] 2.5 mg PO BEDTIME tab 07/04/22 Acetaminophen Er 650 Mg 1 tab PO Q8H PRN 07/04/22 Amino Acids/Protein Hydrolys [Prosource No Carb Liquid Pkt] 30 ml PO BID packet 07/04/22 Atorvastatin Calcium [Lipitor] 40 mg PO BEDTIME tab 07/04/22 Bisacodyl [Dulcolax*] 10 mg GA BEDTIME PRN supp 07/04/22 Dapagliflozin 10 Mg 10 mg PO DAILY 07/04/22 Diclofenac Gel 1 chi TOP BID 07/04/22 Docusate/Senna [Senokot-S*] 2 tab PO BID tab 07/04/22 Duloxetine [Cymbalta *] 40 mg PO DAILY cap 07/04/22 Ensure Clear 237 ml PO BID can 07/04/22 Famotidine [Pepcid*] 20 mg PO BID tab 07/04/22 Ferrous Sulfate [Ferrous Sulfate*] 325 mg PO Q48H tab 07/04/22 Furosemide [Lasix*] 20 mg PO BIDL tab 07/04/22 Hydrocodone 5/APAP 325 [[place] 5/325*] 1 tab PO Q4H PRN tab 07/04/22 Juluca 1 Tab-Cap/M2 1 tab PO DAILY 07/04/22 Lidocaine 4% Patch [Lidoderm 5% Patch*] 2 patch TOP DAILY pat 07/04/22 Mag Hydroxide 8% [Milk Of Magnesia*] 30 ml PO DAILY PRN 07/04/22 Megestrol [Megace*] 40 mg PO BID tab 07/04/22 Metoprolol Succinate [Toprol Xl*] 12.5 mg PO BID tab 07/04/22 Nystatin Powder [Mycostatin (Powder)*] 1 appl TOP BID bottle 07/04/22 Pantoprazole [Protonix Tab*] 40 mg PO DAILY tab 07/04/22 Sacubitril/Valsartan [Entresto 24 mg-26 mg Tablet] 1 tab PO BID tab 07/04/22 Spironolactone [Aldactone*] 12.5 mg PO DAILY tab 07/04/22 Trazodone [Desyrel*] 50 mg PO BEDTIME 07/04/22 Warfarin Sodium [Coumadin*] 5 mg PO DAILY 5 PM tab 07/04/22 allopurinoL [Zyloprim*] 100 mg PO DAILY tab 07/04/22 levETIRAcetam [Keppra*] 750 mg PO BID tab 07/04/22 - Past Medical/Surgical History Diabetic: No -: CAD -: HIV -: HCV -: HTN -: HFrEF -: CVA (ischemic -> hemorrhagic) -: Mechanical aortic valve -: CABG - Family History Family History: Reviewed- Non-Contributory - Social History Alcohol use: Yes CD- Drugs: Yes Caffeine use: Yes Review of Systems 10-point ROS is otherwise unremarkable General: Weakness (generalized) Physical Examination - Vital Signs Temperature: 98.3 F Blood Pressure: 120/90 Pulse: 120 Respirations: 20 Pulse Ox (%): 99 - Physical Exam General: Alert, In no apparent distress, Other (appears non-toxic) HEENT: Sclerae nonicteric Neurological: Normal speech, Normal affect - Studies Laboratory Data (last 24 hrs) 08/25/22 10:32: PT 32.8 H, INR 2.98, APTT 36.6 08/25/22 10:32: Sodium 136, Potassium 3.8, BUN 17, Creatinine 0.84, Glucose 126 H 08/25/22 10:32: WBC 12.20 H, Hgb 13.2 L, Hct 41.8, Plt Count 269 Assessment and Plan - Plan # Weakness/Deconditioning with history of Prior Ischemic Cerebrovascular Accident with Hemorrhagic Conversion # SIRS Criteria (Tachycardia, Leukocytosis) without Infectious Source Although he meets 2/4 SIRS criteria, he does not have a clear source of infe ction at this time. - Initiate infectious evaluation: blood cultures, lactate, CXR, UA - If infectious source is identified or suspected, plan to initiate sepsis bundle and start broad-spectrum antibiotics - Ordered CT head - Consulted Neurology - recommendations appreciated - Consulted PT/OT - Consulted case management for assistance with placement/disposition planning - Fall precautions # History of Mechanical Aortic Valve Replacement on Warfarin - Cardiology consulted given need for anticoagulation with history of hemorrhagic CVA conversion - recommendations appreciated - INR = 2.98 - Continue home warfarin # Coronary Artery Disease s/p CABG # Chronic Systolic Congestive Heart Failure # Chronic Human Immunodeficiency Virus Infection # Hepatitis C Infection # Hypertension - He does not know his home medications. Will attempt to contact his sister and reconcile home medications once verified. Clement Mae M.D. - Advance Directives Does patient have a Living Will: No Does patient have a Durable POA for Healthcare: No
--- NOTE | 2022-08-25 12:56 | RAD REPORT ---
EXAM DESCRIPTION: CT - Head Brain Wo Cont - 08/25/2022 12:40 pm CLINICAL HISTORY: weakness, prior CVA COMPARISON: Head angio dated 06/09/2021; Head Brain Wo Cont dated 06/09/2021; Cholangiogram dated 2022No comparisons TECHNIQUE: All CT scans are performed using dose optimization technique as appropriate and may inclu de automated exposure control or mA/KV adjustment according to patient size. FINDINGS: Moderate acute right MCA territory infarct identified. Hyperdense right middle cerebral ar derick. Chronic small vessel ischemic changes. Probable remote left frontal lobe subcortical infarct. R emote left occipital lobe infarct. No acute intracranial hemorrhage. No mass effect or midline shift . Question remote right occipital infarct. Probable remote small lacunar infarcts the basal ganglia. Cerebral atrophy . The paranasal sinuses and mastoids are clear. The calvarium is intact. IMPRESSION: Acute appearing moderate right MCA territory infarct with possible hyperdense right MCA that could indicate a large vessel occlusion. No acute intracranial hemorrhage. Findings conveyed to Dr. Mae by Dr. Weir at 1251 on 08/25/22.
--- NOTE | 2022-08-25 12:57 | RAD REPORT ---
EXAM DESCRIPTION: RAD - Chest Single View - 08/25/2022 12:45 pm CLINICAL HISTORY: SIRS criteria COMPARISON: Chest Single View dated 06/25/2022; Chest Single View dated 06/07/2022; Chest Single View d ated 09/05/2021 FINDINGS: Lines: None. Lungs: No evidence of edema or pneumonia. Pleural: No significant pleural effusions or pneumothorax. Cardiac: The heart size is within normal limits. Mediastinum: Within normal limits. Bones: No acute fractures. Sternotomy . Other: None IMPRESSION: No acute cardiopulmonary disease.
--- NOTE | 2022-08-25 15:35 | RAD REPORT ---
EXAM DESCRIPTION: CT - Head angio - 08/25/2022 3:24 pm CLINICAL HISTORY: Acute CVA COMPARISON: Head Brain Wo Cont dated 08/25/2022; Neck Angio dated 08/25/2022 TECHNIQUE: CT angiography of the head was performed with maximum intensity reformatted images. 3D ma ximum intensity pixel (MIP) reconstructions were created All CT scans are performed using dose optimization technique as appropriate and may include automated exposure control or mA/KV adjustment according to patient size. FINDINGS: Anterior circulation: No aneurysm or large vessel occlusion. No hemodynamically significant stenosis. No arteriovenous malf ormation identified. Posterior circulation: No aneurysm or large vessel occlusion. No hemodynamically significant stenosis. No arteriovenous malf ormation identified. IMPRESSION: No significant flow abnormality is detected. Specifically, no right MCA occlusion identi fied to correspond with the area of infarct.
--- NOTE | 2022-08-25 15:51 | RAD REPORT ---
EXAM DESCRIPTION: CT - Neck Angio - 08/25/2022 3:27 pm CLINICAL HISTORY: Acute CVA COMPARISON: No comparisons TECHNIQUE: CT angiography of the neck vessels was performed with maximum intensity reformatted image s. 3D maximum intensity pixel (MIP) reconstructions were created All CT scans are performed using dose optimization technique as appropriate and may include automated exposure control or mA/KV adjustment according to patient size. FINDINGS: A left aortic arch is identified with normal three vessel configuration of the great vesse ls. No significant flow abnormality is seen of the common carotid bilaterally. No significant stenosis is identified involving the cervical segments of both internal carotid arteri es. Normal flow is seen within both vertebral arteries. IMPRESSION: No significant flow abnormality of the neck vessels is identified.
--- NOTE | 2022-08-25 16:36 | P.PN ---
Date of Service: 08/25/22 Patient seen and examined. On examination: Patient is rthria. General: Alert and oriented, no apparent distress HEENT: Atraumatic, EOMI, Sclerae nonicteric Neck: Supple, 2+ carotid pulse no bruit Respiratory: Clear to auscultation bilaterally, Normal air movement Cardiovascular: Regular rate/rhythm, mechanical heart sound. Gastrointestinal: Normal bowel sounds, No tenderness Musculoskeletal: No Tenderness, contracted and spastic bilateral lower extremities. Integumentary: No rashes, skin is warm and dry Neurological: Left-sided hemiplegia Motor: LUE =1, LLE =1, RLE =1, RUE=5. Left facial droop, no dysarthria. Extensor plantar response on the left. NIH score: 12. Plan: Case discussed with Dr. Mares-neurology who retrieved patient's previous CT head report which demonstrated moderate sized acute to subacute infarct in the right perirolandic, right temporal lobe corresponding to right MCA territory. CT acute stroke angiogram of head and neck showed superior division right M3 occlusion which correlates with a right MCA territory perfusion defect. CT head obtained in the ED today showing findings similar to the previous CT head. According to Dr. Mares, patient has dense left-sided weak and left facial weakness which are old, and that given prior history of right MCA occlusion, patient is less likely to benefit from any change in clinical outcome with neuro intervention and therefore less likely to benefit from transfer.
[2022-08-25] MEDS ORDERED: WARFARIN SODIUM 3 MG TAB PO SCH (17:00)
--- NOTE | 2022-08-25 18:35 | CON ---
Date of Consultation: 08/25/2022 Reason For Consultation: Anticoagulant management due to the mechanical aortic valve. History Of Present Illness: This is a 56-year-old male, history of stroke with conversion to hemorrh agic stroke in the past. Basically I asked him why he is here, he said I need to be placed in nursin g home because he cannot take care of himself. He has no symptoms. He has been taking Coumadin. IN R has been therapeutic and he has no cardiac complaints this morning. Past Medical History: CVA, HIV, hepatitis, hypertension, heart failure with reduced ejection fractio n. Past Surgical History: CABG. Medications: Refer to reconciliation sheet for detailed list. Allergies: NO KNOWN DRUG ALLERGIES. Family History: No premature coronary artery disease or cancer. Social History: He does not smoke or drink. Does not use any drugs. Review of Systems: All systems reviewed are negative except mentioned in HPI. Physical Examination: Vital Signs: Reviewed. Head and Neck: Pupils are equal, reactive to light. Intact eye movements. No JVD. No cervical lym phadenopathy. Neck: Supple. Thyroid is not enlarged. Lungs: Clear to auscultation bilaterally. No rhonchi, rales, or crackles. No accessory muscle use. 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 Valve appears to be functioning we ll on exam. Abdomen: Soft, nontender. Bowel sounds positive. No organomegaly. No masses or hernia. No rigidi ty or rebound. Extremities: No clubbing, cyanosis. Intact pulses. Skin: No rash. Neuro: Alert, awake with old focal deficits, but no new deficits. Lymph nodes: No cervical lymphadenopathy. Investigations: BUN 17, creatinine 0.84. Troponin 17. Hemoglobin 13.2 and INR is 2.98. Assessment/recommendation: 1.Mechanical aortic valve. Definitely patient needs to be on anticoagulation with warfarin to keep INR between 2 and 3. There are no active neurological issues at this point. He had a CT scan. The CT scan stating that it is an acute stroke. I will consult with Neurology and this patient needs augusto e cardiac workup to rule out valve thrombosis or the valve to be the origin for a thrombus, so stroke workup needs to be carried out and I will monitor the patient with you. At this point, his INR is t herapeutic. 2.Acute CVA. Per the CT, this is acute appearing. I recommend Neurology consultation to assess thi s further as the patient did not have any new complaints. This might be his old findings. Anyway, I will revise my recommendations based on the neurological evaluation by Neurology and he might need a repeat CT scan in 2 days given the fact it appears to be large area of infarction to monitor for any hemorrhagic conversion. Thank you for the consult. /ADAM Voice ID: [id number] Report ID: [id number]
[2022-08-25 21:58] VITALS: BMI 25.0
[2022-08-26] MEDS: METOPROLOL XL 25 MG TAB PO SCH ×3 (00:20→20:35)
[2022-08-26] MEDS ORDERED: NA CHLORIDE 0.9% 500 ML IV ONE (00:51)
[2022-08-26] MEDS: HYDROCODONE/APAP 10/325 TAB PO PRN ×2 (01:24→14:14)
[2022-08-26] MEDS ORDERED: DIGOXIN 0.25 MG/ML AMP IV ONE (02:29)
[2022-08-26] MEDS ORDERED: MAGNESIUM SULFATE 1 gm IVPB 1 GM/100 ML BAG IV ONE (02:29)
[2022-08-26 06:28] LABS: Absolute Lymphocytes (CBC) 1.8 K/uL (0.7-4.9); Hematocrit 37.8 % (39.6-49.0); Lymphocytes % 13.8 % (15.3-44.8); MCV 81.8 fL (80-100); MPV 7.9 fL (7.6-11.3); RBC Red Blood Cell Count 4.63 M/uL (4.33-5.43)
[2022-08-26 06:34] LABS: Protime INR 3.16
[2022-08-26 06:42] LABS: Magnesium 2.9 mg/dL (1.6-2.4); Phosphorus 3.8 mg/dL (2.5-4.9)
[2022-08-26 06:44] LABS: Albumin 3.3 g/dL (3.4-5.0); Bilirubin Total 0.8 mg/dL (0.2-1.0); Potassium 4.1 mEq/L (3.5-5.1); Protein, Total 7.9 g/dL (6.4-8.2)
[2022-08-26] MEDS: DULOXETINE 30 MG CAP PO SCH (09:29)
[2022-08-26] MEDS: SACUBITRIL/VALSARTAN 24/26 MG TAB PO SCH ×2 (09:29→20:36)
[2022-08-26] MEDS: levETIRAcetam 500 MG TAB PO SCH ×2 (09:30→20:36)
[2022-08-26] MEDS: FAMOTIDINE 20 MG TAB PO SCH ×2 (09:30→20:36)
--- NOTE | 2022-08-26 14:36 | P.PN ---
Subjective Date of Service: 08/26/22 Chief Complaint: Generalized Weakness Patient has no new complaint. Patient is eating well and has no problem with swallowing. Physical Examination - Vital Signs Temperature: 97.0 F Blood Pressure: 100/60 Pulse: 93 Respirations: 16 Pulse Ox (%): 97 - Physical Exam General: Alert, In no apparent distress, Oriented x3 HEENT: Mucous membr. moist/pink Neck: JVD not distended Respiratory: Clear to auscultation bilaterally, Normal air movement Cardiovascular: No edema, Regular rate/rhythm, Normal S1 S2 Gastrointestinal: Soft and benign, Non-distended Integumentary: No cyanosis Neurological: Other (Left hemiplegia) Assessment And Plan - Current Problems (Diagnosis) (1) H/O mechanical aortic valve replacement Current Visit: No Status: Acute (2) HTN (hypertension) Current Visit: No Status: Acute (3) History of CVA (cerebrovascular accident) Current Visit: Yes Status: Acute - Plan Weakness/Deconditioning/history of CVA - Head CT-right MCA territorial infarct, appears to be chronic compared to prior CT head result. -CTA head and neck shows no MCA occlusion. - Consulted Neurology - recommendations appreciated - PT/OT - Consulted case management for assistance with placement/disposition planning - Fall precautions SIRS Criteria (Tachycardia, Leukocytosis) without Infectious Source Although he meets 2/4 SIRS criteria, he does not have a clear source of infection at this time. -Blood cultures: No growth to date. History of Mechanical Aortic Valve Replacement on Warfarin - Cardiology consulted given need for anticoagulation with history of hemorrhagic CVA conversion - recommendations appreciated - INR = 2.98 - Continue home warfarin Coronary Artery Disease s/p CABG/Chronic Systolic Congestive Heart Failure/Chronic Human Immunodeficiency Virus Infection/Hepatitis C Infection/Hypertension -Collect, validate and reconcile home medications.
--- NOTE | 2022-08-26 15:26 | PN ---
Date of Progress Note: 08/26/2022 Subjective: Seen by bedside. Doing well. No new changes. Review of Systems: No chest pain, shortness of breath, orthopnea, cough. No nausea, vomiting, diarrhea. All other syst ems reviewed and they were negative. Physical Examination: Vital Signs: Reviewed. Head and Neck: Pupils are equal, reactive to light. Intact eye movements. No JVD. No cervical lym phadenopathy. Neck is supple. Thyroid is not enlarged. Lungs: Clear to auscultation. Heart: Irregular. No extra sounds. Abdomen: Soft, nontender. Bowel sounds positive. No organomegaly. No masses or hernia. No rigidi ty or rebound. Extremities: No clubbing or cyanosis. Intact pulses. Skin: No rash. Neurologic: Alert, awake, oriented x3 with paralysis of the left side and weakness of the right leg. Lymph Nodes: No cervical, axillary lymphadenopathy. Investigations: Labs were reviewed. Assessment And Recommendations: 1.Mechanical aortic valve. Recommendation is to keep Coumadin on board for INR to be between 2 and 3. If there is a concern about possible hemorrhage in the brain, definitely Coumadin can be held, bu t I recommend to obtain echocardiogram to assess the functionality of the prosthesis. This could be a source of embolisms to the brain. 2.Cerebrovascular accident, appears to be old. As per family, the patient's condition has not barry ed. Await on Neurology recommendation. 3.Dyslipidemia. Continue statin. SR/MODL Voice ID: [id number] Report ID: [id number]
[2022-08-26] MEDS: WARFARIN SODIUM 5 MG TAB PO SCH (18:20)
[2022-08-26] MEDS: ARIPiprazole 5 MG TAB PO SCH (20:35)
[2022-08-26] MEDS: ATORVASTATIN 40 MG TAB PO SCH (20:36)
[2022-08-26] MEDS: TRAZODONE 50 MG TABLET PO SCH (20:36)
[2022-08-27] MEDS: HYDROCODONE/APAP 10/325 TAB PO PRN ×2 (04:40→17:14)
[2022-08-27] MEDS: SACUBITRIL/VALSARTAN 24/26 MG TAB PO SCH ×2 (09:26→21:00)
[2022-08-27] MEDS: levETIRAcetam 500 MG TAB PO SCH ×2 (09:26→22:12)
[2022-08-27] MEDS: PANTOPRAZOLE 40MG TABLET PO SCH (09:27)
[2022-08-27] MEDS: SPIRONOLACTONE 25 MG TABLET PO SCH (09:27)
[2022-08-27] MEDS: METOPROLOL XL 25 MG TAB PO SCH ×2 (09:27→21:00)
[2022-08-27] MEDS: allopurinoL 100 MG TAB PO SCH (09:27)
[2022-08-27] MEDS: FAMOTIDINE 20 MG TAB PO SCH ×2 (09:27→22:11)
[2022-08-27] MEDS: DULOXETINE 30 MG CAP PO SCH (09:27)
--- NOTE | 2022-08-27 10:18 | EKG ---
Test Date: 2022-08-26 Test Time: 01:18:50 Supervisor Of Guidance And Testing: ALKA MEASUREMENT RESULTS: Intervals: Rate: 134 DE: QRSD: 118 QT: 382 QTc: 570 [place]: P: DE: QRS: 76 T: 79 INTERPRETIVE STATEMENTS: Supraventricular tachycardia Nonspecific intraventricular conduction delay ST & T wave abnormality, consider lateral ischemia Abnormal ECG Compared to ECG 08/25/2022 09:55:01 Intraventricular conduction delay now present Sinus rhythm no longer present Prolonged QT interval no longer present ST (T wave) deviation still present Possible ischemia still present Electronically Signed On 08-27-22 10:14:00 CDT by Evans Muro
--- NOTE | 2022-08-27 10:18 | EKG ---
Test Date: 2022-08-25 Test Time: 09:55:01 Wheel And Axle Inspector: EUGENE MEASUREMENT RESULTS: Intervals: Rate: 96 UT: 186 QRSD: 114 QT: 382 QTc: 482 [place]: P: 44 UT: 186 QRS: -26 T: 178 INTERPRETIVE STATEMENTS: Normal sinus rhythm ST & T wave abnormality, consider lateral ischemia Prolonged QT Abnormal ECG Compared to ECG 09/05/2021 13:21:44 Prolonged QT interval now present Accelerated junctional rhythm no longer present Left ventricular hypertrophy no longer present Myocardial infarct finding no longer present ST (T wave) deviation still present Possible ischemia still present Electronically Signed On 08-27-22 10:14:08 CDT by Evans Muro
--- NOTE | 2022-08-27 15:02 | P.PN ---
Subjective Date of Service: 08/27/22 Chief Complaint: Generalized Weakness No issues overnight. Patient remained alert and oriented. Patient is eating well and has no problem with swallowing. Physical Examination - Vital Signs Temperature: 97 F Blood Pressure: 96/63 Pulse: 88 Respirations: 16 Pulse Ox (%): 93 - Physical Exam General: Alert, In no apparent distress HEENT: Mucous membr. moist/pink Neck: Supple, JVD not distended Respiratory: Clear to auscultation bilaterally, Normal air movement Cardiovascular: No edema, Regular rate/rhythm, Normal S1 S2 (Mechanical heart sound.) Gastrointestinal: Soft and benign, Non-distended, No tenderness Musculoskeletal: No swelling Integumentary: No rashes Neurological: Normal speech, Other (Left hemiplegia) Assessment And Plan - Current Problems (Diagnosis) (1) H/O mechanical aortic valve replacement Current Visit: No Status: Acute (2) HTN (hypertension) Current Visit: No Status: Acute (3) History of CVA (cerebrovascular accident) Current Visit: Yes Status: Acute - Plan Weakness/Deconditioning/history of CVA - Head CT-right MCA territorial infarct, appears to be chronic compared to prior CT head result. -CTA head and neck shows no MCA occlusion. -Neurology consulted. - PT/OT - Consulted case management for assistance with placement/disposition planning. - Family is looking at long-term care - Fall precautions -Continue Keppra. SIRS Criteria (Tachycardia, Leukocytosis) without Infectious Source Although he meets 2/4 SIRS criteria, he does not have a clear source of infection at this time. -Blood cultures: No growth to date. History of Mechanical Aortic Valve Replacement on Warfarin - Cardiology consulted given need for anticoagulation with history of hemorrhagic CVA conversion - recommendations appreciated - INR = 3.16 -Obtain echocardiogram per cardiology. - Continue home warfarin Coronary Artery Disease s/p CABG/Chronic Systolic Congestive Heart Failure/Chronic Human Immunodeficiency Virus Infection/Hepatitis C Infection/Hypertension -Resume home medications.
[2022-08-27] MEDS ORDERED: BISACODYL 10 MG RECTAL SUPP PR PRN (15:03)
[2022-08-27 16:29] LABS: Specific Gravity 1.027 (1.005-1.030); Urine Bacteria <20 /HPF (<20); Urine Bilirubin NEGATIVE (Negative); Urine Blood Negative (Negative); Urine Clarity Clear (Clear); Urine Color Yellow (Yellow); Urine Glucose 3+ (Negative); Urine Mucus Slight /HPF (None Seen); Urine Protein TRACE (Negative); Urine RBC <5 /HPF (None Seen); Urine Urobilinogen 1+ (Normal); Urine pH 5.5 (5.0-7.0)
[2022-08-27] MEDS: WARFARIN SODIUM 5 MG TAB PO SCH (17:10)
[2022-08-27] MEDS: ENSURE CLEAR 200 ML CAN PO SCH (21:00)
[2022-08-27] MEDS: ATORVASTATIN 40 MG TAB PO SCH (22:11)
[2022-08-27] MEDS: ARIPiprazole 5 MG TAB PO SCH (22:11)
[2022-08-27] MEDS: TRAZODONE 50 MG TABLET PO SCH (22:12)
[2022-08-28 06:06] LABS: Absolute Lymphocytes (CBC) 1.6 K/uL (0.7-4.9); Hematocrit 33.8 % (39.6-49.0); Lymphocytes % 19.3 % (15.3-44.8); MCV 80.9 fL (80-100); MPV 8.1 fL (7.6-11.3); RBC Red Blood Cell Count 4.18 M/uL (4.33-5.43)
[2022-08-28 06:20] LABS: Magnesium 2.4 mg/dL (1.6-2.4); Potassium 3.8 mEq/L (3.5-5.1)
[2022-08-28 06:27] LABS: Protime INR 3.22
--- NOTE | 2022-08-28 07:20 | P.PN ---
Date of Service: 08/28/22 Subjective: Doing okay today no new / worsening problems +cough, unchanged ROS: 10 point ROS as noted above, otherwise negative Physical Exam: GEN: Alert, oriented, NAD HEENT: Normal conjunctiva, sclera anicteric CV: Regular rate and rhythm, no edema, +systolic click (Mechanical heart sound) Pulm: Nonlabored respirations on room air ABD: Soft, nontender, nondistended Integumentary: No rashes Neuro: speech - short phrases/sentences, feeding self vitals reviewed Problem List: Weakness/Deconditioning/history of CVA CT head -right MCA territorial infarct, appears to be chronic compared to prior CT head result. CTA head and neck shows no MCA occlusion. Neurology consulted. PT consult Fall precautions Continue Karissa SS/CM consulted for assistance with intermediate placement SIRS Criteria (Tachycardia, Leukocytosis) without Infectious Source Although he meets 2/4 SIRS criteria, he does not have a clear source of infection at this time. Blood cultures: No growth to date. History of Mechanical Aortic Valve Replacement on Warfarin Cardiology consulted given need for anticoagulation with history of hemorrhagic CVA conversion INR = 3.16 echo pending Continue home warfarin Coronary Artery Disease s/p CABG/Chronic Systolic Congestive Heart Failure/Chronic Human Immunodeficiency Virus Infection/Hepatitis C Infection/Hypertension Resume home medications. 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
[2022-08-28] MEDS: DAPAGLIFLOZIN 10 MG PO SCH (09:00)
[2022-08-28] MEDS: SACUBITRIL/VALSARTAN 24/26 MG TAB PO SCH ×2 (09:23→21:44)
[2022-08-28] MEDS: levETIRAcetam 500 MG TAB PO SCH ×2 (09:23→21:44)
[2022-08-28] MEDS: METOPROLOL XL 25 MG TAB PO SCH ×2 (09:23→21:43)
[2022-08-28] MEDS: SPIRONOLACTONE 25 MG TABLET PO SCH (09:23)
[2022-08-28] MEDS: DULOXETINE 30 MG CAP PO SCH (09:23)
[2022-08-28] MEDS: PANTOPRAZOLE 40MG TABLET PO SCH (09:23)
[2022-08-28] MEDS: FAMOTIDINE 20 MG TAB PO SCH ×2 (09:23→21:43)
[2022-08-28] MEDS: allopurinoL 100 MG TAB PO SCH (09:23)
[2022-08-28] MEDS: ENSURE CLEAR 200 ML CAN PO SCH ×2 (09:24→21:00)
[2022-08-28] MEDS: HYDROCODONE/APAP 10/325 TAB PO PRN ×2 (10:22→21:45)
[2022-08-28] MEDS: WARFARIN SODIUM 5 MG TAB PO SCH (16:34)
--- NOTE | 2022-08-28 21:23 | CON ---
Reason For Consultation: Consultation called because of the possibility of a new stroke. History Of Present Illness: Mr. England is a 56-year-old right-handed patient who was recently admitted to the inpatient rehabilitation unit for rehabilitation due to a right MCA stroke w ith dense left arm more than leg and face paresis. Also he is HIV positive and has hypertension and diabetes mellitus. The patient was discharged to care of his sister and a niece who were unable to m anage him at home and brought him back to the hospital. They noted that he potentially had some more weakness on the left side. His CT scan at [facility] suggested possibility of an acute rig ht MCA stroke with possible right MCA hyperdense sign. However, the patient's chronic stroke was in that same area and the findings are potentially not significant. A subsequent head CT angiogram iden tified no significant flow abnormalities. No right MCA occlusion identified [facility] the [facility]. His neck CT angiogram also showed no significant flow abnormalities. The ginny ent was briefly considered for transport to a hospital for higher level of care because of the possib ility of a dense MCA sign again, but that was ruled out by CT angiogram study. He did have an echoca rdiogram and electrocardiogram, which are being interpreted by the Cardiology. The electrocardiogram did not show atrial fibrillation, it showed normal sinus rhythm. Past Medical History: Gout, hepatitis, diabetes mellitus, hypertension, prior stroke, localization-r elated seizures, congestive heart failure, depression, dyslipidemia, Parkinson disease, and insomnia. Allergies: NO KNOWN DRUG ALLERGIES. Social History: The patient is living with his sister, but she is unable to care for him at this [facility] nt. No alcohol, tobacco, or IV drug use. Medications: Franklin 10/325 every 6 hours as needed, allopurinol 100 mg daily, Abilify 2.5 mg at bedti me, Lipitor 40 mg at bedtime, Cymbalta 30 mg daily, Ensure Clear 200 mg twice daily, Keppra 750 mg tw ice daily, Toprol-XL 12.5 mg twice daily, Protonix 40 mg daily, spironolactone 12.5 mg daily, trazodo ne 50 mg at bedtime, and Coumadin 5 mg daily. Review of Systems: No recent fevers or chills. There is significant pain in the lower extremities. He has actually lar ge calcaneal spurs on his heels from an imaging study done while he is in the rehabilitation unit and again swelling in the lower extremities and dense paresis in the left arm, which he is unable to mov e. The left leg shows some more strength. Otherwise, no problems with swallowing. No other positiv es again on the systems review. Physical Examination: Vital Signs: Blood pressure systolic ranged 94 to 107 and diastolic 70 to 82, pulse of 89, respirato ry rate 16, temperature 97.5, and oxygen saturation 97%. General: Mr. England is resting in his hospital bed. Echocardiogram is currently being performed. HEENT: He is normocephalic, atraumatic. Sclerae are anicteric. Oropharynx is moist. Neck: Supple. Chest: Clear. Abdomen: Soft. Extremities: Mild edema in the lower extremities bilaterally. Neurologic: He has some difficulty with his expression and comprehension, in terms of the stroke mariposa ving him with an aphasia. He has dysarthria, and decreased of the left nasolabial fold. He has no m ovement noted in the left upper extremity and 3/5 in the left lower extremity. He has 5/5 in the rig ht upper and lower extremities. Decreased sensation in the left compared to right upper and lower ex tremities. He is unable to ambulate without maximum assistance. Laboratory Studies: White blood cell count 8.0, hemoglobin 10.4, and platelets 256. His INR is 3.22 . Sodium 135, potassium 3.8, chloride 106, carbon dioxide 26, BUN 18, glucose 111, calcium 9.0, magn esium 2.4, albumin is 3.3. Urinalysis: 1+ urobilinogen, esterase 25, glucose 3+, and trace protein. Assessment: Mr. England is a 56-year-old patient with a right middle cerebral artery stroke, dense pare sis in the left upper more than lower extremity along with facial weakness. He has expressive and re ceptive aphasias. There is no clear evidence that he has a new stroke. CT angiogram of his head and neck do not show any large vessel occlusion requiring intervention. Plan: Continue with current regimen including Coumadin, management of his diabetes mellitus, risk of seizures, his depression, dyslipidemia, Parkinson's, and insomnia. He will likely require placement in a facility where he can receive a near total care as that is required for him to transfer, to [facility], to take care of his toileting facility, showering, and eating along with managing his medicati ons. He is not likely to do well if it is back home with his family as they are unable to care for h im. DAHLIA/ADAM Voice ID: [id number] Report ID: [id number]
[2022-08-28] MEDS: ATORVASTATIN 40 MG TAB PO SCH (21:43)
[2022-08-28] MEDS: ARIPiprazole 5 MG TAB PO SCH (21:43)
[2022-08-28] MEDS: TRAZODONE 50 MG TABLET PO SCH (21:44)
--- NOTE | 2022-08-29 07:12 | P.PN ---
Date of Service: 08/29/22 Subjective: feeling okay today no new / worsening problems has an appetite, but minimal intake due to not liking the food here ROS: 10 point ROS as noted above, otherwise negative Physical Exam: GEN: Alert, oriented, NAD HEENT: Normal conjunctiva, sclera anicteric CV: Regular rate and rhythm, no edema, +systolic click (Mechanical heart sound) Pulm: Nonlabored respirations on room air ABD: Soft, nontender, nondistended Integumentary: No rashes Neuro: speech - short phrases/sentences, feeding self; LUE paresis, 3/5 str LLE vitals reviewed Problem List: Weakness/Deconditioning/history of CVA 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 CTA head and neck shows no MCA occlusion. Neurology consulted. PT consult Fall precautions Continue Sadira SS/CM consulted for assistance with custodial placement SIRS Criteria (Tachycardia, Leukocytosis) without Infectious Source Although he meets 2/4 SIRS criteria, he does not have a clear source of infection at this time. Blood cultures: No growth to date. stable off antibiotics History of Mechanical Aortic Valve Replacement on Warfarin Cardiology consulted given need for anticoagulation with history of hemorrhagic CVA conversion family also reported concern due to patient's intermittent tachycardia and oc casional low BP, state been an issue since after strokej has been regular rhythm, questionable if aflutter on admission goal INR 2-3 Continue home warfarin Coronary Artery Disease s/p CABG/Chronic Systolic Congestive Heart Failure/Chronic Human Immunodeficiency Virus Infection/Hepatitis C Infection/Hypertension Resume home medications. VTE: Coumadin Code: Full Dispo: case management assisting with custodial placement awaiting auth/approval
--- NOTE | 2022-08-29 07:35 | ECHO ---
HEIGHT: 5 ft 8 in WEIGHT: 165 lb 0 oz DATE OF STUDY: 08/28/[address]: Evans Muro MD 2-DIMENSIONAL: YES M.MODE: YES DOPPLER: YES COLOR FLOW: YES TDS: YES PORTABLE: YES DEFINITY: BUBBLE STUDY: DIAGNOSIS: CHEST PAIN CARDIAC HISTORY: CATHERIZATION: YES SURGERY: YES PROSTHETIC VALVE: YES PACEMAKER: NO MEASUREMENTS (cm) DIASTOLIC (NORMALS) SYSTOLIC (NORMALS) IVSd 1.1 (0.6-1.2) LA Diam 2.8 (1.9-4.0) LVEF 54% LVIDd 3.9 (3.5-5.7) LVIDs 2.9 (2.0-3.5) %FS 27% LVPWd 1.3 (0.6-1.2) Ao Diam 2.6 (2.0-3.7) 2 DIMENSIONAL ASSESSMENT: RIGHT ATRIUM: NORMAL LEFT ATRIUM: NORMAL RIGHT VENTRICLE: NORMAL LEFT VENTRICLE: NORMAL TRICUSPID VALVE: NORMAL MITRAL VALVE: NORMAL AORTIC VALVE REPLAECMENT PULMONIC VALVE: NORMAL AORTIC VALVE: NORMAL PERICARDIAL EFFUSION: NONE AORTIC ROOT: NORMAL LEFT VENTRICULAR WALL MOTION: NORMAL DOPPLER/COLOR FLOW: NORMAL COMMENTS: 1. NORMAL MECHANICAL AORTIC VALVE REPLACEMENT FUNCTION 2. NORMAL EJECTION FRACTION 3. NO WALL MOTION ABNORMALITY 4. NO EFFUSION TECHNOLOGIST: MERRITT MCCRACKEN
[2022-08-29] MEDS: DAPAGLIFLOZIN 10 MG PO SCH (09:00)
[2022-08-29] MEDS: ENSURE CLEAR 200 ML CAN PO SCH ×2 (09:00→21:00)
[2022-08-29] MEDS: allopurinoL 100 MG TAB PO SCH (09:42)
[2022-08-29] MEDS: DULOXETINE 30 MG CAP PO SCH (09:42)
[2022-08-29] MEDS: SACUBITRIL/VALSARTAN 24/26 MG TAB PO SCH ×2 (09:42→21:21)
[2022-08-29] MEDS: SPIRONOLACTONE 25 MG TABLET PO SCH (09:42)
[2022-08-29] MEDS: PANTOPRAZOLE 40MG TABLET PO SCH (09:42)
[2022-08-29] MEDS: levETIRAcetam 500 MG TAB PO SCH ×2 (09:43→21:20)
[2022-08-29] MEDS: METOPROLOL XL 25 MG TAB PO SCH ×2 (09:43→21:21)
[2022-08-29] MEDS: FAMOTIDINE 20 MG TAB PO SCH ×2 (09:43→21:21)
--- NOTE | 2022-08-29 11:59 | PN ---
The patient has been followed by Dr. Colon for weakness, history of mechanical valve, on Coumadin wi th recent CVA. The patient has a history of dyslipidemia as well. We have been keeping an eye on hi s INR, which should be between 2 and 3. It is still pending today on 08/27/2022. Echocardiogram whi ch was done showed a normal ejection fraction and perfectly functioning aortic valve that is hvac mechanic al. We will continue present management, continue neurological followup. No change in medical thera py from our standpoint. We will sign off the case. SON/ADAM Voice ID: [id number] Report ID: [id number]
[2022-08-29] MEDS: HYDROCODONE/APAP 10/325 TAB PO PRN ×2 (13:00→21:21)
[2022-08-29] MEDS: WARFARIN SODIUM 5 MG TAB PO SCH (17:55)
[2022-08-29] MEDS: ATORVASTATIN 40 MG TAB PO SCH (21:21)
[2022-08-29] MEDS: TRAZODONE 50 MG TABLET PO SCH (21:21)
[2022-08-29] MEDS: ARIPiprazole 5 MG TAB PO SCH (21:21)
[2022-08-30 06:10] LABS: Protime INR 2.42
[2022-08-30] MEDS: DAPAGLIFLOZIN 10 MG PO SCH (09:00)
[2022-08-30] MEDS: ENSURE CLEAR 200 ML CAN PO SCH ×2 (09:00→21:10)
[2022-08-30] MEDS: levETIRAcetam 500 MG TAB PO SCH ×2 (09:29→21:08)
[2022-08-30] MEDS: DULOXETINE 30 MG CAP PO SCH (09:30)
[2022-08-30] MEDS: FAMOTIDINE 20 MG TAB PO SCH ×2 (09:30→21:10)
[2022-08-30] MEDS: SACUBITRIL/VALSARTAN 24/26 MG TAB PO SCH ×2 (09:30→21:10)
[2022-08-30] MEDS: METOPROLOL XL 25 MG TAB PO SCH ×2 (09:30→21:09)
[2022-08-30] MEDS: allopurinoL 100 MG TAB PO SCH (09:30)
[2022-08-30] MEDS: PANTOPRAZOLE 40MG TABLET PO SCH (09:31)
[2022-08-30] MEDS: SPIRONOLACTONE 25 MG TABLET PO SCH (09:33)
--- NOTE | 2022-08-30 10:20 | P.PN ---
Date of Service: 08/30/22 Subjective: feeling okay today no new / worsening problems strength/function remains the same for past few weeks stable ROS: 10 point ROS as noted above, otherwise negative Physical Exam: GEN: Alert, oriented, NAD HEENT: Normal conjunctiva, sclera anicteric CV: Regular rate and rhythm, no edema, +systolic click (Mechanical heart sound) Pulm: Nonlabored respirations on room air ABD: Soft, nontender, nondistended Neuro: speech - short phrases/sentences, feeding self; LUE paresis, 3/5 str LLE vitals reviewed Problem List: Weakness/Deconditioning/history of CVA 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 CTA head and neck shows no MCA occlusion. Neurology consulted - no new CVA suspected PT consult Fall precautions [facility] consulted for assistance with terminal manager placement SIRS Criteria (Tachycardia, Leukocytosis) without Infectious Source Although he meets 2/4 SIRS criteria, he did not have a clear source of infection, and none was found monitor on telemetry Blood cultures: CONS seen growing in 1/4 bottles; skin contamination, no clear source of infection, no skin lesions stable / afebrile off antibiotics History of Mechanical Aortic Valve Replacement on Warfarin Cardiology consulted given need for anticoagulation with history of hemorrhagic CVA conversion family also reported concern due to patient's intermittent tachycardia and occasional low BP, state been an issue since after strokej has been regular rhythm, questionable if aflutter on admission; telemetry ordered goal INR 2-3 Continue home warfarin Coronary Artery Disease s/p CABG/Chronic Systolic Congestive Heart Failure/Chronic Human Immunodeficiency Virus Infection/Hepatitis C Infection/Hypertension Resume home medications. VTE: Coumadin Code: Full Dispo: case management assisting with [facility] placement awaiting auth/approval
[2022-08-30] MEDS: HYDROCODONE/APAP 10/325 TAB PO PRN (17:10)
[2022-08-30] MEDS: WARFARIN SODIUM 5 MG TAB PO SCH (17:10)
[2022-08-30] MEDS: ATORVASTATIN 40 MG TAB PO SCH (21:08)
[2022-08-30] MEDS: ARIPiprazole 5 MG TAB PO SCH (21:08)
[2022-08-30] MEDS: TRAZODONE 50 MG TABLET PO SCH (21:10)
--- NOTE | 2022-08-31 07:16 | P.PN ---
Date of Service: 08/31/22 Subjective: feeling okay today no new / worsening problems stable ROS: 10 point ROS as noted above, otherwise negative Physical Exam: GEN: Alert, oriented, NAD HEENT: Normal conjunctiva, sclera anicteric CV: Regular rate and rhythm, no edema, +systolic click (Mechanical heart sound) Pulm: Nonlabored respirations on room air ABD: Soft, nontender, nondistended Neuro: speech - short phrases/sentences, feeding self; LUE paresis, 3/5 str LLE vitals reviewed Problem List: Weakness/Deconditioning/history of CVA 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 CTA head and neck: no MCA occlusion. Neurology consulted - no new CVA suspected PT consult Fall precautions Continue Kera SS/CM consulted for assistance with sweet potato disintegrator placement SIRS Criteria (Tachycardia, Leukocytosis) without Infectious Source no clear source of infection monitor on telemetry Blood cultures: CONS seen growing in 1/4 bottles; skin contamination, no clear source of infection, no skin lesions stable / afebrile off antibiotics History of Mechanical Aortic Valve Replacement on Warfarin Cardiology consulted given need for anticoagulation with history of hemorrhagic CVA conversion family also reported concern due to patient's intermittent tachycardia and occasional low BP, state been an issue since after strokej has been regular rhythm, questionable if aflutter on admission; telemetry ordered goal INR 2-3 Continue home warfarin Coronary Artery Disease s/p CABG/Chronic Systolic Congestive Heart Failure/Chronic Human Immunodeficiency Virus Infection/Hepatitis C Infection/Hypertension Resume home medications. VTE: Coumadin Code: Full Dispo: case management assisting with [facility] placement awaiting auth/approval
[2022-08-31] MEDS: ENSURE CLEAR 200 ML CAN PO SCH ×2 (09:00→20:48)
[2022-08-31] MEDS: DAPAGLIFLOZIN 10 MG PO SCH (09:00)
[2022-08-31] MEDS: levETIRAcetam 500 MG TAB PO SCH ×2 (09:36→20:47)
[2022-08-31] MEDS: SACUBITRIL/VALSARTAN 24/26 MG TAB PO SCH ×2 (09:36→20:45)
[2022-08-31] MEDS: PANTOPRAZOLE 40MG TABLET PO SCH (09:37)
[2022-08-31] MEDS: SPIRONOLACTONE 25 MG TABLET PO SCH (09:37)
[2022-08-31] MEDS: allopurinoL 100 MG TAB PO SCH (09:37)
[2022-08-31] MEDS: DULOXETINE 30 MG CAP PO SCH (09:38)
[2022-08-31] MEDS: FAMOTIDINE 20 MG TAB PO SCH ×2 (09:38→20:45)
[2022-08-31] MEDS: METOPROLOL XL 25 MG TAB PO SCH ×2 (09:38→20:45)
[2022-08-31] MEDS: HYDROCODONE/APAP 10/325 TAB PO PRN ×2 (09:38→16:18)
[2022-08-31] MEDS: WARFARIN SODIUM 5 MG TAB PO SCH (16:19)
[2022-08-31] MEDS: ARIPiprazole 5 MG TAB PO SCH (20:46)
[2022-08-31] MEDS: TRAZODONE 50 MG TABLET PO SCH (20:47)
[2022-08-31] MEDS: ATORVASTATIN 40 MG TAB PO SCH (20:47)
[2022-09-01 04:56] LABS: Protime INR 2.11
[2022-09-01 05:14] LABS: Potassium 3.8 mEq/L (3.5-5.1)
[2022-09-01] MEDS: HYDROCODONE/APAP 10/325 TAB PO PRN ×2 (06:55→21:06)
--- NOTE | 2022-09-01 07:15 | P.PN ---
Date of Service: 09/01/22 Subjective: doing okay no new / worsening problems stable ROS: 10 point ROS as noted above, otherwise negative Physical Exam: GEN: Alert, oriented, NAD HEENT: Normal conjunctiva, sclera anicteric CV: Regular rate and rhythm, no edema, +systolic click (Mechanical heart sound) Pulm: Nonlabored respirations on room air ABD: Soft, nontender, nondistended Neuro: speech - short phrases/sentences, feeding self; LUE paresis, 3/5 str LLE vitals reviewed Problem List: Weakness/Deconditioning/history of CVA 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 CTA head and neck: no MCA occlusion. Neurology consulted - no new CVA suspected PT consult Fall precautions Continue Keppra SS/CM consulted for assistance with rn long term care placement SIRS Criteria (Tachycardia, Leukocytosis) without Infectious Source no clear source of infection monitor on telemetry Blood cultures: CONS seen growing in 1/4 bottles; skin contamination, no clear source of infection, no skin lesions stable / afebrile off antibiotics History of Mechanical Aortic Valve Replacement on Warfarin Cardiology consulted given need for anticoagulation with history of hemorrhagic CVA conversion family also reported concern due to patient's intermittent tachycardia and occasional low BP, state been an issue since after strokej has been regular rhythm, questionable if aflutter on admission; telemetry ordered goal INR 2-3 Continue home warfarin Coronary Artery Disease s/p CABG/Chronic Systolic Congestive Heart Failure/Chronic Human Immunodeficiency Virus Infection/Hepatitis C Infection/Hypertension Resume home medications. VTE: Coumadin Code: Full Dispo: case management assisting with care home placement awaiting auth/approval
[2022-09-01] MEDS: DAPAGLIFLOZIN 10 MG PO SCH (09:00)
[2022-09-01] MEDS: DULOXETINE 30 MG CAP PO SCH (10:27)
[2022-09-01] MEDS: allopurinoL 100 MG TAB PO SCH (10:27)
[2022-09-01] MEDS: levETIRAcetam 500 MG TAB PO SCH ×2 (10:27→20:56)
[2022-09-01] MEDS: SACUBITRIL/VALSARTAN 24/26 MG TAB PO SCH ×2 (10:27→20:57)
[2022-09-01] MEDS: FAMOTIDINE 20 MG TAB PO SCH ×2 (10:27→20:58)
[2022-09-01] MEDS: PANTOPRAZOLE 40MG TABLET PO SCH (10:27)
[2022-09-01] MEDS: METOPROLOL XL 25 MG TAB PO SCH ×2 (10:28→20:57)
[2022-09-01] MEDS: SPIRONOLACTONE 25 MG TABLET PO SCH (10:28)
[2022-09-01] MEDS: ENSURE CLEAR 200 ML CAN PO SCH ×2 (10:29→20:58)
[2022-09-01] MEDS: WARFARIN SODIUM 5 MG TAB PO SCH (17:19)
[2022-09-01] MEDS ORDERED: WARFARIN SODIUM 5 MG TAB ONE (17:25)
[2022-09-01] MEDS: ATORVASTATIN 40 MG TAB PO SCH (20:55)
[2022-09-01] MEDS: ARIPiprazole 5 MG TAB PO SCH (20:55)
[2022-09-01] MEDS: TRAZODONE 50 MG TABLET PO SCH (20:57)
[2022-09-02] MEDS: DAPAGLIFLOZIN 10 MG PO SCH (09:00)
[2022-09-02] MEDS: SPIRONOLACTONE 25 MG TABLET PO SCH (09:52)
[2022-09-02] MEDS: DULOXETINE 30 MG CAP PO SCH (09:53)
[2022-09-02] MEDS: ENSURE CLEAR 200 ML CAN PO SCH ×2 (09:54→19:47)
[2022-09-02] MEDS: levETIRAcetam 500 MG TAB PO SCH ×2 (09:55→19:45)
[2022-09-02] MEDS: allopurinoL 100 MG TAB PO SCH (09:55)
[2022-09-02] MEDS: SACUBITRIL/VALSARTAN 24/26 MG TAB PO SCH ×2 (09:55→21:29)
[2022-09-02] MEDS: PANTOPRAZOLE 40MG TABLET PO SCH (09:56)
[2022-09-02] MEDS: FAMOTIDINE 20 MG TAB PO SCH ×2 (09:57→19:46)
[2022-09-02] MEDS: METOPROLOL XL 25 MG TAB PO SCH ×2 (09:57→19:46)
--- NOTE | 2022-09-02 12:01 | P.PN ---
Date of Service: 09/02/22 Subjective: feeling okay today no new / worsening problems stable ROS: 10 point ROS as noted above, otherwise negative Physical Exam: GEN: Alert, oriented, NAD HEENT: Normal conjunctiva, sclera anicteric CV: Regular rate and rhythm, no edema, +systolic click (Mechanical heart sound) Pulm: Nonlabored respirations on room air ABD: Soft, nontender, nondistended Neuro: alert, follows commands, L hemiparesis vitals reviewed Problem List: Weakness/Deconditioning/history of CVA 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 CTA head and neck: no MCA occlusion. Neurology consulted - no new CVA suspected PT consult Fall precautions Continue Keppra / home meds SS/CM consulted for assistance with senior living placement SIRS Criteria (Tachycardia, Leukocytosis) without Infectious Source no clear source of infection monitor on telemetry Blood cultures: CONS seen growing in 1/4 bottles; skin contamination, no clear source of infection, no skin lesions stable / afebrile off antibiotics infection ruled out History of Mechanical Aortic Valve Replacement on Warfarin Cardiology consulted given need for anticoagulation with history of hemorrhagic CVA conversion family also reported concern due to patient's intermittent tachycardia and occasional low BP, state been an issue since after strokej has been regular rhythm, questionable if aflutter on admission; telemetry ordered has been on home dose of warfarin (5mg daily) goal INR 2-3 INR downtrended to 2.0 increase to 7.5mg, continue to monitor Coronary Artery Disease s/p CABG/Chronic Systolic Congestive Heart Failure/Chronic Human Immunodeficiency Virus Infection/Hepatitis C Infection/H ypertension cpntinue home medications. VTE: Coumadin Code: Full Dispo: case management assisting with senior living placement awaiting auth/approval
[2022-09-02] MEDS: HYDROCODONE/APAP 10/325 TAB PO PRN ×2 (13:53→21:29)
[2022-09-02] MEDS: WARFARIN SODIUM 7.5 MG TAB PO SCH (16:45)
[2022-09-02] MEDS: ARIPiprazole 5 MG TAB PO SCH (19:44)
[2022-09-02] MEDS: TRAZODONE 50 MG TABLET PO SCH (19:45)
[2022-09-02] MEDS: ATORVASTATIN 40 MG TAB PO SCH (19:45)
[2022-09-03 06:26] LABS: Protime INR 1.89
--- NOTE | 2022-09-03 07:10 | P.PN ---
Date of Service: 09/03/22 Subjective: doing alright today no belly pains, diarrhea, or constipation stable no new / worsening problems ROS: 10 point ROS as noted above, otherwise negative Physical Exam: GEN: Alert, oriented, NAD HEENT: Normal conjunctiva, sclera anicteric CV: Regular rate and rhythm, no edema, +systolic click (Mechanical heart sound) Pulm: Nonlabored respirations on room air ABD: Soft, nontender, nondistended Neuro: alert, follows commands, L hemiparesis vitals reviewed Problem List: Weakness/Deconditioning/history of CVA 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 CTA head and neck: no MCA occlusion. Neurology consulted - no new CVA suspected continue PT Fall precautions Continue Keppra / home meds SS/CM consulted for assistance with terminal superintendent placement SIRS Criteria (Tachycardia, Leukocytosis) without Infectious Source infection ruled out no clear source of infection Blood cultures: CONS seen growing in 1/4 bottles; skin contamination, no clear source of infection, no skin lesions stable / afebrile off antibiotics infection ruled out History of Mechanical Aortic Valve Replacement on Warfarin Cardiology consulted given need for anticoagulation with history of hemorrhagic CVA conversion family also reported concern due to patient's intermittent tachycardia and occasional low BP, state been an issue since after strokej has been regular rhythm, questionable if aflutter on admission; telemetry ordered has been on home dose of warfarin (5mg daily) goal INR 2-3 INR downtrended to 2.0 increase to 7.5mg, continue to monitor Coronary Artery Disease s/p CABG/Chronic Systolic Congestive Heart Failure/Chronic Human Immunodeficiency Virus Infection/Hepatitis C Infection/Hypertension cpntinue home medications. VTE: Coumadin Code: Full Dispo: case management assisting with detention placement awaiting auth/approval
[2022-09-03] MEDS: ENSURE CLEAR 200 ML CAN PO SCH ×2 (09:00→19:35)
[2022-09-03] MEDS: DAPAGLIFLOZIN 10 MG PO SCH (09:00)
[2022-09-03] MEDS: SPIRONOLACTONE 25 MG TABLET PO SCH (09:00)
[2022-09-03] MEDS: METOPROLOL XL 25 MG TAB PO SCH ×2 (09:00→19:35)
[2022-09-03] MEDS: SACUBITRIL/VALSARTAN 24/26 MG TAB PO SCH ×2 (09:00→20:42)
[2022-09-03] MEDS: levETIRAcetam 500 MG TAB PO SCH ×2 (09:11→19:33)
[2022-09-03] MEDS: DULOXETINE 30 MG CAP PO SCH (09:11)
[2022-09-03] MEDS: FAMOTIDINE 20 MG TAB PO SCH ×2 (09:12→19:34)
[2022-09-03] MEDS: allopurinoL 100 MG TAB PO SCH (09:12)
[2022-09-03] MEDS: PANTOPRAZOLE 40MG TABLET PO SCH (09:12)
[2022-09-03] MEDS: HYDROCODONE/APAP 10/325 TAB PO PRN ×2 (13:30→20:42)
[2022-09-03] MEDS: WARFARIN SODIUM 7.5 MG TAB PO SCH (17:24)
[2022-09-03] MEDS: TRAZODONE 50 MG TABLET PO SCH (19:34)
[2022-09-03] MEDS: ARIPiprazole 5 MG TAB PO SCH (19:34)
[2022-09-03] MEDS: ATORVASTATIN 40 MG TAB PO SCH (19:34)
[2022-09-04 06:12] LABS: Protime INR 1.95
[2022-09-04] MEDS: ENSURE CLEAR 200 ML CAN PO SCH ×2 (08:32→20:48)
[2022-09-04] MEDS: FAMOTIDINE 20 MG TAB PO SCH ×2 (08:34→20:36)
[2022-09-04] MEDS: HYDROCODONE/APAP 10/325 TAB PO PRN ×2 (08:34→20:37)
[2022-09-04] MEDS: METOPROLOL XL 25 MG TAB PO SCH ×2 (08:34→20:35)
[2022-09-04] MEDS: PANTOPRAZOLE 40MG TABLET PO SCH (08:35)
[2022-09-04] MEDS: levETIRAcetam 500 MG TAB PO SCH ×2 (08:35→20:36)
[2022-09-04] MEDS: DULOXETINE 30 MG CAP PO SCH (08:35)
[2022-09-04] MEDS: SPIRONOLACTONE 25 MG TABLET PO SCH (08:35)
[2022-09-04] MEDS: DAPAGLIFLOZIN 10 MG PO SCH (08:36)
[2022-09-04] MEDS: allopurinoL 100 MG TAB PO SCH (08:36)
[2022-09-04] MEDS: SACUBITRIL/VALSARTAN 24/26 MG TAB PO SCH ×2 (08:36→20:35)
--- NOTE | 2022-09-04 16:39 | P.PN ---
Subjective Date of Service: 09/04/22 Chief Complaint: Generalized Weakness Nursing staff reports patient has some psychomotor retardation today, otherwise no new complain. Physical Examination - Vital Signs Temperature: 97.7 F Blood Pressure: 102/66 Pulse: 89 Respirations: 16 Pulse Ox (%): 95 Assessment And Plan - Current Problems (Diagnosis) (1) H/O mechanical aortic valve replacement Current Visit: No Status: Acute (2) HTN (hypertension) Current Visit: No Status: Acute (3) History of CVA (cerebrovascular accident) Current Visit: Yes Status: Acute - Plan Physical Exam: GEN: Alert, oriented, NAD HEENT: Normal conjunctiva, sclera anicteric CV: Regular rate and rhythm, no edema, Mechanical heart sound Pulm: Nonlabored respirations on room air, clear to auscultation bilaterally ABD: Soft, nontender, nondistended Neuro: alert, follows commands, L hemiparesis vitals reviewed Problem List: Weakness/Deconditioning/history of CVA 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 CTA head and neck: no MCA occlusion. Neurology consulted - no new CVA suspected continue PT Fall precautions Continue Keppra / home meds SS/CM consulted for assistance with [facility] placement SIRS Criteria (Tachycardia, Leukocytosis) without Infectious Source infection ruled out Blood cultures: CONS seen growing in 1/4 bottles; skin contamination, no clear source of infection, no skin lesions stable / afebrile off antibiotics History of Mechanical Aortic Valve Replacement on Warfarin Cardiology consulted given need for anticoagulation with history of hemorrhagic CVA conversion has been on home dose of warfarin (5mg daily) goal INR 2-3 INR downtrended to 1.95 Continue current dose warfarin. Coronary Artery Disease s/p CABG/Chronic Systolic Congestive Heart Failure/Chronic Human Immunodeficiency Virus Infection/Hepatitis C Infection/Hypertension cpntinue home medications. VTE: Coumadin Code: Full Dispo: case management assisting with exterminator placement awaiting auth/approval
[2022-09-04] MEDS: WARFARIN SODIUM 7.5 MG TAB PO SCH (17:00)
[2022-09-04 20:28] LABS: Absolute Lymphocytes (CBC) 1.5 K/uL (0.7-4.9); Hematocrit 35.5 % (39.6-49.0); Lymphocytes % 17.4 % (15.3-44.8); MCV 81.4 fL (80-100); MPV 7.7 fL (7.6-11.3); RBC Red Blood Cell Count 4.36 M/uL (4.33-5.43)
[2022-09-04 20:29] LABS: Potassium 3.7 mEq/L (3.5-5.1)
[2022-09-04] MEDS: ATORVASTATIN 40 MG TAB PO SCH (20:35)
[2022-09-04] MEDS: ARIPiprazole 5 MG TAB PO SCH (20:35)
[2022-09-04] MEDS: TRAZODONE 50 MG TABLET PO SCH (20:36)
[2022-09-05 04:06] LABS: Protime INR 1.88
[2022-09-05] MEDS: DULOXETINE 30 MG CAP PO SCH (08:22)
[2022-09-05] MEDS: SACUBITRIL/VALSARTAN 24/26 MG TAB PO SCH ×2 (08:23→20:08)
[2022-09-05] MEDS: FAMOTIDINE 20 MG TAB PO SCH ×2 (08:23→20:14)
[2022-09-05] MEDS: allopurinoL 100 MG TAB PO SCH (08:23)
[2022-09-05] MEDS: levETIRAcetam 500 MG TAB PO SCH ×2 (08:23→20:13)
[2022-09-05] MEDS: METOPROLOL XL 25 MG TAB PO SCH ×2 (08:23→20:07)
[2022-09-05] MEDS: PANTOPRAZOLE 40MG TABLET PO SCH (08:23)
[2022-09-05] MEDS: HYDROCODONE/APAP 10/325 TAB PO PRN ×3 (08:24→23:58)
[2022-09-05] MEDS: ENSURE CLEAR 200 ML CAN PO SCH ×2 (08:24→20:35)
[2022-09-05] MEDS: DAPAGLIFLOZIN 10 MG PO SCH (08:26)
[2022-09-05] MEDS: SPIRONOLACTONE 25 MG TABLET PO SCH (08:26)
--- NOTE | 2022-09-05 15:44 | P.PN ---
Subjective Date of Service: 09/05/22 Chief Complaint: Generalized Weakness Patient has no new complain. He is more interactive today. Physical Examination - Vital Signs Temperature: 97.4 F Blood Pressure: 105/66 Pulse: 89 Respirations: 14 Pulse Ox (%): 96 Assessment And Plan - Current Problems (Diagnosis) (1) H/O mechanical aortic valve replacement Current Visit: No Status: Acute (2) HTN (hypertension) Current Visit: No Status: Acute (3) History of CVA (cerebrovascular accident) Current Visit: Yes Status: Acute - Plan Physical Exam: GEN: Alert, oriented, NAD HEENT: Normal conjunctiva, sclera anicteric CV: Regular rate and rhythm, no edema, Mechanical heart sound Pulm: Nonlabored respirations on room air, clear to auscultation bilaterally ABD: Soft, nontender, nondistended Neuro: alert, follows commands, L hemiparesis vitals reviewed Problem List: Weakness/Deconditioning/history of CVA 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 CTA head and neck: no MCA occlusion. Neurology consulted - no new CVA suspected continue PT Fall precautions Continue Keppra / home meds SS/CM consulted for assistance with terminal superintendent placement SIRS Criteria (Tachycardia, Leukocytosis) without Infectious Source infection ruled out Blood cultures: CONS seen growing in 1/4 bottles; skin contamination, no clear source of infection, no skin lesions stable / afebrile off antibiotics History of Mechanical Aortic Valve Replacement on Warfarin Cardiology consulted given need for anticoagulation with history of hemorrhagic CVA conversion has been on home dose of warfarin (5mg daily) goal INR 2-3 INR downtrended to 1.88 Pharmacy to dose warfarin. Coronary Artery Disease s/p CABG/Chronic Systolic Congestive Heart Failure/Chronic Human Immunodeficiency Virus Infection/Hepatitis C Infection/Hypertension cpntinue home medications. VTE: Coumadin Code: Full Dispo: case management assisting with residential placement awaiting auth/approval
[2022-09-05] MEDS: WARFARIN SODIUM 6 MG TAB PO SCH (17:08)
[2022-09-05] MEDS: WARFARIN SODIUM 2.5 MG TAB PO SCH (17:09)
[2022-09-05] MEDS: TRAZODONE 50 MG TABLET PO SCH (20:13)
[2022-09-05] MEDS: ATORVASTATIN 40 MG TAB PO SCH (20:14)
[2022-09-05] MEDS: ARIPiprazole 5 MG TAB PO SCH (20:14)
[2022-09-06 07:03] LABS: Protime INR 2.25
[2022-09-06] MEDS: DAPAGLIFLOZIN 10 MG PO SCH (09:00)
[2022-09-06] MEDS: ENSURE CLEAR 200 ML CAN PO SCH ×2 (09:04→21:00)
[2022-09-06] MEDS: levETIRAcetam 500 MG TAB PO SCH ×2 (09:05→21:30)
[2022-09-06] MEDS: FAMOTIDINE 20 MG TAB PO SCH ×2 (09:06→21:32)
[2022-09-06] MEDS: SACUBITRIL/VALSARTAN 24/26 MG TAB PO SCH ×2 (09:06→21:31)
[2022-09-06] MEDS: METOPROLOL XL 25 MG TAB PO SCH ×2 (09:06→21:32)
[2022-09-06] MEDS: DULOXETINE 30 MG CAP PO SCH (09:06)
[2022-09-06] MEDS: SPIRONOLACTONE 25 MG TABLET PO SCH (09:07)
[2022-09-06] MEDS: allopurinoL 100 MG TAB PO SCH (09:07)
[2022-09-06] MEDS: PANTOPRAZOLE 40MG TABLET PO SCH (09:08)
--- NOTE | 2022-09-06 17:41 | P.DS ---
Admission Date: 08/27/22 Discharge Date: 09/06/22 Disposition: DC HOME/HOME HEALTH CARE Discharge Condition: FAIR Reason for Admission: Generalized Weakness - Problems (1) H/O mechanical aortic valve replacement Current Visit: No Status: Acute (2) HTN (hypertension) Current Visit: No Status: Acute (3) History of CVA (cerebrovascular accident) Current Visit: Yes Status: Acute Brief History of Present Illness: Mr. Styles is a 68 year old male with past medical history of CVA, hypertension, hyperlipidemia, and non-insulin dependent type 2 diabetes who presented to the emergency department via EMS after a syncopal episode. Patient states that he stood up after eating dinner, felt dizzy, and syncopized, hitting his head and losing consciousness. He hit his head on his stove hard enough to shatter the glass. He had a few head lacerations that were stapled in the ED. He denies any prior recent syncopal episodes. Head CT was negative. EKG showed first degree block with occasional PVCs. No significant lab abnormalities. Vital signs have been stable. ED provider wishes to admit patient for observation. 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 CTA head and neck: no MCA occlusion. Neurology consulted - no new CVA suspected Patient received PT sessions Continued Kera / home meds SS/CM consulted for assistance with dedicated intermodal truck driver placement. SIRS Criteria (Tachycardia, Leukocytosis) without Infectious Source infection ruled out Blood cultures: CONS seen growing in 1/4 bottles; skin contamination, no clear source of infection, no skin lesions Patient treated with antibiotics and discontinued He was stable and afebrile off antibiotics History of Mechanical Aortic Valve Replacement on Warfarin Cardiology consulted given need for anticoagulation with history of hemorrhagic CVA conversion Patient is on warfarin for mechanical aortic valve. goal INR 2-3 Warfarin titrated up to 8.5 mg daily Patient discharged with warfarin 8.5 mg daily. PT/INR checked within 3 days needed for Coumadin dose adjustment. Coronary Artery Disease s/p CABG/Chronic Systolic Congestive Heart Failure/Chronic Human Immunodeficiency Virus Infection/Hepatitis C Infection/Hypertension continued home medications. Patient is being evaluated for long-term care placement. He may transition to long-term care from home health once placement is authorized. Vital Signs/Physical Exam: Temp Pulse Resp BP Pulse Ox 97.4 F 87 18 107/66 99 09/06/22 16:00 09/06/22 16:00 09/06/22 16:00 09/06/22 16:00 09/06/22 16:00 General: In no apparent distress, Oriented x2 HEENT: Mucous membr. moist/pink Neck: JVD not distended Respiratory: Clear to auscultation bilaterally, Normal air movement Cardiovascular: Regular rate/rhythm, Normal S1 S2 Gastrointestinal: Normal bowel sounds, Soft and benign, Non-distended Musculoskeletal: No swelling Integumentary: No cyanosis Neurological: Other (Left-sided hemiplegia.) Laboratory Data at Discharge: WBC 8.90 thou/uL (4.3-10.9) 09/04/22 19:44 Hgb 11.2 g/dL (13.6-17.9) L 09/04/22 19:44 Hct 35.5 % (39.6-49.0) L 09/04/22 19:44 Plt Count 186 thou/uL (152-406) 09/04/22 19:44 PT 24.7 SECONDS (9.5-12.5) H 09/06/22 05:30 INR 2.25 09/06/22 05:30 APTT 36.6 SECONDS (24.3-36.9) 08/25/22 10:32 Sodium 137 mEq/L (136-145) 09/04/22 19:44 Potassium 3.7 mEq/L (3.5-5.1) 09/04/22 19:44 BUN 17 mg/dL (7-18) 09/04/22 19:44 Creatinine 0.76 mg/dL (0.70-1.30) 09/04/22 19:44 Glucose 127 mg/dL (74-106) H 09/04/22 19:44 Phosphorus 3.8 mg/dL (2.5-4.9) 08/26/22 05:59 Magnesium 2.4 mg/dL (1.6-2.4) 08/28/22 05:04 Total Bilirubin 0.8 mg/dL (0.2-1.0) 08/26/22 05:59 AST 32 U/L (15-37) 08/26/22 05:59 ALT 39 U/L (16-61) 08/26/22 05:59 Alkaline Phosphatase 124 U/L (45-117) H 08/26/22 05:59 Home Medications: ARIPiprazole [Abilify*] 2.5 mg PO BEDTIME tab 07/04/22 Amino Acids/Protein Hydrolys [Prosource No Carb Liquid Pkt] 30 ml PO BID packet 07/04/22 Atorvastatin Calcium [Lipitor] 40 mg PO BEDTIME tab 07/04/22 Bisacodyl [Dulcolax*] 10 mg IA BEDTIME PRN supp 07/04/22 Dapagliflozin 10 Mg 10 mg PO DAILY 07/04/22 Diclofenac Gel 1 chi TOP BID 07/04/22 Docusate/Senna [Senokot-S*] 2 tab PO BID tab 07/04/22 Ensure Clear 237 ml PO BID can 07/04/22 Famotidine [Pepcid*] 20 mg PO BID tab 07/04/22 Ferrous Sulfate [Ferrous Sulfate*] 325 mg PO Q48H tab 07/04/22 Juluca 1 Tab-Cap/M2 1 tab PO DAILY 07/04/22 Lidocaine 4% Patch [Lidoderm 5% Patch*] 2 patch TOP DAILY pat 07/04/22 Mag Hydroxide 8% [Milk Of Magnesia*] 30 ml PO DAILY PRN 07/04/22 Metoprolol Succinate [Toprol Xl*] 12.5 mg PO BID tab 07/04/22 Nystatin Powder [Mycostatin (Powder)*] 1 appl TOP BID bottle 07/04/22 Pantoprazole [Protonix Tab*] 40 mg PO DAILY tab 07/04/22 Sacubitril/Valsartan [Entresto 24 mg-26 mg Tablet] 1 tab PO BID tab 07/04/22 Spironolactone [Aldactone*] 12.5 mg PO DAILY tab 07/04/22 Trazodone [Desyrel*] 50 mg PO BEDTIME 07/04/22 allopurinoL [Zyloprim*] 100 mg PO DAILY tab 07/04/22 levETIRAcetam [Keppra*] 750 mg PO BID tab 07/04/22 Acetaminophen Er 650 Mg 1 tab PO Q8H PRN 08/25/22 Duloxetine [Cymbalta *] 30 mg PO DAILY 08/25/22 Hydrocodone 10/APAP 325 [[place] 10/325*] 1 tab PO Q6H PRN 08/25/22 Warfarin Sodium [Coumadin*] 2.5 mg PO DAILY 5 PM #30 tab 09/06/22 Warfarin Sodium [Jantoven] 6 mg PO DAILY #30 tab 09/06/22 New Medications: Warfarin Sodium [Coumadin*] 2.5 mg PO DAILY 5 PM #30 tab Warfarin Sodium [Jantoven] 6 mg PO DAILY #30 tab Physician Discharge Instructions: Patient presented with weakness/deconditioning. His initial CT scan suggested possibility of an acute right MCA stroke with possible right MCA hyperdense sign. However, the patient's chronic stroke was in that same area and a subsequent CTA of the head identified no significant flow abnormalities. No right MCA occlusion identified in the area of the patient's chronic infarct. Neurology was consulted but felt no immediate intervention was needed and to continue medical management. It was noted he had a history of a mechanical aortic valve replacement and on warfarin. Cardiology was consulted given need for anticoagulation with history of hemorrhagic CVA conversion. Echo was normal. He was given coumadin to keep his INR between 2 and 3. He was also treated with statin, and keppra. New Prescriptions: Coumadin 8.5 mg daily. Please check PT/INR within 3 days for Coumadin dose adjustment. Follow up: PCP 3-5 days Neurology within a month Cardiology within a few weeks Diet: AHA Activity: Fall precautions Followup: NONE,NONE [Primary Care Provider] - 1-2 Weeks Time spent managing pt's care (in minutes): 40
[2022-09-06] MEDS: WARFARIN SODIUM 6 MG TAB PO SCH (17:53)
[2022-09-06] MEDS: WARFARIN SODIUM 2.5 MG TAB PO SCH (17:53)
--- NOTE | 2022-09-06 19:00 | P.PN ---
Subjective Date of Service: 09/06/22 Chief Complaint: Generalized Weakness Patient has no new complain. No issues overnight. Physical Examination - Vital Signs Temperature: 97.4 F Blood Pressure: 107/66 Pulse: 87 Respirations: 18 Pulse Ox (%): 99 Assessment And Plan - Current Problems (Diagnosis) (1) H/O mechanical aortic valve replacement Current Visit: No Status: Acute (2) HTN (hypertension) Current Visit: No Status: Acute (3) History of CVA (cerebrovascular accident) Current Visit: Yes Status: Acute - Plan Physical Exam: GEN: Alert, oriented, NAD HEENT: Normal conjunctiva, sclera anicteric CV: Regular rate and rhythm, no edema, Mechanical heart sound Pulm: Nonlabored respirations on room air, clear to auscultation bilaterally ABD: Soft, nontender, nondistended Neuro: alert, follows commands, L hemiparesis vitals reviewed Problem List: Weakness/Deconditioning/history of CVA 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 CTA head and neck: no MCA occlusion. Neurology consulted - no new CVA suspected continue PT Fall precautions Continue Keppra / home meds SS/CM consulted for assistance with equipment operator intermodal yard placement SIRS Criteria (Tachycardia, Leukocytosis) without Infectious Source infection ruled out Blood cultures: CONS seen growing in 1/4 bottles; skin contamination, no clear source of infection, no skin lesions stable and afebrile off antibiotics History of Mechanical Aortic Valve Replacement on Warfarin Cardiology consulted given need for anticoagulation with history of hemorrhagic CVA conversion has been on home dose of warfarin (5mg daily) goal INR 2-3 Coumadin titrated up to 8.5 mg daily. INR up to 2.2 Pharmacy to dose warfarin. Coronary Artery Disease s/p CABG/Chronic Systolic Congestive Heart Failure/Chronic Human Immunodeficiency Virus Infection/Hepatitis C Infection/Hypertension cpntinue home medications. VTE: Coumadin Code: Full Dispo: case management assisting with skilled nursing placement awaiting auth/approval
[2022-09-06] MEDS: ARIPiprazole 5 MG TAB PO SCH (21:31)
[2022-09-06] MEDS: HYDROCODONE/APAP 10/325 TAB PO PRN (21:32)
[2022-09-06] MEDS: ATORVASTATIN 40 MG TAB PO SCH (21:32)
[2022-09-06] MEDS: TRAZODONE 50 MG TABLET PO SCH (21:32)
[2022-09-07 04:09] LABS: Protime INR 2.35
[2022-09-07] MEDS: ENSURE CLEAR 200 ML CAN PO SCH ×2 (09:00→20:24)
[2022-09-07] MEDS: DAPAGLIFLOZIN 10 MG PO SCH (09:00)
[2022-09-07] MEDS: SACUBITRIL/VALSARTAN 24/26 MG TAB PO SCH ×2 (09:17→20:23)
[2022-09-07] MEDS: DULOXETINE 30 MG CAP PO SCH (09:17)
[2022-09-07] MEDS: SPIRONOLACTONE 25 MG TABLET PO SCH (09:17)
[2022-09-07] MEDS: PANTOPRAZOLE 40MG TABLET PO SCH (09:18)
[2022-09-07] MEDS: levETIRAcetam 500 MG TAB PO SCH ×2 (09:18→20:24)
[2022-09-07] MEDS: allopurinoL 100 MG TAB PO SCH (09:18)
[2022-09-07] MEDS: FAMOTIDINE 20 MG TAB PO SCH ×2 (09:19→20:24)
[2022-09-07] MEDS: METOPROLOL XL 25 MG TAB PO SCH ×2 (09:19→20:25)
--- NOTE | 2022-09-07 12:32 | P.PN ---
Subjective Date of Service: 09/07/22 Chief Complaint: Generalized Weakness Patient has no new complain. He is tolerating his diet. No reported constipation or diarrhea. Physical Examination - Vital Signs Temperature: 98.6 F Blood Pressure: 114/70 Pulse: 76 Respirations: 20 Pulse Ox (%): 97 Assessment And Plan - Current Problems (Diagnosis) (1) H/O mechanical aortic valve replacement Current Visit: No Status: Acute (2) HTN (hypertension) Current Visit: No Status: Acute (3) History of CVA (cerebrovascular accident) Current Visit: Yes Status: Acute - Plan Physical Exam: GEN: Alert, oriented, NAD HEENT: Normal conjunctiva, sclera anicteric CV: Regular rate and rhythm, no edema, Mechanical heart sound Pulm: Nonlabored respirations on room air, clear to auscultation bilaterally ABD: Soft, nontender, nondistended Neuro: alert, follows commands, L hemiparesis vitals reviewed Problem List: Weakness/Deconditioning/history of CVA 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 CTA head and neck: no MCA occlusion. Neurology consulted - no new CVA suspected continue PT Fall precautions Continue Keppra / home meds SS/CM consulted for assistance with prison placement SIRS Criteria (Tachycardia, Leukocytosis) without Infectious Source infection ruled out Blood cultures: CONS seen growing in 1/4 bottles; skin contamination, no clear source of infection, no skin lesions stable and afebrile off antibiotics History of Mechanical Aortic Valve Replacement on Warfarin Cardiology consulted given need for anticoagulation with history of hemorrhagic CVA conversion has been on home dose of warfarin (5mg daily) goal INR 2-3 Coumadin titrated up to 8.5 mg daily. INR is therapeutic. Pharmacy is dosing warfarin. Coronary Artery Disease s/p CABG/Chronic Systolic Congestive Heart Failure/Chronic Human Immunodeficiency Virus Infection/Hepatitis C Infection/H ypertension cpntinue home medications. VTE: Coumadin Code: Full Dispo: case management assisting with oil heaterman placement Clinically stable for discharge.
[2022-09-07] MEDS: WARFARIN SODIUM 2.5 MG TAB PO SCH (17:12)
[2022-09-07] MEDS: WARFARIN SODIUM 6 MG TAB PO SCH (17:12)
[2022-09-07] MEDS: TRAZODONE 50 MG TABLET PO SCH (20:23)
[2022-09-07] MEDS: ARIPiprazole 5 MG TAB PO SCH (20:23)
[2022-09-07] MEDS: ATORVASTATIN 40 MG TAB PO SCH (20:24)
[2022-09-07] MEDS: HYDROCODONE/APAP 10/325 TAB PO PRN (20:25)
[2022-09-08 04:17] LABS: Absolute Lymphocytes (CBC) 1.8 K/uL (0.7-4.9); Hematocrit 33.9 % (39.6-49.0); Lymphocytes % 19.6 % (15.3-44.8); MCV 81.4 fL (80-100); MPV 7.5 fL (7.6-11.3); RBC Red Blood Cell Count 4.16 M/uL (4.33-5.43)
[2022-09-08 04:22] LABS: Protime INR 2.96
[2022-09-08 04:30] LABS: Potassium 3.8 mEq/L (3.5-5.1)
[2022-09-08] MEDS: PANTOPRAZOLE 40MG TABLET PO SCH (08:38)
[2022-09-08] MEDS: FAMOTIDINE 20 MG TAB PO SCH ×2 (08:38→21:02)
[2022-09-08] MEDS: levETIRAcetam 500 MG TAB PO SCH ×2 (08:39→21:02)
[2022-09-08] MEDS: SPIRONOLACTONE 25 MG TABLET PO SCH (08:40)
[2022-09-08] MEDS: DULOXETINE 30 MG CAP PO SCH (08:40)
[2022-09-08] MEDS: allopurinoL 100 MG TAB PO SCH (08:40)
[2022-09-08] MEDS: HYDROCODONE/APAP 10/325 TAB PO PRN ×2 (08:41→18:43)
[2022-09-08] MEDS: ENSURE CLEAR 200 ML CAN PO SCH ×2 (08:42→21:09)
[2022-09-08] MEDS: DAPAGLIFLOZIN 10 MG PO SCH (08:42)
[2022-09-08] MEDS: SACUBITRIL/VALSARTAN 24/26 MG TAB PO SCH ×2 (09:03→21:01)
[2022-09-08] MEDS: METOPROLOL XL 25 MG TAB PO SCH ×2 (09:03→21:00)
--- NOTE | 2022-09-08 12:39 | P.PN ---
Subjective Date of Service: 09/08/22 Chief Complaint: Generalized Weakness Patient has no new complain. He is tolerating his diet. No issues overnight. Physical Examination - Vital Signs Temperature: 97.3 F Blood Pressure: 109/75 Pulse: 101 Respirations: 18 Pulse Ox (%): 98 Assessment And Plan - Current Problems (Diagnosis) (1) H/O mechanical aortic valve replacement Current Visit: No Status: Acute (2) HTN (hypertension) Current Visit: No Status: Acute (3) History of CVA (cerebrovascular accident) Current Visit: Yes Status: Acute - Plan Physical Exam: GEN: Awake, NAD HEENT: Normal conjunctiva, sclera anicteric CV: Regular rate and rhythm, no edema, Mechanical heart sound Pulm: Nonlabored respirations on room air, clear to auscultation bilaterally ABD: Soft, nontender, nondistended Neuro: alert, follows commands, L hemiparesis vitals reviewed Problem List: Weakness/Deconditioning/history of CVA 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 CTA head and neck: no MCA occlusion. Neurology consulted - no new CVA suspected continue PT Fall precautions Continue Keppra / home meds SS/CM consulted for assistance with halfway placement SIRS Criteria (Tachycardia, Leukocytosis) without Infectious Source infection ruled out Blood cultures: CONS seen growing in 1/4 bottles; skin contamination, no clear source of infection, no skin lesions stable and afebrile off antibiotics History of Mechanical Aortic Valve Replacement on Warfarin Cardiology consulted given need for anticoagulation with history of hemorrhagic CVA conversion has been on home dose of warfarin (5mg daily) goal INR 2-3 Coumadin titrated up to 8.5 mg daily. INR is therapeutic. Pharmacy is dosing warfarin. Coronary Artery Disease s/p CABG/Chronic Systolic Congestive Heart Failure/Chronic Human Immunodeficiency Virus Infection/Hepatitis C Infection/Hypertension cpntinue home medications. VTE: Coumadin Code: Full Dispo: case management assisting with halfway placement Clinically stable for discharge.
[2022-09-08] MEDS: WARFARIN SODIUM 2.5 MG TAB PO SCH (17:03)
[2022-09-08] MEDS: WARFARIN SODIUM 6 MG TAB PO SCH (17:03)
[2022-09-08] MEDS: ATORVASTATIN 40 MG TAB PO SCH (21:01)
[2022-09-08] MEDS: TRAZODONE 50 MG TABLET PO SCH (21:01)
[2022-09-08] MEDS: ARIPiprazole 5 MG TAB PO SCH (21:01)
[2022-09-09] MEDS: levETIRAcetam 500 MG TAB PO SCH ×2 (08:13→20:25)
[2022-09-09] MEDS: PANTOPRAZOLE 40MG TABLET PO SCH (08:13)
[2022-09-09] MEDS: SPIRONOLACTONE 25 MG TABLET PO SCH (08:13)
[2022-09-09] MEDS: allopurinoL 100 MG TAB PO SCH (08:14)
[2022-09-09] MEDS: FAMOTIDINE 20 MG TAB PO SCH ×2 (08:14→20:26)
[2022-09-09] MEDS: DAPAGLIFLOZIN 10 MG PO SCH (08:14)
[2022-09-09] MEDS: DULOXETINE 30 MG CAP PO SCH (08:14)
[2022-09-09] MEDS: SACUBITRIL/VALSARTAN 24/26 MG TAB PO SCH ×2 (08:14→20:26)
[2022-09-09] MEDS: ENSURE CLEAR 200 ML CAN PO SCH ×2 (08:14→20:27)
[2022-09-09] MEDS: METOPROLOL XL 25 MG TAB PO SCH ×2 (08:15→20:27)
[2022-09-09 09:18] VITALS: O2SAT 96
[2022-09-09] MEDS: HYDROCODONE/APAP 10/325 TAB PO PRN ×2 (11:43→20:40)
--- NOTE | 2022-09-09 12:16 | P.PN ---
Subjective Date of Service: 09/09/22 Chief Complaint: Generalized Weakness Patient has no new complain. Physical Examination - Vital Signs Temperature: 98.4 F Blood Pressure: 100/68 Pulse: 87 Respirations: 18 Pulse Ox (%): 96 Assessment And Plan - Current Problems (Diagnosis) (1) H/O mechanical aortic valve replacement Current Visit: No Status: Acute (2) HTN (hypertension) Current Visit: No Status: Acute (3) History of CVA (cerebrovascular accident) Current Visit: Yes Status: Acute - Plan Physical Exam: GEN: Awake, NAD HEENT: Normal conjunctiva, sclera anicteric CV: Regular rate and rhythm, no edema, Mechanical heart sound Pulm: Nonlabored respirations on room air, clear to auscultation bilaterally ABD: Soft, nontender, nondistended Neuro: alert, follows commands, L hemiparesis vitals reviewed Problem List: Weakness/Deconditioning/history of CVA 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 CTA head and neck: no MCA occlusion. Neurology consulted - no new CVA suspected continue PT Fall precautions Continue Keppra / home meds SS/CM assisting with arrangement for termite helper placement SIRS Criteria (Tachycardia, Leukocytosis) without Infectious Source infection ruled out Blood cultures: CONS seen growing in 1/4 bottles; skin contamination, no clear source of infection, no skin lesions stable and afebrile off antibiotics History of Mechanical Aortic Valve Replacement on Warfarin Cardiology consulted given need for anticoagulation with history of hemorrhagic CVA conversion has been on home dose of warfarin (5mg daily) goal INR 2-3 Coumadin titrated up to 8.5 mg daily. INR is therapeutic. Pharmacy is dosing warfarin. Clinically stable Coronary Artery Disease s/p CABG/Chronic Systolic Congestive Heart Failure/Chronic Human Immunodeficiency Virus Infection/Hepatitis C Infection/Hypertension continue home medications. VTE: Coumadin Code: Full Dispo:Home vs long-term care placement. Clinically stable for discharge.
[2022-09-09 16:12] LABS: Protime INR 2.18
[2022-09-09] MEDS ORDERED: WARFARIN SODIUM 4 MG TAB PO SCH (17:00)
[2022-09-09] MEDS: WARFARIN SODIUM 6 MG TAB PO SCH (17:05)
[2022-09-09] MEDS: WARFARIN SODIUM 2.5 MG TAB PO SCH (17:05)
[2022-09-09] MEDS: ARIPiprazole 5 MG TAB PO SCH (20:26)
[2022-09-09] MEDS: TRAZODONE 50 MG TABLET PO SCH (20:26)
[2022-09-09] MEDS: ATORVASTATIN 40 MG TAB PO SCH (20:26)
[2022-09-10] MEDS: HYDROCODONE/APAP 10/325 TAB PO PRN ×3 (03:38→19:54)
[2022-09-10] MEDS: ENSURE CLEAR 200 ML CAN PO SCH ×2 (09:00→20:09)
[2022-09-10] MEDS: DAPAGLIFLOZIN 10 MG PO SCH (09:00)
[2022-09-10] MEDS: METOPROLOL XL 25 MG TAB PO SCH ×2 (09:00→20:08)
[2022-09-10] MEDS: SACUBITRIL/VALSARTAN 24/26 MG TAB PO SCH ×2 (09:06→19:53)
[2022-09-10] MEDS: PANTOPRAZOLE 40MG TABLET PO SCH (09:06)
[2022-09-10] MEDS: allopurinoL 100 MG TAB PO SCH (09:06)
[2022-09-10] MEDS: DULOXETINE 30 MG CAP PO SCH (09:06)
[2022-09-10] MEDS: SPIRONOLACTONE 25 MG TABLET PO SCH (09:06)
[2022-09-10] MEDS: FAMOTIDINE 20 MG TAB PO SCH ×2 (09:06→19:53)
[2022-09-10] MEDS: levETIRAcetam 500 MG TAB PO SCH ×2 (09:07→19:52)
--- NOTE | 2022-09-10 14:19 | P.PN ---
Subjective Date of Service: 09/10/22 Chief Complaint: Generalized Weakness Patient has no new complain. No issues overnight. He is tolerating his diet. Physical Examination - Vital Signs Temperature: 98.5 F Blood Pressure: 105/65 Pulse: 85 Respirations: 18 Pulse Ox (%): 95 Assessment And Plan - Current Problems (Diagnosis) (1) H/O mechanical aortic valve replacement Current Visit: No Status: Acute (2) HTN (hypertension) Current Visit: No Status: Acute (3) History of CVA (cerebrovascular accident) Current Visit: Yes Status: Acute - Plan Physical Exam: GEN: Awake, NAD HEENT: Normal conjunctiva, sclera anicteric CV: Regular rate and rhythm, no edema, Mechanical heart sound Pulm: Nonlabored respirations on room air, clear to auscultation bilaterally ABD: Soft, nontender, nondistended Neuro: alert, follows commands, L hemiparesis vitals reviewed Problem List: Weakness/Deconditioning/history of CVA 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 CTA head and neck: no MCA occlusion. Neurology consulted - no new CVA suspected continue PT Fall precautions Continue Keppra / home meds SS/CM assisting with arrangement for intermediate placement. SIRS Criteria (Tachycardia, Leukocytosis) without Infectious Source infection ruled out Blood cultures: CONS seen growing in 1/4 bottles; skin contamination, no clear source of infection, no skin lesions stable and afebrile off antibiotics History of Mechanical Aortic Valve Replacement on Warfarin goal INR 2-3 Coumadin titrated up to 8.5 mg daily. INR is therapeutic. Pharmacy is dosing warfarin. Clinically stable Coronary Artery Disease s/p CABG/Chronic Systolic Congestive Heart Failure/Chronic Human Immunodeficiency Virus Infection/Hepatitis C Infection/Hypertension continue home medications. VTE: Coumadin Code: Full Dispo:Home vs long-term care placement. Clinically stable for discharge.
[2022-09-10 16:18] LABS: Protime INR 3.95
[2022-09-10] MEDS: WARFARIN SODIUM 2.5 MG TAB PO SCH (16:36)
[2022-09-10] MEDS: WARFARIN SODIUM 6 MG TAB PO SCH (16:36)
[2022-09-10] MEDS: ARIPiprazole 5 MG TAB PO SCH (19:53)
[2022-09-10] MEDS: ATORVASTATIN 40 MG TAB PO SCH (19:53)
[2022-09-10] MEDS: TRAZODONE 50 MG TABLET PO SCH (19:54)
[2022-09-11] MEDS: HYDROCODONE/APAP 10/325 TAB PO PRN ×3 (03:36→22:21)
[2022-09-11 06:04] LABS: Protime INR 3.73
--- NOTE | 2022-09-11 07:01 | P.PN ---
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 CTA head and neck: no MCA occlusion. Neurology consulted - no new CVA suspected continue PT / Fall precautions Continue home meds SS/CM assisting with arrangement for rat exterminator placement. SIRS Criteria (Tachycardia, Leukocytosis) without Infectious Source infection ruled out Blood cultures: CONS seen growing in 1/4 bottles; skin contamination, no clear source of infection, no skin lesions stable and afebrile off antibiotics History of Mechanical Aortic Valve Replacement on Warfarin goal INR 2-3 Coumadin titrated up to 8.5 mg daily. Pharmacy is dosing warfarin. Clinically stable Coronary Artery Disease s/p CABG/Chronic Systolic Congestive Heart Failure/Chronic Human Immunodeficiency Virus Infection/Hepatitis C Infection/Hypertension continue home medications. VTE: Coumadin Code: Full Dispo: snf Clinically stable for discharge. Possible approval tomorrow 09/12
[2022-09-11] MEDS: DAPAGLIFLOZIN 10 MG PO SCH (09:00)
[2022-09-11] MEDS: PANTOPRAZOLE 40MG TABLET PO SCH (09:49)
[2022-09-11] MEDS: levETIRAcetam 500 MG TAB PO SCH ×2 (09:49→20:52)
[2022-09-11] MEDS: DULOXETINE 30 MG CAP PO SCH (09:49)
[2022-09-11] MEDS: FAMOTIDINE 20 MG TAB PO SCH ×2 (09:49→20:54)
[2022-09-11] MEDS: METOPROLOL XL 25 MG TAB PO SCH ×2 (09:49→20:53)
[2022-09-11] MEDS: allopurinoL 100 MG TAB PO SCH (09:49)
[2022-09-11] MEDS: ENSURE CLEAR 200 ML CAN PO SCH ×2 (09:50→20:55)
[2022-09-11] MEDS: SPIRONOLACTONE 25 MG TABLET PO SCH (09:50)
[2022-09-11] MEDS: SACUBITRIL/VALSARTAN 24/26 MG TAB PO SCH ×2 (09:50→20:54)
[2022-09-11 12:32] LABS: SARS-CoV-2 Antigen Rapid Res Negative (Negative)
[2022-09-11] MEDS: ATORVASTATIN 40 MG TAB PO SCH (20:53)
[2022-09-11] MEDS: TRAZODONE 50 MG TABLET PO SCH (20:54)
[2022-09-11] MEDS: ARIPiprazole 5 MG TAB PO SCH (20:54)
[2022-09-12 06:29] LABS: Protime INR 2.55
--- NOTE | 2022-09-12 07:24 | P.PN ---
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 CTA head and neck: no MCA occlusion. Neurology consulted - no new CVA suspected continue PT / Fall precautions Continue home meds SS/CM assisting with arrangement for correction placement. SIRS Criteria (Tachycardia, Leukocytosis) without Infectious Source infection ruled out Blood cultures: CONS seen growing in 1/4 bottles; skin contamination, no clear source of infection, no skin lesions stable and afebrile off antibiotics History of Mechanical Aortic Valve Replacement on Warfarin goal INR 2-3 Coumadin titrated up to 8.5 mg daily. Pharmacy is dosing warfarin. Clinically stable Coronary Artery Disease s/p CABG/Chronic Systolic Congestive Heart Failure/Chronic Human Immunodeficiency Virus Infection/Hepatitis C Infection/Hypertension continue home medications. VTE: Coumadin Code: Full Dispo: shelter Clinically stable for discharge. pending approval
[2022-09-12] MEDS: DAPAGLIFLOZIN 10 MG PO SCH (09:00)
[2022-09-12] MEDS: PANTOPRAZOLE 40MG TABLET PO SCH (09:18)
[2022-09-12] MEDS: METOPROLOL XL 25 MG TAB PO SCH (09:18)
[2022-09-12] MEDS: allopurinoL 100 MG TAB PO SCH (09:18)
[2022-09-12] MEDS: SACUBITRIL/VALSARTAN 24/26 MG TAB PO SCH (09:18)
[2022-09-12] MEDS: SPIRONOLACTONE 25 MG TABLET PO SCH (09:18)
[2022-09-12] MEDS: levETIRAcetam 500 MG TAB PO SCH (09:18)
[2022-09-12] MEDS: FAMOTIDINE 20 MG TAB PO SCH (09:18)
[2022-09-12] MEDS: DULOXETINE 30 MG CAP PO SCH (09:18)
[2022-09-12] MEDS: HYDROCODONE/APAP 10/325 TAB PO PRN (09:19)
[2022-09-12] MEDS: ENSURE CLEAR 200 ML CAN PO SCH (09:19)
[2022-09-12 12:16] VITALS: BP 98/60; TEMP 97.8
[2022-09-12] MEDS ORDERED: WARFARIN SODIUM 7.5 MG TAB PO SCH (17:00)
--- NOTE | 2022-09-13 07:15 | P.DS ---
Admission Date: 08/27/22 Discharge Date: 09/12/22 Disposition: DC HOME/HOME HEALTH CARE Discharge Condition: FAIR Reason for Admission: Generalized Weakness Consultations: Neurology - Dr. Mares Cardiology - Dr. Muro / Dr. Colon Brief History of Present Illness: 56yo M, PMH: prior ischemic cerebrovascular accident with hemorrhagic conversion, coronary artery disease s/p CABG, chronic systolic congestive heart failure, chronic human immunodeficiency virus infection, hepatitis C infection, and hypertension Patient who presents to the [facility] Emergency Department due to generalized weakness and concern for home safety. He was recently admitted for an acute cerebrovascular accident and discharged from inpatient rehab. Due to significant weakness/deconditioning, his sister was concerned that she is unable to take care of him at home. On review of systems, he denies any fevers, chills, headaches, dizziness, syncope, chest pain, palpitations, shortness of breath, wheezing, cough, abdominal pain, nausea/vomiting, diarrhea, constipation, hematochezia, melena, or any other symptoms. He was brought to the Emergency Department for further evaluation. 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 His initial CT scan suggested possibility of an acute right MCA stroke with possible right MCA hyperdense sign. However, the patient's chronic stroke was in that same area and a subsequent CTA of the head identified no significant flow abnormalities. No right MCA occlusion identified in the area of the patient's chronic infarct. Neurology was consulted and felt these findings were consistent with prior infarct and no immediate intervention was needed and to continue medical management. It was noted he had a history of a mechanical aortic valve replacement and on warfarin. Cardiology was consulted given need for anticoagulation with history of hemorrhagic CVA conversion. Echo was normal. His INR was monitored and coumadin adjusted. He was continued on his home medications.j Initially he met SIRS criteria and concern for infectious process, however symptoms and SIRS criteria quickly resolved, remained afebrile without antibiotics, and continued to do well throughout the hospitalization. Infection was ruled out. New Prescriptions: Coumadin 7.5 mg daily. Please check PT/INR within 3 days for Coumadin dose adjustment. Follow up: PCP 3-5 days Neurology within a month Cardiology within a few weeks Physical Exam: GEN: Alert, oriented, NAD HEENT: Normal conjunctiva, sclera anicteric CV: Regular rate and rhythm, no edema, +systolic click (Mechanical heart sound) Pulm: Nonlabored respirations on room air ABD: Soft, nontender, nondistended MSK: No joint tenderness Integumentary: No rashes Neuro: alert, follows commands, L hemiparesis Vital Signs/Physical Exam: Temp Pulse Resp BP Pulse Ox 97.8 F 88 16 98/60 97 09/12/22 12:00 09/12/22 12:00 09/12/22 12:00 09/12/22 12:00 09/12/22 12:00 Laboratory Data at Discharge: WBC 9.00 thou/uL (4.3-10.9) 09/08/22 04:01 Hgb 10.8 g/dL (13.6-17.9) L 09/08/22 04:01 Hct 33.9 % (39.6-49.0) L 09/08/22 04:01 Plt Count 188 thou/uL (152-406) 09/08/22 04:01 PT 28.1 SECONDS (9.5-12.5) H 09/12/22 05:25 INR 2.55 09/12/22 05:25 APTT 36.6 SECONDS (24.3-36.9) 08/25/22 10:32 Sodium 136 mEq/L (136-145) 09/08/22 04:01 Potassium 3.8 mEq/L (3.5-5.1) 09/08/22 04:01 BUN 14 mg/dL (7-18) 09/08/22 04:01 Creatinine 0.45 mg/dL (0.70-1.30) L 09/08/22 04:01 Glucose 112 mg/dL (74-106) H 09/08/22 04:01 Phosphorus 3.8 mg/dL (2.5-4.9) 08/26/22 05:59 Magnesium 2.4 mg/dL (1.6-2.4) 08/28/22 05:04 Total Bilirubin 0.8 mg/dL (0.2-1.0) 08/26/22 05:59 AST 32 U/L (15-37) 08/26/22 05:59 ALT 39 U/L (16-61) 08/26/22 05:59 Alkaline Phosphatase 124 U/L (45-117) H 08/26/22 05:59 Home Medications: ARIPiprazole [Abilify*] 2.5 mg PO BEDTIME tab 07/04/22 Amino Acids/Protein Hydrolys [Prosource No Carb Liquid Pkt] 30 ml PO BID packet 07/04/22 Atorvastatin Calcium [Lipitor] 40 mg PO BEDTIME tab 07/04/22 Bisacodyl [Dulcolax*] 10 mg TN BEDTIME PRN supp 07/04/22 Dapagliflozin 10 Mg 10 mg PO DAILY 07/04/22 Diclofenac Gel 1 chi TOP BID 07/04/22 Docusate/Senna [Senokot-S*] 2 tab PO BID tab 07/04/22 Ensure Clear 237 ml PO BID can 07/04/22 Famotidine [Pepcid*] 20 mg PO BID tab 07/04/22 Ferrous Sulfate [Ferrous Sulfate*] 325 mg PO Q48H tab 07/04/22 [place] 1 Tab-Cap/M2 1 tab PO DAILY 07/04/22 Lidocaine 4% Patch [Lidoderm 5% Patch*] 2 patch TOP DAILY pat 07/04/22 Mag Hydroxide 8% [Milk Of Magnesia*] 30 ml PO DAILY PRN 07/04/22 Metoprolol Succinate [Toprol Xl*] 12.5 mg PO BID tab 07/04/22 Nystatin Powder [Mycostatin (Powder)*] 1 appl TOP BID bottle 07/04/22 Pantoprazole [Protonix Tab*] 40 mg PO DAILY tab 07/04/22 Sacubitril/Valsartan [Entresto 24 mg-26 mg Tablet] 1 tab PO BID tab 07/04/22 Spironolactone [Aldactone*] 12.5 mg PO DAILY tab 07/04/22 Trazodone [Desyrel*] 50 mg PO BEDTIME 07/04/22 allopurinoL [Zyloprim*] 100 mg PO DAILY tab 07/04/22 levETIRAcetam [Keppra*] 750 mg PO BID tab 07/04/22 Acetaminophen Er 650 Mg 1 tab PO Q8H PRN 08/25/22 Duloxetine [Cymbalta *] 30 mg PO DAILY 08/25/22 Hydrocodone 10/APAP 325 [[place] 10/325*] 1 tab PO Q6H PRN 08/25/22 Warfarin Sodium [Coumadin*] 7.5 mg PO DAILY 5 PM #30 tab 09/12/22 New Medications: Warfarin Sodium [Coumadin*] 7.5 mg PO DAILY 5 PM #30 tab Physician Discharge Instructions: Patient presented with weakness/deconditioning. His initial CT scan suggested possibility of an acute right MCA stroke with possible right MCA hyperdense sign. However, the patient's chronic stroke was in that same area and a subsequent CTA of the head identified no significant flow abnormalities. No right MCA occlusion identified in the area of the patient's chronic infarct. Neurology was consulted and felt these findings were consistent with prior infarct and no immediate intervention was needed and to continue medical management. It was noted he had a history of a mechanical aortic valve replacement and on warfarin. Cardiology was consulted given need for anticoagulation with history of hemorrhagic CVA conversion. Echo was normal. His INR was monitored and coumadin adjusted. He was continued on his home medications.j Initially he met SIRS criteria and concern for infectious process, however symptoms and SIRS criteria quickly resolved, remained afebrile without antibiotics, and continued to do well throughout the hospitalization. Infection was ruled out. New Prescriptions: Coumadin 7.5 mg daily. Please check PT/INR within 3 days for Coumadin dose adjustment. Follow up: PCP 3-5 days Neurology within a month Cardiology within a few weeks Diet: AHA Activity: Fall precautions Followup: NONE,NONE [Primary Care Provider] - 1-2 Weeks Time spent managing pt's care (in minutes): 45
== END 2022-09-12 14:54 | DRG 948 ==
LOC: ER 09:47 → ERHOLD 12:07 → 4TH 17:18 → OBSVTOIN 08-27 17:52
PROVIDERS: ADMIT Internal Medicine; ATTEND Hospitalist
DX: R53.1 Weakness (principal); I69.354 Hemiplegia and hemiparesis following cerebral infarction affecting left non-dominant side; I50.22 Chronic systolic (congestive) heart failure; R65.10 Systemic inflammatory response syndrome (SIRS) of non-infectious origin without acute organ dysfunction; R47.01 Aphasia; I11.0 Hypertensive heart disease with heart failure; E11.9 Type 2 diabetes mellitus without complications; M10.9 Gout, unspecified; G20 Parkinson's disease; E78.00 Pure hypercholesterolemia, unspecified; I25.10 Atherosclerotic heart disease of native coronary artery without angina pectoris; B19.20 Unspecified viral hepatitis C without hepatic coma; R29.712 NIHSS score 12; R29.810 Facial weakness; Z21 Asymptomatic human immunodeficiency virus [HIV] infection status; Z95.2 Presence of prosthetic heart valve; Z95.1 Presence of aortocoronary bypass graft; Z79.01 Long term (current) use of anticoagulants; Z79.899 Other long term (current) drug therapy; Z20.822 Contact with and (suspected) exposure to COVID-19
CPT/HCPCS: 36415; 70450; 70496; 70498; 71045; 80048; 80053; 81001; 83605; 83735; 84100; 84484; 85025; 85610; 85730; 87040; 87205; 87811; 92526; 92610; 93005; 93306; 97110; 97112; 97140; 97161; 97165; 97530; 99285; G0378; J1160; J3475; J7040; Q9967